=== PATIENT | female | born 1960 | race Hispanic/Latino ===

== ENCOUNTER 2017-08-16 13:36 | Inpatient (IN) | payer MEDICAID, OTHER ==
[2017-08-16 13:42] VITALS: BMI 24.3
--- NOTE | 2017-08-16 13:48 | ED PDOC ---
Arrival/HPI - General Time Seen by Provider: 08/16/17 13:44 Historian: Patient - History of Present Illness Narrative History of Present Illness (Text): 08/16/17 15:17 A 57 year old female, whose past medical history includes COPD (continued use of tobacco), hypertension, anxiety, depression, presents to the emergency department complaining of increased somnolence for 1 week. Patient reports also experiencing apathetic depressed mood. Patient displays perioral cyanosis and cough with whitish mucous. Denies of any fever, chills, chest pain, or any complaints at this time. Also, patient notes having palpitations that are relieved with Albuterol. PMD: Dr. Cordova Past Medical History - Provider Review Nursing Documentation Reviewed: Yes - Travel History Have you recently traveled outside [place] w/in the past 3 mons?: No Family/Social History - Physician Review Nursing Documentation Reviewed: Yes Family/Social History: No Known Family HX Allergies/Home Meds Allergies/Adverse Reactions: Allergies No Known Allergies Allergy (Verified 08/16/17 13:42) Home Medications: Home Meds Medication Instructions Recorded Confirmed Albuterol HFA [Ventolin HFA 90 60 puff INH PRN PRN 08/16/17 08/16/17 mcg/actuation (8 g)] Albuterol Sulfate [Proair 90 mcg INH PRN PRN 08/16/17 08/16/17 Respiclick] Bupropion HCl [Bupropion HCl Sr] 150 mg PO BID 08/16/17 08/16/17 Dextroamphetamine/Amphetamine 5 mg PO DAILY 08/16/17 08/16/17 [Dextroamp-Amphetamine 5 mg Tab] Lisinopril/Hydrochlorothiazide 1 tab PO DAILY 08/16/17 08/16/17 [Lisinopril-Hctz 10-12.5 mg Tab] Review of Systems - Physician Review All systems were reviewed & negative as marked: Yes - Review of Systems Constitutional: Other (somnolence). absent: Fevers, Night Sweats Eyes: Normal ENT: Normal Respiratory: Cough (with whitish mucous) Cardiovascular: Palpitations (relieved with Albuterol). absent: Chest Pain Gastrointestinal: Normal Genitourinary Female: Normal Musculoskeletal: Normal Skin: Other (perioral cyanosis) Neurological: Normal Endocrine: Normal Hemo/Lymphatic: Normal Psychiatric: Depression Physical Exam Vital Signs Reviewed: Yes Vital Signs Temp Pulse Resp BP Pulse Ox 08/16/17 17:31 98 H 18 114/81 93 L 08/16/17 16:21 117/67 08/16/17 13:37 98 F 99 H 18 105/67 95 Temperature: Afebrile Blood Pressure: Normal Pulse: Regular Respiratory Rate: Normal Appearance: Positive for: Well-Appearing Pain Distress: None Mental Status: Positive for: Alert and Oriented X 3 - Systems Exam Head: Present: Atraumatic, Normocephalic Pupils: Present: PERRL Extroacular Muscles: Present: EOMI Conjunctiva: Present: Normal Mouth: Present: Moist Mucous Membranes Neck: Present: Normal Range of Motion Respiratory/Chest: Present: Other (decreased I/E ratio) Cardiovascular: Present: Regular Rate and Rhythm, Normal S1, S2. No: Murmurs Abdomen: Present: Normal Bowel Sounds. No: Tenderness, Distention, Peritoneal Signs Back: Present: Normal Inspection Upper Extremity: Present: Normal Inspection. No: Cyanosis, Edema Lower Extremity: Present: Edema (+2) Neurological: Present: GCS=15, CN II-XII Intact, Speech Normal, Motor Func Grossly Intact, Normal Sensory Function, Normal Cerebellar Funct, Norm Deep Tendon Reflexes, Gait Normal Skin: Present: Warm, Dry, Normal Color. No: Rashes Psychiatric: Present: Alert, Oriented x 3, Normal Insight, Normal Concentration Medical Decision Making ED Course and Treatment: 08/16/17 15:20 Impression: 57 year old female with increased somnolence and apathetic depressed mood. Physical exam shows significant oxygen saturation 72% of room air; lungs shows decreased I/E ratio shallow volume; +2 edema to lower extremities. Differential Diagnosis included but are not limited to: COPD Exacerbation vs. URI with concomitant Plan: -- EKG -- Chest X-ray -- Blood Culture -- Urinalysis -- Doxycycline -- Lasix -- Atrovert -- Medrol -- Rocephin -- Reassess and disposition Progress Notes: 08/16/2017 15:22 Admission dictated given to low O2 saturation. Patient will obtain psychiatric evaluation. 08/16/2017 15:26 Chest X-ray IMPRESSION: No active disease. Small pleural effusions. Dictator: Jose Enrique White MD - Lab Interpretations Microbiology Results: Microbiology Results 08/16/17 15:15 Blood-Venous Blood Culture - Final NO GROWTH AFTER 5 DAYS 08/16/17 15:15 Blood-Venous Gram Stain - Final TEST NOT PERFORMED 08/16/17 14:45 Blood-Venous Blood Culture - Final NO GROWTH AFTER 5 DAYS 08/16/17 14:45 Blood-Venous Gram Stain - Final TEST NOT PERFORMED Lab Results: 08/16/17 14:30 08/16/17 14:30 Lab Results 08/16/17 14:30: TSH 3rd Generation 3.59 08/16/17 14:30: Sodium 141, Chloride 97 L, Potassium 4.5, Carbon Dioxide 33, Anion Gap 16, BUN 46 H, Creatinine 1.7 H, Est GFR ( Amer) 37, Est GFR ( Non-Af Amer) 31, Random Glucose 100, Calcium 9.8, Total Bilirubin 1.7 H, AST 23 , ALT 37, Alkaline Phosphatase 46, Lactate Dehydrogenase 547, Total Creatine Kinase 51, Troponin I 0.03, NT-Pro-B Natriuret Pep 01034 H, Total Protein 6.5, Albumin 3.6, Globulin 2.9, Albumin/Globulin Ratio 1.2 08/16/17 14:30: pO2 30, VBG pH 7.24 L, VBG pCO2 91.0 H*, VBG HCO3 39.0 H, VBG Total CO2 41.8 H, VBG O2 Sat (Calc) 52.2, VBG Base Excess 8.0 H, VBG Potassium 4.7, Sodium 138.0, Chloride 99.0, Glucose 105, Lactate 1.3, FiO2 21.0, Venous Blood Potassium 4.7 08/16/17 14:30: WBC 9.5, RBC 5.77, Hgb 17.7 H, Hct 57.1 H*, MCV 99.0, MCH 30.7, MCHC 31.0, RDW 16.5 H, Plt Count 281, MPV 11.2 H, Gran % 69.3 H, Lymph % (Auto) 16.9 L, Roosevelt % (Auto) 12.7 H, Eos % (Auto) 0.5 L, Baso % (Auto) 0.6, Gran # 6.56 H, Lymph # 1.6, Roosevelt # 1.2 H, Eos # 0.1, Baso # 0.06 08/16/17 14:30: PT 15.0 H, INR 1.31 H, APTT 30.4 - RAD Interpretation Radiology Orders: 08/16/17 13:44 CHEST TWO VIEWS (PA/LAT) [RAD] Stat - Medication Orders Current Medication Orders: Aspirin (Aspirin Chewable) 81 mg PO DAILY [facility] Last Admin: 08/27/17 10:23 Dose: 81 mg Benzocaine/Menthol (Cepacol Sore Throat) 1 sophia MT Q2H PRN PRN Reason: Sore Throat Last Admin: 08/26/17 22:02 Dose: 1 sophia Bupropion HCl (Wellbutrin Sr 150 Mg) 150 mg PO BID [facility] Last Admin: 08/27/17 17:46 Dose: 150 mg Clonazepam (Klonopin) 1 mg PO TID JONAH PRN Reason: Protocol Last Admin: 08/27/17 17:07 Dose: 1 mg Behavioural Document 08/27/17 17:07 (Rec: 08/27/17 17:07 [id number]) Maintenance Maintenance Dose Yes Re-Assess: Reassess Psych Meds Document 08/27/17 18:07 (Rec: 08/27/17 18:34 [id number]) Reassess Psych Med Effective Furosemide (Lasix) 40 mg IVP Q12 [facility] Last Admin: 08/27/17 21:34 Dose: Not Given Non-Admin Reason: BP Parameters Not Met [facility] Blood Pressure Document 08/27/17 21:34 CO (Rec: 08/27/17 21:35 CO [id number]) Blood Pressure Blood Pressure (100/60-150/90) 100/65 Guaifenesin/Dextromethorphan (Robitussin Dm) 10 ml PO Q4H PRN PRN Reason: Cough Last Admin: 08/27/17 21:30 Dose: 10 ml Home Med (Home Med) 1 unit PO DAILY [facility] Last Admin: 08/27/17 10:29 Dose: Home Med (Home Med) 1 unit PO DAILY [facility] Last Admin: 08/27/17 10:29 Dose: Vancomycin HCl (Vancomycin 1gm) 1 gm in 250 mls @ 167 mls/hr IVPB Q12H JONAH PRN Reason: Protocol Last Admin: 08/27/17 17:07 Dose: 167 mls/hr eMAR Start Stop Document 08/27/17 17:07 (Rec: 08/27/17 17:07 [id number]) Intravenous Solution Start Date 08/27/17 Start Time 17:07 End Date 08/27/17 End time 18:10 Total Infusion Time 63 Meropenem 500 mg/ Sodium (Chloride) 100 mls @ 100 mls/hr IVPB Q8 JONAH PRN Reason: Protocol Last Admin: 08/27/17 21:40 Dose: 100 mls/hr eMAR Start Stop Document 08/27/17 21:40 CO (Rec: 08/27/17 21:40 CO [id number]) Intravenous Solution Start Date 08/27/17 Start Time 21:40 Ibuprofen (Motrin Tab) 400 mg PO Q6H PRN PRN Reason: Pain, moderate (4-7) Last Admin: 08/26/17 22:02 Dose: 400 mg MAR Pain/Vitals Document 08/26/17 22:02 JOELS (Rec: 08/26/17 22:04 KOPPS [id number]) Pain Reassessment Is This A Pain ReAssessment? No Sleep Is patient sleeping during reassessment? No Presence of Pain Presence of Pain Yes Pain Scale Used Pain Scale Used Numeric Location Left, Right or Bilateral Bilateral Upper or Lower Upper Pain Location Body [employer] Description Constant Intensity 6 Scale Used Numeric Pain Behavior Facial Grimacing Aggravating Factors ADL's Changing Position Exercise/Activity Alleviating Factors Medication Re-Assess: [facility] Pain/Vitals Document 08/26/17 23:02 JOELS (Rec: 08/27/17 00:26 KOPPS [id number]) Pain Reassessment Is This A Pain ReAssessment? Yes Sleep Is patient sleeping during reassessment? No Presence of Pain Presence of Pain No Levalbuterol HCl (Xopenex) 1.25 mg IH [id number] [facility] Last Admin: 08/27/17 19:17 Dose: 1.25 mg Levalbuterol HCl (Xopenex) 0.63 mg IH Q2H PRN PRN Reason: Shortness of Breath Last Admin: 08/25/17 16:09 Dose: 0.63 mg Lisinopril (Zestril) 10 mg PO DAILY [facility] Last Admin: 08/20/17 12:13 Dose: Not Given Non-Admin Reason: Patient Lethargic [facility] Pulse and Blood Pressure Document 08/20/17 12:13 [facility] (Rec: 08/20/17 12:14 [id number] Pulse Pulse Rate (60-90) 105 Blood Pressure Blood Pressure (100/60-150/90) 140/93 Methylprednisolone (Solu-Medrol) 40 mg IVP Q12H [facility] Last Admin: 08/27/17 12:26 Dose: 40 mg IVP Administration Document 08/27/17 12:26 J (Rec: 08/27/17 12:26 [id number]) Charges for Administration # of IVP Administrations 1 Metronidazole (Flagyl) 500 mg PO Q8 JONAH PRN Reason: Protocol Last Admin: 08/27/17 21:30 Dose: 500 mg Pantoprazole Sodium (Protonix Ec Tab) 40 mg PO ACB [facility] Last Admin: 08/27/17 08:46 Dose: 40 mg Discontinued Medications Acetaminophen (Tylenol 325mg Tab) 650 mg PO Q4H PRN PRN Reason: Fever >100.4 F Last Admin: 08/23/17 04:11 Dose: 650 mg MAR Pain/Vitals Document 08/23/17 04:11 B.P (Rec: 08/23/17 04:11 B.P [id number]) Pain Reassessment Is This A Pain ReAssessment? No Presence of Pain Presence of Pain Yes Location Pain Location Body [employer] Acetaminophen (Tylenol 120mg Supp) 120 mg RC Q6 PRN PRN Reason: Fever >100.4 F Last Admin: 08/21/17 12:38 Dose: 120 mg MAR Pain/Vitals Document 08/21/17 12:38 OLIVIER (Rec: 08/21/17 12:38 OLIVIER [id number]) Pain Reassessment Is This A Pain ReAssessment? No Sleep Is patient sleeping during reassessment? No Presence of Pain Presence of Pain No Albuterol/Ipratropium (Duoneb 3 Mg/0.5 Mg (3 Ml) Ud) 3 ml IH [id number] SCH Last Admin: 08/18/17 14:00 Dose: Not Given Non-Admin Reason: Patient in Radiology Albuterol/Ipratropium (Duoneb 3 Mg/0.5 Mg (3 Ml) Ud) 3 ml IH Q6H [facility] Albuterol/Ipratropium (Duoneb 3 Mg/0.5 Mg (3 Ml) Ud) 3 ml IH [id number] [facility] Last Admin: 08/20/17 06:40 Dose: 3 ml Albuterol/Ipratropium (Duoneb 3 Mg/0.5 Mg (3 Ml) Ud) 3 ml IH STAT STA Stop: 08/20/17 07:36 Last Admin: 08/20/17 07:45 Dose: 3 ml Albuterol/Ipratropium (Duoneb 3 Mg/0.5 Mg (3 Ml) Ud) 3 ml IH STAT STA Stop: 08/20/17 11:03 Benzocaine/Menthol (Cepacol Sore Throat) 1 sophia MT Q2H [facility] Last Admin: 08/18/17 09:18 Dose: 1 sophia Budesonide (Pulmicort Respules) 0.5 mg IH [id number] [facility] Last Admin: 08/20/17 06:40 Dose: 0.5 mg Doxycycline Hyclate (Doryx) 100 mg PO Q12 [facility] PRN Reason: Protocol Last Admin: 08/24/17 09:15 Dose: 100 mg Enoxaparin Sodium (Lovenox) 80 mg SC Q12H [facility] PRN Reason: Protocol Enoxaparin Sodium (Lovenox) 70 mg SC Q12H [facility] PRN Reason: Protocol Last Admin: 08/20/17 12:37 Dose: 70 mg Subcutaneous Administrations Document 08/20/17 12:37 MMC (Rec: 08/20/17 12:37 [facility] [id number]) Injection Site MAR Injection Site Right Abdomen Charges for Administration # of Subcutaneous Administrations 1 Furosemide (Lasix) 40 mg IVP STAT STA Stop: 08/16/17 16:05 Last Admin: 08/16/17 16:21 Dose: 40 mg MAR Blood Pressure Document 08/16/17 16:21 LA (Rec: 08/16/17 16:32 LA [id number]) Blood Pressure Blood Pressure (100/60-150/90) 117/67 IVP Administration Document 08/16/17 16:21 LA (Rec: 08/16/17 16:32 LA [id number]) Charges for Administration # of IVP Administrations 1 Furosemide (Lasix) 40 mg IVP DAILY [facility] Last Admin: 08/17/17 09:48 Dose: 40 mg MAR Blood Pressure Document 08/17/17 09:48 JW (Rec: 08/17/17 09:48 JW [id number]) Blood Pressure Blood Pressure (100/60-150/90) 114/78 IVP Administration Document 08/17/17 09:48 JW (Rec: 08/17/17 09:48 JW [id number]) Charges for Administration # of IVP Administrations 1 Furosemide (Lasix) 40 mg PO DAILY [facility] Last Admin: 08/19/17 11:41 Dose: 40 mg MAR Blood Pressure Document 08/19/17 11:41 MMC (Rec: 08/19/17 11:42 [facility]MC [id number]) Blood Pressure Blood Pressure (100/60-150/90) 142/96 Furosemide (Lasix) 40 mg IVP DAILY [facility] Last Admin: 08/20/17 10:56 Dose: 40 mg MAR Blood Pressure Document 08/20/17 10:56 MMC (Rec: 08/20/17 10:56 [facility] [id number]) Blood Pressure Blood Pressure (100/60-150/90) 150/104 IVP Administration Document 08/20/17 10:56 MMC (Rec: 08/20/17 10:56 [id number] Charges for Administration # of IVP Administrations 1 Heparin Sodium (Porcine) (Heparin) 5,000 units SC Q12 JONAH PRN Reason: Protocol Last Admin: 08/20/17 11:30 Dose: 5,000 units Subcutaneous Administrations Document 08/20/17 11:30 [facility] (Rec: 08/20/17 12:15 [id number] Injection Site MAR Injection Site Left Abdomen Charges for Administration # of Subcutaneous Administrations 1 Heparin Sodium (Porcine) (Heparin) 2,840 units IV ONCE ONE Stop: 08/22/17 02:46 Last Admin: 08/22/17 02:47 Dose: 2,840 units eMAR Start Stop Document 08/22/17 02:47 B.P (Rec: 08/22/17 02:47 B.P [id number]) Intravenous Solution Start Date 08/22/17 Start Time 02:47 Doxycycline Hyclate 100 mg/ (Sodium Chloride) 100 mls @ 100 mls/hr IVPB ONCE ONE PRN Reason: Protocol Stop: 08/16/17 17:04 Last Admin: 08/16/17 17:22 Dose: 100 mls/hr eMAR Start Stop Document 08/16/17 17:22 LA (Rec: 08/16/17 17:29 LA [id number]) Intravenous Solution Start Date 08/16/17 Start Time 17:29 End Date 08/16/17 End time 18:29 Total Infusion Time 60 Ceftriaxone Sodium (Rocephin 1 Gram Ivpb) 1 gm in 100 mls @ 200 mls/hr IVPB STAT STA PRN Reason: Protocol Stop: 08/16/17 16:33 Last Admin: 08/16/17 16:33 Dose: 200 mls/hr eMAR Start Stop Document 08/16/17 16:33 LA (Rec: 08/16/17 16:33 LA [id number]) Intravenous Solution Start Date 08/16/17 Start Time 16:33 End Date 08/16/17 End time 17:03 Total Infusion Time 30 Ceftriaxone Sodium (Rocephin 2 Gm Ivpb) 2 gm in 100 mls @ 100 mls/hr IVPB DAILY JONAH PRN Reason: Protocol Last Admin: 08/18/17 09:11 Dose: 100 mls/hr eMAR Start Stop Document 08/18/17 09:11 JW (Rec: 08/18/17 09:12 JW [id number]) Intravenous Solution Start Date 08/18/17 Start Time 09:12 End Date 08/18/17 End time 10:12 Total Infusion Time 60 Azithromycin (Zithromax 500mg In Ns) 500 mg in 250 mls @ 167 mls/hr IVPB DAILY JONAH PRN Reason: Protocol Last Admin: 08/18/17 10:37 Dose: Magnesium Sulfate/Dextrose (Magnesium Sulfate 1 Gm/100 Ml D5w) 1 gm in 100 mls @ 100 mls/hr IVPB ONCE ONE Stop: 08/17/17 09:45 Last Admin: 08/17/17 09:49 Dose: 100 mls/hr eMAR Start Stop Document 08/17/17 09:49 JW (Rec: 08/17/17 09:50 JW [id number]) Intravenous Solution Start Date 08/17/17 Start Time 09:50 End Date 08/17/17 End time 10:50 Total Infusion Time 60 Sodium Chloride (Sodium Chloride 0.9%) 1,000 mls @ 50 mls/hr IV .Q20H JONAH Stop: 08/18/17 23:59 Last Admin: 08/18/17 20:08 Dose: 50 mls/hr eMAR Start Stop Document 08/18/17 20:08 LVC (Rec: 08/18/17 20:10 LVC [id number]) Intravenous Solution Start Date 08/18/17 Start Time 20:08 Magnesium Sulfate/Dextrose (Magnesium Sulfate 1 Gm/100 Ml D5w) 1 gm in 100 mls @ 100 mls/hr IVPB ONCE ONE Stop: 08/18/17 14:06 Last Admin: 08/18/17 16:51 Dose: 100 mls/hr Comments: patient was in testing eMAR Start Stop Document 08/18/17 16:51 JW (Rec: 08/18/17 16:52 JW [id number]) Intravenous Solution Start Date 08/18/17 Start Time 16:52 Fentanyl Citrate (Fentanyl Citrate/Sodium Chloride 1 Mg/100 Ml) 1,000 mcg in 100 mls @ 2 mls/hr IV .Q24H PRN; Protocol; 20 MCG/HR PRN Reason: TITRATE PER MD ORDER Last Titration: 08/21/17 23:30 Dose: 40 mcg/hr, 4 mls/hr [place] Agitation Sedation Document 08/21/17 23:30 B.P (Rec: 08/22/17 02:51 B.P [id number]) [place] Agitation Sedation Scale [place] Agitation Sedation Scale Score +1 Restless Anxious bu movements not aggressive vigorous Titration Intervention Document 08/21/17 23:30 B.P (Rec: 08/22/17 02:51 B.P [id number]) Titration Intake Titration Intake 22 Cumulative Intake 22 Cumulative Intake (Rx) 22 Waste Amount 0 Container Volume 78 Titration Dosing Titration Dose 40 IV Rate 4 Intake/Decrease Increased Cumulative Dose 220 Midazolam 100 mg/100ml in NS (Midazolam 100 Mg/100ml In Ns) 100 mg in 100 mls @ 1 mls/hr IV .Q24H PRN; Protocol; 1 MG/HR PRN Reason: Sedation Last Admin: 08/21/17 18:12 Dose: 5 mg/hr, 5 mls/hr eMAR Start Stop Document 08/21/17 18:12 OLIVIER (Rec: 08/21/17 18:12 OLIVIER [facility]-ARTIST REPRESENTATIVE) Intravenous Solution Start Date 08/21/17 Start Time 18:12 Titration Intervention Document 08/21/17 18:12 OLIVIER (Rec: 08/21/17 18:12 OLIVIER [facility]-ARTIST REPRESENTATIVE) Titration Intake Cumulative Intake (Rx) 100 Waste Amount 0 Container Volume 100 Titration Dosing Titration Dose 5 IV Rate 5 Intake/Decrease Started/Running Cumulative Dose 100 Sodium Chloride (Sodium Chloride 0.9%) 500 mls @ 999 mls/hr IV .Q31M STA Stop: 08/20/17 20:02 Last Admin: 08/20/17 20:00 Dose: 999 mls/hr eMAR Start Stop Document 08/20/17 20:00 RAMOM (Rec: 08/20/17 20:56 RAMOM [id number]) Intravenous Solution Start Date 08/20/17 Start Time 19:30 End Date 08/20/17 End time 20:00 Total Infusion Time 30 Sodium Chloride (Sodium Chloride 0.9%) 500 mls @ 999 mls/hr IV .Q31M STA Stop: 08/20/17 20:34 Heparin Sodium/Sodium Chloride (Heparin 04327 Units/250ml 1/2 Normal Saline) 25 ,000 units in 250 mls @ 8.529 mls/hr IV .Q24H JONAH; 12 UNITS/KG/HR PRN Reason: Protocol Last Admin: 08/22/17 04:36 Dose: 12 units/kg/hr, 8.529 mls/hr eMAR Start Stop Document 08/22/17 04:36 B.P (Rec: 08/22/17 04:37 B.P [id number]) Intravenous Solution Start Date 08/22/17 Start Time 04:36 Titration Intervention Document 08/22/17 04:36 B.P (Rec: 08/22/17 04:37 B.P [id number]) Titration Intake Cumulative Intake (Rx) 250 Waste Amount 0 Container Volume 250 Titration Dosing Titration Dose 12 IV Rate 8.529 Intake/Decrease Started/Running Cumulative Dose 38116 Sodium Chloride (Sodium Chloride 0.9%) 1,000 mls @ 125 mls/hr IV .Q8H JONAH Last Admin: 08/21/17 00:22 Dose: 125 mls/hr eMAR Start Stop Document 08/21/17 00:22 SMA (Rec: 08/21/17 00:24 SMA [id number]) Intravenous Solution Start Date 08/21/17 Start Time 00:00 End Date 08/21/17 Sodium Chloride (Sodium Chloride 0.9%) 1,000 mls @ 999 mls/hr IV .Q1H1M STA Stop: 08/21/17 19:08 Last Admin: 08/21/17 19:09 Dose: 999 mls/hr eMAR Start Stop Document 08/21/17 19:09 OLIVIER (Rec: 08/21/17 19:09 OLIVIER [id number]) Intravenous Solution Start Date 08/21/17 Start Time 18:00 End Date 08/21/17 End time 19:00 Total Infusion Time 60 Dobutamine HCl/Dextrose (Dobutamine/Dextrose 5% 500mg/250ml) 500 mg in 250 mls @ 5.331 mls/hr IV .Q24H PRN; Protocol; 2.5 MCG/KG/MIN PRN Reason: TITRATE PER PROTOCOL Last Admin: 08/25/17 07:00 Dose: 2.5 mcg/kg/min, 5.331 mls/hr eMAR Start Stop Document 08/25/17 07:00 JBO (Rec: 08/25/17 07:29 [id number]) Intravenous Solution Start Date 08/25/17 Start Time 07:00 Titration Intervention Document 08/25/17 07:00 JBO (Rec: 08/25/17 07:29 [id number]) Titration Intake Cumulative Intake (Rx) 450 Waste Amount 0 Container Volume 250 Titration Dosing Titration Dose 2.5 IV Rate 5.331 Intake/Decrease Started/Running Cumulative Dose 900 Potassium Chloride (Potassium Chloride 10 Meq/100 Ml) 10 meq in 100 mls @ 50 mls/hr IVPB Q2H JONAH Stop: 08/23/17 18:14 Last Admin: 08/23/17 19:04 Dose: 50 mls/hr eMAR Start Stop Document 08/23/17 19:04 ID (Rec: 08/23/17 19:05 ID [id number]) Intravenous Solution Start Date 08/23/17 Start Time 19:04 End Date 08/23/17 Argatroban 250 mg/ Dextrose 252.5 mls @ 2.15 mls/hr IV .Q24H PRN; Protocol; 0.5 MCG/KG/MIN PRN Reason: TITRATE PER PROTOCOL Last Admin: 08/27/17 13:59 Dose: 1 mcg/kg/min, 4.3 mls/hr eMAR Start Stop Document 08/27/17 13:59 Nick (Rec: 08/27/17 14:03 [id number]) Intravenous Solution Start Date 08/27/17 Start Time 14:02 End Date 08/28/17 Titration Intervention Document 08/27/17 13:59 Nick (Rec: 08/27/17 14:03 [id number]) Titration Intake Cumulative Intake (Rx) 252.5 Waste Amount 0 Container Volume 252.5 Titration Dosing Titration Dose 1 IV Rate 4.3 Intake/Decrease Started/Running Cumulative Dose 249.9997 Potassium Chloride (Potassium Chloride 10 Meq/100 Ml) 10 meq in 100 mls @ 50 mls/hr IVPB Q2H JONAH Stop: 08/24/17 12:29 Last Admin: 08/24/17 11:54 Dose: Not Given Non-Admin Reason: Patient Refused Magnesium Sulfate 2 gm/ Sodium (Chloride) 104 mls @ 102 mls/hr IVPB ONCE ONE Stop: 08/24/17 12:12 Last Admin: 08/24/17 11:53 Dose: 102 mls/hr eMAR Start Stop Document 08/24/17 11:53 RAMOM (Rec: 08/24/17 11:54 RAMOM [id number]) Intravenous Solution Start Date 08/24/17 Start Time 12:00 End Date 08/24/17 End time 13:00 Total Infusion Time 60 Ipratropium Burney (Atrovent) 0.5 mg IH STAT STA Stop: 08/16/17 14:01 Last Admin: 08/16/17 14:38 Dose: 0.5 mg Ipratropium [place]ney (Atrovent) 0.5 mg IH STAT STA Stop: 08/16/17 16:07 Last Admin: 08/16/17 16:21 Dose: 0.5 mg Ipratropium Burney (Atrovent) 0.5 mg IH [id number] [facility] Last Admin: 08/18/17 14:00 Dose: Not Given Non-Admin Reason: Patient in Radiology Levalbuterol HCl (Xopenex) 1.25 mg IH [id number] [facility] Last Admin: 08/17/17 11:13 Dose: 1.25 mg Loperamide HCl (Imodium) 4 mg PO ONCE STA Stop: 08/27/17 16:41 Last Admin: 08/27/17 17:06 Dose: 4 mg Lorazepam (Ativan) 1 mg IVP ONCE ONE PRN Reason: Protocol Stop: 08/21/17 08:02 Last Admin: 08/21/17 08:11 Dose: 1 mg IVP Administration Document 08/21/17 08:11 OLIVIER (Rec: 08/21/17 08:12 [facility]-[id number]) Charges for Administration # of IVP Administrations 1 Behavioural Document 08/21/17 08:11 OLIVIER (Rec: 08/21/17 08:12 [facility]-[id number]) Maintenance Maintenance Dose No Nonmedicinal Nonmedicinal Interventions Therapeutic Communication Behavior Behavior for Medication: Anxiety Lorazepam (Ativan) 0.5 mg IVP Q6H PRN; Protocol PRN Reason: Anxiety Last Admin: 08/22/17 15:20 Dose: 0.5 mg IVP Administration Document 08/22/17 15:20 OLIVIER (Rec: 08/22/17 15:20 [id number]) Charges for Administration # of IVP Administrations 1 Behavioural Document 08/22/17 15:20 OLIVIER (Rec: 08/22/17 15:20 [id number]) Maintenance Maintenance Dose No Nonmedicinal Nonmedicinal Interventions Therapeutic Communication Behavior Behavior for Medication: Anxiety Re-Assess: Reassess Psych Meds Document 08/22/17 15:50 OLIVIER (Rec: 08/22/17 18:15 [id number]) Reassess Psych Med Effective Methylprednisolone (Solu-Medrol) 125 mg IVP STAT STA Stop: 08/16/17 14:00 Last Admin: 08/16/17 14:34 Dose: 125 mg IVP Administration Document 08/16/17 14:34 [place] (Rec: 08/16/17 14:38 [id number]) Charges for Administration # of IVP Administrations 1 Methylprednisolone (Solu-Medrol) 40 mg IVP Q12 JONAH Last Admin: 08/18/17 09:14 Dose: 40 mg IVP Administration Document 08/18/17 09:14 LONG (Rec: 08/18/17 09:14 JW [id number]) Charges for Administration # of IVP Administrations 1 Methylprednisolone (Solu-Medrol) 40 mg IVP Q8H JONAH Methylprednisolone (Solu-Medrol) 40 mg IVP Q8 JONAH Last Admin: 08/23/17 05:27 Dose: 40 mg IVP Administration Document 08/23/17 05:27 B.P (Rec: 08/23/17 05:27 B.P [facility] [id number]) Charges for Administration # of IVP Administrations 1 Methylprednisolone (Solu-Medrol) 40 mg IVP STAT STA Stop: 08/20/17 07:40 Last Admin: 08/20/17 07:51 Dose: 40 mg IVP Administration Document 08/20/17 07:51 [facility] (Rec: 08/20/17 07:51 [id number] Charges for Administration # of IVP Administrations 1 Methylprednisolone (Solu-Medrol) 60 mg IVP ONCE ONE Stop: 08/20/17 10:53 Last Admin: 08/20/17 11:02 Dose: 60 mg IVP Administration Document 08/20/17 11:02 [facility] (Rec: 08/20/17 11:02 [facility] [id number]) Charges for Administration # of IVP Administrations 1 Metoprolol Tartrate (Lopressor) 5 mg IVP ONCE STA Stop: 08/20/17 09:46 Last Admin: 08/20/17 09:53 Dose: 5 mg IVP Administration Document 08/20/17 09:53 [facility] (Rec: 08/20/17 09:53 [facility] [id number]) Charges for Administration # of IVP Administrations 1 MAR Pulse and Blood Pressure Document 08/20/17 09:53 [facility] (Rec: 08/20/17 09:53 [id number] Pulse Pulse Rate (60-90) 132 Blood Pressure Blood Pressure (100/60-150/90) 150/104 Nicotine (Nicoderm Cq) 1 patch TD DAILY [facility] Last Admin: 08/23/17 10:13 Dose: Not Given Pantoprazole Sodium (Protonix Inj) 40 mg IVP DAILY [facility] Last Admin: 08/19/17 09:21 Dose: 40 mg IVP Administration Document 08/19/17 09:21 [facility] (Rec: 08/19/17 09:22 [facility] [id number]) Charges for Administration # of IVP Administrations 1 Pantoprazole Sodium (Protonix Inj) 40 mg IVP DAILY JONAH Last Admin: 08/20/17 10:57 Dose: 40 mg IVP Administration Document 08/20/17 10:57 [facility] (Rec: 08/20/17 10:57 [facility] [id number]) Charges for Administration # of IVP Administrations 1 Potassium Chloride (K-Dur 20 Meq Er Tab) 40 meq PO STAT STA Stop: 08/24/17 08:20 Last Admin: 08/24/17 09:15 Dose: 40 meq Potassium Chloride (K-Dur 20 Meq Er Tab) 40 meq PO STAT STA Stop: 08/24/17 11:12 Last Admin: 08/24/17 11:57 Dose: 40 meq Potassium Chloride (K-Dur 20 Meq Er Tab) 40 meq PO STAT STA Stop: 08/25/17 08:52 Last Admin: 08/25/17 09:23 Dose: 40 meq Propofol (Diprivan) 40 mg IVP ONCE ONE Stop: 08/20/17 19:07 Last Admin: 08/20/17 19:00 Dose: 40 mg IVP Administration Document 08/20/17 19:00 [facility] (Rec: 08/20/17 20:55 [facility] [id number]) Charges for Administration # of IVP Administrations 1 - PA / DRIVE THRU ORDER TAKER / Resident Statement MD/DO has reviewed & agrees with the documentation as recorded. - Scribe Statement The provider has reviewed the documentation as recorded by the iFona Slaughter Provider Scribe Attestation: All medical record entries made by the Scribe were at my direction and personally dictated by me. I have reviewed the chart and agree that the record accurately reflects my personal performance of the history, physical exam, medical decision making, and the department course for this patient. I have also personally directed, reviewed, and agree with the discharge instructions and disposition. Disposition/Present on Arrival - Present on Arrival Any Indicators Present on Arrival: No History of DVT/PE: No History of Uncontrolled Diabetes: No Urinary Catheter: No History of Decub. Ulcer: No History Surgical Site Infection Following: None - Disposition Have Diagnosis and Disposition been Completed?: Yes Diagnosis: COPD with acute exacerbation Disposition: HOSPITALIZED Disposition Time: 21:10 Patient Plan: Admission Condition: FAIR
[2017-08-16] MEDS ORDERED: Ipratropium 0.02% Inhal Soln (0.5 mg/2.5 ml) UD IH STA ×2 (14:00→16:06)
[2017-08-16 14:47] LABS: BASO # 0.06 K/mm3 (0.0-2.0); BASO % 0.6 % (0.0-3.0); EOS # 0.1 (0.0-0.7); EOS % 0.5 % (1.5-5.0); GRAN # 6.56 (1.4-6.5); GRAN % 69.3 % (50.0-68.0); HEMOGLOBIN 17.7 g/dL (12.0-16.0); LYMPH # 1.6 (1.2-3.4); LYMPH % 16.9 % (22.0-35.0); MEAN CORPUSCULAR HEMOGLOBIN 30.7 pg (25.0-35.0); MEAN PLATELET VOLUME 11.2 fl (7.0-11.0); MONO # 1.2 (0.1-0.6); MONO % 12.7 % (1.0-6.0); RBC 5.77 10^6/uL (3.5-6.1); RED CELL DISTRIBUTION WIDTH 16.5 % (11.5-14.5); WHITE BLOOD COUNT 9.5 10^3/ul (4.5-11.0)
[2017-08-16 14:48] LABS: VENOUS BLOOD GAS PO2 30 mm/Hg (30-55); VENOUS BLOOD PH 7.24 (7.32-7.43)
[2017-08-16 15:02] LABS: INR 1.31 (0.93-1.08); PARTIAL THROMBOPLASTIN TIME 30.4 Seconds (25.1-36.5)
[2017-08-16 15:07] LABS: ALB/GLOB RATIO 1.2 (1.1-1.8); ALBUMIN 3.6 g/dL (3.0-4.8); CALCIUM 9.8 mg/dL (8.4-10.5)
[2017-08-16 15:18] LABS: TROPONIN I 0.03 ng/mL
--- NOTE | 2017-08-16 15:27 | RAD ---
HISTORY: sob COMPARISON: No prior. TECHNIQUE: Chest PA and lateral FINDINGS: LUNGS: No active pulmonary disease. PLEURA: Small bilateral pleural effusions CARDIOVASCULAR: Normal. OSSEOUS STRUCTURES: No significant abnormalities. VISUALIZED UPPER ABDOMEN: Normal. OTHER FINDINGS: None. IMPRESSION: No active disease. Small pleural effusions
[2017-08-16] MEDS ORDERED: cefTRIAXone 1 gm 1 GM/100 ML BAG IVPB STA (16:04)
[2017-08-16] MEDS ORDERED: Albuterol-Ipratrop 3 mg / 0.5 (3 ml) UD IH PRN (17:54)
[2017-08-16 19:05] LABS: URINE APPEARANCE CLEAR (CLEAR); URINE BILIRUBIN NEGATIVE (NEGATIVE); URINE BLOOD NEGATIVE (NEGATIVE); URINE COLOR YELLOW (YELLOW); URINE GLUCOSE (UA) NEGATIVE (NEGATIVE); URINE LEUKOCYTE ESTERASE NEGATIVE Leu/uL (NEGATIVE); URINE NITRATE NEGATIVE (NEGATIVE); URINE PROTEIN NEGATIVE mg/dL (<30 mg/dL); URINE UROBILINOGEN 0.2 E.U./dL (<1 E.U./dL)
--- NOTE | 2017-08-16 19:51 | CARD ---
APPROVED REPORT EKG Measurement Heart [id number] NE [id number] <Conclusion> Normal sinus rhythm Right axis deviation Septal infarct, age undetermined Abnormal ECG
[2017-08-16] MEDS ORDERED: Albuterol-Ipratrop 3 mg / 0.5 (3 ml) UD IH SCH (20:00)
[2017-08-16] MEDS: Ipratropium 0.02% Inhal Soln (0.5 mg/2.5 ml) UD IH SCH (20:10)
[2017-08-16] MEDS: Levalbuterol 1.25 MG/3 ML Inhal Soln UD IH SCH (20:10)
--- NOTE | 2017-08-16 20:31 | CP.PCM.HP ---
<Sae Cooper - Last Filed: 08/16/17 20:00> History of Present Illness - History of Present Illness History of Present Illness: CC: SOB HPI: Pt is a 57 yo F with PMH of COPD, HTN, anxiety, and depression presents due to shortness of breath and increased somnolence for the past 1 week. Pt's son at bedside states that she seems more confused than normal for the last few weeks. He also states that she has had poor appetite and increased urinary frequency for approximately 2 weeks. Pt has been feeling more depressed and apathetic lately. Dr. Thorpe follows patient as outpatient for history of depression and anxiety. Pt's son states that she has also had productive cough with white sputum during this time period as well. Pt denies any past cardiac history, but son states that she can only walk 1-1.5 blocks before becoming short of breath and occasionally requires multiple pillows to sleep. Pt denied CP, nausea, vomiting, abdominal pain, fever, chills, MINOR, or dizziness. PMD: Tasha PMH: COPD, HTN, anxiety, depression PSH: All: NKDA FHx: Lung/kidney/bone CA, [place], DM SH: 1/2 pack/day for more than 30 years; Denied EtOH and illicit drug use Medications as per MAR Present on Admission - Present on Admission Any Indicators Present on Admission: No Review of Systems - Review of Systems Review of Systems: 12 point ROS reviewed and is negative other than what is stated in HPI. Past Patient History - Past Social History Smoking Status: Current Some Days Smoker - CARDIAC Hx Cardiac Disorders: No - PULMONARY Hx Respiratory Disorders: Yes Hx Bronchitis: Yes - NEUROLOGICAL Hx Neurological Disorder: No - HEENT Hx HEENT Problems: No - RENAL Hx Chronic Kidney Disease: No - ENDOCRINE/METABOLIC Hx Endocrine Disorders: No - INTEGUMENTARY Hx Dermatological Problems: No - MUSCULOSKELETAL/RHEUMATOLOGICAL Hx Arthritis: Yes - GASTROINTESTINAL Hx Gastrointestinal Disorders: No - GENITOURINARY/GYNECOLOGICAL Hx Genitourinary Disorders: No - PSYCHIATRIC Hx Psychophysiologic Disorder: No Hx Substance Use: No - SURGICAL HISTORY Hx Surgeries: Yes Hx Section: Yes - ANESTHESIA Hx Anesthesia: Yes Meds Allergies/Adverse Reactions: Allergies Allergy/AdvReac Type Severity Reaction Status Date / Time No Known Allergies Allergy Verified 08/16/17 13:42 Physical Exam - Constitutional Appears: In Acute Distress, Confused - Head Exam Head Exam: NORMAL INSPECTION - Eye Exam Eye Exam: Normal appearance - ENT Exam ENT Exam: Normal Exam - Neck Exam Neck exam: Positive for: Normal Inspection Additional comments: no JVD - Respiratory Exam Respiratory Exam: Rales (b/l bases). absent: Accessory Muscle Use, Rhonchi, Wheezes, Respiratory Distress - Cardiovascular Exam Cardiovascular Exam: Tachycardia, +S1, +S2. absent: Diastolic murmur, Gallop, Rubs, Systolic Murmur - GI/Abdominal Exam GI & Abdominal Exam: Soft. absent: Distended, Guarding, Rebound, Tenderness - Extremities Exam Additional comments: b/l LE edema 2+ - Neurological Exam Neurological exam: Alert, Altered - Psychiatric Exam Psychiatric exam: Normal Affect, Normal Mood - Skin Skin Exam: Dry, Intact, Normal Color, Warm Results - Vital Signs Recent Vital Signs: Last Vital Signs Temp 98 F 08/16/17 13:37 Pulse 98 H 08/16/17 17:31 Resp 18 08/16/17 17:31 BP 114/81 08/16/17 17:31 Pulse Ox 93 L 08/16/17 17:31 - Labs Result Diagrams: 08/16/17 14:30 08/16/17 14:30 Labs: Laboratory Results - last 24 hr 08/16/17 18:49 Urine Color Yellow Urine Appearance Clear Urine pH 6.0 Ur Specific [place] 1.015 Urine Protein Negative Urine Glucose (UA) Negative Urine Ketones Negative Urine Blood Negative Urine Nitrate Negative Urine Bilirubin Negative Urine Urobilinogen 0.2 Ur Leukocyte Esterase Negative Assessment & Plan - Assessment and Plan (Free Text) Assessment: 57 yo female with PMH COPD, HTN, anxiety, and depression admitted for evaluation for CHF vs. COPD exacerbation. Plan: 1. CHF vs COPD exacerbation - Cardio consulted - BNP [id number] - VBG showed pH 7.24, pCO2 91 - F/u ABG, urine electrolytes, echo - Rocephin and Azithro - Solumedrol 40 mg IVP q12h - Lasix 40 mg IVP daily - Ipratropium/albuterol neb - Strict I&O's - Daily weights - Head of bed 30 degrees - Trop 0.03, f/u trend x2 2. Depression/Anxiety - Psych consulted - Hold bupropion pending consult 3. HTN - Cont to monitor 4. KB - Cr 1.7 - Cont to trend - No IVF at this time due to possible CHF exacerbation GI/DVT PPx - Protonix - Heparin Pt seen and discussed in detail with Dr. Eckert. Robbie Cooper, PGY1 <Bay Eckert - Last Filed: 08/19/17 14:37> Results - Vital Signs Recent Vital Signs: Last Vital Signs Temp 98.2 F 08/19/17 09:26 Pulse 85 08/19/17 11:42 Resp 20 08/19/17 09:26 BP 142/96 H 08/19/17 11:42 Pulse Ox 94 L 08/19/17 09:26 - Labs Result Diagrams: 08/19/17 05:30 08/19/17 05:30 Labs: Laboratory Results - last 24 hr 08/18/17 08/19/17 08/19/17 08:00 05:30 05:30 WBC 9.0 RBC 5.69 Hgb 17.1 H Hct 54.9 H MCV 96.5 MCH 30.1 MCHC 31.1 RDW 16.1 H Plt Count 155 MPV 11.1 H Gran % 92.0 H Lymph % (Auto) 4.6 L Garvin % (Auto) 3.3 Eos % (Auto) 0.0 L Baso % (Auto) 0.1 Gran # 8.31 H Lymph # 0.4 L Garvin # 0.3 Eos # 0.0 Baso # 0.01 Neutrophils % (Manual) 92 H Lymphocytes % (Manual) 6 L Monocytes % (Manual) 2 Platelet Evaluation Normal Sodium 141 Potassium 4.3 Chloride 101 Carbon Dioxide 32 Anion Gap 13 BUN 29 H Creatinine 1.0 Est GFR ( Amer) > 60 Est GFR (Non-Af Amer) 57 Random Glucose 100 Hemoglobin A1c 6.6 H Calcium 9.7 Phosphorus 3.6 Magnesium 1.8 Total Bilirubin 1.0 AST 27 ALT 37 Alkaline Phosphatase 40 Total Protein 6.2 Albumin 3.4 Globulin 2.8 Albumin/Globulin Ratio 1.2 Attending/Attestation - Attestation I have personally seen and examined this patient.: Yes I have fully participated in the care of the patient.: Yes I have reviewed all pertinent clinical information: Yes Notes (Text): 08/19/17 14:28 attending note; Patient seen and examined with resident. Patient is a 57-year-old female with PMH of chronic obstructive lung disease, hypertension, current smoker, anxiety, and depression presents due to shortness of breath and increased somnolence for the past 1 week. patient was treated with oxygen in the ER. Currently more alert and awake. Denies taking any opiates and benzodiazepine. urine drug screen ordered. Patient's son by the bedside. Chronic COPD; currently on albuterol inhaler. Continues to smoke 1 pack per day. Continue DuoNeb treatment. Continue oxygen. Monitor saturation closely. Bilateral lower extremity swelling; lower extremity doppler requested. depression; psychiatric evaluation with Dr. Thorpe requested. admit the patient and monitor closely. Upon discharge the patient will follow-up PMD .
[2017-08-16 23:17] LABS: ARTERIAL BLOOD GAS HCO3 34.8 mmol/L (21-28); ARTERIAL BLOOD GAS HEMOGLOBIN 16.3 g/dL (11.7-17.4); ARTERIAL BLOOD GAS O2 CAPACITY 21.5 mL/dl (16-24); ARTERIAL BLOOD GAS O2 CONTENT 20.1 ML/dl (15-23); ARTERIAL BLOOD GAS O2 SAT 93.3 % (95-98); ARTERIAL BLOOD GAS PCO2 66 mm/Hg (35-45); ARTERIAL BLOOD GAS PH 7.33 (7.35-7.45); ARTERIAL BLOOD GAS TCO2 36.8 mmol.L (22-28)
[2017-08-17] MEDS: Levalbuterol 1.25 MG/3 ML Inhal Soln UD IH SCH ×2 (01:47→11:13)
[2017-08-17] MEDS: Ipratropium 0.02% Inhal Soln (0.5 mg/2.5 ml) UD IH SCH ×3 (01:47→20:04)
[2017-08-17 08:06] LABS: ALB/GLOB RATIO 1.2 (1.1-1.8); ALBUMIN 3.1 g/dL (3.0-4.8); CALCIUM 9.3 mg/dL (8.4-10.5); MAGNESIUM 1.6 mg/dL (1.7-2.2)
[2017-08-17 08:07] LABS: TROPONIN I 0.02 ng/mL
[2017-08-17 08:09] LABS: BASO # 0.02 K/mm3 (0.0-2.0); BASO % 0.3 % (0.0-3.0); GRAN # 6.1 (1.4-6.5); GRAN % 76.4 % (50.0-68.0); HEMOGLOBIN 16.5 g/dL (12.0-16.0); LYMPH # 1.1 (1.2-3.4); LYMPH % 13.4 % (22.0-35.0); MEAN CELL VOLUME 96.9 fl (80.0-105.0); MEAN PLATELET VOLUME 12.4 fl (7.0-11.0); MONO # 0.8 (0.1-0.6); MONO % 9.9 % (1.0-6.0); RBC 5.5 10^6/uL (3.5-6.1); RED CELL DISTRIBUTION WIDTH 16.3 % (11.5-14.5)
[2017-08-17] MEDS ORDERED: Magnesium Sulfate 1 gm in D5W 1 GM/100 ML BAG IVPB ONE (08:46)
--- NOTE | 2017-08-17 09:38 | CT ---
PROCEDURE: CT HEAD WITHOUT CONTRAST. HISTORY: AMS COMPARISON: None available. TECHNIQUE: Axial computed tomography images were obtained through the head/brain without intravenous contrast. Radiation dose: Total exam DLP = mGy-cm. This CT exam was performed using one or more of the following dose reduction techniques: Automated exposure control, adjustment of the mA and/or kV according to patient size, and/or use of iterative reconstruction technique. FINDINGS: HEMORRHAGE: No intracranial hemorrhage. BRAIN: No mass effect or edema. Mild chronic periventricular white matter ischemic disease. VENTRICLES: Unremarkable. No hydrocephalus. CALVARIUM: Unremarkable. PARANASAL SINUSES: Unremarkable as visualized. No significant inflammatory changes. MASTOID AIR CELLS: Unremarkable as visualized. No inflammatory changes. OTHER FINDINGS: None. IMPRESSION: Mild chronic periventricular white matter ischemic disease.
[2017-08-17] MEDS: cefTRIAXone 2 GM IN NS 2 GM/100 ML BAG IVPB SCH (09:52)
[2017-08-17] MEDS: MethylPREDNISolone 40 mg Vial IVP SCH ×2 (09:52→21:42)
[2017-08-17] MEDS: Azithromycin 500MG/NS 250ml 500 MG/250 ML BAG IVPB SCH (09:54)
--- NOTE | 2017-08-17 12:28 | US ---
HISTORY: Leg pain and swelling. Evaluate for DVT PHYSICIAN(S): Maximo Trimble MD. TECHNIQUE: Duplex sonography and color-flow Doppler with graded compression were used to evaluate the deep venous systems of both lower extremities. FINDINGS: The visualized deep venous systems of both lower extremities are sonographically normal and compressible. Normal wave forms and augmentation are seen. There is no sonographic evidence for deep venous thrombosis in the visualized segments of both lower extremities. There is a 1.3 x 24.3 cm fluid collection left popliteal fossa, consistent with a Andersen cyst. IMPRESSION: No sonographic evidence for deep venous thrombosis in the visualized segments of both lower extremities.
--- NOTE | 2017-08-17 17:32 | CP.PCM.PN ---
<Liu Rsos - Last Filed: 08/17/17 17:28> Subjective - Date & Time of Evaluation Date of Evaluation: 08/17/17 Time of Evaluation: 09:00 - Subjective Subjective: Patient seen and examined at bedside in no acute distress. Patient asked me to return later since she was eating breakfast at the time. States she feels fine. Patient denies abdominal pain, fevers, chills, cough, nausea, vomiting, diarrhea. Objective - Vital Signs/Intake and Output Vital Signs (last 24 hours): Temp Pulse Resp BP Pulse Ox 98.2 F 84 20 107/68 94 L 08/17/17 16:33 08/17/17 16:33 08/17/17 16:33 08/17/17 16:33 08/17/17 16:33 Intake and Output: 08/17/17 08/17/17 06:59 18:59 Intake Total 460 Output Total 200 Balance 260 - Medications Medications: Current Medications Heparin Sodium (Porcine) (Heparin) 5,000 units SC Q12 JONAH PRN Reason: Protocol Last Admin: 08/17/17 09:55 Dose: 5,000 units Ceftriaxone Sodium (Rocephin 2 Gm Ivpb) 2 gm in 100 mls @ 100 mls/hr IVPB DAILY JONAH PRN Reason: Protocol Last Admin: 08/17/17 09:52 Dose: 100 mls/hr Azithromycin (Zithromax 500mg In Ns) 500 mg in 250 mls @ 167 mls/hr IVPB DAILY JONAH PRN Reason: Protocol Last Admin: 08/17/17 09:54 Dose: 167 mls/hr Sodium Chloride (Sodium Chloride 0.9%) 1,000 mls @ 50 mls/hr IV .Q20H [facility] Stop: 08/18/17 23:59 Ipratropium Hettinger (Atrovent) 0.5 mg IH [id number] [facility] Last Admin: 08/17/17 11:13 Dose: 0.5 mg Levalbuterol HCl (Xopenex) 1.25 mg IH [id number] [facility] Last Admin: 08/17/17 11:13 Dose: 1.25 mg Methylprednisolone (Solu-Medrol) 40 mg IVP Q12 JONAH Last Admin: 08/17/17 09:52 Dose: 40 mg Pantoprazole Sodium (Protonix Inj) 40 mg IVP DAILY [facility] Last Admin: 08/17/17 09:50 Dose: 40 mg - Labs Labs: 08/17/17 07:00 08/17/17 07:00 PT 15.0 SECONDS (9.4-12.5) H 08/16/17 14:30 INR 1.31 (0.93-1.08) H 08/16/17 14:30 APTT 30.4 Seconds (25.1-36.5) 08/16/17 14:30 - Constitutional Appears: Non-toxic, No Acute Distress - Head Exam Head Exam: ATRAUMATIC, NORMAL INSPECTION, NORMOCEPHALIC - Eye Exam Eye Exam: EOMI, Normal appearance - ENT Exam ENT Exam: Mucous Membranes Moist - Cardiovascular Exam Cardiovascular Exam: REGULAR RHYTHM - GI/Abdominal Exam GI & Abdominal Exam: Soft, Normal Bowel Sounds <Keswani,Anival P - Last Filed: 08/17/17 18:38> Objective - Vital Signs/Intake and Output Vital Signs (last 24 hours): Temp Pulse Resp BP Pulse Ox 98.2 F 84 20 107/68 94 L 08/17/17 16:33 08/17/17 16:33 08/17/17 16:33 08/17/17 16:33 08/17/17 16:33 Intake and Output: 08/17/17 08/17/17 06:59 18:59 Intake Total 460 Output Total 200 Balance 260 - Medications Medications: Current Medications Heparin Sodium (Porcine) (Heparin) 5,000 units SC Q12 JONAH PRN Reason: Protocol Last Admin: 08/17/17 09:55 Dose: 5,000 units Ceftriaxone Sodium (Rocephin 2 Gm Ivpb) 2 gm in 100 mls @ 100 mls/hr IVPB DAILY JONAH PRN Reason: Protocol Last Admin: 08/17/17 09:52 Dose: 100 mls/hr Azithromycin (Zithromax 500mg In Ns) 500 mg in 250 mls @ 167 mls/hr IVPB DAILY JONAH PRN Reason: Protocol Last Admin: 08/17/17 09:54 Dose: 167 mls/hr Sodium Chloride (Sodium Chloride 0.9%) 1,000 mls @ 50 mls/hr IV .Q20H JONAH Stop: 08/18/17 23:59 Last Admin: 08/17/17 17:41 Dose: 50 mls/hr Ipratropium Hettinger (Atrovent) 0.5 mg IH [id number] [facility] Last Admin: 08/17/17 11:13 Dose: 0.5 mg Levalbuterol HCl (Xopenex) 1.25 mg IH [id number] [facility] Last Admin: 08/17/17 11:13 Dose: 1.25 mg Methylprednisolone (Solu-Medrol) 40 mg IVP Q12 [facility] Last Admin: 08/17/17 09:52 Dose: 40 mg Pantoprazole Sodium (Protonix Inj) 40 mg IVP DAILY [facility] Last Admin: 08/17/17 09:50 Dose: 40 mg - Labs Labs: 08/17/17 07:00 08/17/17 07:00 PT 15.0 SECONDS (9.4-12.5) H 08/16/17 14:30 INR 1.31 (0.93-1.08) H 08/16/17 14:30 APTT 30.4 Seconds (25.1-36.5) 08/16/17 14:30 Attending/Attestation - Attestation I have personally seen and examined this patient.: Yes I have fully participated in the care of the patient.: Yes I have reviewed all pertinent clinical information, including history, physical exam and plan: Yes Notes (Text): 08/17/17 18:32 Patient is alert and oriented x3, mentions is sob in routine activity more since last few wk, she has no wheezes and was in no distress at rest, has b/l leg edema. She has elevated hemoglobin, likely form chronic hypoxia, noticed on ABG, also CO2 retention suggesting COPD/Emphysema picture, patient continues to smoke. Echo showed significant pulm htn, normal ef. Patient either has corpulmonale or primary pulm htn, the first being more likely. Will repeat ABG on 3lit nc spo2 is 93%, patient will likely benefit from home O2, but would need to determine if need vasodialater treatment or anticoagulation for pulm htn. Will d/w cardiology and call for pulm consult. Will DC iv abx oral doxy will be started, continue duoneb, stop iv steroid continue inhaled steroid, continue iv lasix, see orders for detail.
[2017-08-17] MEDS: Sodium Chloride 0.9% 1,000 ML IV SCH ×2 (17:41→21:37)
--- NOTE | 2017-08-17 17:46 | CARD ---
APPROVED REPORT EXAM: Two-dimensional and M-mode echocardiogram with Doppler and color Doppler. INDICATION 2D DIMENSIONS IVSd0.9 (0.7-1.1cm)LVDd4.4 (3.9-5.9cm) PWd1.0 (0.7-1.1cm)LVDs2.3 (2.5-4.0cm) FS (%) 47.8 %LVEF (%)79.5 (>50%) M-Mode DIMENSIONS Left Atrium (MM)3.20 (2.5-4.0cm)Aortic Root3.80 (2.2-3.7cm) Aortic Cusp Exc.2.40 (1.5-2.0cm) Aortic Valve AoV Peak Twgbafpq737.0cm/Madelaine Peak GR.8mmHg Mitral Valve MV E Aorsoyry39.7cm/sMV A Ttqcwfef54.9cm/sE/A ratio0.8 TDI Lateral E' Peak V11.00cm/sMedial E' Peak V10.60cm/sE/Lateral E'5.8 E/Medial E'6.0 Tricuspid Valve TR Peak Iiiijabk516yt/sRAP [id number] Peak Gr.51mmHg [id number] LEFT VENTRICLE The left ventricle is normal size. There is normal left ventricular wall thickness. The left ventricle is hyperdynamic.EF-70-75% There is normal LV segmental wall motion. Transmitral Doppler flow pattern is Grade III-reversible restrictive diastolic dysfunction. No left ventricle thrombus noted on this study. There is no ventricular septal defect visualized. There is no left ventricular aneurysm. There is no mass noted in the left ventricle. RIGHT VENTRICLE The right ventricle is moderately to severely dilated. There is normal right ventricular wall thickness. Systolic function of RV is moderately reduced. ATRIA The left atrium size is normal. The right atrium is mildly dilated. The interatrial septum is intact with no evidence for an atrial septal defect. AORTIC VALVE The aortic valve is thickened but opens well. The aortic valve is moderately thickened. The aortic valve is moderately sclerotic. There is trace to mild aortic regurgitation. There is no aortic valvular stenosis. There is no aortic valvular vegetation. MITRAL VALVE The mitral valve is thickened but opens well. Mitral regurgitation is trace to mild. There is no mitral valve stenosis. There is no evidence of mitral valve prolapse. TRICUSPID VALVE The tricuspid valve leaflets are thickened , but open well. There is moderate tricuspid regurgitation.RVSP-61 mmof hg. There is no tricuspid valve stenosis. There is no tricuspid valve prolapse or vegetation. PULMONIC VALVE The pulmonary valve is normal in structure. There is trace to mild pulmonic valvular regurgitation. There is no pulmonic valvular stenosis. GREAT VESSELS The aortic root is normal in size. The ascending aorta is normal in size. The pulmonary artery is normal. The IVC is dilated. PERICARDIAL EFFUSION There is no pleural effusion. There is no pericardial effusion. <Conclusion> The left ventricle is normal size. The left ventricle is hyperdynamic.EF-70-75% The right ventricle is moderately to severely dilated. Systolic function of RV is moderately reduced. There is trace to mild aortic regurgitation. Mitral regurgitation is trace to mild. There is moderate tricuspid regurgitation.RVSP-61 mmof hg. The IVC is dilated. There is no pericardial effusion.
[2017-08-18] MEDS: Ipratropium 0.02% Inhal Soln (0.5 mg/2.5 ml) UD IH SCH ×3 (02:30→14:00)
--- NOTE | 2017-08-18 04:02 | CON ---
DATE: 08/17/2017 CONSULT SERVICE: Cardiology. REASON FOR DICTATION: Covering Dr. Danny Cruz. REASON FOR CONSULTATION: Rule out CHF, shortness of breath, cardiac evaluation. BRIEF CLINICAL HISTORY: This is a 57-year-old female with past medical history of COPD, hypertension, anxiety, depression, admitted with shortness of breath increasing in 1 week. The patient denies any chest pain, denies any shortness of breath. Complained of progressive worsening shortness of breath when she went to half a block. PAST MEDICAL HISTORY: Past history significant for hypertension, anxiety, depression, and COPD. PAST SURGICAL HISTORY: section. SOCIAL HISTORY: Smokes half a pack a day more than 30 years. Denies any history of alcohol abuse. FAMILY HISTORY: Significant for lung, kidney and bone cancer, heart condition and diabetes. CURRENT MEDICATIONS: The patient at home was taking albuterol inhaler, lisinopril, dextromethorphan, cough syrup. ALLERGIES: NO KNOWN DRUG ALLERGIES. REVIEW OF SYSTEMS: As per HPI. PHYSICAL EXAMINATION VITAL SIGNS: Temperature afebrile, heart rate 93, blood pressure ____ HEENT: PERRLA. Extraocular muscles intact. NECK: Supple. No carotid bruits or thyromegaly. CHEST: Clear to auscultation. HEART: S1 and S2 regular. ABDOMEN: Soft. EXTREMITIES: Clubbing and cyanosis negative. LABORATORY DATA: EKG showed normal sinus. Blood workup; WBC 8, hemoglobin 16.5, hematocrit 53.8, platelet count 217. Chemistry showed sodium 141, potassium 4, chloride 97, carbon dioxide 33, anion gap of 15, BUN 46, and creatinine 1.8. Troponin is 0.02, negative. IMPRESSION: Acute exacerbation of chronic obstructive pulmonary disease and no evidence of congestive heart failure noted. EKG, normal sinus, right axis deviation. IMPRESSION: Acute exacerbation of chronic obstructive pulmonary disease, hypertension, hyperlipidemia, borderline bump in the troponin in indeterminate range, no evidence of acute myocardial infarction; in face of accurate and clear study, CCA probably not significant. We will get echo. Follow up serial CPK, troponin; if ejection fraction is stable with gentle hydration, we will also give IV hydration and gentle diuretics. We will follow with you and transfer the care on Saturday to Dr. Cruz. Thank you ____ for providing us the opportunity in taking care of the patient. Gerardo Dinero MD
--- NOTE | 2017-08-18 07:20 | CP.PCM.PN ---
<Liu Ross - Last Filed: 08/18/17 12:55> Subjective - Date & Time of Evaluation Date of Evaluation: 08/18/17 Time of Evaluation: 07:00 - Subjective Subjective: Patient seen and examined at bedside in no acute distress with no complaints. States she would like to go home. Admits to productive cough which began yesterday evening; states her phlegm is whitish/clear. Denies abdominal pain, chest pain, shortness of breath, fevers, chills, headache. Objective - Vital Signs/Intake and Output Vital Signs (last 24 hours): Temp Pulse Resp BP Pulse Ox 97.9 F 82 20 112/72 95 08/17/17 22:00 08/18/17 06:00 08/17/17 22:00 08/17/17 22:00 08/17/17 22:00 Intake and Output: 08/18/17 08/18/17 06:59 18:59 Intake Total 420 Output Total 0 Balance 420 - Medications Medications: Current Medications Benzocaine/Menthol (Cepacol Sore Throat) 1 sophia MT Q2H [facility] Heparin Sodium (Porcine) (Heparin) 5,000 units SC Q12 JONAH PRN Reason: Protocol Last Admin: 08/17/17 21:40 Dose: 5,000 units Ceftriaxone Sodium (Rocephin 2 Gm Ivpb) 2 gm in 100 mls @ 100 mls/hr IVPB DAILY JONAH PRN Reason: Protocol Last Admin: 08/17/17 09:52 Dose: 100 mls/hr Azithromycin (Zithromax 500mg In Ns) 500 mg in 250 mls @ 167 mls/hr IVPB DAILY [facility] PRN Reason: Protocol Last Admin: 08/17/17 09:54 Dose: 167 mls/hr Sodium Chloride (Sodium Chloride 0.9%) 1,000 mls @ 50 mls/hr IV .Q20H JONAH Stop: 08/18/17 23:59 Last Admin: 08/17/17 21:37 Dose: 50 mls/hr Ipratropium [place] (Atrovent) 0.5 mg IH [id number] [facility] Last Admin: 08/18/17 02:30 Dose: Not Given Methylprednisolone (Solu-Medrol) 40 mg IVP Q12 [facility] Last Admin: 08/17/17 21:42 Dose: 40 mg Pantoprazole Sodium (Protonix Inj) 40 mg IVP DAILY JON[facility] Last Admin: 08/17/17 09:50 Dose: 40 mg - Labs Labs: 08/17/17 07:00 08/17/17 07:00 PT 15.0 SECONDS (9.4-12.5) H 08/16/17 14:30 INR 1.31 (0.93-1.08) H 08/16/17 14:30 APTT 30.4 Seconds (25.1-36.5) 08/16/17 14:30 - Constitutional Appears: Non-toxic, No Acute Distress - Head Exam Head Exam: ATRAUMATIC, NORMAL INSPECTION, NORMOCEPHALIC - Eye Exam Eye Exam: EOMI, Normal appearance - ENT Exam ENT Exam: Mucous Membranes Moist - Neck Exam Neck Exam: Normal Inspection - Respiratory Exam Respiratory Exam: Clear to Ausculation Bilateral, NORMAL BREATHING PATTERN. absent: Rhonchi, Wheezes - Cardiovascular Exam Cardiovascular Exam: REGULAR RHYTHM, +S1, +S2 - GI/Abdominal Exam GI & Abdominal Exam: Soft, Normal Bowel Sounds - Extremities Exam Extremities Exam: Calf Tenderness (biltaeral), Pedal Edema - Neurological Exam Neurological Exam: Alert, Awake, Oriented x3 - Psychiatric Exam Psychiatric exam: Normal Affect, Normal Mood - Skin Skin Exam: Intact, Normal Color, Warm Assessment and Plan - Assessment and Plan (Free Text) Assessment: 57 yo female with PMH COPD, HTN, anxiety, and depression admitted for evaluation for CHF vs. COPD exacerbation. Plan: Right sided heart failure secondary to cor pulmonale vs. pulmonary hypertension - Cardio consulted; discussed cor pulmonale vs pulmonary hypertension with cardiology; agree that right heart cath should be done - Pulmonology consulted - BNP 88619 - VBG showed pH 7.24, pCO2 91; patient placed on ventimask - ABG reveals pO2 42, pCO2 56, HCO3 36.3, pH 7.42 - Echo reveals normal sized left ventricle, EF 70-75, moderate to severe dilation of right ventricle, systolic function of right ventricle moderately reduced, trace to mild aortic regurgitation, trace to mild mitral regurgitation, moderate tricuspid regurgitation, RVSP-61 mm of hg, dilated IVC, no evidence of pericardial effusion - IV antibiotics discontinued, doxycycline started - IV steroid discontinued, continue with Budesonide - Ipratropium/albuterol neb - Strict I&O's - Daily weights - Head of bed 30 degrees Depression/Anxiety - Psych consulted - Hold bupropion pending consult HTN - Cont to monitor KB - Cr 1.3, continues to downtrend - Cont to trend GI/DVT PPx - Protonix - Heparin Pt seen and discussed in detail with Dr.Keswani Liu Ross PGY1 <Anival Molina P - Last Filed: 08/18/17 13:30> Objective - Vital Signs/Intake and Output Vital Signs (last 24 hours): Temp Pulse Resp BP Pulse Ox 97.8 F 84 18 130/82 94 L 08/18/17 06:00 08/18/17 06:00 08/18/17 06:00 08/18/17 06:00 08/18/17 06:00 Intake and Output: 08/18/17 08/18/17 06:59 18:59 Intake Total 920 Output Total 0 Balance 920 - Medications Medications: Current Medications Albuterol/Ipratropium (Duoneb 3 Mg/0.5 Mg (3 Ml) Ud) 3 ml IH [id number] [facility] Arformoterol Tartrate (Brovana) 15 mcg IH [id number] [facility] Benzocaine/Menthol (Cepacol Sore Throat) 1 sophia MT Q2H PRN PRN Reason: Cough Budesonide (Pulmicort Respules) 0.5 mg IH [id number] [facility] Doxycycline Hyclate (Doryx) 100 mg PO Q12 JONAH PRN Reason: Protocol Last Admin: 08/18/17 11:30 Dose: 100 mg Heparin Sodium (Porcine) (Heparin) 5,000 units SC Q12 JONAH PRN Reason: Protocol Last Admin: 08/18/17 09:13 Dose: 5,000 units Sodium Chloride (Sodium Chloride 0.9%) 1,000 mls @ 50 mls/hr IV .Q20H [facility] Stop: 08/18/17 23:59 Last Admin: 08/17/17 21:37 Dose: 50 mls/hr Magnesium Sulfate/Dextrose (Magnesium Sulfate 1 Gm/100 Ml D5w) 1 gm in 100 mls @ 100 mls/hr IVPB ONCE ONE Stop: 08/18/17 14:06 Ipratropium [place] (Atrovent) 0.5 mg IH [id number] [facility] Last Admin: 08/18/17 07:50 Dose: 0.5 mg Pantoprazole Sodium (Protonix Inj) 40 mg IVP DAILY JONAH Last Admin: 08/18/17 09:12 Dose: 40 mg - Labs Labs: 08/18/17 08:00 08/18/17 08:00 PT 15.0 SECONDS (9.4-12.5) H 08/16/17 14:30 INR 1.31 (0.93-1.08) H 08/16/17 14:30 APTT 30.4 Seconds (25.1-36.5) 08/16/17 14:30 Attending/Attestation - Attestation I have personally seen and examined this patient.: Yes I have fully participated in the care of the patient.: Yes I have reviewed all pertinent clinical information, including history, physical exam and plan: Yes Notes (Text): 08/18/17 13:26 Patient here with lethargy, gradually worsening sob, h/o smoking, b/l leg edema , renal insufficiency was on acei/hctz, fond to have hypercarbia and hypoxia, improvement in creat gradually to 1.3, ra hypoxia po2 of 42 will meet criteria for home o2, consulted pulm and cardiology for eval for primary pulm htn vs cor pulmonale due RV dysfunction/ rv pressure of 61. Social service to arrange for home 2, continue, pulmicort, duoneb, oral doxycycline, counselled about about smoking cessation.
[2017-08-18 07:57] LABS: BARBITURATES, UR NEGATIVE (NEGATIVE); OPIATES, UR NEGATIVE (NEGATIVE); PHENCYCLIDINE, UR NEGATIVE (NEGATIVE)
[2017-08-18 07:59] LABS: BENZODIAZEPINES, UR POSITIVE (NEGATIVE); CREATININE,RANDOM URINE 119 mg/dL
[2017-08-18 08:33] LABS: GRAN # 7.6 (1.4-6.5); GRAN % 89.7 % (50.0-68.0); HEMOGLOBIN 15.9 g/dL (12.0-16.0); LYMPH # 0.5 (1.2-3.4); LYMPH % 6.1 % (22.0-35.0); MEAN CELL VOLUME 96.2 fl (80.0-105.0); MEAN CORPUSCULAR HEMOGLOBIN 29.8 pg (25.0-35.0); MONO # 0.4 (0.1-0.6); MONO % 4.2 % (1.0-6.0); RBC 5.33 10^6/uL (3.5-6.1); RED CELL DISTRIBUTION WIDTH 16.2 % (11.5-14.5); WHITE BLOOD COUNT 8.5 10^3/ul (4.5-11.0)
[2017-08-18 09:07] LABS: ALB/GLOB RATIO 1.2 (1.1-1.8); CALCIUM 9.3 mg/dL (8.4-10.5); MAGNESIUM 1.6 mg/dL (1.7-2.2)
[2017-08-18] MEDS: cefTRIAXone 2 GM IN NS 2 GM/100 ML BAG IVPB SCH (09:11)
[2017-08-18] MEDS: MethylPREDNISolone 40 mg Vial IVP SCH ×2 (09:14→21:55)
[2017-08-18] MEDS: Benzocaine/Menthol (Cepacol) Lozenge MT SCH ×2 (09:18→09:19)
[2017-08-18] MEDS: Azithromycin 500MG/NS 250ml 500 MG/250 ML BAG IVPB SCH ×2 (09:19→10:37)
[2017-08-18] MEDS ORDERED: Benzocaine/Menthol (Cepacol) Lozenge MT PRN (10:13)
[2017-08-18 11:15] LABS: ARTERIAL BLOOD GAS HCO3 36.3 mmol/L (21-28); ARTERIAL BLOOD GAS HEMOGLOBIN 16.1 g/dL (11.7-17.4); ARTERIAL BLOOD GAS O2 CAPACITY 21.8 mL/dl (16-24); ARTERIAL BLOOD GAS O2 CONTENT 18.1 ML/dl (15-23); ARTERIAL BLOOD GAS O2 SAT 83.1 % (95-98); ARTERIAL BLOOD GAS PCO2 56 mm/Hg (35-45); ARTERIAL BLOOD GAS PH 7.42 (7.35-7.45)
[2017-08-18] MEDS ORDERED: Magnesium Sulfate 1 gm in D5W 1 GM/100 ML BAG IVPB ONE (13:07)
[2017-08-18] MEDS ORDERED: Albuterol-Ipratrop 3 mg / 0.5 (3 ml) UD IH SCH ×3 (14:00→19:30)
--- NOTE | 2017-08-18 15:19 | NM ---
COMPARISON: TECHNIQUE: Thirty-nine mCi technetium 99-m DTPA aerosol. 5.2 mCI technetium 99-m MAA administered intravenously. FINDINGS: VENTILATION COMPONENT: Normal. PERFUSION COMPONENT: Normal. IMPRESSION: Lowprobability ventilation perfusion scan for pulmonary embolism.
--- NOTE | 2017-08-18 15:44 | PN ---
DATE: 08/19/2017 REASON FOR DICTATION: Covering Dr. Danny Cruz. REASON FOR CONSULTATION: Rule out CHF, shortness of breath, cardiac evaluation. SUBJECTIVE: The patient denies any chest pain, shortness of breath, or any palpitation. OBJECTIVE: GENERAL: Not in apparent distress. VITAL SIGNS: As follows: Temperature afebrile, heart rate 84, and blood pressure 130/82. HEENT: PERRLA. Extraocular muscles intact. NECK: Supple. No carotid bruits or thyromegaly. CHEST: Clear to auscultation. HEART: S1 and S2. Regular. ABDOMEN: Soft. EXTREMITIES: Clubbing and cyanosis negative. \ LABORATORY DATA: Blood workup as follows: WBC 8.5, hemoglobin 15.9, hematocrit 51.3, and platelet count of 191. Sodium 141, potassium , chloride 97, carbon dioxide 36, anion gap of 11, BUN 43, and creatinine 1.3. Troponin is 0.2, negative. No evidence of acute PA. The patient had an echocardiography done yesterday that showed ejection fraction of 70% to 75%, mild aortic regurgitation, trace to mild tricuspid regurgitation, RV moderate to severely dilated, RV systolic pressure of 61. ASSESSMENT: Polycythemia, most likely secondary to chronic obstructive pulmonary disease, preserved left ventricular function, pulmonary hypertension most likely secondary to chronic obstructive pulmonary disease, no evidence of acute myocardial infarction, bronchitis, active tobacco abuse, and so far troponin remains negative. RECOMMENDATIONS: Continue DVT prophylaxis. Aggressive treatment for COPD. We can consider right heart catheterization. We will transfer care tomorrow to Dr. Danny Cruz. Yesterday, IV fluid was given because clinically not in failure because of acute kidney injury, gentle hydration continued and we will discontinue IV fluid tonight. Further recommendations, hospital course, I will transfer care tomorrow to Dr. Cruz. The patient may get benefit from the right heart catheterization. Thank you Dr. Ross, for providing us the opportunity in taking care of the patient, Gisela Aranda. Gerardo Dinero MD [facility] # [id number]
[2017-08-18] MEDS ORDERED: Albuterol-Ipratrop 3 mg / 0.5 (3 ml) UD IH PRN (17:43)
[2017-08-18] MEDS ORDERED: MethylPREDNISolone 40 mg Vial IVP SCH (17:45)
[2017-08-18] MEDS ORDERED: Tiotropium 18 mcg Cap For Inhalation IH SCH ×2 (17:45)
[2017-08-18] MEDS ORDERED: Arformoterol 15 mcg/2 ml Inh Sol IH SCH (20:00)
[2017-08-18] MEDS: Sodium Chloride 0.9% 1,000 ML IV SCH (20:08)
[2017-08-18] MEDS: Albuterol-Ipratrop 3 mg / 0.5 (3 ml) UD IH SCH (20:50)
[2017-08-18] MEDS: Budesonide 0.5 mg/2 ml Inhal Susp UD IH SCH (20:50)
[2017-08-19] MEDS: Albuterol-Ipratrop 3 mg / 0.5 (3 ml) UD IH SCH ×4 (02:30→19:04)
--- NOTE | 2017-08-19 04:21 | CON ---
DATE: 08/18/2017 HISTORY OF PRESENT ILLNESS: This is a 57-year-old lady with history of depression, hypertension and tobacco dependency who presented to [facility] on 08/16/2017 with five days' history of shortness of breath. Of note, the patient does have history of morning cough which usually bother her on chronic and longstanding basis. She reports that the sputum was clear mostly in the morning more than 3 days a week and more than 3 months every year. At this time, the patient reports that the shortness of breath appeared subacutely, was getting progressively worse and exacerbating on exertion, but no alleviating factors. No chest pain. No nausea, no vomiting, no diarrhea, and no constipation. She reports that the cough was still there, but not sure whether or not it become more intense or resulted in production of more sputum or change in the color of sputum. The patient has never been intubated for breathing problem and denies being hospitalized for shortness of breath in the past. While in the hospital, the patient had echocardiogram that revealed right ventricular dilatation, decrease in right ventricular systolic function and pulmonary hypertension. Subsequent venous Doppler of lower extremities as well as VQ scan were negative for VTE. CT scan of the chest with PE protocol was avoided as the patient has borderline renal function. PAST MEDICAL HISTORY: Hypertension and depression. SOCIAL HISTORY: The patient is active smoker. No alcohol or illicit drug abuse. ALLERGIES: NKDA. FAMILY HISTORY: Noncontributory. MEDICATIONS AT HOME: Lopressor and Wellbutrin. REVIEW OF SYSTEMS: The review of 12-point systems other than mentioned in the history of present illness is negative. PHYSICAL EXAMINATION: VITAL SIGNS: Temperature is 97.9, blood pressure is 132/83, respiratory rate is 19, oxygen saturation is 92% on nasal cannula and heart rate is 85. HEENT: Head and neck atraumatic. LUNGS: One or two faint wheezes bilaterally. HEART: Regular rate and rhythm. S1 and S2 normal. GASTROINTESTINAL: Abdomen is soft, nontender, and nondistended. MUSCULOSKELETAL: No C/C. Trace bilateral pedal and ankle edema. NEUROLOGIC: The patient moves all extremities spontaneously. SKIN: Moist. PSYCHIATRIC: The patient is alert and oriented x3. LABORATORY DATA: WBC is 8.5, hemoglobin is 15.9, and platelet count is 191. Sodium is 141, potassium is 4.1, chloride is 98, carbon dioxide is 36, BUN is 40, creatinine is 1.3 down from 1.8, and glucose is 103. AST is 17 and ALT is 13. ABG today showed 7.42/56/42 on room air. MEDICATIONS: Pulmicort inhaler, DuoNeb every 6 hours, doxycycline, Solu-Medrol 40 mg IV q. 8 hours., Protonix, normal saline 50 mL per hour. DIAGNOSTIC DATA: VQ scan showed low probability for pulmonary embolism. Head CT showed no acute intracranial pathology, but only mild chronic appearance of white matter ischemic disease. Extremity ultrasound is negative for DVT. Echocardiogram revealed hyperdynamic left ventricle with right ventricle moderately to severely dilated and moderately reduced systolic function of the right ventricle. RVSP of 61 and IVC is dilated with no pericardial effusion. ASSESSMENT AND PLAN: This is a 57-year-old lady who presented to [facility], Emergency Room with what appears to be a chronic obstructive pulmonary disease exacerbation in the setting of cor pulmonale. The patient reports that she never seen a pulmonary doctor before and not been diagnosed with chronic obstructive pulmonary disease, however using her own words, she has a smoker's cough. At present time, I would recommend steroid taper, antibiotics, and bronchodilators. The patient was started on Solu-Medrol 40 mg intravenous q. 8 hours., doxycycline and DuoNeb every 6 hours per hour for now. The patient needs to have oxygen supplementation at least 16 hours a day to maintaining oxygen saturation more than 93%. The patient would benefit from infection prophylaxis with vaccination (flu shot and pneumonia shots). The pulmonary rehab would be also beneficial for the patient. When a bit more stable, I would recommend to do full pulmonary function tests, however, at present time bedside spirometry would at least give some idea as to severity of airway obstruction. I would continue target euvolemia, euglycemia, normothermia and oxygen saturation more than 90%. I will continue deep venous thrombosis and gastrointestinal prophylaxis. ccm time 40 min Marshall Álvarez MD [facility]
[2017-08-19 06:25] LABS: BASO # 0.01 K/mm3 (0.0-2.0); BASO % 0.1 % (0.0-3.0); GRAN # 8.31 (1.4-6.5); HEMOGLOBIN 17.1 g/dL (12.0-16.0); LYMPH # 0.4 (1.2-3.4); LYMPH % 4.6 % (22.0-35.0); MEAN CELL VOLUME 96.5 fl (80.0-105.0); MEAN CORPUSCULAR HEMOGLOBIN 30.1 pg (25.0-35.0); MEAN CORPUSCULAR HGB CONC 31.1 g/dl (31.0-37.0); MEAN PLATELET VOLUME 11.1 fl (7.0-11.0); MONO # 0.3 (0.1-0.6); MONO % 3.3 % (1.0-6.0); PLATELET COUNT 155 10^3/uL (120.0-450.0); RBC 5.69 10^6/uL (3.5-6.1); RED CELL DISTRIBUTION WIDTH 16.1 % (11.5-14.5)
[2017-08-19] MEDS: MethylPREDNISolone 40 mg Vial IVP SCH ×3 (06:48→21:36)
[2017-08-19 07:14] LABS: ALB/GLOB RATIO 1.2 (1.1-1.8); ALBUMIN 3.4 g/dL (3.0-4.8); ALT/SGPT 37 U/L (7-56); AST/SGOT 27 U/L (14-36); BLOOD UREA NITROGEN 29 mg/dL (7-21); CALCIUM 9.7 mg/dL (8.4-10.5); GFR AFRICAN-AMERICAN > 60; GFR NON-AFRICAN AMERICAN 57; MAGNESIUM 1.8 mg/dL (1.7-2.2)
[2017-08-19] MEDS: Budesonide 0.5 mg/2 ml Inhal Susp UD IH SCH ×2 (08:18→19:04)
[2017-08-19 08:43] LABS: LYMPHOCYTE 6 % (22.0-35.0); MONOCYTE 2 % (1.0-6.0); NEUTROPHIL 92 % (50.0-70.0); PLATELET ESTIMATE NORMAL (NORMAL)
--- NOTE | 2017-08-19 11:43 | CP.PCM.PN ---
<Sae Cooper - Last Filed: 08/19/17 11:30> Subjective - Date & Time of Evaluation Date of Evaluation: 08/19/17 Time of Evaluation: 11:30 - Subjective Subjective: Medicine Consult Note Pt seen and examined at bedside. No overnight events. Pt states that SOB and leg swelling is improved. Pt OOB to restroom only, SOB on exertion. Pt denied CP , nausea, vomiting, diarrhea, abdominal pain, fever, chills, MINOR, or dizziness. Objective - Vital Signs/Intake and Output Vital Signs (last 24 hours): Temp Pulse Resp BP Pulse Ox 98.2 F 85 20 142/96 H 94 L 08/19/17 09:26 08/19/17 09:26 08/19/17 09:26 08/19/17 09:26 08/19/17 09:26 Intake and Output: 08/19/17 08/19/17 06:59 18:59 Intake Total 1335 Output Total 300 Balance 1035 - Medications Medications: Current Medications Albuterol/Ipratropium (Duoneb 3 Mg/0.5 Mg (3 Ml) Ud) 3 ml IH [id number] [facility] Last Admin: 08/19/17 08:17 Dose: 3 ml Benzocaine/Menthol (Cepacol Sore Throat) 1 sophia MT Q2H PRN PRN Reason: Cough Budesonide (Pulmicort Respules) 0.5 mg IH [id number] [facility] Last Admin: 08/19/17 08:18 Dose: 0.5 mg Doxycycline Hyclate (Doryx) 100 mg PO Q12 [facility] PRN Reason: Protocol Last Admin: 08/19/17 09:22 Dose: 100 mg Furosemide (Lasix) 40 mg PO DAILY [facility] Heparin Sodium (Porcine) (Heparin) 5,000 units SC Q12 [facility] PRN Reason: Protocol Last Admin: 08/19/17 09:20 Dose: 5,000 units Lisinopril (Zestril) 10 mg PO DAILY [facility] Methylprednisolone (Solu-Medrol) 40 mg IVP Q8 [facility] Last Admin: 08/19/17 06:48 Dose: 40 mg Pantoprazole Sodium (Protonix Inj) 40 mg IVP DAILY [facility] Last Admin: 08/19/17 09:21 Dose: 40 mg - Labs Labs: 08/19/17 05:30 08/19/17 05:30 PT 15.0 SECONDS (9.4-12.5) H 08/16/17 14:30 INR 1.31 (0.93-1.08) H 08/16/17 14:30 APTT 30.4 Seconds (25.1-36.5) 08/16/17 14:30 - Constitutional Appears: No Acute Distress - Head Exam Head Exam: NORMAL INSPECTION - Eye Exam Eye Exam: Normal appearance - ENT Exam ENT Exam: Normal Exam - Neck Exam Neck Exam: Normal Inspection - Respiratory Exam Respiratory Exam: Decreased Breath Sounds, Clear to Ausculation Bilateral. absent: Accessory Muscle Use, Rales, Rhonchi, Wheezes, Respiratory Distress - Cardiovascular Exam Cardiovascular Exam: RRR, +S1, +S2. absent: Gallop, Rubs, Murmur - GI/Abdominal Exam GI & Abdominal Exam: Soft. absent: Distended, Guarding, Tenderness, Rebound - Extremities Exam Extremities Exam: Pedal Edema (1+) - Back Exam Back Exam: NORMAL INSPECTION - Neurological Exam Neurological Exam: Alert, Awake, Oriented x3 - Psychiatric Exam Psychiatric exam: Normal Affect, Normal Mood - Skin Skin Exam: Dry, Intact, Normal Color, Warm Assessment and Plan - Assessment and Plan (Free Text) Assessment: 57 yo female with PMH COPD, HTN, anxiety, and depression admitted for evaluation and treatment for right sided heart failure secondary to cor pulmonale vs. pulmonary hypertension. Plan: 1. Right sided heart failure secondary to cor pulmonale vs. pulmonary hypertension - Will require O2 at home, f/u yasir care, social work - Cardio consulted Discussed cor pulmonale vs pulmonary hypertension with cardiology; agree that right heart cath should be done - Pulmonology consulted Steroid taper, Abx, bronchodilators O2 at least 16 hrs per day at home - Echo showed LVEF 79.5% Mod to severe dilation of right ventricle Systolic function of right ventricle moderately reduced Moderate tricuspid regurgitation RVSP-61 mm of hg, dilated IVC - Cont doxycycline PO, Lasix, Lisinopril - PT eval and treat - BNP 54911 on admission 2. COPD - Off IV steroids - Cont pulmicort, duoneb - ABG (08/18) reveals pO2 42, pCO2 56, HCO3 36.3, pH 7.42 3. Depression/Anxiety - Psych consulted - Hold bupropion pending consult 4. HTN - Lisinopril 10 mg PO daily - Cont to monitor 5. KB, resolved - Cont to monitor GI/DVT PPx - Protonix - Heparin Pt seen and discussed in detail with Dr. Eckert. Robbie Cooper, PGY1 <Bay Eckert - Last Filed: 08/19/17 14:40> Objective - Vital Signs/Intake and Output Vital Signs (last 24 hours): Temp Pulse Resp BP Pulse Ox 98.2 F 85 20 142/96 H 94 L 08/19/17 09:26 08/19/17 11:42 08/19/17 09:26 08/19/17 11:42 08/19/17 09:26 Intake and Output: 08/19/17 08/19/17 06:59 18:59 Intake Total 1335 Output Total 300 Balance 1035 - Medications Medications: Current Medications Albuterol/Ipratropium (Duoneb 3 Mg/0.5 Mg (3 Ml) Ud) 3 ml IH [id number] [facility] Last Admin: 08/19/17 14:28 Dose: 3 ml Benzocaine/Menthol (Cepacol Sore Throat) 1 sophia MT Q2H PRN PRN Reason: Cough Budesonide (Pulmicort Respules) 0.5 mg IH [id number] [facility] Last Admin: 08/19/17 08:18 Dose: 0.5 mg Doxycycline Hyclate (Doryx) 100 mg PO Q12 [facility] PRN Reason: Protocol Last Admin: 08/19/17 09:22 Dose: 100 mg Furosemide (Lasix) 40 mg PO DAILY [facility] Last Admin: 08/19/17 11:41 Dose: 40 mg Heparin Sodium (Porcine) (Heparin) 5,000 units SC Q12 [facility] PRN Reason: Protocol Last Admin: 08/19/17 09:20 Dose: 5,000 units Lisinopril (Zestril) 10 mg PO DAILY [facility] Last Admin: 08/19/17 11:42 Dose: 10 mg Methylprednisolone (Solu-Medrol) 40 mg IVP Q8 [facility] Last Admin: 08/19/17 13:28 Dose: 40 mg Pantoprazole Sodium (Protonix Ec Tab) 40 mg PO ACB [facility] - Labs Labs: 08/19/17 05:30 08/19/17 05:30 PT 15.0 SECONDS (9.4-12.5) H 08/16/17 14:30 INR 1.31 (0.93-1.08) H 08/16/17 14:30 APTT 30.4 Seconds (25.1-36.5) 08/16/17 14:30 Attending/Attestation - Attestation I have personally seen and examined this patient.: Yes I have fully participated in the care of the patient.: Yes I have reviewed all pertinent clinical information, including history, physical exam and plan: Yes Notes (Text): 08/19/17 14:38 attending note; Patient seen and examined with resident. Patient is a 57-year-old female with PMH of chronic obstructive lung disease, hypertension, current smoker, anxiety, and depression presents due to shortness of breath. COPD exacerbation; currently oxygen dependent. Continue DuoNeb treatment. Continue IV Solu-Medrol. Pulmonary evaluation appreciated. possible secondary pulmonary hypertension; cardiology evaluation appreciated. active smoking; smoking cessation is strongly advised. started on NicoDerm patch. Bilateral lower extremity swelling; resolved. lower extremity doppler Is negative for DVT. depression; psychiatric evaluation with Dr. Thorpe requested. 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 PT evaluation appreciated. Upon discharge the patient will follow-up PMD .
--- NOTE | 2017-08-19 15:58 | CP.PCM.PN ---
Subjective - Date & Time of Evaluation Date of Evaluation: 08/19/17 Time of Evaluation: 15:52 - Subjective Subjective: Pt seen and examined, reports that her breathing is slightly better than yesterday. Denies fever, chills, chest pain. Objective - Vital Signs/Intake and Output Vital Signs (last 24 hours): Temp Pulse Resp BP Pulse Ox 98.2 F 85 20 142/96 H 94 L 08/19/17 09:26 08/19/17 11:42 08/19/17 09:26 08/19/17 11:42 08/19/17 09:26 Intake and Output: 08/19/17 08/19/17 06:59 18:59 Intake Total 1335 Output Total 300 Balance 1035 - Medications Medications: Current Medications Albuterol/Ipratropium (Duoneb 3 Mg/0.5 Mg (3 Ml) Ud) 3 ml IH [id number] [facility] Last Admin: 08/19/17 14:28 Dose: 3 ml Benzocaine/Menthol (Cepacol Sore Throat) 1 sophia MT Q2H PRN PRN Reason: Cough Budesonide (Pulmicort Respules) 0.5 mg IH [id number] [facility] Last Admin: 08/19/17 08:18 Dose: 0.5 mg Doxycycline Hyclate (Doryx) 100 mg PO Q12 [facility] PRN Reason: Protocol Last Admin: 08/19/17 09:22 Dose: 100 mg Furosemide (Lasix) 40 mg PO DAILY [facility] Last Admin: 08/19/17 11:41 Dose: 40 mg Heparin Sodium (Porcine) (Heparin) 5,000 units SC Q12 [facility] PRN Reason: Protocol Last Admin: 08/19/17 09:20 Dose: 5,000 units Lisinopril (Zestril) 10 mg PO DAILY [facility] Last Admin: 08/19/17 11:42 Dose: 10 mg Methylprednisolone (Solu-Medrol) 40 mg IVP Q8 [facility] Last Admin: 08/19/17 13:28 Dose: 40 mg Nicotine (Nicoderm Cq) 1 patch TD DAILY [facility] Pantoprazole Sodium (Protonix Ec Tab) 40 mg PO ACB [facility] - Labs Labs: 08/19/17 05:30 08/19/17 05:30 PT 15.0 SECONDS (9.4-12.5) H 08/16/17 14:30 INR 1.31 (0.93-1.08) H 08/16/17 14:30 APTT 30.4 Seconds (25.1-36.5) 08/16/17 14:30 - Constitutional Appears: Well, Non-toxic, No Acute Distress - Eye Exam Eye Exam: Normal appearance - ENT Exam ENT Exam: Mucous Membranes Moist - Respiratory Exam Respiratory Exam: Wheezes, NORMAL BREATHING PATTERN - Cardiovascular Exam Cardiovascular Exam: REGULAR RHYTHM, +S1, +S2 - GI/Abdominal Exam GI & Abdominal Exam: Soft, Normal Bowel Sounds - Extremities Exam Extremities Exam: Full ROM, Normal Inspection Assessment and Plan - Assessment and Plan (Free Text) Assessment: 57yo female a/w COPD exacerbation in setting of Cor Pulmonale COPD exacerbation Cor Pulmonale SOB - currently afebrile, HD stable, comfortable, mild wheezing noted on exam Recommend: - supp o2, goal sat 92%, minimum 16hr/d - cont with bronchodilator, Duonebs Q6hr - IV Steroids Solumedrol - IV antibiotic, Doxycycline - BIPAP at night - will need outpatient PFTs - smoking cessation - Nicotine Patch - Cardiology follow up - would likely benefit from outpatient pulmonary rehab - GI ppx - DVT ppx - OOB to Chair - IS
--- NOTE | 2017-08-19 18:25 | PN ---
DATE: 08/19/2017 SUBJECTIVE: The patient denies chest pain. She is mildly short of breath. PHYSICAL EXAMINATION: VITAL SIGNS: Blood pressure 142/96, heart rate 85, temperature 98.2, respirations 20. HEENT: Normocephalic. CHEST: Bilateral rhonchi. HEART: Heart sounds regular. EXTREMITIES: 1+ pitting edema. LABORATORY DATA: Hemoglobin and hematocrit 17.1 and 54.9. White count and platelet counts are within normal limits. Today's SMA-7 is within normal limit except for BUN of 29. Urine drug screen is positive for benzodiazepines. Ventilation perfusion scan is low probability for PE. ASSESSMENT: 1. Exacerbation of chronic obstructive lung disease. 2. Secondary polycythemia. 3. Consider right-sided heart failure. 4. Secondary pulmonary hypertension. The right ventricular systolic pressure was measured at 61 mmHg on the recent echocardiography study with moderate reduced right ventricular systolic function. RECOMMENDATIONS: Continue current doxycycline 100 mg twice a day, heparin 5000 units q.12 hours, Lasix 40 mg p.o. once a day, Protonix 40 mg taken once a day, Solu-Medrol 40 mg IV q.8 hours, Zestril 10 mg daily. Danny Cruz MD
[2017-08-20] MEDS: Albuterol-Ipratrop 3 mg / 0.5 (3 ml) UD IH SCH ×2 (02:50→06:40)
[2017-08-20] MEDS: MethylPREDNISolone 40 mg Vial IVP SCH ×3 (05:06→22:20)
[2017-08-20] MEDS: Budesonide 0.5 mg/2 ml Inhal Susp UD IH SCH (06:40)
[2017-08-20] MEDS ORDERED: Pantoprazole 40 mg EC Tab PO SCH (07:30)
[2017-08-20] MEDS ORDERED: Albuterol-Ipratrop 3 mg / 0.5 (3 ml) UD IH STA ×2 (07:35→11:02)
[2017-08-20] MEDS ORDERED: MethylPREDNISolone 40 mg Vial IVP STA (07:39)
[2017-08-20 08:18] LABS: ARTERIAL BLOOD GAS HCO3 33.4 mmol/L (21-28); ARTERIAL BLOOD GAS HEMOGLOBIN 18.2 g/dL (11.7-17.4); ARTERIAL BLOOD GAS O2 CAPACITY 24.7 mL/dl (16-24); ARTERIAL BLOOD GAS O2 CONTENT 24.2 ML/dl (15-23); ARTERIAL BLOOD GAS O2 SAT 97.9 % (95-98); ARTERIAL BLOOD GAS PH 7.28 (7.35-7.45); ARTERIAL BLOOD GAS TCO2 35.6 mmol.L (22-28)
[2017-08-20 08:20] LABS: ARTERIAL BLOOD GAS PCO2 71 mm/Hg (35-45)
--- NOTE | 2017-08-20 08:44 | CON ---
DATE: 08/19/2017 IDENTIFYING INFORMATION: The patient is a 57-year-old female under my care for both mood disorder and maintenance on Suboxone due to a previous iatrogenic dependence on opioids. HISTORY OF PRESENT ILLNESS: The patient has been under my care since 2003. She has undergone a number of trials and tribulations including the of her from kidney cancer 4 to 6 years ago, moving of her son to [place], concern over her son in [place] in the midst of his work, had been in an accident where somebody else , concern over his relationship in [place], some intermittent conflict with other family members over the burial of her , financial concerns, attempts of selling her home. The patient when she is anxious or distraught exhibits disorganized thinking, then she has trouble focusing which has appear to be tangential. She, however, has not presented with psychotic ideation at least overtly. She has been a functional woman, she had worked for a period of time as a [employer] and does also been involved in a [employer] business in the past. She as a medical history of COPD with an exacerbation for her, leading from present admission. She has a history of hypertension. She had been seen in my office 2 weeks ago. She is being maintained on Suboxone. The patient reported upon admission that she had been feeling more depressed and apathetic lately. I have reviewed the patient's situation with nursing. The patient is presently sleeping and I have reviewed her chart. A CT scan of her head on 08/17/2017 showed mild chronic periventricular white matter ischemic disease. CBC did today showed hemoglobin 17.1 and hematocrit 54.9 (high) . The patient has elevated neutrophils of 92 with low lymphocytes of 6. Urinalysis was clear on admission. Biochemical profile today showed elevated BUN of 29, but significantly lower than yesterday's 40 or Saturday's 1.8. I have presently re-instituted the patient's Klonopin 1 mg t.i.d., Suboxone 8 mg, Adderall 5 mg daily. She is also on Wellbutrin 300 XR daily (150 B.I.D.). Jhony Thorpe MD/ PhD
[2017-08-20] MEDS ORDERED: Metoprolol 1 mg/ml Inj IVP STA (09:45)
[2017-08-20 10:32] LABS: MEAN CELL VOLUME 96.8 fl (80.0-105.0); MEAN CORPUSCULAR HEMOGLOBIN 30.1 pg (25.0-35.0); MEAN CORPUSCULAR HGB CONC 31.1 g/dl (31.0-37.0); MEAN PLATELET VOLUME 11.7 fl (7.0-11.0); RBC 6.25 10^6/uL (3.5-6.1); WHITE BLOOD COUNT 17.9 10^3/ul (4.5-11.0)
[2017-08-20 10:37] LABS: HEMOGLOBIN 18.8 g/dL (12.0-16.0)
[2017-08-20 10:47] LABS: ALB/GLOB RATIO 1.3 (1.1-1.8); ALT/SGPT 46 U/L (7-56); AST/SGOT 47 U/L (14-36); BLOOD UREA NITROGEN 27 mg/dL (7-21); CALCIUM 10.2 mg/dL (8.4-10.5); GFR AFRICAN-AMERICAN > 60; GFR NON-AFRICAN AMERICAN 57
--- NOTE | 2017-08-20 11:00 | PCM.RRT ---
<CamilleLola mcgowan - Last Filed: 08/20/17 10:56> CENTRAL SUPPLY WORKER Nurse Assessment - Situation Date: 08/20/17 Time CENTRAL SUPPLY WORKER was called: 10:39 CENTRAL SUPPLY WORKER Responder Arrival Time: 10:40 CENTRAL SUPPLY WORKER Location:: [address] [place] [address] Room Number: 366 [employer]TRAL [employer]PPL[employer] WORKER Reason for Call: Tachycardia, O2 Saturation below 90%, Looks Sicker CENTRAL SUPPLY WORKER Called By: RN - IV IV Inserted during CENTRAL SUPPLY WORKER?: No - Respiratory Oxygen Delivery Method: BiPAP @% (100% Fio2) Received Nebulizer Treatments:: No Was the Patient Ventilated with Bag/Mask 100% O2?: No Was the Patient Intubated?: No Was the Patient Placed on a Ventilator?: No - Medication Medications Administered During CENTRAL SUPPLY WORKER: Solumedrol 60 IVP - Diagnostic Test Ordered EKG: Yes - Stat Labs Ordered CENTRAL SUPPLY WORKER Stat Labs Ordered: TROPONIN CPR started during CENTRAL SUPPLY WORKER?: No - Vital Signs Vital Sign: Rapid Response Vital Sign Blood Pressure 118/79 Pulse Rate 118 Respiratory Rate 24 Temperature 98 F Oxygen Saturation 84 - Finger Stick Blood Glucose Finger Stick Blood Glucose: 127 - [place] Coma Scale Coma Scale Eye Opening: Spontaneous Coma Scale Motor: Obeys Commands Movement Coma Scale Verbal: Oriented - Time CENTRAL SUPPLY WORKER Ended Time CENTRAL SUPPLY WORKER Ended: 10:47 - Vital Signs at end of CENTRAL SUPPLY WORKER Vital Signs at end of CENTRAL SUPPLY WORKER: BP: 125/91 HR: 106 RR: 33 SpO2: 98% Temp: 98.1 - Recommendations 5) CENTRAL SUPPLY WORKER Level of Care Recommendations: Transfer to ICU Notifications: Attending Physician, Family or Designated Caregiver (Son was notified ) I.Reason for CENTRAL SUPPLY WORKER - A) Acute Change in Patient: Subjective: Patient was noted to be cyanotic when nurse when into room. Hands and lips were blue. Patient was short of breath. Patient was placed on Bipap this AM. Upon examination, patient did not have Bipap on. It is unclear at what time the patient took the Bipap off. - Neurological Status (Select all that apply): Alert, Responsive, Oriented, Verbal, Follows Commands - Respiratory Oxygen Delivery Method: BiPAP @% (100% FIO2) - Constitutional Appears: In Acute Distress - Head Head Exam: ATRAUMATIC, NORMAL INSPECTION, NORMOCEPHALIC - Eyes Eye Exam: Normal appearance, PERRL - Respiratory Exam Respiratory Exam: Wheezes (bilateral lung valencia), Respiratory Distress, NORMAL BREATHING PATTERN. absent: Rales, Rhonchi - Cardiovascular Exam Cardiovascular Exam: Tachycardia, REGULAR RHYTHM, +S1, +S2. absent: Gallop, Rubs, Murmur - GI/Abdominal Exam GI & Abdominal Exam: Soft, Normal Bowel Sounds. absent: Tenderness - Neurological Exam Neurological Exam: Alert, Awake, CN II-XII Intact, Oriented x3 - Extremities Exam Extremities Exam: Normal Inspection. absent: Calf Tenderness, Pedal Edema Additional comments: Cyanosis on hands bilaterally Plan - Assessment of Findings&Treatment Plan Patient was placed on Bipap at Fio2 of 100%. She was given Solumedrol 60 IVP once on top of her 40q8 that she has been getting for her regular medication. She was noted to be tachycardic with an EKG today which showed sinus tachycardia. ABG and troponin were ordered. She was evaluated by personal banking representative and will be transferred to ICU for further monitoring. ABG was reviewed with respiratory therapist. Bipap adjusted accordingly. <Bay Eckert - Last Filed: 08/20/17 15:16> CENTRAL [employer]PPLY WORKER Nurse Assessment - Vital Signs Vital Sign: Rapid Response Vital Sign Blood Pressure 118/79 Pulse Rate 118 Respiratory Rate 24 Temperature 98 F Oxygen Saturation 84 Attending/Attestation - Attestation I have personally seen and examined this patient.: Yes I have fully participated in the care of the patient.: Yes I have reviewed all pertinent clinical information, including history, physical exam and plan: Yes Notes (Text): 08/20/17 15:15 Attending note; Patient seen and examined during rapid response. Patient became hypoxic after taking BiPAP off. Currently oxygen saturation is improving. Patient is advised not to remove BiPAP. Extra dose of IV Solu-Medrol given. EKG showed sinus tachycardia. Troponin ordered. Case discussed with pulmonary/critical care attending in detail. Monitor closely. Possible transfer to ICU if needed for close monitoring. Patient's son informed by resident.
[2017-08-20 11:08] LABS: ARTERIAL BLOOD GAS HCO3 33.2 mmol/L (21-28); ARTERIAL BLOOD GAS O2 SAT 100.2 % (95-98); ARTERIAL BLOOD GAS TCO2 35.9 mmol.L (22-28)
[2017-08-20 11:10] LABS: ARTERIAL BLOOD GAS PH 7.18 (7.35-7.45)
[2017-08-20 11:11] LABS: ARTERIAL BLOOD GAS PCO2 89 mm/Hg (35-45)
[2017-08-20 11:35] LABS: TROPONIN I 1.05 ng/mL
[2017-08-20] MEDS: ADDERALL 5 MG PO SCH (12:02)
[2017-08-20] MEDS: SUBOXONE 8 MG PO SCH (12:06)
--- NOTE | 2017-08-20 12:06 | CP.PCM.PN ---
<Sae Cooper - Last Filed: 08/20/17 11:38> Subjective - Date & Time of Evaluation Date of Evaluation: 08/20/17 Time of Evaluation: 11:38 - Subjective Subjective: Medicine Progress Note Pt seen and examined at bedside. At approximately 6:30 am patient was found to be cyanotic, tachypnic, hypoxic, and unable to talk in complete sentences by nurse and respiratory therapist, patient tolerated breathing treatment well and O2 sat increased to low 90's. An hour later, O2 sat decreased to 70s patient received another breathing treatment, solumedrol, and non-rebreather was placed. Pt tolerated treatment well. ABG was ordered, pt found to have hypercapnic respiratory acidosis. Pt placed on BIPAP, which normalized her O2 sat. Pt voluntarily removed BIPAP, became cyanotic and hypoxic, SUGGESTION CLERK was called. BIPAP was restarted and pt was given another, patient to be evaluted by kapok and cotton machine operator for ICU admission. Objective - Vital Signs/Intake and Output Vital Signs (last 24 hours): Temp Pulse Resp BP Pulse Ox 97.2 F L 132 H 22 150/104 H 90 L 08/20/17 08:11 08/20/17 09:53 08/20/17 08:11 08/20/17 10:56 08/20/17 08:11 Intake and Output: 08/20/17 08/20/17 06:59 18:59 Intake Total 1380 Output Total 2200 Balance -820 - Medications Medications: Current Medications Benzocaine/Menthol (Cepacol Sore Throat) 1 sophia MT Q2H PRN PRN Reason: Cough Budesonide (Pulmicort Respules) 0.5 mg IH [id number] [facility] Last Admin: 08/20/17 06:40 Dose: 0.5 mg Bupropion HCl (Wellbutrin Sr 150 Mg) 150 mg PO BID JONAH Clonazepam (Klonopin) 1 mg PO TID JONAH PRN Reason: Protocol Doxycycline Hyclate (Doryx) 100 mg PO Q12 JONAH PRN Reason: Protocol Last Admin: 08/20/17 11:08 Dose: Not Given Furosemide (Lasix) 40 mg IVP DAILY [facility] Last Admin: 08/20/17 10:56 Dose: 40 mg Heparin Sodium (Porcine) (Heparin) 5,000 units SC Q12 JONAH PRN Reason: Protocol Last Admin: 08/19/17 21:36 Dose: 5,000 units Home Med (Home Med) 1 unit PO DAILY [facility] Home Med (Home Med) 1 unit PO DAILY [facility] Ipratropium [place] (Atrovent) 0.5 mg IH [id number] [facility] Levalbuterol HCl (Xopenex) 1.25 mg IH [id number] [facility] Lisinopril (Zestril) 10 mg PO DAILY [facility] Last Admin: 08/19/17 11:42 Dose: 10 mg Methylprednisolone (Solu-Medrol) 40 mg IVP Q8 [facility] Last Admin: 08/20/17 05:06 Dose: 40 mg Nicotine (Nicoderm Cq) 1 patch TD DAILY [facility] Last Admin: 08/20/17 10:57 Dose: Not Given Pantoprazole Sodium (Protonix Inj) 40 mg IVP DAILY [facility] Last Admin: 08/20/17 10:57 Dose: 40 mg - Labs Labs: 08/20/17 10:20 08/20/17 10:20 PT 15.0 SECONDS (9.4-12.5) H 08/16/17 14:30 INR 1.31 (0.93-1.08) H 08/16/17 14:30 APTT 30.4 Seconds (25.1-36.5) 08/16/17 14:30 - Constitutional Appears: In Acute Distress - Head Exam Head Exam: NORMAL INSPECTION - Eye Exam Eye Exam: Normal appearance - ENT Exam ENT Exam: Normal Exam - Neck Exam Neck Exam: Normal Inspection - Respiratory Exam Respiratory Exam: Accessory Muscle Use, Wheezes, Respiratory Distress. absent: Rales, Rhonchi - Cardiovascular Exam Cardiovascular Exam: Tachycardia, +S1, +S2. absent: Gallop, Rubs, Murmur - GI/Abdominal Exam GI & Abdominal Exam: Soft. absent: Distended, Guarding, Tenderness, Rebound - Back Exam Back Exam: NORMAL INSPECTION - Neurological Exam Neurological Exam: Alert, Awake, Oriented x3 - Psychiatric Exam Psychiatric exam: Normal Affect, Normal Mood - Skin Skin Exam: Cyanosis, Dry, Intact. absent: Warm Assessment and Plan - Assessment and Plan (Free Text) Assessment: 57 yo female with PMH COPD, HTN, anxiety, and depression admitted for evaluation and treatment for right sided heart failure secondary to cor pulmonale vs. pulmonary hypertension. Plan: 1. Hypercapnic Hypoxic Respiratory Distress - BIPAP - ABG pH 7.18, pCO2 89, pO2 292, HCO3 33 - EKG showed sinus tach - Solumedrol 100 mg IVP given overall - Stat CXR - Started on ASA and therapeutic lovenox - Troponin 1.05, cardio aware - One time Lopressor 5 mg - D/c duoneb, started xopenex and ipratropium due to tachycardia - ICU consult 2. Right sided heart failur2/2 cor pulmonale - Will require O2 at home, f/u yasir care, social work - Cardio consulted Discussed cor pulmonale vs pulmonary hypertension with cardiology; agree that right heart cath should be done - Pulmonology consulted - Echo showed LVEF 79.5% Mod to severe dilation of right ventricle Systolic function of right ventricle moderately reduced Moderate tricuspid regurgitation RVSP-61 mm of hg, dilated IVC - Cont doxycycline PO, Lasix, Lisinopril - PT eval and treat - BNP [id number] on admission 3. COPD - Solumedrol 40 mg IV q8h - Cont pulmicort, xopenex, ipratropium 4. Depression/Anxiety - Psych consulted - Cont Klonopin, Wellbutrin, Adderall 5. HTN - Lisinopril 10 mg PO daily - Cont to monitor 6. KB, resolved - Cont to monitor GI/DVT PPx - Protonix - Heparin Pt seen and discussed in detail with Dr. Eckert. Robbie Cooper, PGY1 <Bay Eckert - Last Filed: 08/20/17 15:21> Objective - Vital Signs/Intake and Output Vital Signs (last 24 hours): Temp Pulse Resp BP Pulse Ox 97.2 F L 105 H 22 140/93 H 90 L 08/20/17 08:11 08/20/17 12:13 08/20/17 08:11 08/20/17 12:13 08/20/17 08:11 Intake and Output: 08/20/17 08/20/17 06:59 18:59 Intake Total 1380 100 Output Total 2200 600 Balance -820 -500 - Medications Medications: Current Medications Aspirin (Aspirin Chewable) 81 mg PO DAILY [facility] Last Admin: 08/20/17 12:22 Dose: 81 mg Benzocaine/Menthol (Cepacol Sore Throat) 1 sophia MT Q2H PRN PRN Reason: Cough Budesonide (Pulmicort Respules) 0.5 mg IH [id number] [facility] Last Admin: 08/20/17 06:40 Dose: 0.5 mg Bupropion HCl (Wellbutrin Sr 150 Mg) 150 mg PO BID [facility] Last Admin: 08/20/17 12:13 Dose: Not Given Clonazepam (Klonopin) 1 mg PO TID [facility] PRN Reason: Protocol Last Admin: 08/20/17 14:05 Dose: 1 mg Doxycycline Hyclate (Doryx) 100 mg PO Q12 [facility] PRN Reason: Protocol Last Admin: 08/20/17 11:08 Dose: Not Given Enoxaparin Sodium (Lovenox) 70 mg SC Q12H [facility] PRN Reason: Protocol Last Admin: 08/20/17 12:37 Dose: 70 mg Furosemide (Lasix) 40 mg IVP DAILY [facility] Last Admin: 08/20/17 10:56 Dose: 40 mg Heparin Sodium (Porcine) (Heparin) 5,000 units SC Q12 [facility] PRN Reason: Protocol Last Admin: 08/20/17 11:30 Dose: 5,000 units Home Med (Home Med) 1 unit PO DAILY [facility] Last Admin: 08/20/17 12:06 Dose: Not Given Home Med (Home Med) 1 unit PO DAILY [facility] Last Admin: 08/20/17 12:02 Dose: Not Given Ipratropium [place] (Atrovent) 0.5 mg IH [id number] [facility] Levalbuterol HCl (Xopenex) 1.25 mg IH [id number] [facility] Lisinopril (Zestril) 10 mg PO DAILY [facility] Last Admin: 08/20/17 12:13 Dose: Not Given Methylprednisolone (Solu-Medrol) 40 mg IVP Q8 [facility] Last Admin: 08/20/17 05:06 Dose: 40 mg Nicotine (Nicoderm Cq) 1 patch TD DAILY [facility] Last Admin: 08/20/17 10:57 Dose: Not Given Pantoprazole Sodium (Protonix Ec Tab) 40 mg PO ACB [facility] - Labs Labs: 08/20/17 10:20 08/20/17 10:20 PT 15.0 SECONDS (9.4-12.5) H 08/16/17 14:30 INR 1.31 (0.93-1.08) H 08/16/17 14:30 APTT 30.4 Seconds (25.1-36.5) 08/16/17 14:30 Attending/Attestation - Attestation I have personally seen and examined this patient.: Yes I have fully participated in the care of the patient.: Yes I have reviewed all pertinent clinical information, including history, physical exam and plan: Yes Notes (Text): 08/20/17 15:17 attending note; Patient seen and examined with resident. Patient is a 57-year-old female with PMH of chronic obstructive lung disease, hypertension, current smoker, anxiety, and depression presents due to shortness of breath. She had episode of hypoxia. ABG showed CO2 retention. Started on BiPAP. Later patient became cyanotic after removing BiPAP. Placed back on BiPAP again. Continue to monitor. Oxygen saturation improved. Hypoxemia is resolving. Possible transfer to ICU. Continue oxygen, Xopenex, IV Solu-Medrol. Case discussed with pulmonary/ critical care attending in detail. possible secondary pulmonary hypertension; cardiology evaluation appreciated. Elevated troponin. Secondary to hypoxemia. Started on aspirin and Lovenox. active smoking; smoking cessation is strongly advised. started on NicoDerm patch. Bilateral lower extremity swelling; resolved. lower extremity doppler Is negative for DVT. depression; psychiatric evaluation with Dr. Thorpe appreciated. Started on clonazepam, Adderall. Transferred to ICU. Monitor respiratory status closely. Patient's son informed by resident. Upon discharge the patient will follow-up PMD .
[2017-08-20] MEDS: buPROPion SR 150 MG TABLET PO SCH ×2 (12:13→17:01)
[2017-08-20] MEDS ORDERED: Enoxaparin 80 mg Syringe SC SCH ×2 (12:15→12:25)
--- NOTE | 2017-08-20 12:30 | RAD ---
HISTORY: chest pain COMPARISON: 08/16/2017 FINDINGS: LUNGS: There is mild vascular and interstitial congestion which has increased PLEURA: No significant pleural effusion identified, no pneumothorax apparent. CARDIOVASCULAR: Normal. OSSEOUS STRUCTURES: No significant abnormalities. VISUALIZED UPPER ABDOMEN: Normal. OTHER FINDINGS: None. IMPRESSION: Mild vascular and interstitial congestion which has increased
[2017-08-20] MEDS ORDERED: Ipratropium 0.02% Inhal Soln (0.5 mg/2.5 ml) UD IH SCH (14:00)
--- NOTE | 2017-08-20 14:06 | PN ---
DATE: SUBJECTIVE: The patient is currently tachypneic and is on BiPAP. She earlier removed her BiPAP and decompensated, and became cyanotic. She did report much mild chest discomfort. PHYSICAL EXAMINATION: VITAL SIGNS: Blood pressure of 150/104, heart rate of 118, temperature of 98, and respirations of 24. HEENT: Normocephalic. CHEST: Bilateral rhonchi. HEART: S1 and S2 regular. EXTREMITIES: 1+ pitting edema. LABORATORY DATA: CBC: Hemoglobin and hematocrit of 18.8 and 60.5, white count of 17.9, and platelet of 232,000. SMA-7 is within normal limits except for glucose of 144 and BUN of 27. DIAGNOSTIC DATA: Echocardiograph study revealed normal ejection fraction, [id number] right ventricular systolic function and [id number] pulmonary hypertension. ASSESSMENT: 1. Exacerbation of chronic obstructive lung disease. 2. Secondary polycythemia. 3. Cor pulmonale and right-sided heart failure. RECOMMENDATIONS: Discontinue Coreg. Continue subcutaneous heparin 5000 units q. 12 hours., Lasix 40 mg intravenously once a day, Solu Medrol 40 mg IV q. 8 hours. and Zestril 10 mg once a day. The patient is in the process of being transferred to ICU. The patient as stated earlier had low probability for pulmonary embolus on ventilation perfusion scan and the venous Doppler on admission was negative for DVT. An EKG was done on the floor, but could not be located and I will follow with once it appears on [employer] Database. In the meantime, I would request portable chest x-ray. Danny Cruz MD
[2017-08-20 14:19] LABS: ARTERIAL BLOOD GAS HCO3 31.4 mmol/L (21-28); ARTERIAL BLOOD GAS HEMOGLOBIN 17.3 g/dL (11.7-17.4); ARTERIAL BLOOD GAS O2 CAPACITY 23.4 mL/dl (16-24); ARTERIAL BLOOD GAS O2 CONTENT 22.3 ML/dl (15-23); ARTERIAL BLOOD GAS O2 SAT 95.1 % (95-98); ARTERIAL BLOOD GAS TCO2 34.1 mmol.L (22-28)
[2017-08-20 14:23] LABS: ARTERIAL BLOOD GAS PCO2 88 mm/Hg (35-45); ARTERIAL BLOOD GAS PH 7.16 (7.35-7.45)
--- NOTE | 2017-08-20 14:43 | CP.PCM.PN ---
Subjective - Date & Time of Evaluation Date of Evaluation: 08/20/17 Time of Evaluation: 14:34 - Subjective Subjective: Critical care progress note Patient seen and examined, on BIPAP speaking full sentences, AAOX3, mild SOB. [employer] called earlier this morning for hypoxia, SOB, cyanosis, placed on BIPAP, ABG with CO2 retention, no improvement, CXR with pulm vasc congestion. Objective - Vital Signs/Intake and Output Vital Signs (last 24 hours): Temp Pulse Resp BP Pulse Ox 97.2 F L 105 H 22 140/93 H 90 L 08/20/17 08:11 08/20/17 12:13 08/20/17 08:11 08/20/17 12:13 08/20/17 08:11 Intake and Output: 08/20/17 08/20/17 06:59 18:59 Intake Total 1380 Output Total 2200 Balance -820 - Medications Medications: Current Medications Aspirin (Aspirin Chewable) 81 mg PO DAILY [facility] Last Admin: 08/20/17 12:22 Dose: 81 mg Benzocaine/Menthol (Cepacol Sore Throat) 1 sophia MT Q2H PRN PRN Reason: Cough Budesonide (Pulmicort Respules) 0.5 mg IH [id number] [facility] Last Admin: 08/20/17 06:40 Dose: 0.5 mg Bupropion HCl (Wellbutrin Sr 150 Mg) 150 mg PO BID [facility] Last Admin: 08/20/17 12:13 Dose: Not Given Clonazepam (Klonopin) 1 mg PO TID [facility] PRN Reason: Protocol Last Admin: 08/20/17 14:05 Dose: 1 mg Doxycycline Hyclate (Doryx) 100 mg PO Q12 JONAH PRN Reason: Protocol Last Admin: 08/20/17 11:08 Dose: Not Given Enoxaparin Sodium (Lovenox) 70 mg SC Q12H JONAH PRN Reason: Protocol Last Admin: 08/20/17 12:37 Dose: 70 mg Furosemide (Lasix) 40 mg IVP DAILY [facility] Last Admin: 08/20/17 10:56 Dose: 40 mg Heparin Sodium (Porcine) (Heparin) 5,000 units SC Q12 JONAH PRN Reason: Protocol Last Admin: 08/20/17 11:30 Dose: 5,000 units Home Med (Home Med) 1 unit PO DAILY [facility] Last Admin: 08/20/17 12:06 Dose: Not Given Home Med (Home Med) 1 unit PO DAILY [facility] Last Admin: 08/20/17 12:02 Dose: Not Given Ipratropium [place] (Atrovent) 0.5 mg IH [id number] [facility] Levalbuterol HCl (Xopenex) 1.25 mg IH [id number] [facility] Lisinopril (Zestril) 10 mg PO DAILY [facility] Last Admin: 08/20/17 12:13 Dose: Not Given Methylprednisolone (Solu-Medrol) 40 mg IVP Q8 [facility] Last Admin: 08/20/17 05:06 Dose: 40 mg Nicotine (Nicoderm Cq) 1 patch TD DAILY [facility] Last Admin: 08/20/17 10:57 Dose: Not Given Pantoprazole Sodium (Protonix Ec Tab) 40 mg PO ACB [facility] - Labs Labs: 08/20/17 10:20 08/20/17 10:20 PT 15.0 SECONDS (9.4-12.5) H 08/16/17 14:30 INR 1.31 (0.93-1.08) H 08/16/17 14:30 APTT 30.4 Seconds (25.1-36.5) 08/16/17 14:30 - Constitutional Appears: No Acute Distress - Eye Exam Eye Exam: Normal appearance - ENT Exam ENT Exam: Mucous Membranes Moist - Respiratory Exam Respiratory Exam: Decreased Breath Sounds, Rales, Wheezes - Cardiovascular Exam Cardiovascular Exam: REGULAR RHYTHM, +S1, +S2 - GI/Abdominal Exam GI & Abdominal Exam: Soft, Normal Bowel Sounds - Extremities Exam Extremities Exam: Full ROM, Pedal Edema - Neurological Exam Neurological Exam: Alert, Awake, Oriented x3 Neuro motor strength exam: Left Upper Extremity: 5, Right Upper Extremity: 5, Left Lower Extremity: 5, Right Lower Extremity: 5 - Psychiatric Exam Psychiatric exam: Anxious Assessment and Plan - Assessment and Plan (Free Text) Assessment: 57yo female with hypercapnic resp failure Hypercapnic Resp Failure COPD Cor Pulmonale Elevated Troponin Pulm Edema SOB Leukocytosis - currently afebrile, HD stable, mild SOB, mental status AAoX3 - On exam decreased breath sounds bilaterally, with wheezing - CXR with pulm vasc congestion - awake, alert, maintaining airway, following commands, monitor on BIPAP Recommend: - cont with BIPAP for now, patient is AAOx3, following commands, close monitoring of resp status, increase IPAP, 16/5/50% - Solumedrol 60mg Q8hr IV - IV Diuresis - Duonebs PRN - CXR without focal consolidation, +pulm vasc congestion, leukocytosis likely 2/ 2 steroids, although infection cannot be ruled out - obtain procal, sputum culture, BCx, UCx - BP control - FS control - Follow up cardiology - GI ppx - DVT ppx - Transfer to MICU Critical care time 45 minutes
[2017-08-20] MEDS: Vancomycin 1gm in NS 250ml 1 GM/250 ML BAG IVPB SCH (17:04)
--- NOTE | 2017-08-20 18:31 | CP.PCM.CON ---
History of Present Illness - History of Present Illness History of Present Illness: Infectious Disease Consultation: August 20, 2017 57 yo female originally admitted for shortness of breath and increasing somnolence. Patient's son indicated that the patient was more confused than her normal for at least the past 2 weeks. The patient's appetite was worse and the patient had increased urinary frequency. Patient had problems with SOB after 1 to 1.5 blocks of walking usually. The patient respiratory status worsened today. She was placed on BiPAP and was brought to the MICU for further monitoring. PMHx: COPD, HTN, Anxiety, Depression PSHx: Allergies: NKDA Social Hx: tobacco - 1/2 pack/day for 30 years No EtOH No illicit drug use Active Medications Acetaminophen (Tylenol 325mg Tab) 650 mg PO Q4H PRN PRN Reason: Fever >100.4 F Acetaminophen (Tylenol 120mg Supp) 120 mg RC Q6 PRN PRN Reason: Fever >100.4 F Last Admin: 08/20/17 17:40 Dose: 120 mg Aspirin (Aspirin Chewable) 81 mg PO DAILY [facility] Last Admin: 08/20/17 12:22 Dose: 81 mg Benzocaine/Menthol (Cepacol Sore Throat) 1 sophia MT Q2H PRN PRN Reason: Cough Budesonide (Pulmicort Respules) 0.5 mg IH [id number] [facility] Last Admin: 08/20/17 06:40 Dose: 0.5 mg Bupropion HCl (Wellbutrin Sr 150 Mg) 150 mg PO BID [facility] Last Admin: 08/20/17 17:01 Dose: Not Given Clonazepam (Klonopin) 1 mg PO TID [facility] PRN Reason: Protocol Last Admin: 08/20/17 14:05 Dose: 1 mg Doxycycline Hyclate (Doryx) 100 mg PO Q12 JONAH PRN Reason: Protocol Last Admin: 08/20/17 11:08 Dose: Not Given Enoxaparin Sodium (Lovenox) 70 mg SC Q12H [facility] PRN Reason: Protocol Last Admin: 08/20/17 12:37 Dose: 70 mg Furosemide (Lasix) 40 mg IVP Q12 [facility] Home Med (Home Med) 1 unit PO DAILY [facility] Last Admin: 08/20/17 12:06 Dose: Not Given Home Med (Home Med) 1 unit PO DAILY [facility] Last Admin: 08/20/17 12:02 Dose: Not Given Cefepime HCl (Maxipime 1gm) 1 gm in 100 mls @ 100 mls/hr IVPB Q12 JONAH PRN Reason: Protocol Vancomycin HCl (Vancomycin 1gm) 1 gm in 250 mls @ 167 mls/hr IVPB Q12H JONAH PRN Reason: Protocol Last Admin: 08/20/17 17:04 Dose: 167 mls/hr Ipratropium [place] (Atrovent) 0.5 mg IH [id number] [facility] Levalbuterol HCl (Xopenex) 1.25 mg IH [id number] [facility] Levalbuterol HCl (Xopenex) 0.63 mg IH Q2H PRN PRN Reason: Shortness of Breath Lisinopril (Zestril) 10 mg PO DAILY [facility] Last Admin: 08/20/17 12:13 Dose: Not Given Methylprednisolone (Solu-Medrol) 40 mg IVP Q8 [facility] Last Admin: 08/20/17 17:01 Dose: Not Given Nicotine (Nicoderm Cq) 1 patch TD DAILY [facility] Last Admin: 08/20/17 10:57 Dose: Not Given Pantoprazole Sodium (Protonix Ec Tab) 40 mg PO ACB [facility] Family Hx: none given ROS: Unable to Obtain from patient. Past Patient History - Past Social History Smoking Status: Current Some Days Smoker - CARDIAC Hx Cardiac Disorders: No - PULMONARY Hx Respiratory Disorders: Yes Hx Bronchitis: Yes - NEUROLOGICAL Hx Neurological Disorder: No - HEENT Hx HEENT Problems: No - RENAL Hx Chronic Kidney Disease: No - ENDOCRINE/METABOLIC Hx Endocrine Disorders: No - INTEGUMENTARY Hx Dermatological Problems: No - MUSCULOSKELETAL/RHEUMATOLOGICAL Hx Arthritis: Yes - GASTROINTESTINAL Hx Gastrointestinal Disorders: No - GENITOURINARY/GYNECOLOGICAL Hx Genitourinary Disorders: No - PSYCHIATRIC Hx Psychophysiologic Disorder: No Hx Substance Use: No - SURGICAL HISTORY Hx Surgeries: Yes Hx Section: Yes - ANESTHESIA Hx Anesthesia: Yes Meds Allergies/Adverse Reactions: Allergies Allergy/AdvReac Type Severity Reaction Status Date / Time No Known Allergies Allergy Verified 08/16/17 13:42 - Medications Medications: Current Medications Acetaminophen (Tylenol 325mg Tab) 650 mg PO Q4H PRN PRN Reason: Fever >100.4 F Acetaminophen (Tylenol 120mg Supp) 120 mg RC Q6 PRN PRN Reason: Fever >100.4 F Last Admin: 08/20/17 17:40 Dose: 120 mg Aspirin (Aspirin Chewable) 81 mg PO DAILY [facility] Last Admin: 08/20/17 12:22 Dose: 81 mg Benzocaine/Menthol (Cepacol Sore Throat) 1 sophia MT Q2H PRN PRN Reason: Cough Budesonide (Pulmicort Respules) 0.5 mg IH [id number] [facility] Last Admin: 08/20/17 06:40 Dose: 0.5 mg Bupropion HCl (Wellbutrin Sr 150 Mg) 150 mg PO BID [facility] Last Admin: 08/20/17 17:01 Dose: Not Given Clonazepam (Klonopin) 1 mg PO TID [facility] PRN Reason: Protocol Last Admin: 08/20/17 14:05 Dose: 1 mg Doxycycline Hyclate (Doryx) 100 mg PO Q12 [facility] PRN Reason: Protocol Last Admin: 08/20/17 11:08 Dose: Not Given Enoxaparin Sodium (Lovenox) 70 mg SC Q12H [facility] PRN Reason: Protocol Last Admin: 08/20/17 12:37 Dose: 70 mg Furosemide (Lasix) 40 mg IVP Q12 [facility] Home Med (Home Med) 1 unit PO DAILY [facility] Last Admin: 08/20/17 12:06 Dose: Not Given Home Med (Home Med) 1 unit PO DAILY [facility] Last Admin: 08/20/17 12:02 Dose: Not Given Cefepime HCl (Maxipime 1gm) 1 gm in 100 mls @ 100 mls/hr IVPB Q12 [facility] PRN Reason: Protocol Vancomycin HCl (Vancomycin 1gm) 1 gm in 250 mls @ 167 mls/hr IVPB Q12H [facility] PRN Reason: Protocol Last Admin: 08/20/17 17:04 Dose: 167 mls/hr Ipratropium [place] (Atrovent) 0.5 mg IH [id number] [facility] Levalbuterol HCl (Xopenex) 1.25 mg IH [id number] [facility] Levalbuterol HCl (Xopenex) 0.63 mg IH Q2H PRN PRN Reason: Shortness of Breath Lisinopril (Zestril) 10 mg PO DAILY [facility] Last Admin: 08/20/17 12:13 Dose: Not Given Methylprednisolone (Solu-Medrol) 40 mg IVP Q8 [facility] Last Admin: 08/20/17 17:01 Dose: Not Given Nicotine (Nicoderm Cq) 1 patch TD DAILY [facility] Last Admin: 08/20/17 10:57 Dose: Not Given Pantoprazole Sodium (Protonix Ec Tab) 40 mg PO ACB [facility] Physical Exam - Constitutional Appears: Non-toxic, In Acute Distress, Chronically Ill - Head Exam Head Exam: ATRAUMATIC, NORMOCEPHALIC - Eye Exam Eye Exam: EOMI, PERRL Pupil Exam: NORMAL ACCOMODATION, PERRL - ENT Exam ENT Exam: Mucous Membranes Moist, Normal External Ear Exam, TM's Normal Bilaterally - Neck Exam Neck exam: Positive for: Full Rom, Normal Inspection - Respiratory Exam Respiratory Exam: Accessory Muscle Use, Decreased Breath Sounds, Wheezes. absent: Rales, Rhonchi - Cardiovascular Exam Cardiovascular Exam: Tachycardia, +S1, +S2 - GI/Abdominal Exam GI & Abdominal Exam: Normal Bowel Sounds, Soft. absent: Distended, Tenderness - Extremities Exam Extremities exam: Positive for: full ROM, normal inspection - Neurological Exam Neurological exam: Alert, CN II-XII Intact Additional comments: AAO x 1-2 - Psychiatric Exam Psychiatric exam: Normal Affect, Normal Mood - Skin Skin Exam: Dry, Intact Results - Vital Signs Recent Vital Signs: Last Vital Signs Temp 102.7 F H 08/20/17 17:40 Pulse 125 H 08/20/17 17:03 Resp 22 08/20/17 08:11 BP 140/93 H 08/20/17 12:13 Pulse Ox 90 L 08/20/17 08:11 - Labs Result Diagrams: 08/20/17 10:20 08/20/17 10:20 Labs: Laboratory Results - last 24 hr 08/20/17 08/20/17 08/20/17 08:00 10:20 10:20 WBC 17.9 H D RBC 6.25 H Hgb 18.8 H* Hct 60.5 H* MCV 96.8 MCH 30.1 MCHC 31.1 RDW 16.0 H Plt Count 232 MPV 11.7 H pCO2 71 H* pO2 93.0 HCO3 33.4 H ABG pH 7.28 L ABG Total CO2 35.6 H ABG O2 Saturation 97.9 ABG O2 Content 24.2 H ABG Base Excess 3.4 H ABG Hemoglobin 18.2 H ABG Carboxyhemoglobin 2.9 H POC ABG HHb (Measured) 2.0 ABG Methemoglobin 0.6 ABG O2 Capacity 24.7 H ABG Potassium Hgb O2 Saturation 94.5 L Glucose Lactate FiO2 40.0 Sodium 143 Potassium 3.8 Chloride 99 Carbon Dioxide 33 Anion Gap 15 BUN 27 H Creatinine 1.0 Est GFR ( Amer) > 60 Est GFR (Non-Af Amer) 57 Random Glucose 144 H Calcium 10.2 Total Bilirubin 2.0 H AST 47 H D ALT 46 Alkaline Phosphatase 48 Lactate Dehydrogenase Total Creatine Kinase Troponin I Total Protein 7.0 Albumin 4.0 Globulin 3.0 Albumin/Globulin Ratio 1.3 Arterial Blood Potassium 08/20/17 08/20/17 08/20/17 10:20 11:00 14:16 WBC RBC Hgb Hct MCV MCH MCHC RDW Plt Count MPV pCO2 89 H* 88 H* pO2 292.0 H 75.0 L HCO3 33.2 H 31.4 H ABG pH 7.18 L* 7.16 L* ABG Total CO2 35.9 H 34.1 H ABG O2 Saturation 100.2 H 95.1 ABG O2 Content 22.3 ABG Base Excess 2.0 -0.9 ABG Hemoglobin 17.3 ABG Carboxyhemoglobin 3.0 H POC ABG HHb (Measured) 4.7 ABG Methemoglobin 0.4 ABG O2 Capacity 23.4 ABG Potassium 4.7 Hgb O2 Saturation 91.8 L Glucose 181 H Lactate 1.5 FiO2 100.0 50.0 Sodium 139.0 Potassium Chloride 99.0 Carbon Dioxide Anion Gap BUN Creatinine Est GFR ( Amer) Est GFR (Non-Af Amer) Random Glucose Calcium Total Bilirubin AST ALT Alkaline Phosphatase Lactate Dehydrogenase 700 H Total Creatine Kinase 166 Troponin I 1.05 H* D Total Protein Albumin Globulin Albumin/Globulin Ratio Arterial Blood Potassium 4.7 Assessment & Plan - Assessment and Plan (Free Text) Assessment: 57 yo female with multiple medical issues presenting with shortness of breath and worsening somnolence. The patient was found to be cyanotic, hypoxic, and tachypnic 6:30 AM on 08/20/2017. She was placed on nonrebreather mask and improved. Switch to BiPAP which she was stable on until she removed the BiPAP mask. After removing the mask, the patient became cyanotic and hypoxic again. Oxygen saturation dropped to 70s. Patient seen by Electrical Design Technician and admitted to the MICU for further care. Respiratory issues are likely multifactorial: Cor Pulmonale? Pulmonary Hypertension? Pneumonia COPD Noted the patient had some renal insufficiency on admission (secondary to dehydation at that time?). Started on Vancomycin IV and Cefepime which is reasonable. Chest X-ray showed mild vascular and interstitial congestion. Obtain procalcitonin values. Thank you for allowing me to participate in the care of the patient, we will follow with you.
[2017-08-20 18:43] LABS: ARTERIAL BLOOD GAS HCO3 35.4 mmol/L (21-28); ARTERIAL BLOOD GAS HEMOGLOBIN 19.8 g/dL (11.7-17.4); ARTERIAL BLOOD GAS O2 CAPACITY 26.8 mL/dl (16-24); ARTERIAL BLOOD GAS O2 CONTENT 24.7 ML/dl (15-23); ARTERIAL BLOOD GAS O2 SAT 92.1 % (95-98); ARTERIAL BLOOD GAS PCO2 131 mm/Hg (35-45); ARTERIAL BLOOD GAS TCO2 39.4 mmol.L (22-28)
[2017-08-20 18:49] LABS: ARTERIAL BLOOD GAS PH 7.04 (7.35-7.45)
[2017-08-20] MEDS ORDERED: Propofol 10 mg/ml Inj (20 ML) ONE (18:49)
[2017-08-20] MEDS ORDERED: Fentanyl 1000mcg/100ml NS 1,000 MCG/100 ML BAG IV PRN (19:06)
[2017-08-20] MEDS ORDERED: Propofol 10 mg/ml Inj (20 ML) IVP ONE (19:06)
--- NOTE | 2017-08-20 19:20 | CP.PCM.PN ---
Subjective - Date & Time of Evaluation Date of Evaluation: 08/20/17 Time of Evaluation: 18:45 - Subjective Subjective: Pt seen and examined. Obtunded, not following commands, obtained ABG, with worsening hypercapnia, resp acidosis. 7.04/131/76. Patient subsequently intubated. CXR, ABG, LABS pending at this moment. Will obtain CT PE protocol to rule out PE given elevated Troponin. Objective - Vital Signs/Intake and Output Vital Signs (last 24 hours): Temp Pulse Resp BP Pulse Ox 102.7 F H 125 H 22 140/93 H 90 L 08/20/17 17:40 08/20/17 17:03 08/20/17 08:11 08/20/17 12:13 08/20/17 08:11 Intake and Output: 08/20/17 08/21/17 18:59 06:59 Intake Total 100 Output Total 600 Balance -500 - Medications Medications: Current Medications Acetaminophen (Tylenol 325mg Tab) 650 mg PO Q4H PRN PRN Reason: Fever >100.4 F Acetaminophen (Tylenol 120mg Supp) 120 mg RC Q6 PRN PRN Reason: Fever >100.4 F Last Admin: 08/20/17 17:40 Dose: 120 mg Aspirin (Aspirin Chewable) 81 mg PO DAILY [facility] Last Admin: 08/20/17 12:22 Dose: 81 mg Benzocaine/Menthol (Cepacol Sore Throat) 1 sophia MT Q2H PRN PRN Reason: Cough Budesonide (Pulmicort Respules) 0.5 mg IH [id number] [facility] Last Admin: 08/20/17 06:40 Dose: 0.5 mg Bupropion HCl (Wellbutrin Sr 150 Mg) 150 mg PO BID [facility] Last Admin: 08/20/17 17:01 Dose: Not Given Clonazepam (Klonopin) 1 mg PO TID [facility] PRN Reason: Protocol Last Admin: 08/20/17 14:05 Dose: 1 mg Doxycycline Hyclate (Doryx) 100 mg PO Q12 [facility] PRN Reason: Protocol Last Admin: 08/20/17 11:08 Dose: Not Given Enoxaparin Sodium (Lovenox) 70 mg SC Q12H [facility] PRN Reason: Protocol Last Admin: 08/20/17 12:37 Dose: 70 mg Furosemide (Lasix) 40 mg IVP Q12 JON[facility] Home Med (Home Med) 1 unit PO DAILY [facility] Last Admin: 08/20/17 12:06 Dose: Not Given Home Med (Home Med) 1 unit PO DAILY [facility] Last Admin: 08/20/17 12:02 Dose: Not Given Cefepime HCl (Maxipime 1gm) 1 gm in 100 mls @ 100 mls/hr IVPB Q12 JONAH PRN Reason: Protocol Vancomycin HCl (Vancomycin 1gm) 1 gm in 250 mls @ 167 mls/hr IVPB Q12H [facility]ONAH PRN Reason: Protocol Last Admin: 08/20/17 17:04 Dose: 167 mls/hr Fentanyl Citrate (Fentanyl Citrate/Sodium Chloride 1 Mg/100 Ml) 1,000 mcg in 100 mls @ 2 mls/hr IV .Q24H PRN; Protocol; 20 MCG/HR PRN Reason: TITRATE PER MD ORDER Ipratropium [place] (Atrovent) 0.5 mg IH [id number] [facility] Levalbuterol HCl (Xopenex) 1.25 mg IH [id number] [facility]ON[facility] Levalbuterol HCl (Xopenex) 0.63 mg IH Q2H PRN PRN Reason: Shortness of Breath Lisinopril (Zestril) 10 mg PO DAILY [facility] Last Admin: 08/20/17 12:13 Dose: Not Given Methylprednisolone (Solu-Medrol) 40 mg IVP Q8 [facility] Last Admin: 08/20/17 17:01 Dose: Not Given Nicotine (Nicoderm Cq) 1 patch TD DAILY [facility] Last Admin: 08/20/17 10:57 Dose: Not Given Pantoprazole Sodium (Protonix Ec Tab) 40 mg PO ACB [facility] - Labs Labs: 08/20/17 10:20 08/20/17 10:20 PT 15.0 SECONDS (9.4-12.5) H 08/16/17 14:30 INR 1.31 (0.93-1.08) H 08/16/17 14:30 APTT 30.4 Seconds (25.1-36.5) 08/16/17 14:30
--- NOTE | 2017-08-20 19:21 | PCM.PROC ---
Procedures Attestation:: I certify that I have explained the specified Operation(s) or Procedure(s), risks, benefits and reasonable alternatives to the Patient and/or other person responsible. The opportunity was given to ask questions and all questions answered - Intubation Time Out Performed: Yes Sedative: Other Mg Given: Propofol Laryngoscope: Glidescope ET Tube Size: 7.0 ET Tube Uncuffed: No ET Tube Secured at Depth: 22 ET Tube Secured Locarion: Teeth ET Tube Placement Confirmation: Visualized Passing Through Cords, Breath Sounds Equal Bilaterally, No Breath Sounds Over Epigastrum, Confirmation w/Capnometry Patient Tolerated Procedure: Well Procedure Immediate Complications: None
[2017-08-20] MEDS ORDERED: Sodium Chloride 0.9% 500 ML IV STA ×2 (19:32→20:04)
[2017-08-20] MEDS ORDERED: Iohexol 350 MG/100 ML VIAL ONE (19:43)
[2017-08-20] MEDS: Levalbuterol 1.25 MG/3 ML Inhal Soln UD IH SCH (19:45)
[2017-08-20 19:56] LABS: ARTERIAL BLOOD GAS HCO3 32.7 mmol/L (21-28); ARTERIAL BLOOD GAS O2 SAT 100.4 % (95-98); ARTERIAL BLOOD GAS PH 7.23 (7.35-7.45); ARTERIAL BLOOD GAS TCO2 35.1 mmol.L (22-28)
[2017-08-20 19:59] LABS: ARTERIAL BLOOD GAS PCO2 78 mm/Hg (35-45)
[2017-08-20 21:25] LABS: ALB/GLOB RATIO 1.3 (1.1-1.8); ALBUMIN 3.6 g/dL (3.0-4.8); CALCIUM 9.6 mg/dL (8.4-10.5)
[2017-08-20 21:53] LABS: TROPONIN I 2.42 ng/mL
[2017-08-20] MEDS ORDERED: Cefepime 1gm in NS 100ml 1 GM/100 ML BAG IVPB SCH (22:00)
[2017-08-20] MEDS: Meropenem 500 MG in Sodium Chloride 0.9% 100 ML IVPB SCH (22:21)
--- NOTE | 2017-08-20 22:22 | CARD ---
APPROVED REPORT EKG Measurement Heart [id number] <Conclusion> Sinus tachycardia with fusion complexes Possible Left atrial enlargement Left posterior fascicular block Anteroseptal infarct, age undetermined Abnormal ECG
[2017-08-20] MEDS: Heparin25000 units/250ml 1/2NS 25,000 UNITS/250 ML BAG IV SCH (22:43)
[2017-08-20] MEDS ORDERED: Sodium Chloride 0.9% 1,000 ML IV SCH (23:45)
[2017-08-21] MEDS: Levalbuterol 1.25 MG/3 ML Inhal Soln UD IH SCH ×3 (02:38→19:54)
[2017-08-21] MEDS: Vancomycin 1gm in NS 250ml 1 GM/250 ML BAG IVPB SCH ×2 (04:32→16:32)
[2017-08-21 05:22] LABS: ARTERIAL BLOOD GAS HCO3 31.5 mmol/L (21-28); ARTERIAL BLOOD GAS HEMOGLOBIN 18.2 g/dL (11.7-17.4); ARTERIAL BLOOD GAS O2 CAPACITY 24.7 mL/dl (16-24); ARTERIAL BLOOD GAS O2 SAT 97.2 % (95-98); ARTERIAL BLOOD GAS PCO2 57 mm/Hg (35-45); ARTERIAL BLOOD GAS PH 7.35 (7.35-7.45); ARTERIAL BLOOD GAS TCO2 33.2 mmol.L (22-28)
[2017-08-21] MEDS: Meropenem 500 MG in Sodium Chloride 0.9% 100 ML IVPB SCH ×3 (06:42→21:35)
[2017-08-21] MEDS: MethylPREDNISolone 40 mg Vial IVP SCH ×3 (06:46→21:35)
[2017-08-21] MEDS: Levalbuterol 0.63 MG/3 ML Inhal Soln UD IH PRN (07:42)
[2017-08-21 08:03] LABS: MEAN CORPUSCULAR HEMOGLOBIN 30.2 pg (25.0-35.0); MEAN CORPUSCULAR HGB CONC 30.8 g/dl (31.0-37.0); MEAN PLATELET VOLUME 12.1 fl (7.0-11.0); RBC 6.12 10^6/uL (3.5-6.1); RED CELL DISTRIBUTION WIDTH 16.7 % (11.5-14.5); WHITE BLOOD COUNT 16.8 10^3/ul (4.5-11.0)
[2017-08-21 08:25] LABS: HEMOGLOBIN 18.5 g/dL (12.0-16.0)
--- NOTE | 2017-08-21 08:54 | RAD ---
HISTORY: Line placement. Portable study 19:31 COMPARISON: August 19, 2017. 12:07 FINDINGS: LUNGS: Worsening interstitial lung disease likely pulmonary edema. PLEURA: No significant pleural effusion identified, no pneumothorax apparent. CARDIOVASCULAR: No significant interval change compared to the prior examination(s). OSSEOUS STRUCTURES: No significant abnormalities. VISUALIZED UPPER ABDOMEN: Normal. OTHER FINDINGS: Satisfactory position of support apparatus including endotracheal tube nasogastric tube is visualized. IMPRESSION: Worsening interstitial lung disease likely interstitial edema. Satisfactory position of support apparatus.
[2017-08-21 08:58] LABS: ALB/GLOB RATIO 1.3 (1.1-1.8); ALBUMIN 3.2 g/dL (3.0-4.8); CALCIUM 9.3 mg/dL (8.4-10.5)
[2017-08-21] MEDS: Pantoprazole 40 mg EC Tab PO SCH (09:09)
[2017-08-21] MEDS: ADDERALL 5 MG PO SCH (09:16)
[2017-08-21] MEDS: SUBOXONE 8 MG PO SCH (09:16)
[2017-08-21] MEDS: buPROPion SR 150 MG TABLET PO SCH ×2 (09:19→19:10)
[2017-08-21 09:37] LABS: TROPONIN I 1.76 ng/mL
--- NOTE | 2017-08-21 09:37 | RAD ---
HISTORY: intubated COMPARISON: 08/20/2017 FINDINGS: LUNGS: There is a slight increase in the degree of interstitial congestion PLEURA: No significant pleural effusion identified, no pneumothorax apparent. CARDIOVASCULAR: Normal. OSSEOUS STRUCTURES: No significant abnormalities. VISUALIZED UPPER ABDOMEN: Normal. OTHER FINDINGS: Endotracheal and nasogastric tubes in satisfactory position IMPRESSION: Slight increase in interstitial congestion
[2017-08-21] MEDS: Midazolam 100 mg/100ml in NS 100 MG/100 ML SOL IV PRN ×2 (09:41→18:12)
[2017-08-21] MEDS ORDERED: Morphine 2 mg/ml ISec IVP PRN (11:32)
--- NOTE | 2017-08-21 11:40 | CP.PCM.PN ---
Subjective - Date & Time of Evaluation Date of Evaluation: 08/21/17 Time of Evaluation: 07:40 - Subjective Subjective: Pt seen and examined, intubated yesterday for hypercapnic resp failure. Currently awake, alert, writing notes on piece of paper, but tachypnic. Objective - Vital Signs/Intake and Output Vital Signs (last 24 hours): Temp Pulse Resp BP Pulse Ox 100.7 F H 100 H 22 124/87 91 L 08/21/17 08:00 08/21/17 10:30 08/21/17 10:53 08/21/17 10:30 08/21/17 10:53 Intake and Output: 08/21/17 08/21/17 06:59 18:59 Intake Total 750 2262 Output Total 600 800 Balance 150 1462 - Medications Medications: Current Medications Acetaminophen (Tylenol 325mg Tab) 650 mg PO Q4H PRN PRN Reason: Fever >100.4 F Last Admin: 08/21/17 09:08 Dose: 650 mg Acetaminophen (Tylenol 120mg Supp) 120 mg RC Q6 PRN PRN Reason: Fever >100.4 F Last Admin: 08/20/17 17:40 Dose: 120 mg Aspirin (Aspirin Chewable) 81 mg PO DAILY [facility] Last Admin: 08/21/17 09:08 Dose: 81 mg Bupropion HCl (Wellbutrin Sr 150 Mg) 150 mg PO BID [facility] Last Admin: 08/21/17 09:19 Dose: 150 mg Clonazepam (Klonopin) 1 mg PO TID JONAH PRN Reason: Protocol Last Admin: 08/20/17 14:05 Dose: 1 mg Doxycycline Hyclate (Doryx) 100 mg PO Q12 [facility]ONAH PRN Reason: Protocol Last Admin: 08/21/17 09:08 Dose: 100 mg Furosemide (Lasix) 40 mg IVP Q12 [facility] Last Admin: 08/21/17 09:09 Dose: Not Given Home Med (Home Med) 1 unit PO DAILY [facility] Last Admin: 08/21/17 09:16 Dose: Not Given Home Med (Home Med) 1 unit PO DAILY [facility] Last Admin: 08/21/17 09:16 Dose: Not Given Vancomycin HCl (Vancomycin 1gm) 1 gm in 250 mls @ 167 mls/hr IVPB Q12H JONAH PRN Reason: Protocol Last Admin: 08/21/17 04:32 Dose: 167 mls/hr Fentanyl Citrate (Fentanyl Citrate/Sodium Chloride 1 Mg/100 Ml) 1,000 mcg in 100 mls @ 2 mls/hr IV .Q24H PRN; Protocol; 20 MCG/HR PRN Reason: TITRATE PER MD ORDER Midazolam 100 mg/100ml in NS (Midazolam 100 Mg/100ml In Ns) 100 mg in 100 mls @ 1 mls/hr IV .Q24H PRN; Protocol; 1 MG/HR PRN Reason: Sedation Last Admin: 08/21/17 09:41 Dose: 1 mg/hr, 1 mls/hr Meropenem 500 mg/ Sodium (Chloride) 100 mls @ 100 mls/hr IVPB Q8 JONAH PRN Reason: Protocol Last Admin: 08/21/17 06:42 Dose: 100 mls/hr Heparin Sodium/Sodium Chloride (Heparin 91701 Units/250ml 1/2 Normal Saline) 25 ,000 units in 250 mls @ 8.529 mls/hr IV .Q24H JONAH; 12 UNITS/KG/HR PRN Reason: Protocol Last Admin: 08/20/17 22:43 Dose: 12 units/kg/hr, 8.529 mls/hr Sodium Chloride (Sodium Chloride 0.9%) 1,000 mls @ 125 mls/hr IV .Q8H JONAH Last Admin: 08/21/17 00:22 Dose: 125 mls/hr Levalbuterol HCl (Xopenex) 1.25 mg IH [id number] JONAH Last Admin: 08/21/17 02:38 Dose: 1.25 mg Levalbuterol HCl (Xopenex) 0.63 mg IH Q2H PRN PRN Reason: Shortness of Breath Last Admin: 08/21/17 07:42 Dose: 0.63 mg Lisinopril (Zestril) 10 mg PO DAILY [facility] Last Admin: 08/20/17 12:13 Dose: Not Given Methylprednisolone (Solu-Medrol) 40 mg IVP Q8 [facility] Last Admin: 08/21/17 06:46 Dose: 40 mg Nicotine (Nicoderm Cq) 1 patch TD DAILY [facility] Last Admin: 08/21/17 09:16 Dose: 1 patch Pantoprazole Sodium (Protonix Ec Tab) 40 mg PO ACB [facility] Last Admin: 08/21/17 09:09 Dose: 40 mg - Labs Labs: 08/21/17 06:30 08/21/17 06:30 PT 15.0 SECONDS (9.4-12.5) H 08/16/17 14:30 INR 1.31 (0.93-1.08) H 08/16/17 14:30 APTT 73.5 Seconds (25.1-36.5) H 08/21/17 10:30 - Constitutional Appears: Well, No Acute Distress - Eye Exam Eye Exam: Normal appearance - ENT Exam ENT Exam: Mucous Membranes Moist - Respiratory Exam Respiratory Exam: Decreased Breath Sounds, Wheezes, NORMAL BREATHING PATTERN - Cardiovascular Exam Cardiovascular Exam: REGULAR RHYTHM, +S1, +S2 - GI/Abdominal Exam GI & Abdominal Exam: Soft, Normal Bowel Sounds - Extremities Exam Extremities Exam: Normal Inspection - Neurological Exam Neurological Exam: Alert, Awake Assessment and Plan - Assessment and Plan (Free Text) Assessment: 57yo female with hypercapnic resp failure Hypercapnic Resp Failure, s/p intubation COPD Cor Pulmonale Elevated Troponin, downtrending Pulm Edema SOB Leukocytosis - currently afebrile, HD stable, comfortable, on PRVC - placed on pressure support earlier this morning, patient became tachypneic, RSBI 140s, ??anxiety component, placed back on PRVC, not ready to be extubated - labs with troponin that has peaked, no EKG changes, cardiology following, LE Duplex neg for DVT, cannot obtain CT Angio as Cr 1.6 - CXR with ETT in adequate position, pulm vasc congestion Recommend: - cont with ventilatory support, PRVC, low tidal vol ventilation - Solumedrol 60mg Q8hr IV - IV Diuresis - Duonebs PRN - broad spectrum antibiotics - heparin drip, ASA, Plavix, Statin - procal, sputum culture, BCx, UCx - BP control - FS control - Follow up cardiology - GI ppx - DVT ppx - Transfer to MICU Critical care time 45 minutes
--- NOTE | 2017-08-21 12:15 | CARD ---
APPROVED REPORT EKG Measurement Heart [id number] <Conclusion> Sinus tachycardia with premature atrial complexes with aberrant conduction Possible Left atrial enlargement Right axis deviation Cannot rule out Anterior infarct, age undetermined T wave abnormality, consider inferolateral ischemia Abnormal ECG
--- NOTE | 2017-08-21 12:20 | CP.PCM.PN ---
<Sae Cooper - Last Filed: 08/21/17 12:14> Subjective - Date & Time of Evaluation Date of Evaluation: 08/21/17 Time of Evaluation: 12:20 - Subjective Subjective: Medicine Progress Note Pt seen and examined at bedside. Pt is currently intubated, not on sedation. Pt is awake and alert. Pt answers questions and responds to commands appropriately. Pt skin color improved, pink, compared to dusky yesterday. Pt denied chest pain, nausea, vomiting, diarrhea, abdominal pain, fever, headache, or dizziness. Objective - Vital Signs/Intake and Output Vital Signs (last 24 hours): Temp Pulse Resp BP Pulse Ox 100.7 F H 100 H 22 124/87 91 L 08/21/17 08:00 08/21/17 10:30 08/21/17 10:53 08/21/17 10:30 08/21/17 10:53 Intake and Output: 08/21/17 08/21/17 06:59 18:59 Intake Total 750 2262 Output Total 600 800 Balance 150 1462 - Medications Medications: Current Medications Acetaminophen (Tylenol 325mg Tab) 650 mg PO Q4H PRN PRN Reason: Fever >100.4 F Last Admin: 08/21/17 09:08 Dose: 650 mg Acetaminophen (Tylenol 120mg Supp) 120 mg RC Q6 PRN PRN Reason: Fever >100.4 F Last Admin: 08/20/17 17:40 Dose: 120 mg Aspirin (Aspirin Chewable) 81 mg PO DAILY [facility] Last Admin: 08/21/17 09:08 Dose: 81 mg Bupropion HCl (Wellbutrin Sr 150 Mg) 150 mg PO BID [facility] Last Admin: 08/21/17 09:19 Dose: 150 mg Clonazepam (Klonopin) 1 mg PO TID [facility] PRN Reason: Protocol Last Admin: 08/20/17 14:05 Dose: 1 mg Doxycycline Hyclate (Doryx) 100 mg PO Q12 [facility] PRN Reason: Protocol Last Admin: 08/21/17 09:08 Dose: 100 mg Furosemide (Lasix) 40 mg IVP Q12 [facility] Last Admin: 08/21/17 09:09 Dose: Not Given Home Med (Home Med) 1 unit PO DAILY [facility] Last Admin: 08/21/17 09:16 Dose: Not Given Home Med (Home Med) 1 unit PO DAILY [facility] Last Admin: 08/21/17 09:16 Dose: Not Given Vancomycin HCl (Vancomycin 1gm) 1 gm in 250 mls @ 167 mls/hr IVPB Q12H [facility] PRN Reason: Protocol Last Admin: 08/21/17 04:32 Dose: 167 mls/hr Fentanyl Citrate (Fentanyl Citrate/Sodium Chloride 1 Mg/100 Ml) 1,000 mcg in 100 mls @ 2 mls/hr IV .Q24H PRN; Protocol; 20 MCG/HR PRN Reason: TITRATE PER MD ORDER Midazolam 100 mg/100ml in NS (Midazolam 100 Mg/100ml In Ns) 100 mg in 100 mls @ 1 mls/hr IV .Q24H PRN; Protocol; 1 MG/HR PRN Reason: Sedation Last Admin: 08/21/17 09:41 Dose: 1 mg/hr, 1 mls/hr Meropenem 500 mg/ Sodium (Chloride) 100 mls @ 100 mls/hr IVPB Q8 [facility] PRN Reason: Protocol Last Admin: 08/21/17 06:42 Dose: 100 mls/hr Heparin Sodium/Sodium Chloride (Heparin 46801 Units/250ml 1/2 Normal Saline) 25 ,000 units in 250 mls @ 8.529 mls/hr IV .Q24H [facility]ON[facility]; 12 UNITS/KG/HR PRN Reason: Protocol Last Admin: 08/20/17 22:43 Dose: 12 units/kg/hr, 8.529 mls/hr Sodium Chloride (Sodium Chloride 0.9%) 1,000 mls @ 125 mls/hr IV .Q8H [facility] Last Admin: 08/21/17 00:22 Dose: 125 mls/hr Levalbuterol HCl (Xopenex) 1.25 mg IH [id number] [facility] Last Admin: 08/21/17 02:38 Dose: 1.25 mg Levalbuterol HCl (Xopenex) 0.63 mg IH Q2H PRN PRN Reason: Shortness of Breath Last Admin: 08/21/17 07:42 Dose: 0.63 mg Lisinopril (Zestril) 10 mg PO DAILY [facility] Last Admin: 08/20/17 12:13 Dose: Not Given Lorazepam (Ativan) 0.5 mg IVP Q6H PRN; Protocol PRN Reason: Anxiety Methylprednisolone (Solu-Medrol) 40 mg IVP Q8 [facility] Last Admin: 08/21/17 06:46 Dose: 40 mg Morphine Sulfate (Morphine) 1 mg IVP Q12H PRN PRN Reason: Pain, severe (8-10) Nicotine (Nicoderm Cq) 1 patch TD DAILY [facility] Last Admin: 08/21/17 09:16 Dose: 1 patch Pantoprazole Sodium (Protonix Ec Tab) 40 mg PO ACB [facility] Last Admin: 08/21/17 09:09 Dose: 40 mg - Labs Labs: 08/21/17 06:30 08/21/17 06:30 PT 15.0 SECONDS (9.4-12.5) H 08/16/17 14:30 INR 1.31 (0.93-1.08) H 08/16/17 14:30 APTT 73.5 Seconds (25.1-36.5) H 08/21/17 10:30 - Constitutional Appears: No Acute Distress - Head Exam Head Exam: NORMAL INSPECTION - Eye Exam Eye Exam: Normal appearance - ENT Exam ENT Exam: Normal Exam - Neck Exam Neck Exam: Normal Inspection - Respiratory Exam Respiratory Exam: Wheezes. absent: Accessory Muscle Use, Rales, Rhonchi, Respiratory Distress - Cardiovascular Exam Cardiovascular Exam: RRR, +S1, +S2. absent: Gallop, Rubs, Murmur - GI/Abdominal Exam GI & Abdominal Exam: Soft. absent: Distended, Guarding, Rebound - Extremities Exam Extremities Exam: Pedal Edema - Neurological Exam Neurological Exam: Alert, Awake - Psychiatric Exam Psychiatric exam: Normal Affect, Normal Mood - Skin Skin Exam: Dry, Intact, Normal Color, Warm Assessment and Plan - Assessment and Plan (Free Text) Assessment: 57 yo female with past medical history of COPD, hypertension, anxiety, and depression admitted for evaluation and treatment for right sided heart failure secondary to cor pulmonale vs. pulmonary hypertension. Transferred to ICU for hypercapnic respiratory failure s/p intubation. Plan: 1. Hypercapnic Respiratory Distress - Admitted to ICU - Intubated, vent management per ICU - ABG pH shows improving respiratory acidosis - EKG showed sinus tach - CXR showed slight increase in interstitial congestion, endotracheal tube in place - Cont heparin drip, ASA, plavix - Cont Vancomycin, Merrem - Cont xopenex and ipratropium - Morphine prn - F/u procal, blood cultures, urine culture, sputum culture, MRSA screen - Discussed with patient and son regarding possibility of DNR/DNI status Palliative care consulted 2. Elevated Troponin - Troponin 1.05, 2.42, 1.76 - Cardio consulted 3. Right sided heart failure 2/2 cor pulmonale - Will require O2 at home, f/u yasir care, social work - Cardio consulted Discussed cor pulmonale vs pulmonary hypertension with cardiology; agree that right heart cath should be done - Pulmonology consulted - Echo showed LVEF 79.5% Mod to severe dilation of right ventricle Systolic function of right ventricle moderately reduced Moderate tricuspid regurgitation RVSP-61 mm of hg, dilated IVC - Cont doxycycline PO, Lasix - Hold Lisinopril - BNP 78288 on admission 4. COPD - Cont xopenex, ipratropium 5. Depression/Anxiety - Psych consulted - Cont Suboxone, Wellbutrin, Adderall - Klonopin held - Ativan prn 6. Hypertension - Hold Lisinopril - Cont to monitor 7. Acute kidney injury - Cr 1.6 - IVF - Cont to monitor GI/DVT PPx - Protonix - Heparin Pt seen and discussed in detail with Dr. Eckert. Robbie Cooper, PGY1 <Bay Eckert - Last Filed: 08/21/17 14:35> Objective - Vital Signs/Intake and Output Vital Signs (last 24 hours): Temp Pulse Resp BP Pulse Ox 100.9 F H 94 H 22 118/85 100 08/21/17 12:00 08/21/17 14:00 08/21/17 10:53 08/21/17 14:00 08/21/17 14:00 Intake and Output: 08/21/17 08/21/17 06:59 18:59 Intake Total 750 2282 Output Total 600 800 Balance 150 1482 - Medications Medications: Current Medications Acetaminophen (Tylenol 325mg Tab) 650 mg PO Q4H PRN PRN Reason: Fever >100.4 F Last Admin: 08/21/17 09:08 Dose: 650 mg Acetaminophen (Tylenol 120mg Supp) 120 mg RC Q6 PRN PRN Reason: Fever >100.4 F Last Admin: 08/21/17 12:38 Dose: 120 mg Aspirin (Aspirin Chewable) 81 mg PO DAILY [facility] Last Admin: 08/21/17 09:08 Dose: 81 mg Bupropion HCl (Wellbutrin Sr 150 Mg) 150 mg PO BID [facility] Last Admin: 08/21/17 09:19 Dose: 150 mg Clonazepam (Klonopin) 1 mg PO TID [facility] PRN Reason: Protocol Last Admin: 08/20/17 14:05 Dose: 1 mg Doxycycline Hyclate (Doryx) 100 mg PO Q12 [facility] PRN Reason: Protocol Last Admin: 08/21/17 09:08 Dose: 100 mg Furosemide (Lasix) 40 mg IVP Q12 [facility] Last Admin: 08/21/17 09:09 Dose: Not Given Home Med (Home Med) 1 unit PO DAILY [facility] Last Admin: 08/21/17 09:16 Dose: Not Given Home Med (Home Med) 1 unit PO DAILY [facility] Last Admin: 08/21/17 09:16 Dose: Not Given Vancomycin HCl (Vancomycin 1gm) 1 gm in 250 mls @ 167 mls/hr IVPB Q12H [facility] PRN Reason: Protocol Last Admin: 08/21/17 04:32 Dose: 167 mls/hr Fentanyl Citrate (Fentanyl Citrate/Sodium Chloride 1 Mg/100 Ml) 1,000 mcg in 100 mls @ 2 mls/hr IV .Q24H PRN; Protocol; 20 MCG/HR PRN Reason: TITRATE PER MD ORDER Last Admin: 08/21/17 12:22 Dose: 20 mcg/hr, 2 mls/hr Midazolam 100 mg/100ml in NS (Midazolam 100 Mg/100ml In Ns) 100 mg in 100 mls @ 1 mls/hr IV .Q24H PRN; Protocol; 1 MG/HR PRN Reason: Sedation Last Titration: 08/21/17 12:36 Dose: 5 mg/hr, 5 mls/hr Meropenem 500 mg/ Sodium (Chloride) 100 mls @ 100 mls/hr IVPB Q8 [facility] PRN Reason: Protocol Last Admin: 08/21/17 06:42 Dose: 100 mls/hr Heparin Sodium/Sodium Chloride (Heparin 98660 Units/250ml 1/2 Normal Saline) 25 ,000 units in 250 mls @ 8.529 mls/hr IV .Q24H [facility]; 12 UNITS/KG/HR PRN Reason: Protocol Last Admin: 08/20/17 22:43 Dose: 12 units/kg/hr, 8.529 mls/hr Levalbuterol HCl (Xopenex) 1.25 mg IH [id number] [facility] Last Admin: 08/21/17 13:19 Dose: 1.25 mg Levalbuterol HCl (Xopenex) 0.63 mg IH Q2H PRN PRN Reason: Shortness of Breath Last Admin: 08/21/17 07:42 Dose: 0.63 mg Lisinopril (Zestril) 10 mg PO DAILY [facility] Last Admin: 08/20/17 12:13 Dose: Not Given Lorazepam (Ativan) 0.5 mg IVP Q6H PRN; Protocol PRN Reason: Anxiety Methylprednisolone (Solu-Medrol) 40 mg IVP Q8 [facility] Last Admin: 08/21/17 06:46 Dose: 40 mg Morphine Sulfate (Morphine) 1 mg IVP Q12H PRN PRN Reason: Pain, severe (8-10) Nicotine (Nicoderm Cq) 1 patch TD DAILY [facility] Last Admin: 08/21/17 09:16 Dose: 1 patch Pantoprazole Sodium (Protonix Ec Tab) 40 mg PO ACB [facility] Last Admin: 08/21/17 09:09 Dose: 40 mg - Labs Labs: 08/21/17 06:30 08/21/17 06:30 PT 15.0 SECONDS (9.4-12.5) H 08/16/17 14:30 INR 1.31 (0.93-1.08) H 08/16/17 14:30 APTT 73.5 Seconds (25.1-36.5) H 08/21/17 10:30 Attending/Attestation - Attestation I have personally seen and examined this patient.: Yes I have fully participated in the care of the patient.: Yes I have reviewed all pertinent clinical information, including history, physical exam and plan: Yes Notes (Text): 08/21/17 14:23 attending note; Patient seen and examined in ICU. Currently intubated. Alert and awake. Able to understand our conversations. Not in any distress. Patient is a 57-year-old female with PMH of chronic obstructive lung disease, hypertension, current smoker, anxiety, and depression presents due to shortness of breath. pulmonary hypertension; cardiology evaluation appreciated. Elevated troponin. Secondary to hypoxemia. Started on aspirin and heparin drip. Acute renal insufficiency; secondary to hemodynamic changes. Continue to monitor. Elevated LFTs; secondary to hypoxemia and hemodynamic changes. Monitor closely. active smoking; smoking cessation is strongly advised. started on NicoDerm patch. depression; psychiatric evaluation with Dr. Thorpe appreciated. patient was on clonazepam, Adderall on Suboxone. case discussed with Shari armstrong for advanced directives. we will monitor closely in ICU. case discussed with ICU attending and psychiatrist in detail. Upon discharge the patient will follow-up PMD .
--- NOTE | 2017-08-21 12:21 | CP.PCM.CON ---
History of Present Illness - History of Present Illness History of Present Illness: Palliative consult requested by Dr Yissel Eckert Reason: Goals of care 57 year old female with history of COPD, HTN who presented with increasing shortness of breath over one week in duration. She denied chest pain, nausea, vomiting, fever or headache. Chest x ray showed vascular and interstitial congestion. Nuclear scan low probability of PE. She subsequently became more dyspneic, hypoxic and was intubated. PMHx: COPD,HTN, anxiety, depression Social History:Current smoker, no alcohol or drug use. Lives with her son. Family History : Significant for lung, kidneys and bone cancer, heart disease and diabetes. Advance Care Planning: The patient does not have an Advanced Directive. Review of Systems: As per HPI, all other systems negative Past Patient History - Past Social History Smoking Status: Current Some Days Smoker - CARDIAC Hx Cardiac Disorders: No - PULMONARY Hx Respiratory Disorders: Yes Hx Bronchitis: Yes - NEUROLOGICAL Hx Neurological Disorder: No - HEENT Hx HEENT Problems: No - RENAL Hx Chronic Kidney Disease: No - ENDOCRINE/METABOLIC Hx Endocrine Disorders: No - INTEGUMENTARY Hx Dermatological Problems: No - MUSCULOSKELETAL/RHEUMATOLOGICAL Hx Arthritis: Yes - GASTROINTESTINAL Hx Gastrointestinal Disorders: No - GENITOURINARY/GYNECOLOGICAL Hx Genitourinary Disorders: No - PSYCHIATRIC Hx Psychophysiologic Disorder: No Hx Substance Use: No - SURGICAL HISTORY Hx Surgeries: Yes Hx Section: Yes - ANESTHESIA Hx Anesthesia: Yes Meds Allergies/Adverse Reactions: Allergies Allergy/AdvReac Type Severity Reaction Status Date / Time No Known Allergies Allergy Verified 08/16/17 13:42 - Medications Medications: Current Medications Acetaminophen (Tylenol 325mg Tab) 650 mg PO Q4H PRN PRN Reason: Fever >100.4 F Last Admin: 08/21/17 09:08 Dose: 650 mg Acetaminophen (Tylenol 120mg Supp) 120 mg RC Q6 PRN PRN Reason: Fever >100.4 F Last Admin: 08/20/17 17:40 Dose: 120 mg Aspirin (Aspirin Chewable) 81 mg PO DAILY [facility] Last Admin: 08/21/17 09:08 Dose: 81 mg Bupropion HCl (Wellbutrin Sr 150 Mg) 150 mg PO BID [facility] Last Admin: 08/21/17 09:19 Dose: 150 mg Clonazepam (Klonopin) 1 mg PO TID [facility] PRN Reason: Protocol Last Admin: 08/20/17 14:05 Dose: 1 mg Doxycycline Hyclate (Doryx) 100 mg PO Q12 [facility] PRN Reason: Protocol Last Admin: 08/21/17 09:08 Dose: 100 mg Furosemide (Lasix) 40 mg IVP Q12 [facility] Last Admin: 08/21/17 09:09 Dose: Not Given Home Med (Home Med) 1 unit PO DAILY [facility] Last Admin: 08/21/17 09:16 Dose: Not Given Home Med (Home Med) 1 unit PO DAILY [facility] Last Admin: 08/21/17 09:16 Dose: Not Given Vancomycin HCl (Vancomycin 1gm) 1 gm in 250 mls @ 167 mls/hr IVPB Q12H [facility] PRN Reason: Protocol Last Admin: 08/21/17 04:32 Dose: 167 mls/hr Fentanyl Citrate (Fentanyl Citrate/Sodium Chloride 1 Mg/100 Ml) 1,000 mcg in 100 mls @ 2 mls/hr IV .Q24H PRN; Protocol; 20 MCG/HR PRN Reason: TITRATE PER MD ORDER Midazolam 100 mg/100ml in NS (Midazolam 100 Mg/100ml In Ns) 100 mg in 100 mls @ 1 mls/hr IV .Q24H PRN; Protocol; 1 MG/HR PRN Reason: Sedation Last Admin: 08/21/17 09:41 Dose: 1 mg/hr, 1 mls/hr Meropenem 500 mg/ Sodium (Chloride) 100 mls @ 100 mls/hr IVPB Q8 [facility] PRN Reason: Protocol Last Admin: 08/21/17 06:42 Dose: 100 mls/hr Heparin Sodium/Sodium Chloride (Heparin 49874 Units/250ml 1/2 Normal Saline) 25 ,000 units in 250 mls @ 8.529 mls/hr IV .Q24H [facility]; 12 UNITS/KG/HR PRN Reason: Protocol Last Admin: 08/20/17 22:43 Dose: 12 units/kg/hr, 8.529 mls/hr Sodium Chloride (Sodium Chloride 0.9%) 1,000 mls @ 125 mls/hr IV .Q8H [facility] Last Admin: 08/21/17 00:22 Dose: 125 mls/hr Levalbuterol HCl (Xopenex) 1.25 mg IH [id number] [facility] Last Admin: 08/21/17 02:38 Dose: 1.25 mg Levalbuterol HCl (Xopenex) 0.63 mg IH Q2H PRN PRN Reason: Shortness of Breath Last Admin: 08/21/17 07:42 Dose: 0.63 mg Lisinopril (Zestril) 10 mg PO DAILY [facility] Last Admin: 08/20/17 12:13 Dose: Not Given Lorazepam (Ativan) 0.5 mg IVP Q6H PRN; Protocol PRN Reason: Anxiety Methylprednisolone (Solu-Medrol) 40 mg IVP Q8 [facility] Last Admin: 08/21/17 06:46 Dose: 40 mg Morphine Sulfate (Morphine) 1 mg IVP Q12H PRN PRN Reason: Pain, severe (8-10) Nicotine (Nicoderm Cq) 1 patch TD DAILY [facility] Last Admin: 08/21/17 09:16 Dose: 1 patch Pantoprazole Sodium (Protonix Ec Tab) 40 mg PO ACB [facility] Last Admin: 08/21/17 09:09 Dose: 40 mg Physical Exam - Constitutional Appears: Chronically Ill - Head Exam Head Exam: NORMAL INSPECTION - Eye Exam Eye Exam: Normal appearance, PERRL - ENT Exam ENT Exam: Mucous Membranes Moist - Neck Exam Neck exam: Positive for: Normal Inspection - Respiratory Exam Respiratory Exam: Decreased Breath Sounds, Wheezes - Cardiovascular Exam Cardiovascular Exam: REGULAR RHYTHM, +S1, +S2 - GI/Abdominal Exam GI & Abdominal Exam: Normal Bowel Sounds, Soft - Extremities Exam Extremities exam: Positive for: normal inspection, pedal pulses present - Back Exam Back exam: NORMAL INSPECTION - Skin Skin Exam: Dry, Warm - Additional Findings Additional findings: Palliative performance scale 30 % Results - Vital Signs Recent Vital Signs: Last Vital Signs Temp 100.7 F H 08/21/17 08:00 Pulse 100 H 08/21/17 10:30 Resp 22 08/21/17 10:53 BP 124/87 08/21/17 10:30 Pulse Ox 91 L 08/21/17 10:53 - Labs Result Diagrams: 08/21/17 06:30 08/21/17 06:30 Labs: Laboratory Results - last 24 hr 08/20/17 08/20/17 08/20/17 14:16 18:40 19:37 WBC RBC Hgb Hct MCV MCH MCHC RDW Plt Count MPV APTT pCO2 88 H* 131 H* pO2 75.0 L 76.0 L HCO3 31.4 H 35.4 H ABG pH 7.16 L* 7.04 L* ABG Total CO2 34.1 H 39.4 H ABG O2 Saturation 95.1 92.1 L ABG O2 Content 22.3 24.7 H ABG Base Excess -0.9 -1.7 ABG Hemoglobin 17.3 19.8 H ABG Carboxyhemoglobin 3.0 H 2.7 H POC ABG HHb (Measured) 4.7 7.6 H ABG Methemoglobin 0.4 0.8 ABG O2 Capacity 23.4 26.8 H ABG Potassium Hgb O2 Saturation 91.8 L 88.9 L Glucose Lactate FiO2 50.0 70.0 Sodium 143 Potassium 4.7 Chloride 97 L Carbon Dioxide 37 H Anion Gap 14 BUN 36 H Creatinine 1.7 H Est GFR ( Amer) 37 Est GFR (Non-Af Amer) 31 Random Glucose 143 H Calcium 9.6 Total Bilirubin 2.1 H AST 120 H D ALT 114 H Alkaline Phosphatase 38 D Total Creatine Kinase Troponin I 2.42 H* D Total Protein 6.3 Albumin 3.6 Globulin 2.7 Albumin/Globulin Ratio 1.3 Arterial Blood Potassium 08/20/17 08/21/17 08/21/17 19:53 05:10 06:30 WBC 16.8 H RBC 6.12 H Hgb 18.5 H* Hct 60.0 H* MCV 98.0 MCH 30.2 MCHC 30.8 L RDW 16.7 H Plt Count 138 MPV 12.1 H APTT pCO2 78 H* 57 H pO2 197.0 H 77.0 L HCO3 32.7 H 31.5 H ABG pH 7.23 L 7.35 ABG Total CO2 35.1 H 33.2 H ABG O2 Saturation 100.4 H 97.2 ABG O2 Content 24.0 H ABG Base Excess 2.7 3.7 H ABG Hemoglobin 18.2 H ABG Carboxyhemoglobin 2.7 H POC ABG HHb (Measured) 2.7 ABG Methemoglobin 0.7 ABG O2 Capacity 24.7 H ABG Potassium 5.5 H Hgb O2 Saturation 93.9 L Glucose 142 H Lactate 1.6 FiO2 100.0 70.0 Sodium 139.0 Potassium Chloride 103.0 Carbon Dioxide Anion Gap BUN Creatinine Est GFR ( Amer) Est GFR (Non-Af Amer) Random Glucose Calcium Total Bilirubin AST ALT Alkaline Phosphatase Total Creatine Kinase Troponin I Total Protein Albumin Globulin Albumin/Globulin Ratio Arterial Blood Potassium 5.5 H 08/21/17 08/21/17 06:30 10:30 WBC RBC Hgb Hct MCV MCH MCHC RDW Plt Count MPV APTT 73.5 H pCO2 pO2 HCO3 ABG pH ABG Total CO2 ABG O2 Saturation ABG O2 Content ABG Base Excess ABG Hemoglobin ABG Carboxyhemoglobin POC ABG HHb (Measured) ABG Methemoglobin ABG O2 Capacity ABG Potassium Hgb O2 Saturation Glucose Lactate FiO2 Sodium 144 Potassium 4.0 Chloride 104 Carbon Dioxide 27 Anion Gap 17 BUN 47 H Creatinine 1.6 H Est GFR ( Amer) 40 Est GFR (Non-Af Amer) 33 Random Glucose 105 Calcium 9.3 Total Bilirubin 2.1 H AST 131 H ALT 175 H Alkaline Phosphatase 36 L Total Creatine Kinase 111 Troponin I 1.76 H* D Total Protein 5.6 L Albumin 3.2 Globulin 2.4 Albumin/Globulin Ratio 1.3 Arterial Blood Potassium Assessment & Plan - Assessment and Plan (Free Text) Assessment: 57 year old female with history of COPD and hypertension who is admitted with dyspnea, COPD exacerbation, respiratory failure. Patient is alert, anxious. Indicating she wants tube removed. Explained that respiratory status not stable enough her to be extubated at this time. Reassured that once stabilized, extubation will be attempted. Patient's son at bedside. Discussion involving future intubation/CPR ensued. Patient shaking her head/closing her eyes when asked if she wants to be resuscitated or intubated again in the future. Son very conflicted by his mothers response. Son feels his mother is giving up and doesn't want to live. Benefits and burdens of CPR/intubation explained. I suggested that he allow time for her to stabilize, once extubated will have this discussion again with his mother. Explained that if mother is competent and able to make decisions then we would be obligated to follow her wishes. In the interim, reassured patient and son that medical team/palliative services will support them through out this process. Time spent with patient and family discussing goals of care,40 minutes Plan: Palliative support in establishing goals of care
--- NOTE | 2017-08-21 15:04 | PN ---
DATE: 08/21/2017 SUBJECTIVE: The patient did develop respiratory failure in ICU, required intubation and mechanical ventilation. She has been febrile. She is currently on the vent. No reports of ventricular tachycardia. PHYSICAL EXAMINATION: VITAL SIGNS: Temperature 100.6, blood pressure 124/86, and heart rate 100. HEENT: Normocephalic. CHEST: Diffuse bilateral rhonchi. HEART: Heart sounds regular. EXTREMITIES: No edema. LABORATORY DATA: BUN and creatinine of 46 and 1.6, significant elevation compared to yesterday. Troponin 1.05, 2.42, and 1.76 respectively. Hemoglobin and hematocrit are 8.5 and 60.0. White count 16.8, platelet count 138,000. Chest x-ray revealed bilateral diffuse interstitial infiltrate, worsening in the second x-ray that was done yesterday. ASSESSMENT AND PLAN: 1. Respiratory failure. 2. Bilateral pneumonia. 3. Dehydration, pre-renal azotemia. 4. Secondary polycythemia. 5. Possible [id number] myocardial infarction. RECOMMENDATIONS: Continue aspirin 81 mg twice a day, doxycycline 100 mg q.12 hours, intravenous heparin infusion, and therapeutic regimen. Discontinue intravenous Lasix. Continue IV meropenem at 500 mg q.8 hours. Continue Solu-Medrol 4 mg intravenous q.8 hours, vancomycin 1 gm intravenous q.12 hours. The patient underwent an extensive workup including to assist blood cultures as well as tracheal aspirate for Gram stain culture. 12-lead EKG performed yesterday, AV sinus tachycardia with fusion beats, possible left atrial enlargement, left anterior fascicular block, and possible old anteroseptal infarct; however, this finding could be related to COPD. At this time, the patient does not require immediate invasive cardiac workup because of the current comorbid conditions; however, this will be considered once the patient is more clinically stable. In the meantime, I did request CT angio of the chest. Danny Cruz MD
--- NOTE | 2017-08-21 16:49 | CP.PCM.PN ---
Subjective - Date & Time of Evaluation Date of Evaluation: 08/21/17 Time of Evaluation: 16:30 - Subjective Subjective: Infectious Disease Follow Up: August 21, 2017 57 yo female originally admitted for shortness of breath and increasing somnolence. Patient's son indicated that the patient was more confused than her normal for at least the past 2 weeks. The patient's appetite was worse and the patient had increased urinary frequency. Patient had problems with SOB after 1 to 1.5 blocks of walking usually. The patient respiratory status worsened yesterday. She was placed on BiPAP and was brought to the MICU for further monitoring. Today, the patient is awake and alert. She remains intubated and ventilated. She is still tachycardic. The patient is able to communicate with gestures, hand movements, and writing. Cultures to date have not shown growth. Objective - Vital Signs/Intake and Output Vital Signs (last 24 hours): Temp Pulse Resp BP Pulse Ox 100.9 F H 95 H 22 128/93 H 100 08/21/17 12:00 08/21/17 15:45 08/21/17 10:53 08/21/17 15:45 08/21/17 15:45 Intake and Output: 08/21/17 08/21/17 06:59 18:59 Intake Total 750 2282 Output Total 600 800 Balance 150 1482 - Medications Medications: Current Medications Acetaminophen (Tylenol 325mg Tab) 650 mg PO Q4H PRN PRN Reason: Fever >100.4 F Last Admin: 08/21/17 09:08 Dose: 650 mg Acetaminophen (Tylenol 120mg Supp) 120 mg RC Q6 PRN PRN Reason: Fever >100.4 F Last Admin: 08/21/17 12:38 Dose: 120 mg Aspirin (Aspirin Chewable) 81 mg PO DAILY [facility] Last Admin: 08/21/17 09:08 Dose: 81 mg Bupropion HCl (Wellbutrin Sr 150 Mg) 150 mg PO BID [facility] Last Admin: 08/21/17 09:19 Dose: 150 mg Clonazepam (Klonopin) 1 mg PO TID JONAH PRN Reason: Protocol Last Admin: 08/20/17 14:05 Dose: 1 mg Doxycycline Hyclate (Doryx) 100 mg PO Q12 JONAH PRN Reason: Protocol Last Admin: 08/21/17 09:08 Dose: 100 mg Furosemide (Lasix) 40 mg IVP Q12 [facility] Last Admin: 08/21/17 09:09 Dose: Not Given Home Med (Home Med) 1 unit PO DAILY [facility] Last Admin: 08/21/17 09:16 Dose: Not Given Home Med (Home Med) 1 unit PO DAILY [facility] Last Admin: 08/21/17 09:16 Dose: Not Given Vancomycin HCl (Vancomycin 1gm) 1 gm in 250 mls @ 167 mls/hr IVPB Q12H JONAH PRN Reason: Protocol Last Admin: 08/21/17 16:32 Dose: 167 mls/hr Fentanyl Citrate (Fentanyl Citrate/Sodium Chloride 1 Mg/100 Ml) 1,000 mcg in 100 mls @ 2 mls/hr IV .Q24H PRN; Protocol; 20 MCG/HR PRN Reason: TITRATE PER MD ORDER Last Admin: 08/21/17 12:22 Dose: 20 mcg/hr, 2 mls/hr Midazolam 100 mg/100ml in NS (Midazolam 100 Mg/100ml In Ns) 100 mg in 100 mls @ 1 mls/hr IV .Q24H PRN; Protocol; 1 MG/HR PRN Reason: Sedation Last Titration: 08/21/17 12:36 Dose: 5 mg/hr, 5 mls/hr Meropenem 500 mg/ Sodium (Chloride) 100 mls @ 100 mls/hr IVPB Q8 JONAH PRN Reason: Protocol Last Admin: 08/21/17 14:48 Dose: 100 mls/hr Heparin Sodium/Sodium Chloride (Heparin 43339 Units/250ml 1/2 Normal Saline) 25 ,000 units in 250 mls @ 8.529 mls/hr IV .Q24H JONAH; 12 UNITS/KG/HR PRN Reason: Protocol Last Admin: 08/20/17 22:43 Dose: 12 units/kg/hr, 8.529 mls/hr Levalbuterol HCl (Xopenex) 1.25 mg IH [id number] [facility] Last Admin: 08/21/17 13:19 Dose: 1.25 mg Levalbuterol HCl (Xopenex) 0.63 mg IH Q2H PRN PRN Reason: Shortness of Breath Last Admin: 08/21/17 07:42 Dose: 0.63 mg Lisinopril (Zestril) 10 mg PO DAILY [facility] Last Admin: 08/20/17 12:13 Dose: Not Given Lorazepam (Ativan) 0.5 mg IVP Q6H PRN; Protocol PRN Reason: Anxiety Methylprednisolone (Solu-Medrol) 40 mg IVP Q8 [facility] Last Admin: 08/21/17 14:48 Dose: 40 mg Morphine Sulfate (Morphine) 1 mg IVP Q12H PRN PRN Reason: Pain, severe (8-10) Nicotine (Nicoderm Cq) 1 patch TD DAILY [facility] Last Admin: 08/21/17 09:16 Dose: 1 patch Pantoprazole Sodium (Protonix Ec Tab) 40 mg PO ACB [facility] Last Admin: 08/21/17 09:09 Dose: 40 mg - Labs Labs: 08/21/17 06:30 08/21/17 06:30 PT 15.0 SECONDS (9.4-12.5) H 08/16/17 14:30 INR 1.31 (0.93-1.08) H 08/16/17 14:30 APTT 73.5 Seconds (25.1-36.5) H 08/21/17 10:30 - Constitutional Appears: No Acute Distress, Chronically Ill - Head Exam Additional comments: intubated and ventilated. - Eye Exam Eye Exam: EOMI, PERRL Pupil Exam: NORMAL ACCOMODATION, PERRL - ENT Exam ENT Exam: Mucous Membranes Moist, Normal External Ear Exam, TM's Normal Bilaterally Additional comments: intubated and ventilated. - Respiratory Exam Respiratory Exam: Decreased Breath Sounds, NORMAL BREATHING PATTERN. absent: Rales, Rhonchi, Wheezes Additional comments: intubated and ventilated. - Cardiovascular Exam Cardiovascular Exam: Tachycardia, +S1, +S2 - GI/Abdominal Exam GI & Abdominal Exam: Soft, Normal Bowel Sounds. absent: Distended, Tenderness - Extremities Exam Extremities Exam: Full ROM, Normal Inspection - Neurological Exam Neurological Exam: Alert, Awake, CN II-XII Intact Additional comments: AAO x 2-3 - Psychiatric Exam Psychiatric exam: Normal Affect, Normal Mood - Skin Skin Exam: Dry, Intact, Normal Color Assessment and Plan - Assessment and Plan (Free Text) Assessment: 57 yo female with multiple medical issues presenting with shortness of breath and worsening somnolence. The patient was found to be cyanotic, hypoxic, and tachypnic 6:30 AM on 08/20/2017. She was placed on nonrebreather mask and improved. Switch to BiPAP which she was stable on until she removed the BiPAP mask. After removing the mask, the patient became cyanotic and hypoxic again. Oxygen saturation dropped to 70s. Patient seen by Resource Engineer and admitted to the MICU for further care. Respiratory issues are likely multifactorial: Cor Pulmonale? Pulmonary Hypertension? Pneumonia COPD Noted the patient had some renal insufficiency on admission (secondary to dehydation at that time?). Currently on Vancomycin IV and Meropenem which provides broad coverage antibiotic coverage including for aspiration pneumonia. Chest X-ray showed mild vascular and interstitial congestion. The patient is fully awake and alert but unable to wean off the ventilator at this time. Obtain procalcitonin values. Results pending. Thank you for allowing me to participate in the care of the patient, we will follow with you.
[2017-08-21 17:01] LABS: INR 1.42 (0.93-1.08); PARTIAL THROMBOPLASTIN TIME 93.6 Seconds (25.1-36.5); PROTHROMBIN TIME 16.3 SECONDS (9.4-12.5)
[2017-08-21] MEDS ORDERED: Sodium Chloride 0.9% 1,000 ML IV STA (18:08)
--- NOTE | 2017-08-21 19:10 | PN ---
DATE: SUBJECTIVE: Ms. Aranda was interviewed while intubated and in the presence of her friend, Helder. She appeared to be alert, seemed to understand the nature of our conversation, appear to be in a better mood and less distraught than in the descriptions given earlier this day in my conversation with Dr. Eckert. The patient does not appear to be agitated or psychotic. She expressed a willingness to be cooperative with whenever medical care is being offered or suggested to her at this time and also indicated that she had no desire to end her life at this time. She will be reevaluated after she is extubated. Jhony Thorpe MD/ PhD
[2017-08-22] MEDS: Levalbuterol 1.25 MG/3 ML Inhal Soln UD IH SCH ×4 (02:44→20:40)
[2017-08-22] MEDS: Vancomycin 1gm in NS 250ml 1 GM/250 ML BAG IVPB SCH ×2 (04:21→18:35)
[2017-08-22] MEDS: Heparin25000 units/250ml 1/2NS 25,000 UNITS/250 ML BAG IV SCH (04:36)
[2017-08-22 05:10] LABS: ARTERIAL BLOOD GAS HCO3 31.4 mmol/L (21-28); ARTERIAL BLOOD GAS HEMOGLOBIN 18.1 g/dL (11.7-17.4); ARTERIAL BLOOD GAS O2 CAPACITY 24.6 mL/dl (16-24); ARTERIAL BLOOD GAS O2 CONTENT 23.7 ML/dl (15-23); ARTERIAL BLOOD GAS O2 SAT 96.4 % (95-98); ARTERIAL BLOOD GAS PCO2 53 mm/Hg (35-45); ARTERIAL BLOOD GAS PH 7.38 (7.35-7.45)
[2017-08-22] MEDS: Meropenem 500 MG in Sodium Chloride 0.9% 100 ML IVPB SCH ×3 (05:10→21:22)
[2017-08-22] MEDS: MethylPREDNISolone 40 mg Vial IVP SCH ×3 (05:11→21:23)
[2017-08-22 07:13] LABS: HEMOGLOBIN 17.6 g/dL (12.0-16.0); MEAN CELL VOLUME 96.2 fl (80.0-105.0); MEAN CORPUSCULAR HEMOGLOBIN 29.4 pg (25.0-35.0); MEAN CORPUSCULAR HGB CONC 30.6 g/dl (31.0-37.0); PLATELET COUNT 99 10^3/uL (120.0-450.0); RBC 5.99 10^6/uL (3.5-6.1); RED CELL DISTRIBUTION WIDTH 16.7 % (11.5-14.5); WHITE BLOOD COUNT 11.8 10^3/ul (4.5-11.0)
[2017-08-22 07:31] LABS: ALB/GLOB RATIO 1.2 (1.1-1.8); CALCIUM 9.2 mg/dL (8.4-10.5)
[2017-08-22] MEDS: Pantoprazole 40 mg EC Tab PO SCH (08:25)
[2017-08-22] MEDS: buPROPion SR 150 MG TABLET PO SCH ×3 (08:25→18:32)
[2017-08-22] MEDS: DOBUTamine 500mg/250ml D5W 500 MG/250 ML BAG IV PRN (08:34)
[2017-08-22 08:49] LABS: ARTERIAL BLOOD GAS HCO3 33.1 mmol/L (21-28); ARTERIAL BLOOD GAS HEMOGLOBIN 17.4 g/dL (11.7-17.4); ARTERIAL BLOOD GAS O2 CAPACITY 23.7 mL/dl (16-24); ARTERIAL BLOOD GAS O2 CONTENT 21.2 ML/dl (15-23); ARTERIAL BLOOD GAS O2 SAT 89.6 % (95-98); ARTERIAL BLOOD GAS PCO2 60 mm/Hg (35-45); ARTERIAL BLOOD GAS PH 7.35 (7.35-7.45); ARTERIAL BLOOD GAS TCO2 34.9 mmol.L (22-28)
--- NOTE | 2017-08-22 08:49 | RAD ---
HISTORY: Intubation COMPARISON: 08/21/2017 FINDINGS: LUNGS: No active pulmonary disease. PLEURA: No significant pleural effusion identified, no pneumothorax apparent. CARDIOVASCULAR: Vascular and interstitial congestion showing slight improvement OSSEOUS STRUCTURES: No significant abnormalities. VISUALIZED UPPER ABDOMEN: Normal. OTHER FINDINGS: None. IMPRESSION: Vascular and interstitial congestion showing slight improvement. Endotracheal tube in satisfactoryposition
--- NOTE | 2017-08-22 10:08 | PN ---
DATE: 08/22/2017 SUBJECTIVE: The patient is seen and examined at bedside. She is off of sedation. She is comfortable. She is nonverbal because she is intubated, however, she is following commands, and trying to communicate nonverbally. She is on pressure support as of now 5/5 with FiO2 of 50% and oxygen saturation 96% on that setting. The rapid shallow breathing index is 60. She appears to be comfortable. PHYSICAL EXAMINATION: VITAL SIGNS: Blood pressure 121/76, end-tidal CO2 on the monitor 41, heart rate 94, and respiratory rate 23. ENT: Head and neck atraumatic. LUNGS: Clear to auscultation bilaterally. HEART: Regular rate and rhythm. S1 and S2 normal. ABDOMEN: Soft, nontender, and nondistended. MUSCULOSKELETAL: No C/C/E. NEUROLOGIC: The patient moves all extremities spontaneously. SKIN: Color moist. PSYCHIATRIC: The patient is alert and oriented x3. LABORATORY DATA: WBC 11.8 down from 16.8, hemoglobin 17.6, and platelet count 99. Sodium 144, potassium 3.7, chloride 105, carbon dioxide 29, BUN 58, creatinine 1.5, glucose 101, AST 97 down from 131, and ALT 181. Troponin 1.76 down from 2.42. Procalcitonin 1.57. ABG prior to per support 7.38/53/75. MEDICATIONS: Tylenol p.r.n., aspirin, Wellbutrin, Klonopin, dobutamine, Doryx, Lasix 40 mg IV q.12 hours, heparin drip, Xopenex p.r.n., Ativan p.r.n., meropenem, Solu-Medrol 40 mg IV daily, morphine p.r.n., nicotine patch, Protonix, and vancomycin. ASSESSMENT AND PLAN: This is a 57-year-old lady with likely undiagnosed longstanding chronic obstructive pulmonary disease complicated by cor pulmonale with right ventricular failure, who was admitted to Intensive Care Unit with hypercapnic respiratory failure, failed BiPAP and got intubated. At present time, her acute respiratory acidosis due to hypercapnic respiratory failure has resolved. She is comfortable. She is off sedation. Her rapid shallow breathing index is 60 on pressure support 5/5. We will continue with steroid taper, antibiotics, and bronchodilators. I will add dobutamine to decrease pulmonary artery pressure. The patient does have history of depression, anxiety, and we will restart her Klonopin. She is also on Ativan p.r.n. She is on Wellbutrin as well. We will repeat ABG in about 20 minutes while on pressure support trial and if it shows adequate gas exchange as well as ventilatory parameters, we will proceed with extubation. We will continue with conservative fluid and oxygen management. We will continue with daily sedation vacation and daily weaning attempts. We will continue with head of bed elevated to >35 degrees. Oral hygiene. VAP bundle. Discontinuation of positive pressure ventilation may also be beneficial for her right ventricular failure, as it may provide decrement in her pulmonary artery pressure. We will continue with GI prophylaxis. The patient is on therapeutic anticoagulation for some troponin leak, whether it is related to extra stress on the right ventricle or primary coronary event unclear at present time. Cardiology Service is also following the patient. Addendum: patient is successfully extubated to BPAP 12/5, Vt 500s, RR 23-24, very comfortable, mentating well. received one scheduled dose of Lasix, dobutamine continue. If ok overnight, wean off NIPPV, swallow eval-->start oral nutrition and hydration if passed, OOB to chair, PT, IS, GI prophylaxis ccm time 40 min Marshall Álvarez MD LUDMILA
[2017-08-22] MEDS: SUBOXONE 8 MG PO SCH (10:39)
[2017-08-22] MEDS: ADDERALL 5 MG PO SCH (10:39)
--- NOTE | 2017-08-22 12:44 | CP.PCM.PN ---
<Sae Cooper - Last Filed: 08/22/17 12:36> Subjective - Date & Time of Evaluation Date of Evaluation: 08/22/17 Time of Evaluation: 12:36 - Subjective Subjective: Medicine Progress Note Pt seen and examined at bedside. Pt extubated on BIPAP. Pt is awake, alert, and oriented x3. Patient currently on dobutamine due to pulmonary HTN. Pt denied chest pain, nausea, vomiting, abdominal pain, fever, chills, or MINOR. Objective - Vital Signs/Intake and Output Vital Signs (last 24 hours): Temp Pulse Resp BP Pulse Ox 99.8 F H 85 23 104/55 L 96 08/22/17 08:00 08/22/17 10:33 08/22/17 10:30 08/22/17 10:30 08/22/17 10:30 Intake and Output: 08/22/17 08/22/17 06:59 18:59 Intake Total 890 Output Total 1300 Balance -410 - Medications Medications: Current Medications Acetaminophen (Tylenol 325mg Tab) 650 mg PO Q4H PRN PRN Reason: Fever >100.4 F Last Admin: 08/21/17 09:08 Dose: 650 mg Acetaminophen (Tylenol 120mg Supp) 120 mg RC Q6 PRN PRN Reason: Fever >100.4 F Last Admin: 08/21/17 12:38 Dose: 120 mg Aspirin (Aspirin Chewable) 81 mg PO DAILY [facility] Last Admin: 08/22/17 10:38 Dose: Not Given Bupropion HCl (Wellbutrin Sr 150 Mg) 150 mg PO BID [facility] Last Admin: 08/22/17 10:40 Dose: Not Given Clonazepam (Klonopin) 1 mg PO TID [facility] PRN Reason: Protocol Last Admin: 08/22/17 08:25 Dose: 1 mg Doxycycline Hyclate (Doryx) 100 mg PO Q12 [facility] PRN Reason: Protocol Last Admin: 08/22/17 10:38 Dose: Not Given Furosemide (Lasix) 40 mg IVP Q12 [facility] Last Admin: 08/22/17 10:40 Dose: Not Given Home Med (Home Med) 1 unit PO DAILY [facility] Last Admin: 08/22/17 10:39 Dose: Not Given Home Med (Home Med) 1 unit PO DAILY [facility] Last Admin: 08/22/17 10:39 Dose: Not Given Vancomycin HCl (Vancomycin 1gm) 1 gm in 250 mls @ 167 mls/hr IVPB Q12H JONAH PRN Reason: Protocol Last Admin: 08/22/17 04:21 Dose: 167 mls/hr Fentanyl Citrate (Fentanyl Citrate/Sodium Chloride 1 Mg/100 Ml) 1,000 mcg in 100 mls @ 2 mls/hr IV .Q24H PRN; Protocol; 20 MCG/HR PRN Reason: TITRATE PER MD ORDER Last Titration: 08/21/17 23:30 Dose: 40 mcg/hr, 4 mls/hr Midazolam 100 mg/100ml in NS (Midazolam 100 Mg/100ml In Ns) 100 mg in 100 mls @ 1 mls/hr IV .Q24H PRN; Protocol; 1 MG/HR PRN Reason: Sedation Last Admin: 08/21/17 18:12 Dose: 5 mg/hr, 5 mls/hr Meropenem 500 mg/ Sodium (Chloride) 100 mls @ 100 mls/hr IVPB Q8 JONAH PRN Reason: Protocol Last Admin: 08/22/17 05:10 Dose: 100 mls/hr Heparin Sodium/Sodium Chloride (Heparin 59394 Units/250ml 1/2 Normal Saline) 25 ,000 units in 250 mls @ 8.529 mls/hr IV .Q24H JONAH; 12 UNITS/KG/HR PRN Reason: Protocol Last Admin: 08/22/17 04:36 Dose: 12 units/kg/hr, 8.529 mls/hr Dobutamine HCl/Dextrose (Dobutamine/Dextrose 5% 500mg/250ml) 500 mg in 250 mls @ 5.331 mls/hr IV .Q24H PRN; Protocol; 2.5 MCG/KG/MIN PRN Reason: TITRATE PER PROTOCOL Last Admin: 08/22/17 08:34 Dose: 2.5 mcg/kg/min, 5.331 mls/hr Levalbuterol HCl (Xopenex) 1.25 mg IH [id number] JONAH Last Admin: 08/22/17 07:11 Dose: 1.25 mg Levalbuterol HCl (Xopenex) 0.63 mg IH Q2H PRN PRN Reason: Shortness of Breath Last Admin: 08/21/17 07:42 Dose: 0.63 mg Lisinopril (Zestril) 10 mg PO DAILY [facility] Last Admin: 08/20/17 12:13 Dose: Not Given Lorazepam (Ativan) 0.5 mg IVP Q6H PRN; Protocol PRN Reason: Anxiety Methylprednisolone (Solu-Medrol) 40 mg IVP Q8 [facility] Last Admin: 08/22/17 05:11 Dose: 40 mg Morphine Sulfate (Morphine) 1 mg IVP Q12H PRN PRN Reason: Pain, severe (8-10) Nicotine (Nicoderm Cq) 1 patch TD DAILY [facility] Last Admin: 08/22/17 10:40 Dose: Not Given Pantoprazole Sodium (Protonix Ec Tab) 40 mg PO ACB [facility] Last Admin: 08/22/17 08:25 Dose: 40 mg - Labs Labs: 08/22/17 05:50 08/22/17 05:50 PT 16.3 SECONDS (9.4-12.5) H 08/21/17 16:25 INR 1.42 (0.93-1.08) H 08/21/17 16:25 APTT 74.6 Seconds (25.1-36.5) H 08/22/17 08:40 - Constitutional Appears: No Acute Distress - Head Exam Head Exam: NORMAL INSPECTION - Eye Exam Eye Exam: Normal appearance - ENT Exam ENT Exam: Mucous Membranes Dry - Neck Exam Neck Exam: Normal Inspection - Respiratory Exam Respiratory Exam: Wheezes. absent: Accessory Muscle Use, Rales, Rhonchi, Respiratory Distress Additional comments: BIPAP in place - Cardiovascular Exam Cardiovascular Exam: RRR, +S1, +S2. absent: Gallop, Rubs, Murmur - GI/Abdominal Exam GI & Abdominal Exam: Soft. absent: Distended, Guarding, Tenderness, Rebound - Extremities Exam Extremities Exam: Normal Inspection - Back Exam Back Exam: NORMAL INSPECTION - Neurological Exam Neurological Exam: Alert, Awake, Oriented x3 - Psychiatric Exam Psychiatric exam: Normal Affect - Skin Skin Exam: Dry, Intact, Normal Color, Warm Assessment and Plan - Assessment and Plan (Free Text) Assessment: 57 yo female with past medical history of COPD, hypertension, anxiety, and depression admitted for evaluation and treatment for right sided heart failure secondary to cor pulmonale vs. pulmonary hypertension. Currently in ICU for hypercapnic respiratory failure requiring intubation, however is now extubated on dobutamine due to pulmonary hypertension. Plan: 1. Hypercapnic Respiratory Distress, resolved - Admitted to ICU - Extubated - ABG pH shows adequate gas exchange - EKG showed sinus tach - CXR showed slight improvement in interstitial congestion - Cont heparin drip, ASA, plavix - Cont xopenex and ipratropium - Morphine prn - Discussed with patient and son regarding possibility of DNR/DNI status Palliative care consulted 2. Elevated Troponin - Troponin 1.05, 2.42, 1.76 - Likely 2/2 hypoxemia/hemodynamic changes - Cardio consulted 3. Pneumonia - Likely 2/2 aspiration - Procal 1.57 - ID consulted - Cont Vancomycin, Merrem - F/u blood and sputum culture 4. Right sided heart failure 2/2 cor pulmonale - Will require O2 at home, f/u yasir care, social work - On dobutamine to relieve pulmonary artery pressure - Cardio consulted Discussed cor pulmonale vs pulmonary hypertension with cardiology; agree that right heart cath should be done - Pulmonology consulted - Echo showed LVEF 79.5% Mod to severe dilation of right ventricle Systolic function of right ventricle moderately reduced Moderate tricuspid regurgitation RVSP-61 mm of hg, dilated IVC - Cont doxycycline PO, Lasix - Hold Lisinopril - BNP [id number] on admission 5. COPD - Cont xopenex, ipratropium 6. Depression/Anxiety - Psych consulted - Cont Suboxone, Wellbutrin, Adderall, Klonopin - Ativan prn 7. Hypertension - Hold Lisinopril - Cont to monitor 8. Acute kidney injury - Cr 1.5 - Cont to monitor GI/DVT PPx - Protonix - Heparin Pt seen and discussed in detail with Dr. Rahman. Robbie Cooper, PGY1 <Kathie Rahman - Last Filed: 08/22/17 16:59> Objective - Vital Signs/Intake and Output Vital Signs (last 24 hours): Temp Pulse Resp BP Pulse Ox 99.8 F H 91 H 23 104/55 L 96 08/22/17 08:00 08/22/17 16:23 08/22/17 10:30 08/22/17 10:30 08/22/17 10:30 Intake and Output: 08/22/17 08/22/17 06:59 18:59 Intake Total 890 Output Total 1300 Balance -410 - Medications Medications: Current Medications Acetaminophen (Tylenol 325mg Tab) 650 mg PO Q4H PRN PRN Reason: Fever >100.4 F Last Admin: 08/21/17 09:08 Dose: 650 mg Acetaminophen (Tylenol 120mg Supp) 120 mg RC Q6 PRN PRN Reason: Fever >100.4 F Last Admin: 08/21/17 12:38 Dose: 120 mg Aspirin (Aspirin Chewable) 81 mg PO DAILY [facility] Last Admin: 08/22/17 10:38 Dose: Not Given Bupropion HCl (Wellbutrin Sr 150 Mg) 150 mg PO BID [facility] Last Admin: 08/22/17 10:40 Dose: Not Given Clonazepam (Klonopin) 1 mg PO TID [facility] PRN Reason: Protocol Last Admin: 08/22/17 08:25 Dose: 1 mg Doxycycline Hyclate (Doryx) 100 mg PO Q12 [facility] PRN Reason: Protocol Last Admin: 08/22/17 10:38 Dose: Not Given Furosemide (Lasix) 40 mg IVP Q12 [facility] Last Admin: 08/22/17 10:40 Dose: Not Given Home Med (Home Med) 1 unit PO DAILY [facility] Last Admin: 08/22/17 10:39 Dose: Not Given Home Med (Home Med) 1 unit PO DAILY [facility] Last Admin: 08/22/17 10:39 Dose: Not Given Vancomycin HCl (Vancomycin 1gm) 1 gm in 250 mls @ 167 mls/hr IVPB Q12H [facility] PRN Reason: Protocol Last Admin: 08/22/17 04:21 Dose: 167 mls/hr Fentanyl Citrate (Fentanyl Citrate/Sodium Chloride 1 Mg/100 Ml) 1,000 mcg in 100 mls @ 2 mls/hr IV .Q24H PRN; Protocol; 20 MCG/HR PRN Reason: TITRATE PER MD ORDER Last Titration: 08/21/17 23:30 Dose: 40 mcg/hr, 4 mls/hr Midazolam 100 mg/100ml in NS (Midazolam 100 Mg/100ml In Ns) 100 mg in 100 mls @ 1 mls/hr IV .Q24H PRN; Protocol; 1 MG/HR PRN Reason: Sedation Last Admin: 08/21/17 18:12 Dose: 5 mg/hr, 5 mls/hr Meropenem 500 mg/ Sodium (Chloride) 100 mls @ 100 mls/hr IVPB Q8 [facility] PRN Reason: Protocol Last Admin: 08/22/17 14:24 Dose: 100 mls/hr Heparin Sodium/Sodium Chloride (Heparin 46824 Units/250ml 1/2 Normal Saline) 25 ,000 units in 250 mls @ 8.529 mls/hr IV .Q24H JONAH; 12 UNITS/KG/HR PRN Reason: Protocol Last Admin: 08/22/17 04:36 Dose: 12 units/kg/hr, 8.529 mls/hr Dobutamine HCl/Dextrose (Dobutamine/Dextrose 5% 500mg/250ml) 500 mg in 250 mls @ 5.331 mls/hr IV .Q24H PRN; Protocol; 2.5 MCG/KG/MIN PRN Reason: TITRATE PER PROTOCOL Last Admin: 08/22/17 08:34 Dose: 2.5 mcg/kg/min, 5.331 mls/hr Levalbuterol HCl (Xopenex) 1.25 mg IH [id number] [facility] Last Admin: 08/22/17 13:48 Dose: 1.25 mg Levalbuterol HCl (Xopenex) 0.63 mg IH Q2H PRN PRN Reason: Shortness of Breath Last Admin: 08/21/17 07:42 Dose: 0.63 mg Lisinopril (Zestril) 10 mg PO DAILY [facility] Last Admin: 08/20/17 12:13 Dose: Not Given Lorazepam (Ativan) 0.5 mg IVP Q6H PRN; Protocol PRN Reason: Anxiety Last Admin: 08/22/17 15:20 Dose: 0.5 mg Methylprednisolone (Solu-Medrol) 40 mg IVP Q8 JONAH Last Admin: 08/22/17 14:24 Dose: 40 mg Morphine Sulfate (Morphine) 1 mg IVP Q12H PRN PRN Reason: Pain, severe (8-10) Nicotine (Nicoderm Cq) 1 patch TD DAILY [facility] Last Admin: 08/22/17 10:40 Dose: Not Given Pantoprazole Sodium (Protonix Ec Tab) 40 mg PO ACB [facility] Last Admin: 08/22/17 08:25 Dose: 40 mg - Labs Labs: 08/22/17 05:50 08/22/17 05:50 PT 16.3 SECONDS (9.4-12.5) H 08/21/17 16:25 INR 1.42 (0.93-1.08) H 08/21/17 16:25 APTT 59.2 Seconds (25.1-36.5) H 08/22/17 15:35 Attending/Attestation - Attestation I have personally seen and examined this patient.: Yes I have fully participated in the care of the patient.: Yes I have reviewed all pertinent clinical information, including history, physical exam and plan: Yes Notes (Text): 08/22/17 16:48 57 year old female with past medical history of COPD, hypertension, anxiety and depression who presented with shortness of breath. She was intubated for hypercapneic respiratory distress and transferred to ICU. She also had elevated troponins. She is being followed by methods time analyst and case making machine operator. She was extubated this morning. Palliative care follow up requested for advanced directives. She is on aspirin, lasix and heparin drip. She is not on statin possibly due to elevated LFTs which are trending down. She was also started on dobutamine drip for pulmonary hypertension. Continue to monitor kidney function closely for renal insufficiency. Continue with antibiotics as per ID for pneumonia. Kathie Rahman MD Hospitalist.
--- NOTE | 2017-08-22 15:40 | PN ---
SUBJECTIVE: Chart reviewed. Case discussed with nursing. The patient sleeping, but reportedly comfortable, cooperative and not showing signs of agitation or emotional distress. Jhony Thorpe MD/ PhD
--- NOTE | 2017-08-22 23:47 | CP.PCM.PN ---
Subjective - Date & Time of Evaluation Date of Evaluation: 08/22/17 Time of Evaluation: 23:43 - Subjective Subjective: Infectious Disease Follow Up: August 22, 2017 57 yo female originally admitted for shortness of breath and increasing somnolence. Patient's son indicated that the patient was more confused than her normal for at least the past 2 weeks. The patient's appetite was worse and the patient had increased urinary frequency. Patient had problems with SOB after 1 to 1.5 blocks of walking usually. The patient respiratory status worsened yesterday. She was placed on BiPAP and was brought to the MICU for further monitoring. Today, the patient is awake and alert. She was extubated today. Cultures to date have not shown growth. Objective - Vital Signs/Intake and Output Vital Signs (last 24 hours): Temp Pulse Resp BP Pulse Ox 99.8 F H 87 23 107/60 89 L 08/22/17 16:00 08/22/17 22:00 08/22/17 19:00 08/22/17 21:22 08/22/17 19:00 Intake and Output: 08/22/17 08/23/17 18:59 06:59 Intake Total 400 Output Total 2500 Balance -2100 - Medications Medications: Current Medications Acetaminophen (Tylenol 325mg Tab) 650 mg PO Q4H PRN PRN Reason: Fever >100.4 F Last Admin: 08/21/17 09:08 Dose: 650 mg Acetaminophen (Tylenol 120mg Supp) 120 mg RC Q6 PRN PRN Reason: Fever >100.4 F Last Admin: 08/21/17 12:38 Dose: 120 mg Aspirin (Aspirin Chewable) 81 mg PO DAILY [facility] Last Admin: 08/22/17 10:38 Dose: Not Given Bupropion HCl (Wellbutrin Sr 150 Mg) 150 mg PO BID [facility] Last Admin: 08/22/17 18:32 Dose: 150 mg Clonazepam (Klonopin) 1 mg PO TID [facility] PRN Reason: Protocol Last Admin: 08/22/17 18:34 Dose: 1 mg Doxycycline Hyclate (Doryx) 100 mg PO Q12 JONAH PRN Reason: Protocol Last Admin: 08/22/17 21:22 Dose: 100 mg Furosemide (Lasix) 40 mg IVP Q12 [facility] Last Admin: 08/22/17 21:22 Dose: 40 mg Home Med (Home Med) 1 unit PO DAILY [facility] Last Admin: 08/22/17 10:39 Dose: Not Given Home Med (Home Med) 1 unit PO DAILY [facility] Last Admin: 08/22/17 10:39 Dose: Not Given Vancomycin HCl (Vancomycin 1gm) 1 gm in 250 mls @ 167 mls/hr IVPB Q12H JONAH PRN Reason: Protocol Last Admin: 08/22/17 18:35 Dose: 167 mls/hr Meropenem 500 mg/ Sodium (Chloride) 100 mls @ 100 mls/hr IVPB Q8 JONAH PRN Reason: Protocol Last Admin: 08/22/17 21:22 Dose: 100 mls/hr Heparin Sodium/Sodium Chloride (Heparin 38879 Units/250ml 1/2 Normal Saline) 25 ,000 units in 250 mls @ 8.529 mls/hr IV .Q24H JONAH; 12 UNITS/KG/HR PRN Reason: Protocol Last Admin: 08/22/17 04:36 Dose: 12 units/kg/hr, 8.529 mls/hr Dobutamine HCl/Dextrose (Dobutamine/Dextrose 5% 500mg/250ml) 500 mg in 250 mls @ 5.331 mls/hr IV .Q24H PRN; Protocol; 2.5 MCG/KG/MIN PRN Reason: TITRATE PER PROTOCOL Last Admin: 08/22/17 08:34 Dose: 2.5 mcg/kg/min, 5.331 mls/hr Levalbuterol HCl (Xopenex) 1.25 mg IH [id number] [facility] Last Admin: 08/22/17 13:48 Dose: 1.25 mg Levalbuterol HCl (Xopenex) 0.63 mg IH Q2H PRN PRN Reason: Shortness of Breath Last Admin: 08/21/17 07:42 Dose: 0.63 mg Lisinopril (Zestril) 10 mg PO DAILY [facility] Last Admin: 08/20/17 12:13 Dose: Not Given Lorazepam (Ativan) 0.5 mg IVP Q6H PRN; Protocol PRN Reason: Anxiety Last Admin: 08/22/17 15:20 Dose: 0.5 mg Methylprednisolone (Solu-Medrol) 40 mg IVP Q8 [facility] Last Admin: 08/22/17 21:23 Dose: 40 mg Morphine Sulfate (Morphine) 1 mg IVP Q12H PRN PRN Reason: Pain, severe (8-10) Nicotine (Nicoderm Cq) 1 patch TD DAILY [facility] Last Admin: 08/22/17 10:40 Dose: Not Given Pantoprazole Sodium (Protonix Ec Tab) 40 mg PO ACB [facility] Last Admin: 08/22/17 08:25 Dose: 40 mg - Labs Labs: 08/22/17 05:50 08/22/17 05:50 PT 16.3 SECONDS (9.4-12.5) H 08/21/17 16:25 INR 1.42 (0.93-1.08) H 08/21/17 16:25 APTT 59.2 Seconds (25.1-36.5) H 08/22/17 15:35 - Constitutional Appears: No Acute Distress, Chronically Ill - Head Exam Additional comments: intubated and sedated. - Eye Exam Eye Exam: EOMI, PERRL Pupil Exam: NORMAL ACCOMODATION, PERRL - ENT Exam ENT Exam: Mucous Membranes Moist, Normal External Ear Exam, TM's Normal Bilaterally - Respiratory Exam Respiratory Exam: Decreased Breath Sounds, NORMAL BREATHING PATTERN. absent: Rales, Rhonchi, Wheezes - Cardiovascular Exam Cardiovascular Exam: Tachycardia, +S1, +S2 - GI/Abdominal Exam GI & Abdominal Exam: Soft, Normal Bowel Sounds. absent: Distended, Tenderness - Extremities Exam Extremities Exam: Full ROM, Normal Inspection - Neurological Exam Neurological Exam: Alert, Awake, CN II-XII Intact Additional comments: AAO x 2-3 - Psychiatric Exam Psychiatric exam: Normal Affect, Normal Mood - Skin Skin Exam: Dry, Intact, Normal Color Assessment and Plan - Assessment and Plan (Free Text) Assessment: 57 yo female with multiple medical issues presenting with shortness of breath and worsening somnolence. The patient was found to be cyanotic, hypoxic, and tachypnic 6:30 AM on 08/20/2017. She was placed on nonrebreather mask and improved. Switch to BiPAP which she was stable on until she removed the BiPAP mask. After removing the mask, the patient became cyanotic and hypoxic again. Oxygen saturation dropped to 70s. Patient seen by [employer] and admitted to the MICU for further care. Respiratory issues are likely multifactorial: Cor Pulmonale? Pulmonary Hypertension? Pneumonia COPD Noted the patient had some renal insufficiency on admission (secondary to dehydation at that time?). Currently on Vancomycin IV and Meropenem which provides broad coverage antibiotic coverage including for aspiration pneumonia. Chest X-ray showed mild vascular and interstitial congestion. The patient is fully awake and alert. She was weaned off the respiratory today. Obtain procalcitonin values. Results pending. Procalcitonin was 1.57. Treatment for a pneumonia. Thank you for allowing me to participate in the care of the patient, we will follow with you.
[2017-08-23] MEDS: Levalbuterol 1.25 MG/3 ML Inhal Soln UD IH SCH ×4 (02:45→21:29)
[2017-08-23] MEDS: Vancomycin 1gm in NS 250ml 1 GM/250 ML BAG IVPB SCH ×2 (03:55→17:37)
[2017-08-23] MEDS: Meropenem 500 MG in Sodium Chloride 0.9% 100 ML IVPB SCH ×3 (05:27→22:51)
[2017-08-23] MEDS: MethylPREDNISolone 40 mg Vial IVP SCH ×2 (05:27→13:50)
[2017-08-23 06:15] LABS: HEMOGLOBIN 16.8 g/dL (12.0-16.0); MEAN CELL VOLUME 94.7 fl (80.0-105.0); MEAN CORPUSCULAR HEMOGLOBIN 29.6 pg (25.0-35.0); MEAN CORPUSCULAR HGB CONC 31.3 g/dl (31.0-37.0); PLATELET COUNT 86 10^3/uL (120.0-450.0); RBC 5.67 10^6/uL (3.5-6.1); RED CELL DISTRIBUTION WIDTH 16.1 % (11.5-14.5); WHITE BLOOD COUNT 5.9 10^3/ul (4.5-11.0)
[2017-08-23 07:03] LABS: ALB/GLOB RATIO 1.2 (1.1-1.8); ALBUMIN 2.8 g/dL (3.0-4.8); ALT/SGPT 221 U/L (7-56); AST/SGOT 96 U/L (14-36); BLOOD UREA NITROGEN 56 mg/dL (7-21); CALCIUM 9.2 mg/dL (8.4-10.5); GFR AFRICAN-AMERICAN > 60; GFR NON-AFRICAN AMERICAN 51
[2017-08-23] MEDS: buPROPion SR 150 MG TABLET PO SCH ×2 (09:36→19:03)
[2017-08-23] MEDS: Pantoprazole 40 mg EC Tab PO SCH (09:36)
[2017-08-23] MEDS: ADDERALL 5 MG PO SCH (09:43)
[2017-08-23] MEDS: SUBOXONE 8 MG PO SCH (09:44)
--- NOTE | 2017-08-23 11:12 | CP.PCM.PN ---
Subjective - Date & Time of Evaluation Date of Evaluation: 08/23/17 Time of Evaluation: 10:00 - Subjective Subjective: Alert, oriented. Offers no complaints Objective - Vital Signs/Intake and Output Vital Signs (last 24 hours): Temp Pulse Resp BP Pulse Ox 99.8 F H 81 20 128/80 92 L 08/22/17 16:00 08/23/17 08:00 08/23/17 10:09 08/23/17 09:35 08/23/17 08:00 Intake and Output: 08/23/17 08/23/17 06:59 18:59 Intake Total 615 Output Total 1400 Balance -785 - Medications Medications: Current Medications Acetaminophen (Tylenol 325mg Tab) 650 mg PO Q4H PRN PRN Reason: Fever >100.4 F Last Admin: 08/23/17 04:11 Dose: 650 mg Acetaminophen (Tylenol 120mg Supp) 120 mg RC Q6 PRN PRN Reason: Fever >100.4 F Last Admin: 08/21/17 12:38 Dose: 120 mg Aspirin (Aspirin Chewable) 81 mg PO DAILY [facility] Last Admin: 08/23/17 09:36 Dose: 81 mg Bupropion HCl (Wellbutrin Sr 150 Mg) 150 mg PO BID [facility] Last Admin: 08/23/17 09:36 Dose: 150 mg Clonazepam (Klonopin) 1 mg PO TID JONAH PRN Reason: Protocol Last Admin: 08/23/17 09:36 Dose: 1 mg Doxycycline Hyclate (Doryx) 100 mg PO Q12 JONAH PRN Reason: Protocol Last Admin: 08/23/17 09:36 Dose: 100 mg Furosemide (Lasix) 40 mg IVP Q12 JONAH Last Admin: 08/23/17 09:35 Dose: 40 mg Home Med (Home Med) 1 unit PO DAILY [facility] Last Admin: 08/23/17 09:44 Dose: Not Given Home Med (Home Med) 1 unit PO DAILY [facility] Last Admin: 08/23/17 09:43 Dose: Not Given Vancomycin HCl (Vancomycin 1gm) 1 gm in 250 mls @ 167 mls/hr IVPB Q12H JONAH PRN Reason: Protocol Last Admin: 08/23/17 03:55 Dose: 167 mls/hr Meropenem 500 mg/ Sodium (Chloride) 100 mls @ 100 mls/hr IVPB Q8 JONAH PRN Reason: Protocol Last Admin: 08/23/17 05:27 Dose: 100 mls/hr Heparin Sodium/Sodium Chloride (Heparin 81143 Units/250ml 1/2 Normal Saline) 25 ,000 units in 250 mls @ 8.529 mls/hr IV .Q24H JONAH; 12 UNITS/KG/HR PRN Reason: Protocol Last Admin: 08/22/17 04:36 Dose: 12 units/kg/hr, 8.529 mls/hr Dobutamine HCl/Dextrose (Dobutamine/Dextrose 5% 500mg/250ml) 500 mg in 250 mls @ 5.331 mls/hr IV .Q24H PRN; Protocol; 2.5 MCG/KG/MIN PRN Reason: TITRATE PER PROTOCOL Last Admin: 08/22/17 08:34 Dose: 2.5 mcg/kg/min, 5.331 mls/hr Potassium Chloride (Potassium Chloride 10 Meq/100 Ml) 10 meq in 100 mls @ 50 mls/hr IVPB Q2H JONAH Stop: 08/23/17 18:14 Levalbuterol HCl (Xopenex) 1.25 mg IH [id number] [facility] Last Admin: 08/23/17 07:04 Dose: 1.25 mg Levalbuterol HCl (Xopenex) 0.63 mg IH Q2H PRN PRN Reason: Shortness of Breath Last Admin: 08/21/17 07:42 Dose: 0.63 mg Lisinopril (Zestril) 10 mg PO DAILY [facility] Last Admin: 08/20/17 12:13 Dose: Not Given Lorazepam (Ativan) 0.5 mg IVP Q6H PRN; Protocol PRN Reason: Anxiety Last Admin: 08/22/17 15:20 Dose: 0.5 mg Methylprednisolone (Solu-Medrol) 40 mg IVP Q8 [facility] Last Admin: 08/23/17 05:27 Dose: 40 mg Morphine Sulfate (Morphine) 1 mg IVP Q12H PRN PRN Reason: Pain, severe (8-10) Nicotine (Nicoderm Cq) 1 patch TD DAILY [facility] Last Admin: 08/22/17 10:40 Dose: Not Given Pantoprazole Sodium (Protonix Ec Tab) 40 mg PO ACB [facility] Last Admin: 08/23/17 09:36 Dose: 40 mg - Labs Labs: 08/23/17 05:15 08/23/17 05:15 PT 16.3 SECONDS (9.4-12.5) H 08/21/17 16:25 INR 1.42 (0.93-1.08) H 08/21/17 16:25 APTT 47.4 Seconds (25.1-36.5) H 08/23/17 05:15 - Constitutional Appears: Chronically Ill - Head Exam Head Exam: NORMOCEPHALIC - Eye Exam Eye Exam: Normal appearance, PERRL - ENT Exam ENT Exam: Mucous Membranes Moist, Normal Oropharynx - Neck Exam Neck Exam: Normal Inspection - Respiratory Exam Respiratory Exam: Decreased Breath Sounds, NORMAL BREATHING PATTERN - Cardiovascular Exam Cardiovascular Exam: REGULAR RHYTHM, +S1, +S2 - GI/Abdominal Exam GI & Abdominal Exam: Soft, Normal Bowel Sounds - Extremities Exam Extremities Exam: Normal Capillary Refill, Normal Inspection - Back Exam Back Exam: NORMAL INSPECTION - Skin Skin Exam: Dry, Warm Assessment and Plan - Assessment and Plan (Free Text) Assessment: 57 year old female with history of COPD who is admitted with respiratory failure secondary to cor pumonale. She is s/p intubation. The patient is alert and oriented. Discussion regarding resuscitation wishes ensued. Patient is adamant that she does not want to be intubated in the future. States she is willing to have CPR. Burdens of CPR explained. We also discussed her son Celsa understanding of her wishes. Patient states Miguel Angel wants "me to live forever". Emphasized the importance of family meeting so that this discussion can take place. Patient states her son from [place] is also coming and that she wants him involved in this discussion. POLST directive explained,paint unwilling to initiate at this time. Time sent in goals of care discussion with this patient 30 minutes Plan: Palliative support in establishing goals of care and advance care planning,
--- NOTE | 2017-08-23 12:38 | PN ---
DATE: 08/23/2017 SUBJECTIVE: The patient is seen and examined at bedside. She is comfortable. She is in good spirit. She is not in respiratory or otherwise distress despite using high-flow with borderline oxygenation parameters. PHYSICAL EXAMINATION: VITAL SIGNS: Heart rate 81, blood pressure 128/80, respiratory rate 20, and oxygen saturation 86% on 6 liters nasal cannula. ENT: Head and neck atraumatic. LUNGS: Clear to auscultation bilaterally. HEART: Regular rate and rhythm. S1 and S2 normal. ABDOMEN: Soft, nontender, nondistended. MUSCULOSKELETAL: No C/C/E. NEUROLOGIC: The patient moves all extremities spontaneously. SKIN: Moist. PSYCH: The patient is alert and oriented x3. LABORATORY DATA: WBC 5.9, hemoglobin 16.8, platelet count 86. Sodium 143, potassium 3.1, potassium supplemented. Chloride 100, carbon dioxide 36, BUN 56, creatinine 1.1 down from 1.5, glucose 103. AST 96, ALT 221, total bilirubin 1.7. PTT 47.4 MEDICATIONS: Tylenol p.r.n., aspirin, Wellbutrin, Klonopin, dobutamine, Doryx, Lasix 40 mg IV q.12., heparin drip, Xopenex p.r.n. and every 6 hours, Ativan p.r.n., meropenem, Solu-Medrol 40 mg IV q.8 (tapered down to q.12), nicotine patch, morphine p.r.n., potassium supplementation, and vancomycin. ASSESSMENT AND PLAN: This is a 57-year-old lady recovering from hypercapnic respiratory failure secondary to chronic obstructive pulmonary disease exacerbation in the setting of severe cor pulmonale and pulmonary hypertension. At the present time, the patient is extubated. She is off of BiPap. She does require 6 liters per minute of nasal cannula to maintain borderline acceptable gas exchange parameters. Nevertheless, she is comfortable. At the present time, we will proceed with incentive spirometry, out of bed to chair, chest PT, bronchodilators, inhaled corticosteroids and steroid taper. She would need BiPap at night. She would need oxygen supplementation. Deep venous thrombosis, gastrointestinal prophylaxis. Complete antibiotic therapy. Conservative fluid and oxygen management. Okay to downgrade to Telemetry. ccm time 40 min Marshall Álvarez MD LUDMILA
--- NOTE | 2017-08-23 14:07 | CP.PCM.PN ---
<Sae Cooper - Last Filed: 08/23/17 14:04> Subjective - Date & Time of Evaluation Date of Evaluation: 08/23/17 Time of Evaluation: 14:04 - Subjective Subjective: Medicine Progress Note Pt seen and examined at bedside. No acute overnight events. Pt states she is breathing better. Pt states she is hungry and would like to eat. Pt states she understands the implications of DNI and is considering it; she will discuss further with her family. Pt denied chest pain, nausea, vomiting, diarrhea, abdominal pain, fever, chills, headache, or dizziness. Objective - Vital Signs/Intake and Output Vital Signs (last 24 hours): Temp Pulse Resp BP Pulse Ox 99.8 F H 81 24 128/80 92 L 08/22/17 16:00 08/23/17 08:00 08/23/17 13:32 08/23/17 09:35 08/23/17 08:00 Intake and Output: 08/23/17 08/23/17 06:59 18:59 Intake Total 615 Output Total 1400 Balance -785 - Medications Medications: Current Medications Acetaminophen (Tylenol 325mg Tab) 650 mg PO Q4H PRN PRN Reason: Fever >100.4 F Last Admin: 08/23/17 04:11 Dose: 650 mg Acetaminophen (Tylenol 120mg Supp) 120 mg RC Q6 PRN PRN Reason: Fever >100.4 F Last Admin: 08/21/17 12:38 Dose: 120 mg Aspirin (Aspirin Chewable) 81 mg PO DAILY [facility] Last Admin: 08/23/17 09:36 Dose: 81 mg Bupropion HCl (Wellbutrin Sr 150 Mg) 150 mg PO BID [facility] Last Admin: 08/23/17 09:36 Dose: 150 mg Clonazepam (Klonopin) 1 mg PO TID JONAH PRN Reason: Protocol Last Admin: 08/23/17 09:36 Dose: 1 mg Doxycycline Hyclate (Doryx) 100 mg PO Q12 JONAH PRN Reason: Protocol Last Admin: 08/23/17 09:36 Dose: 100 mg Furosemide (Lasix) 40 mg IVP Q12 [facility] Last Admin: 08/23/17 09:35 Dose: 40 mg Home Med (Home Med) 1 unit PO DAILY [facility] Last Admin: 08/23/17 09:44 Dose: Not Given Home Med (Home Med) 1 unit PO DAILY [facility] Last Admin: 08/23/17 09:43 Dose: Not Given Vancomycin HCl (Vancomycin 1gm) 1 gm in 250 mls @ 167 mls/hr IVPB Q12H JONAH PRN Reason: Protocol Last Admin: 08/23/17 03:55 Dose: 167 mls/hr Meropenem 500 mg/ Sodium (Chloride) 100 mls @ 100 mls/hr IVPB Q8 JONAH PRN Reason: Protocol Last Admin: 08/23/17 13:51 Dose: 100 mls/hr Heparin Sodium/Sodium Chloride (Heparin 39900 Units/250ml 1/2 Normal Saline) 25 ,000 units in 250 mls @ 8.529 mls/hr IV .Q24H JONAH; 12 UNITS/KG/HR PRN Reason: Protocol Last Admin: 08/22/17 04:36 Dose: 12 units/kg/hr, 8.529 mls/hr Dobutamine HCl/Dextrose (Dobutamine/Dextrose 5% 500mg/250ml) 500 mg in 250 mls @ 5.331 mls/hr IV .Q24H PRN; Protocol; 2.5 MCG/KG/MIN PRN Reason: TITRATE PER PROTOCOL Last Admin: 08/22/17 08:34 Dose: 2.5 mcg/kg/min, 5.331 mls/hr Potassium Chloride (Potassium Chloride 10 Meq/100 Ml) 10 meq in 100 mls @ 50 mls/hr IVPB Q2H JONAH Stop: 08/23/17 18:14 Last Admin: 08/23/17 13:51 Dose: 50 mls/hr Levalbuterol HCl (Xopenex) 1.25 mg IH [id number] [facility] Last Admin: 08/23/17 13:29 Dose: 1.25 mg Levalbuterol HCl (Xopenex) 0.63 mg IH Q2H PRN PRN Reason: Shortness of Breath Last Admin: 08/21/17 07:42 Dose: 0.63 mg Lisinopril (Zestril) 10 mg PO DAILY [facility] Last Admin: 08/20/17 12:13 Dose: Not Given Lorazepam (Ativan) 0.5 mg IVP Q6H PRN; Protocol PRN Reason: Anxiety Last Admin: 08/22/17 15:20 Dose: 0.5 mg Methylprednisolone (Solu-Medrol) 40 mg IVP Q12H [facility] Last Admin: 08/23/17 13:50 Dose: 40 mg Morphine Sulfate (Morphine) 1 mg IVP Q12H PRN PRN Reason: Pain, severe (8-10) Nicotine (Nicoderm Cq) 1 patch TD DAILY [facility] Last Admin: 08/23/17 10:13 Dose: Not Given Pantoprazole Sodium (Protonix Ec Tab) 40 mg PO ACB [facility] Last Admin: 08/23/17 09:36 Dose: 40 mg - Labs Labs: 08/23/17 05:15 08/23/17 05:15 PT 16.3 SECONDS (9.4-12.5) H 08/21/17 16:25 INR 1.42 (0.93-1.08) H 08/21/17 16:25 APTT 47.4 Seconds (25.1-36.5) H 08/23/17 05:15 - Constitutional Appears: No Acute Distress - Head Exam Head Exam: NORMAL INSPECTION - Eye Exam Eye Exam: Normal appearance - ENT Exam ENT Exam: Normal Exam - Neck Exam Neck Exam: Normal Inspection - Respiratory Exam Respiratory Exam: Clear to Ausculation Bilateral. absent: Accessory Muscle Use , Rales, Rhonchi, Wheezes, Respiratory Distress - Cardiovascular Exam Cardiovascular Exam: RRR, +S1, +S2. absent: Gallop, Rubs, Murmur - GI/Abdominal Exam GI & Abdominal Exam: Soft. absent: Distended, Guarding, Tenderness, Rebound - Extremities Exam Extremities Exam: Normal Inspection - Back Exam Back Exam: NORMAL INSPECTION - Neurological Exam Neurological Exam: Alert, Awake, Oriented x3 - Psychiatric Exam Psychiatric exam: Normal Affect, Normal Mood - Skin Skin Exam: Dry, Intact, Normal Color, Warm Assessment and Plan - Assessment and Plan (Free Text) Assessment: 57 yo female with past medical history of COPD, hypertension, anxiety, and depression admitted for evaluation and treatment for right sided heart failure secondary to cor pulmonale vs. pulmonary hypertension. Currently in ICU for hypercapnic respiratory failure requiring intubation, however is now extubated on dobutamine due to pulmonary hypertension. Plan: 1. Hypercapnic Respiratory Distress, resolved - Admitted to ICU - Extubated - Discussed with patient and son regarding possibility of DNR/DNI status Palliative care consulted 2. Elevated Troponin - Possible NSTEMI - Troponin 1.05, 2.42, 1.76 - Likely 2/2 hypoxemia/hemodynamic changes - Cont heparin drip, ASA, plavix - Cardio consulted 3. Pneumonia - Likely 2/2 aspiration - Procal 1.57 - ID consulted - Cont Vancomycin, Merrem - F/u blood and sputum culture 4. Right sided heart failure 2/2 cor pulmonale - Will require O2 at home, f/u yasir care, social work - On dobutamine to relieve pulmonary artery pressure - Cardio consulted Discussed cor pulmonale vs pulmonary hypertension with cardiology; agree that right heart cath should be done - Pulmonology consulted - Echo showed LVEF 79.5% Mod to severe dilation of right ventricle Systolic function of right ventricle moderately reduced Moderate tricuspid regurgitation RVSP-61 mm of hg, dilated IVC - Cont doxycycline PO, Lasix - Hold Lisinopril - BNP 29267 on admission 5. COPD - Started solumedrol 40 mg IVP q12h - Cont xopenex and ipratropium 6. Depression/Anxiety - Psych consulted - Cont Suboxone, Wellbutrin, Adderall, Klonopin - Ativan prn 7. Hypertension - Hold Lisinopril - Cont to monitor 8. Acute kidney injury, resolved - Cont to monitor GI/DVT PPx - Protonix - Heparin Pt seen and discussed in detail with Dr. Eckert. Robbie Cooper, PGY1 <Bay Eckert - Last Filed: 08/23/17 16:29> Objective - Vital Signs/Intake and Output Vital Signs (last 24 hours): Temp Pulse Resp BP Pulse Ox 99.8 F H 81 24 128/80 92 L 08/22/17 16:00 08/23/17 08:00 08/23/17 13:32 08/23/17 09:35 08/23/17 08:00 Intake and Output: 08/23/17 08/23/17 06:59 18:59 Intake Total 615 Output Total 1400 Balance -785 - Medications Medications: Current Medications Acetaminophen (Tylenol 325mg Tab) 650 mg PO Q4H PRN PRN Reason: Fever >100.4 F Last Admin: 08/23/17 04:11 Dose: 650 mg Acetaminophen (Tylenol 120mg Supp) 120 mg RC Q6 PRN PRN Reason: Fever >100.4 F Last Admin: 08/21/17 12:38 Dose: 120 mg Aspirin (Aspirin Chewable) 81 mg PO DAILY [facility] Last Admin: 08/23/17 09:36 Dose: 81 mg Bupropion HCl (Wellbutrin Sr 150 Mg) 150 mg PO BID [facility] Last Admin: 08/23/17 09:36 Dose: 150 mg Clonazepam (Klonopin) 1 mg PO TID [facility] PRN Reason: Protocol Last Admin: 08/23/17 09:36 Dose: 1 mg Doxycycline Hyclate (Doryx) 100 mg PO Q12 JONAH PRN Reason: Protocol Last Admin: 08/23/17 09:36 Dose: 100 mg Furosemide (Lasix) 40 mg IVP Q12 [facility] Last Admin: 08/23/17 09:35 Dose: 40 mg Home Med (Home Med) 1 unit PO DAILY [facility] Last Admin: 08/23/17 09:44 Dose: Not Given Home Med (Home Med) 1 unit PO DAILY [facility] Last Admin: 08/23/17 09:43 Dose: Not Given Vancomycin HCl (Vancomycin 1gm) 1 gm in 250 mls @ 167 mls/hr IVPB Q12H [facility] PRN Reason: Protocol Last Admin: 08/23/17 03:55 Dose: 167 mls/hr Meropenem 500 mg/ Sodium (Chloride) 100 mls @ 100 mls/hr IVPB Q8 [facility] PRN Reason: Protocol Last Admin: 08/23/17 13:51 Dose: 100 mls/hr Heparin Sodium/Sodium Chloride (Heparin 21164 Units/250ml 1/2 Normal Saline) 25 ,000 units in 250 mls @ 8.529 mls/hr IV .Q24H JONAH; 12 UNITS/KG/HR PRN Reason: Protocol Last Admin: 08/22/17 04:36 Dose: 12 units/kg/hr, 8.529 mls/hr Dobutamine HCl/Dextrose (Dobutamine/Dextrose 5% 500mg/250ml) 500 mg in 250 mls @ 5.331 mls/hr IV .Q24H PRN; Protocol; 2.5 MCG/KG/MIN PRN Reason: TITRATE PER PROTOCOL Last Admin: 08/22/17 08:34 Dose: 2.5 mcg/kg/min, 5.331 mls/hr Potassium Chloride (Potassium Chloride 10 Meq/100 Ml) 10 meq in 100 mls @ 50 mls/hr IVPB Q2H [facility] Stop: 08/23/17 18:14 Last Admin: 08/23/17 13:51 Dose: 50 mls/hr Levalbuterol HCl (Xopenex) 1.25 mg IH [id number] [facility] Last Admin: 08/23/17 13:29 Dose: 1.25 mg Levalbuterol HCl (Xopenex) 0.63 mg IH Q2H PRN PRN Reason: Shortness of Breath Last Admin: 08/21/17 07:42 Dose: 0.63 mg Lisinopril (Zestril) 10 mg PO DAILY [facility] Last Admin: 08/20/17 12:13 Dose: Not Given Lorazepam (Ativan) 0.5 mg IVP Q6H PRN; Protocol PRN Reason: Anxiety Last Admin: 08/22/17 15:20 Dose: 0.5 mg Methylprednisolone (Solu-Medrol) 40 mg IVP Q12H [facility] Last Admin: 08/23/17 13:50 Dose: 40 mg Morphine Sulfate (Morphine) 1 mg IVP Q12H PRN PRN Reason: Pain, severe (8-10) Nicotine (Nicoderm Cq) 1 patch TD DAILY [facility] Last Admin: 08/23/17 10:13 Dose: Not Given Pantoprazole Sodium (Protonix Ec Tab) 40 mg PO ACB [facility] Last Admin: 08/23/17 09:36 Dose: 40 mg - Labs Labs: 08/23/17 05:15 08/23/17 05:15 PT 16.3 SECONDS (9.4-12.5) H 08/21/17 16:25 INR 1.42 (0.93-1.08) H 08/21/17 16:25 APTT 47.4 Seconds (25.1-36.5) H 08/23/17 05:15 Attending/Attestation - Attestation I have personally seen and examined this patient.: Yes I have fully participated in the care of the patient.: Yes I have reviewed all pertinent clinical information, including history, physical exam and plan: Yes Notes (Text): 08/23/17 14:28 attending note; Patient seen and examined in ICU. Alert and awake. Patient is a 57-year-old female with PMH of chronic obstructive lung disease, hypertension, current smoker, anxiety, and depression presents due to shortness of breath. Currently extubated. On high flow oxygen. pulmonary hypertension; cardiology evaluation appreciated. Elevated troponin. Secondary to hypoxemia. on aspirin and was on heparin drip. Thrombocytopenia; possible heparin-induced thrombocytopenia. Heparin stopped. Started on argatroban. Dose adjusted for hepatic impairment. Heparin induced, thrombocytopenia antibody sent. hematology evaluation requested. Acute renal insufficiency; resolved. Elevated LFTs ; improving slowly. mostly secondary to hypoxemia on hemodynamic changes. active smoking; smoking cessation is strongly advised. started on NicoDerm patch. depression; psychiatric evaluation with Dr. Thorpe appreciated. patient was on clonazepam, Adderall on Suboxone. case discussed with Shari armstrong for advanced directives. Patient will complete paper work. patient and Family will make decision soon. Currently patient is full code. we will monitor closely in ICU. case discussed with ICU attendingin detail. Upon discharge the patient will follow-up PMD . 08/23/17 16:26
[2017-08-23] MEDS: DOBUTamine 500mg/250ml D5W 500 MG/250 ML BAG IV PRN (15:18)
[2017-08-23 15:48] LABS: BASO # 0.01 K/mm3 (0.0-2.0); BASO % 0.1 % (0.0-3.0); GRAN # 7.49 (1.4-6.5); GRAN % 87.8 % (50.0-68.0); LYMPH # 0.7 (1.2-3.4); LYMPH % 8.5 % (22.0-35.0); MEAN CELL VOLUME 94.4 fl (80.0-105.0); MEAN CORPUSCULAR HEMOGLOBIN 30.1 pg (25.0-35.0); MEAN CORPUSCULAR HGB CONC 31.9 g/dl (31.0-37.0); MONO # 0.3 (0.1-0.6); MONO % 3.6 % (1.0-6.0); PLATELET COUNT 93 10^3/uL (120.0-450.0); RBC 6.02 10^6/uL (3.5-6.1); RED CELL DISTRIBUTION WIDTH 15.9 % (11.5-14.5); WHITE BLOOD COUNT 8.5 10^3/ul (4.5-11.0)
[2017-08-23 15:59] LABS: HEMOGLOBIN 18.1 g/dL (12.0-16.0)
[2017-08-23 16:02] LABS: INR 1.51 (0.93-1.08); PARTIAL THROMBOPLASTIN TIME 37.8 Seconds (25.1-36.5); PROTHROMBIN TIME 17.4 SECONDS (9.4-12.5)
[2017-08-23] MEDS: Argatroban 250 MG in Dextrose 5% In Water 250 ML IV PRN (16:45)
--- NOTE | 2017-08-23 18:59 | US ---
HISTORY: Elevated LFTs. COMPARISON: None. TECHNIQUE: Sonographic evaluation of the right upper quadrant of the abdomen. FINDINGS: LIVER: Measures 14.6 cm in length. Patent portal vein. Portal venous flow: Hepatopetal. Unremarkeable echogenicity of the liver parenchyma. No mass. No intrahepatic bile duct dilatation. GALLBLADDER: Unremarkable. No gallstones. COMMON BILE DUCT: Measures 3.4 mm. No stones. No dilatation. PANCREAS: Unremarkable as visualized. No mass. No ductal dilatation. RIGHT KIDNEY: Measures 4.2 x 9.75 cm in length. Normal echogenicity. No calculus, mass, or hydronephrosis. AORTA: No aneurysmal dilatation. IVC: Unremarkable. OTHER FINDINGS: None . IMPRESSION: No acute findings related to/accounting for the clinical presentation.
--- NOTE | 2017-08-23 21:04 | PN ---
DATE: SUBJECTIVE: The patient was extubated yesterday. She denies any retrosternal chest pain. OBJECTIVE: VITAL SIGNS: Blood pressure 128/80, heart rate 81, temperature 99.9 yesterday, there is no for today. HEENT: Normocephalic. CHEST: Right basal thorax crepitations. HEART: S1 and S2 regular. ABDOMEN: Soft. EXTREMITIES: No edema. LABORATORY DATA: Hemoglobin and hematocrit of 16.8 and 53.7, white count 5.9, and platelet count 86,000. SMA-7, Sodium 143, potassium 3.1, chloride 100, CO2 of 36, glucose 103, BUN 56, creatinine 1.1, total bilirubin was 1.7. Yesterday's chest x-ray revealed diffuse bilateral interstitial infiltrate, worse on the lower lobes bilaterally, official report stated that vascular interstitial congestion showing slight improvement ASSESSMENT: 1. Status post respiratory failure. 2. Consider bilateral pneumonia. 3. Possible non-ST elevation myocardial infarction. 4. Thrombocytopenia. 5. Prerenal azotemia. 6. Hypokalemia. CONDITIONS: Continue current IV argatroban and aspirin 81 mg once a day, continue oral doxycycline and IV meropenem. Discontinue IV Lasix for now as the patient is in prerenal azotemia. Optimize intravenous potassium replacement. The patient did receive today a total of 40 mEq of IV potassium replacement. Danny Cruz MD
--- NOTE | 2017-08-23 21:24 | CP.PCM.PN ---
Subjective - Date & Time of Evaluation Date of Evaluation: 08/23/17 Time of Evaluation: 21:14 - Subjective Subjective: Infectious Disease Follow Up: August 23, 2017 57 yo female originally admitted for shortness of breath and increasing somnolence. Patient's son indicated that the patient was more confused than her normal for at least the past 2 weeks. The patient's appetite was worse and the patient had increased urinary frequency. Patient had problems with SOB after 1 to 1.5 blocks of walking usually. The patient respiratory status worsened yesterday. She was placed on BiPAP and was brought to the MICU for further monitoring. Today, the patient is awake and alert. She was extubated yesterday. Cultures to date have not shown growth. Patient expressed to team that she does not want further intubation. Objective - Vital Signs/Intake and Output Vital Signs (last 24 hours): Temp Pulse Resp BP Pulse Ox 99.8 F H 89 24 128/80 92 L 08/22/17 16:00 08/23/17 14:00 08/23/17 13:32 08/23/17 09:35 08/23/17 08:00 Intake and Output: 08/23/17 08/24/17 18:59 06:59 Intake Total 200 Balance 200 - Medications Medications: Current Medications Acetaminophen (Tylenol 325mg Tab) 650 mg PO Q4H PRN PRN Reason: Fever >100.4 F Last Admin: 08/23/17 04:11 Dose: 650 mg Acetaminophen (Tylenol 120mg Supp) 120 mg RC Q6 PRN PRN Reason: Fever >100.4 F Last Admin: 08/21/17 12:38 Dose: 120 mg Aspirin (Aspirin Chewable) 81 mg PO DAILY [facility] Last Admin: 08/23/17 09:36 Dose: 81 mg Bupropion HCl (Wellbutrin Sr 150 Mg) 150 mg PO BID [facility] Last Admin: 08/23/17 19:03 Dose: 150 mg Clonazepam (Klonopin) 1 mg PO TID JONAH PRN Reason: Protocol Last Admin: 08/23/17 16:55 Dose: 1 mg Doxycycline Hyclate (Doryx) 100 mg PO Q12 JONAH PRN Reason: Protocol Last Admin: 08/23/17 09:36 Dose: 100 mg Furosemide (Lasix) 40 mg IVP Q12 [facility] Last Admin: 08/23/17 09:35 Dose: 40 mg Home Med (Home Med) 1 unit PO DAILY [facility] Last Admin: 08/23/17 09:44 Dose: Not Given Home Med (Home Med) 1 unit PO DAILY [facility] Last Admin: 08/23/17 09:43 Dose: Not Given Vancomycin HCl (Vancomycin 1gm) 1 gm in 250 mls @ 167 mls/hr IVPB Q12H JONAH PRN Reason: Protocol Last Admin: 08/23/17 17:37 Dose: 167 mls/hr Meropenem 500 mg/ Sodium (Chloride) 100 mls @ 100 mls/hr IVPB Q8 [facility] PRN Reason: Protocol Last Admin: 08/23/17 13:51 Dose: 100 mls/hr Dobutamine HCl/Dextrose (Dobutamine/Dextrose 5% 500mg/250ml) 500 mg in 250 mls @ 5.331 mls/hr IV .Q24H PRN; Protocol; 2.5 MCG/KG/MIN PRN Reason: TITRATE PER PROTOCOL Last Admin: 08/23/17 15:18 Dose: 2.5 mcg/kg/min, 5.331 mls/hr Argatroban 250 mg/ Dextrose 252.5 mls @ 2.15 mls/hr IV .Q24H PRN; Protocol; 0.5 MCG/KG/MIN PRN Reason: TITRATE PER PROTOCOL Last Admin: 08/23/17 16:45 Dose: 0.5 mcg/kg/min, 2.15 mls/hr Levalbuterol HCl (Xopenex) 1.25 mg IH [id number] [facility] Last Admin: 08/23/17 13:29 Dose: 1.25 mg Levalbuterol HCl (Xopenex) 0.63 mg IH Q2H PRN PRN Reason: Shortness of Breath Last Admin: 08/21/17 07:42 Dose: 0.63 mg Lisinopril (Zestril) 10 mg PO DAILY [facility] Last Admin: 08/20/17 12:13 Dose: Not Given Lorazepam (Ativan) 0.5 mg IVP Q6H PRN; Protocol PRN Reason: Anxiety Last Admin: 08/22/17 15:20 Dose: 0.5 mg Methylprednisolone (Solu-Medrol) 40 mg IVP Q12H [facility] Last Admin: 08/23/17 13:50 Dose: 40 mg Morphine Sulfate (Morphine) 1 mg IVP Q12H PRN PRN Reason: Pain, severe (8-10) Nicotine (Nicoderm Cq) 1 patch TD DAILY [facility] Last Admin: 08/23/17 10:13 Dose: Not Given Pantoprazole Sodium (Protonix Ec Tab) 40 mg PO ACB [facility] Last Admin: 08/23/17 09:36 Dose: 40 mg - Labs Labs: 08/23/17 15:42 08/23/17 05:15 PT 17.4 SECONDS (9.4-12.5) H 08/23/17 15:42 INR 1.51 (0.93-1.08) H 08/23/17 15:42 APTT 47.8 Seconds (25.1-36.5) H 08/23/17 18:53 - Constitutional Appears: No Acute Distress, Chronically Ill - Head Exam Head Exam: ATRAUMATIC, NORMOCEPHALIC - Eye Exam Eye Exam: EOMI, PERRL Pupil Exam: NORMAL ACCOMODATION, PERRL - ENT Exam ENT Exam: Mucous Membranes Moist, Normal External Ear Exam, TM's Normal Bilaterally - Respiratory Exam Respiratory Exam: Decreased Breath Sounds, NORMAL BREATHING PATTERN. absent: Rales, Rhonchi, Wheezes - Cardiovascular Exam Cardiovascular Exam: Tachycardia, +S1, +S2 - GI/Abdominal Exam GI & Abdominal Exam: Soft, Normal Bowel Sounds. absent: Distended, Tenderness - Extremities Exam Extremities Exam: Full ROM, Normal Inspection - Neurological Exam Neurological Exam: Alert, Awake, CN II-XII Intact, Oriented x3 - Psychiatric Exam Psychiatric exam: Normal Affect, Normal Mood - Skin Skin Exam: Intact, Normal Color Assessment and Plan - Assessment and Plan (Free Text) Assessment: 57 yo female with multiple medical issues presenting with shortness of breath and worsening somnolence. The patient was found to be cyanotic, hypoxic, and tachypnic 6:30 AM on 08/20/2017. She was placed on nonrebreather mask and improved. Switch to BiPAP which she was stable on until she removed the BiPAP mask. After removing the mask, the patient became cyanotic and hypoxic again. Oxygen saturation dropped to 70s. Patient seen by Special Education Curriculum Specialist and admitted to the MICU for further care. Respiratory issues are likely multifactorial: Cor Pulmonale? Pulmonary Hypertension? Pneumonia COPD Noted the patient had some renal insufficiency on admission (secondary to dehydation at that time?). Currently on Vancomycin IV and Meropenem which provides broad coverage antibiotic coverage including for aspiration pneumonia. Chest X-ray showed mild vascular and interstitial congestion. The patient is fully awake and alert. She was weaned off the respirator yesterday. Obtain procalcitonin values. Results pending. Procalcitonin was 1.57. Treatment for a pneumonia. Can utilize Procalcitonin trend as a marker of pneumonia improvement. Thank you for allowing me to participate in the care of the patient, we will follow with you.
[2017-08-24] MEDS: MethylPREDNISolone 40 mg Vial IVP SCH ×2 (00:32→11:56)
[2017-08-24] MEDS: Levalbuterol 1.25 MG/3 ML Inhal Soln UD IH SCH ×4 (03:31→20:20)
[2017-08-24] MEDS: Vancomycin 1gm in NS 250ml 1 GM/250 ML BAG IVPB SCH ×2 (04:20→17:24)
[2017-08-24 05:20] LABS: ALB/GLOB RATIO 1.4 (1.1-1.8); ALBUMIN 3.2 g/dL (3.0-4.8); ALT/SGPT 187 U/L (7-56); AST/SGOT 62 U/L (14-36); BLOOD UREA NITROGEN 47 mg/dL (7-21); CALCIUM 9.6 mg/dL (8.4-10.5); GFR AFRICAN-AMERICAN > 60; GFR NON-AFRICAN AMERICAN > 60
[2017-08-24 05:24] LABS: HEMOGLOBIN 17.4 g/dL (12.0-16.0); RBC 5.96 10^6/uL (3.5-6.1); WHITE BLOOD COUNT 8.2 10^3/ul (4.5-11.0)
[2017-08-24 05:25] LABS: MEAN CELL VOLUME 92.6 fl (80.0-105.0); MEAN CORPUSCULAR HEMOGLOBIN 29.2 pg (25.0-35.0); MEAN CORPUSCULAR HGB CONC 31.5 g/dl (31.0-37.0); PLATELET COUNT 84 10^3/uL (120.0-450.0)
[2017-08-24 05:31] LABS: BASO # 0.08 K/mm3 (0.0-2.0); EOS % 0.5 % (1.5-5.0); GRAN % 89.1 % (50.0-68.0); LYMPH # 0.2 (1.2-3.4); LYMPH % 2.9 % (22.0-35.0); MONO # 0.5 (0.1-0.6); MONO % 6.5 % (1.0-6.0)
[2017-08-24] MEDS: Meropenem 500 MG in Sodium Chloride 0.9% 100 ML IVPB SCH ×3 (05:35→21:42)
[2017-08-24] MEDS ORDERED: Potassium Chloride 20 mEq ER Tab PO STA ×2 (08:19→11:11)
[2017-08-24] MEDS: Pantoprazole 40 mg EC Tab PO SCH (08:19)
[2017-08-24] MEDS: buPROPion SR 150 MG TABLET PO SCH ×2 (09:15→17:28)
[2017-08-24] MEDS: SUBOXONE 8 MG PO SCH (09:18)
[2017-08-24] MEDS: ADDERALL 5 MG PO SCH (09:18)
[2017-08-24 09:21] LABS: LARGE PLATELETS PRESENT; LYMPHOCYTE 3 % (22.0-35.0); MONOCYTE 5 % (1.0-6.0); NEUTROPHIL 92 % (50.0-70.0); PLATELET CLUMPS PRESENT; PLATELET ESTIMATE LOW (NORMAL)
--- NOTE | 2017-08-24 10:17 | PN ---
DATE: 08/24/2017 PULMONARY NOTE SUBJECTIVE: The patient is awake and alert with high flow oxygen, eating breakfast. She tolerated her BiPAP overnight. No complaints of chest pain or respiratory distress. No fever, chills, nausea or vomiting. PHYSICAL EXAMINATION: VITAL SIGNS: Note that her temperature is 97.4, pulse is 71, respirations are 20 and BP is 124/79. SKIN: Warm and dry. HEENT: Head: Atraumatic, normocephalic. Eyes: Reactive to light. Ears, nose and throat: Seem to be within normal limits. NECK: Supple. No JVD. No thyroid enlargement. No lymph nodes. HEART: Has regular rate and rhythm. Normal S1, S2. LUNGS: Reveal mild rhonchi with decreased breath sounds bilaterally. ABDOMEN: Soft, nontender. Normal bowel sounds. GENITALIA: Deferred. RECTAL: Deferred. MUSCULOSKELETAL: No joint deformities. EXTREMITIES: Reveal trace lower extremity edema. NEUROLOGIC: She seemed to be grossly intact. LABORATORY DATA: As far as her laboratories are concerned, her white count is 8.2, hemoglobin is 17.4, hematocrit 55.2 with platelets of 84,000. Her sodium is 143, potassium 3.2, chloride 96, CO2 of 40 with a BUN of 47, creatinine of 0.9 and glucose of 106. IMPRESSION: This patient has severe chronic obstructive pulmonary disease with exacerbation. She has hypercapnic respiratory failure and pulmonary hypertension, possible pulmonary edema and rule out pneumonia. PLAN: We will continue with argatroban. The patient is on dobutamine IV and is getting bronchodilators via nebulizer. She continues to get Lasix and getting correct potassium. Her potassium is being corrected. The patient is on Solu-Medrol, vancomycin and meropenem. We will continue to treat aggressively along with the other consultants and the primary care doctor Cuauhtemoc Anderson MD
[2017-08-24] MEDS: guaiFENesin DM 200 mg-20 mg/10 ml UD PO PRN ×2 (10:50→17:39)
[2017-08-24] MEDS ORDERED: Magnesium Sulfate 2 GM in Sodium Chloride 0.9% 100 ML IVPB ONE (11:11)
--- NOTE | 2017-08-24 11:40 | CP.PCM.PN ---
<Sae Cooper - Last Filed: 08/24/17 11:31> Subjective - Date & Time of Evaluation Date of Evaluation: 08/24/17 Time of Evaluation: 11:31 - Subjective Subjective: Medicine Progress Note Pt seen and examined at bedside. No acute overnight events. Pt states that breathing is improved and is tolerating diet well. Pt denied chest pain, nausea , vomiting, diarrhea, abdominal pain, fever, chills, headache, and dizziness. Objective - Vital Signs/Intake and Output Vital Signs (last 24 hours): Temp Pulse Resp BP Pulse Ox 97.9 F 71 20 116/80 95 08/24/17 04:00 08/24/17 07:00 08/24/17 07:00 08/24/17 09:15 08/24/17 07:00 Intake and Output: 08/24/17 08/24/17 06:59 18:59 Intake Total 1032 86 Output Total 1800 Balance -768 86 - Medications Medications: Current Medications Acetaminophen (Tylenol 325mg Tab) 650 mg PO Q4H PRN PRN Reason: Fever >100.4 F Last Admin: 08/23/17 04:11 Dose: 650 mg Acetaminophen (Tylenol 120mg Supp) 120 mg RC Q6 PRN PRN Reason: Fever >100.4 F Last Admin: 08/21/17 12:38 Dose: 120 mg Aspirin (Aspirin Chewable) 81 mg PO DAILY [facility] Last Admin: 08/24/17 09:15 Dose: 81 mg Benzocaine/Menthol (Cepacol Sore Throat) 1 sophia MT Q2H PRN PRN Reason: Sore Throat Bupropion HCl (Wellbutrin Sr 150 Mg) 150 mg PO BID [facility] Last Admin: 08/24/17 09:15 Dose: 150 mg Clonazepam (Klonopin) 1 mg PO TID [facility] PRN Reason: Protocol Last Admin: 08/24/17 09:43 Dose: 1 mg Furosemide (Lasix) 40 mg IVP Q12 [facility] Last Admin: 08/24/17 09:15 Dose: 40 mg Guaifenesin/Dextromethorphan (Robitussin Dm) 10 ml PO Q4H PRN PRN Reason: Cough Last Admin: 08/24/17 10:50 Dose: 10 ml Home Med (Home Med) 1 unit PO DAILY [facility] Last Admin: 08/24/17 09:18 Dose: Not Given Home Med (Home Med) 1 unit PO DAILY [facility] Last Admin: 08/24/17 09:18 Dose: Not Given Vancomycin HCl (Vancomycin 1gm) 1 gm in 250 mls @ 167 mls/hr IVPB Q12H JONAH PRN Reason: Protocol Last Admin: 08/24/17 04:20 Dose: 167 mls/hr Meropenem 500 mg/ Sodium (Chloride) 100 mls @ 100 mls/hr IVPB Q8 JONAH PRN Reason: Protocol Last Admin: 08/24/17 05:35 Dose: 100 mls/hr Dobutamine HCl/Dextrose (Dobutamine/Dextrose 5% 500mg/250ml) 500 mg in 250 mls @ 5.331 mls/hr IV .Q24H PRN; Protocol; 2.5 MCG/KG/MIN PRN Reason: TITRATE PER PROTOCOL Last Admin: 08/23/17 15:18 Dose: 2.5 mcg/kg/min, 5.331 mls/hr Argatroban 250 mg/ Dextrose 252.5 mls @ 2.15 mls/hr IV .Q24H PRN; Protocol; 0.5 MCG/KG/MIN PRN Reason: TITRATE PER PROTOCOL Last Titration: 08/24/17 09:06 Dose: 0.9 mcg/kg/min, 3.87 mls/hr Potassium Chloride (Potassium Chloride 10 Meq/100 Ml) 10 meq in 100 mls @ 50 mls/hr IVPB Q2H [facility] Stop: 08/24/17 12:29 Last Admin: 08/24/17 09:30 Dose: 50 mls/hr Magnesium Sulfate 2 gm/ Sodium (Chloride) 104 mls @ 102 mls/hr IVPB ONCE ONE Stop: 08/24/17 12:12 Levalbuterol HCl (Xopenex) 1.25 mg IH [id number] [facility] Last Admin: 08/24/17 08:53 Dose: 1.25 mg Levalbuterol HCl (Xopenex) 0.63 mg IH Q2H PRN PRN Reason: Shortness of Breath Last Admin: 08/21/17 07:42 Dose: 0.63 mg Lisinopril (Zestril) 10 mg PO DAILY [facility] Last Admin: 08/20/17 12:13 Dose: Not Given Lorazepam (Ativan) 0.5 mg IVP Q6H PRN; Protocol PRN Reason: Anxiety Last Admin: 08/22/17 15:20 Dose: 0.5 mg Methylprednisolone (Solu-Medrol) 40 mg IVP Q12H [facility] Last Admin: 08/24/17 00:32 Dose: 40 mg Pantoprazole Sodium (Protonix Ec Tab) 40 mg PO ACB [facility] Last Admin: 08/24/17 08:19 Dose: 40 mg - Labs Labs: 08/24/17 04:45 08/24/17 04:45 PT 17.4 SECONDS (9.4-12.5) H 08/23/17 15:42 INR 1.51 (0.93-1.08) H 08/23/17 15:42 APTT 46.5 Seconds (25.1-36.5) H 08/24/17 06:00 - Constitutional Appears: No Acute Distress - Head Exam Head Exam: NORMAL INSPECTION - Eye Exam Eye Exam: Normal appearance - ENT Exam ENT Exam: Normal Exam - Neck Exam Neck Exam: Normal Inspection - Respiratory Exam Respiratory Exam: Clear to Ausculation Bilateral. absent: Accessory Muscle Use , Rales, Rhonchi, Wheezes, Respiratory Distress - Cardiovascular Exam Cardiovascular Exam: RRR, +S1, +S2. absent: Gallop, Rubs, Murmur - GI/Abdominal Exam GI & Abdominal Exam: Soft. absent: Distended, Guarding, Tenderness, Rebound - Extremities Exam Extremities Exam: Normal Inspection - Back Exam Back Exam: NORMAL INSPECTION - Neurological Exam Neurological Exam: Alert, Awake, Oriented x3 - Psychiatric Exam Psychiatric exam: Normal Affect, Normal Mood - Skin Skin Exam: Dry, Intact, Normal Color, Warm Assessment and Plan - Assessment and Plan (Free Text) Assessment: 57 yo female with past medical history of COPD, hypertension, anxiety, and depression admitted for evaluation and treatment for right sided heart failure secondary to cor pulmonale vs. pulmonary hypertension. Currently in ICU for hypercapnic respiratory failure requiring intubation, however is now extubated on dobutamine due to pulmonary hypertension. Plan: 1. Hypercapnic Respiratory Distress, resolved - Admitted to ICU - Extubated - Discussed with patient and son regarding possibility of DNR/DNI status Palliative care consulted 2. Elevated Troponin - Possible NSTEMI vs cardiac strain due to hypoxia - Troponin 1.05, 2.42, 1.76 - Cont ASA, plavix - Heparin drip stopped due to thrombocytopenia - Argatroban started - Cardio consulted 3. R/o Heparin-Induced Thrombocytopenia - Heparin drip stopped - Argatroban started - Heparin Ab ordered - Monitor PTT - Hematology consulted 4. Pneumonia - Likely 2/2 aspiration - Procal 1.57 - ID consulted - Cont Vancomycin, Merrem - Blood cultures negative - F/u sputum culture 5. Right sided heart failure 2/2 cor pulmonale - Will require O2 at home, f/u yasir care, social work - On dobutamine to relieve pulmonary artery pressure - Cardio consulted Discussed cor pulmonale vs pulmonary hypertension with cardiology; agree that right heart cath should be done - Pulmonology consulted - Echo showed LVEF 79.5% Mod to severe dilation of right ventricle, Systolic function of right ventricle mod reduced, Mod tricuspid regurgitation, RVSP-61 mm of hg, dilated IVC - Cont doxycycline PO - Holding lasix due to prerenal azotemia - Hold Lisinopril - BNP 00433 on admission 6. COPD - Started solumedrol 40 mg IVP q12h - Cont xopenex and ipratropium 7. Depression/Anxiety - Psych consulted - Cont Suboxone, Wellbutrin, Adderall, Klonopin - Ativan prn 8. Hypertension - Hold Lisinopril - Cont to monitor 9. Electrolyte imbalance - Hypokalemic, Hypomagnesmic - Repleted - Cont to monitor and replete as needed 10. Acute kidney injury, resolved - Cont to monitor GI/DVT PPx - Protonix - Heparin Pt seen and discussed in detail with Dr. Eckert. Robbie Cooper, PGY1 <Bay Eckert - Last Filed: 08/25/17 13:22> Objective - Vital Signs/Intake and Output Vital Signs (last 24 hours): Temp Pulse Resp BP Pulse Ox 98.1 F 81 25 H 128/83 90 L 08/25/17 04:00 08/25/17 06:00 08/25/17 05:00 08/25/17 09:27 08/25/17 05:00 Intake and Output: 08/25/17 08/25/17 06:59 18:59 Intake Total 1070 406.5 Output Total 1600 Balance -530 406.5 - Medications Medications: Current Medications Acetaminophen (Tylenol 325mg Tab) 650 mg PO Q4H PRN PRN Reason: Fever >100.4 F Last Admin: 08/23/17 04:11 Dose: 650 mg Acetaminophen (Tylenol 120mg Supp) 120 mg RC Q6 PRN PRN Reason: Fever >100.4 F Last Admin: 08/21/17 12:38 Dose: 120 mg Aspirin (Aspirin Chewable) 81 mg PO DAILY [facility] Last Admin: 08/25/17 09:22 Dose: 81 mg Benzocaine/Menthol (Cepacol Sore Throat) 1 sophia MT Q2H PRN PRN Reason: Sore Throat Bupropion HCl (Wellbutrin Sr 150 Mg) 150 mg PO BID [facility] Last Admin: 08/25/17 09:25 Dose: 150 mg Clonazepam (Klonopin) 1 mg PO TID [facility] PRN Reason: Protocol Last Admin: 08/25/17 09:25 Dose: 1 mg Furosemide (Lasix) 40 mg IVP Q12 [facility] Last Admin: 08/25/17 09:27 Dose: 40 mg Guaifenesin/Dextromethorphan (Robitussin Dm) 10 ml PO Q4H PRN PRN Reason: Cough Last Admin: 08/25/17 12:54 Dose: 10 ml Home Med (Home Med) 1 unit PO DAILY [facility] Last Admin: 08/25/17 11:56 Dose: Not Given Home Med (Home Med) 1 unit PO DAILY [facility] Last Admin: 08/25/17 11:56 Dose: Not Given Vancomycin HCl (Vancomycin 1gm) 1 gm in 250 mls @ 167 mls/hr IVPB Q12H JONAH PRN Reason: Protocol Last Admin: 08/25/17 04:45 Dose: 167 mls/hr Meropenem 500 mg/ Sodium (Chloride) 100 mls @ 100 mls/hr IVPB Q8 JONAH PRN Reason: Protocol Last Admin: 08/25/17 05:54 Dose: 100 mls/hr Dobutamine HCl/Dextrose (Dobutamine/Dextrose 5% 500mg/250ml) 500 mg in 250 mls @ 5.331 mls/hr IV .Q24H PRN; Protocol; 2.5 MCG/KG/MIN PRN Reason: TITRATE PER PROTOCOL Last Admin: 08/25/17 07:00 Dose: 2.5 mcg/kg/min, 5.331 mls/hr Argatroban 250 mg/ Dextrose 252.5 mls @ 2.15 mls/hr IV .Q24H PRN; Protocol; 0.5 MCG/KG/MIN PRN Reason: TITRATE PER PROTOCOL Last Admin: 08/25/17 07:00 Dose: 1 mcg/kg/min, 4.3 mls/hr Levalbuterol HCl (Xopenex) 1.25 mg IH [id number] [facility] Last Admin: 08/25/17 13:18 Dose: 1.25 mg Levalbuterol HCl (Xopenex) 0.63 mg IH Q2H PRN PRN Reason: Shortness of Breath Last Admin: 08/25/17 01:16 Dose: 0.63 mg Lisinopril (Zestril) 10 mg PO DAILY [facility] Last Admin: 08/20/17 12:13 Dose: Not Given Lorazepam (Ativan) 0.5 mg IVP Q6H PRN; Protocol PRN Reason: Anxiety Last Admin: 08/22/17 15:20 Dose: 0.5 mg Methylprednisolone (Solu-Medrol) 40 mg IVP Q12H [facility] Last Admin: 08/25/17 11:56 Dose: 40 mg Pantoprazole Sodium (Protonix Ec Tab) 40 mg PO ACB [facility] Last Admin: 08/25/17 09:26 Dose: 40 mg - Labs Labs: 08/25/17 05:00 08/25/17 05:00 PT 17.4 SECONDS (9.4-12.5) H 08/23/17 15:42 INR 1.51 (0.93-1.08) H 08/23/17 15:42 APTT 58.4 Seconds (25.1-36.5) H 08/25/17 05:00 Attending/Attestation - Attestation I have personally seen and examined this patient.: Yes I have fully participated in the care of the patient.: Yes I have reviewed all pertinent clinical information, including history, physical exam and plan: Yes Notes (Text): 08/25/17 13:20 attending note; Patient seen and examined in ICU. Alert and awake. on high flow oxygen. Patient is a 57-year-old female with PMH of chronic obstructive lung disease, hypertension, current smoker, anxiety, and depression presents due to shortness of breath. pulmonary hypertension; cardiology evaluation appreciated. Elevated troponin. Secondary to hypoxemia. on dobutamine drip. Thrombocytopenia; possible heparin-induced thrombocytopenia. Heparin stopped. Started on argatroban. Dose adjusted for hepatic impairment. Heparin induced, thrombocytopenia antibody sent. hematology evaluation appreciated. Acute renal insufficiency; resolved. Elevated LFTs ; improving slowly. mostly secondary to hypoxemia on hemodynamic changes. active smoking; smoking cessation is strongly advised. started on NicoDerm patch. depression; psychiatric evaluation with Dr. Thorpe appreciated. patient was on clonazepam, Adderall on Suboxone. Currently patient is full code. Upon discharge the patient will follow-up PMD . 08/25/17 13:21
--- NOTE | 2017-08-24 18:41 | CP.PCM.PN ---
Subjective - Date & Time of Evaluation Date of Evaluation: 08/24/17 Time of Evaluation: 17:45 - Subjective Subjective: Infectious Disease Follow Up: August 24, 2017 57 yo female originally admitted for shortness of breath and increasing somnolence. Patient's son indicated that the patient was more confused than her normal for at least the past 2 weeks. The patient's appetite was worse and the patient had increased urinary frequency. Patient had problems with SOB after 1 to 1.5 blocks of walking usually. The patient respiratory status worsened yesterday. She was placed on BiPAP and was brought to the MICU for further monitoring. Today, the patient is awake and alert. She was extubated yesterday. Cultures to date have not shown growth. Patient expressed to team that she does not want further intubation. Objective - Vital Signs/Intake and Output Vital Signs (last 24 hours): Temp Pulse Resp BP Pulse Ox 98.4 F 79 25 H 108/72 91 L 08/24/17 12:00 08/24/17 14:00 08/24/17 12:00 08/24/17 11:15 08/24/17 11:15 Intake and Output: 08/24/17 08/24/17 06:59 18:59 Intake Total 1032 96 Output Total 1800 Balance -768 96 - Medications Medications: Current Medications Acetaminophen (Tylenol 325mg Tab) 650 mg PO Q4H PRN PRN Reason: Fever >100.4 F Last Admin: 08/23/17 04:11 Dose: 650 mg Acetaminophen (Tylenol 120mg Supp) 120 mg RC Q6 PRN PRN Reason: Fever >100.4 F Last Admin: 08/21/17 12:38 Dose: 120 mg Aspirin (Aspirin Chewable) 81 mg PO DAILY [facility] Last Admin: 08/24/17 09:15 Dose: 81 mg Benzocaine/Menthol (Cepacol Sore Throat) 1 sophia MT Q2H PRN PRN Reason: Sore Throat Bupropion HCl (Wellbutrin Sr 150 Mg) 150 mg PO BID [facility] Last Admin: 08/24/17 17:28 Dose: 150 mg Clonazepam (Klonopin) 1 mg PO TID [facility] PRN Reason: Protocol Last Admin: 08/24/17 17:28 Dose: 1 mg Furosemide (Lasix) 40 mg IVP Q12 [facility] Last Admin: 08/24/17 09:15 Dose: 40 mg Guaifenesin/Dextromethorphan (Robitussin Dm) 10 ml PO Q4H PRN PRN Reason: Cough Last Admin: 08/24/17 17:39 Dose: 10 ml Home Med (Home Med) 1 unit PO DAILY [facility] Last Admin: 08/24/17 09:18 Dose: Not Given Home Med (Home Med) 1 unit PO DAILY [facility] Last Admin: 08/24/17 09:18 Dose: Not Given Vancomycin HCl (Vancomycin 1gm) 1 gm in 250 mls @ 167 mls/hr IVPB Q12H JONAH PRN Reason: Protocol Last Admin: 08/24/17 17:24 Dose: 167 mls/hr Meropenem 500 mg/ Sodium (Chloride) 100 mls @ 100 mls/hr IVPB Q8 JONAH PRN Reason: Protocol Last Admin: 08/24/17 13:20 Dose: 100 mls/hr Dobutamine HCl/Dextrose (Dobutamine/Dextrose 5% 500mg/250ml) 500 mg in 250 mls @ 5.331 mls/hr IV .Q24H PRN; Protocol; 2.5 MCG/KG/MIN PRN Reason: TITRATE PER PROTOCOL Last Admin: 08/23/17 15:18 Dose: 2.5 mcg/kg/min, 5.331 mls/hr Argatroban 250 mg/ Dextrose 252.5 mls @ 2.15 mls/hr IV .Q24H PRN; Protocol; 0.5 MCG/KG/MIN PRN Reason: TITRATE PER PROTOCOL Last Titration: 08/24/17 12:23 Dose: 1 mcg/kg/min, 4.3 mls/hr Levalbuterol HCl (Xopenex) 1.25 mg IH [id number] [facility] Last Admin: 08/24/17 14:04 Dose: 1.25 mg Levalbuterol HCl (Xopenex) 0.63 mg IH Q2H PRN PRN Reason: Shortness of Breath Last Admin: 08/21/17 07:42 Dose: 0.63 mg Lisinopril (Zestril) 10 mg PO DAILY [facility] Last Admin: 08/20/17 12:13 Dose: Not Given Lorazepam (Ativan) 0.5 mg IVP Q6H PRN; Protocol PRN Reason: Anxiety Last Admin: 08/22/17 15:20 Dose: 0.5 mg Methylprednisolone (Solu-Medrol) 40 mg IVP Q12H [facility] Last Admin: 08/24/17 11:56 Dose: 40 mg Pantoprazole Sodium (Protonix Ec Tab) 40 mg PO ACB [facility] Last Admin: 08/24/17 08:19 Dose: 40 mg - Labs Labs: 08/24/17 04:45 08/24/17 04:45 PT 17.4 SECONDS (9.4-12.5) H 08/23/17 15:42 INR 1.51 (0.93-1.08) H 08/23/17 15:42 APTT 53.9 Seconds (25.1-36.5) H 08/24/17 17:50 - Constitutional Appears: No Acute Distress, Chronically Ill - Head Exam Head Exam: ATRAUMATIC, NORMOCEPHALIC - Eye Exam Eye Exam: EOMI, PERRL Pupil Exam: NORMAL ACCOMODATION, PERRL - ENT Exam ENT Exam: Mucous Membranes Moist, Normal External Ear Exam, TM's Normal Bilaterally - Neck Exam Neck Exam: Full ROM, Normal Inspection - Respiratory Exam Respiratory Exam: Clear to Ausculation Bilateral, NORMAL BREATHING PATTERN. absent: Rales, Rhonchi, Wheezes - Cardiovascular Exam Cardiovascular Exam: REGULAR RHYTHM, RRR, +S1, +S2 - GI/Abdominal Exam GI & Abdominal Exam: Soft, Normal Bowel Sounds. absent: Distended, Tenderness - Extremities Exam Extremities Exam: Full ROM, Normal Inspection - Neurological Exam Neurological Exam: Alert, Awake, CN II-XII Intact, Oriented x3 - Psychiatric Exam Psychiatric exam: Normal Affect, Normal Mood - Skin Skin Exam: Intact, Normal Color Assessment and Plan - Assessment and Plan (Free Text) Assessment: 57 yo female with multiple medical issues presenting with shortness of breath and worsening somnolence. The patient was found to be cyanotic, hypoxic, and tachypnic 6:30 AM on 08/20/2017. She was placed on nonrebreather mask and improved. Switch to BiPAP which she was stable on until she removed the BiPAP mask. After removing the mask, the patient became cyanotic and hypoxic again. Oxygen saturation dropped to 70s. Patient seen by [facility] and admitted to the MICU for further care. Respiratory issues are likely multifactorial: Cor Pulmonale? Pulmonary Hypertension? Pneumonia COPD Noted the patient had some renal insufficiency on admission (secondary to dehydation at that time?). Currently on Vancomycin IV and Meropenem which provides broad coverage antibiotic coverage including for aspiration pneumonia. Chest X-ray showed mild vascular and interstitial congestion. The patient is fully awake and alert. She was weaned off the respirator yesterday. Obtain procalcitonin values. Results pending. Procalcitonin was 1.57. Treatment for a pneumonia. Can utilize Procalcitonin trend as a marker of pneumonia improvement. Patient has baseline confusion. Thank you for allowing me to participate in the care of the patient, we will follow with you.
--- NOTE | 2017-08-24 19:23 | PN ---
DATE: 08/24/2017 LOCATION: The patient in ICU 128, bed 1. REASON FOR CONSULTATION: Status post respiratory failure and possible [id number] myocardial infarction. SUBJECTIVE: The patient extubated and the patient denies any chest pain or palpitation. Her breathing is also stable. PHYSICAL EXAMINATION: VITAL SIGNS: Blood pressure 108/72, respirations 18, pulse 89, and temperature 98.4. HEENT: Head is normocephalic. Eyes; pupils normal. Conjunctivae normal. Nose and throat normal. NECK: JVP low. Carotids are equal. THORAX: AP diameter normal. LUNGS: No significant rales. CARDIOVASCULAR: S1 and S2. ABDOMEN: Soft, nontender. No organomegaly. EXTREMITIES: No clubbing, no cyanosis. LABORATORY DATA: WBC 8.2, hemoglobin 17.4, hematocrit 55.2, and platelets 84. Sodium 143, potassium 3.2, BUN 47 and creatinine 0.9. Tota bilirubin 2.2. AST 62 and ALT 187. Total protein 5.5, albumin 3.2. Troponin on 08/21/2017 was 1.76. DIAGNOSES: 1. Status post respiratory failure, successful extubation. 2. Bilateral pneumonia. 3. Possible [id number] myocardial infarction. 4. Thrombocytopenia. 5. Prerenal azotemia. 6. Hypokalemia. PLAN: We will give her supplemental potassium therapy. The patient on aspirin 81 mg daily, dobutamine drip, K therapy has been already ordered, furosemide 40 IV q. 12 hours. Magnesium therapy has been ordered. Merrem 500 mg IV q. 8 hours, Solu-Medrol 40 mg IV q. 12 hours, lisinopril 10 mg daily, Xopenex hand nebulizer therapy. We will continue present therapy and we will follow with you. On 08/21/2017 troponin was 1.76, but BUN was also elevated at that time. Gerardo Monsalve MD
[2017-08-25] MEDS: MethylPREDNISolone 40 mg Vial IVP SCH ×3 (00:08→23:52)
[2017-08-25] MEDS: Levalbuterol 0.63 MG/3 ML Inhal Soln UD IH PRN ×2 (01:16→16:09)
[2017-08-25] MEDS: Levalbuterol 1.25 MG/3 ML Inhal Soln UD IH SCH ×4 (01:27→20:55)
--- NOTE | 2017-08-25 01:31 | CON ---
DATE: HISTORY OF PRESENT ILLNESS: Gisela Aranda is a 57-year-old female who was admitted after presentation to the emergency room with shortness of breath, palpitations, cyanosis, and hypoxia. She has a history of COPD and cor pulmonale. She complains of somnolence for one week, depressed mood, and on and off palpitations for two weeks. She did note a cough productive of white mucus but no fever or chills and no syncope. I was called to see the patient to evaluate for possible heparin-induced thrombocytopenia. The patient was admitted to the floor and received heparin therapy after rapid response. She also had received subcu heparin prior to the rapid response. Her platelet count was 281,000 on admission, but while on heparin, it began to fall from 230,000 on 08/20/2017 to 138,000 on 08/21/2017, 99,000 on 08/22/2017, and 86,000 on 08/23/2017. At 4 o'clock on 08/23/2017, argatroban was introduced after heparin drip has been stopped, and her platelet count is stabilized at 84,000. The dose of argatroban was reduced because after the rapid response and intubation, the patient did have abnormal LFTs. Her admission liver function studies were normal. Today, based on her total bilirubin, albumin, INR, and lack of ascites, encephalopathy, she classifies as a Child-Sterling A. Her total bilirubin is down to 1.8. AST 97, ALT 181 on 08/22/2017. These have not been repeated until today. Bilirubin 2.2. AST improved to 62. ALT stable at 187. Albumin 3.2, up from 2.8. PAST MEDICAL HISTORY: COPD, cor pulmonale, hypertension, anxiety, and depression. PAST SURGICAL HISTORY: section. ALLERGIES: THE PATIENT HAS NO KNOWN ALLERGIES. FAMILY HISTORY: Positive for lung, kidney, and bone cancer. SOCIAL HISTORY: The patient states she smoked half pack a day for more than 30 years. She denied EtOH. MEDICATIONS: Argatroban 1 mcg/kg per minute; it is the current dose. The initial dose was 0.5 mcg/kg per minute. Aspirin 81 mg daily, Ativan 0.5 mg IV push q.6 hours p.r.n., Cepacol throat lozenges, dobutamine drip p.r.n., Klonopin 1 mg p.o. t.i.d., Lasix 40 mg IV push q.12 hours, meropenem 500 mg q.8 hours, Protonix 40 mg a.c., Robitussin DM 10 mL p.o. q.4 hours p.r.n., Solu-Medrol 40 mg IV push q.12 hours, Tylenol 325 mg p.r.n. fever of 100.4, vancomycin 1 gm q.12 hours, Wellbutrin 150 mg p.o. b.i.d., Xopenex 1.25 mg inhalation q.6 hours, Zestril 10 mg p.o. daily. Doxycycline and heparin have been discontinued. REVIEW OF SYSTEMS: Constitutional: The patient had some progressive weakness leading up to her admission with palpitations. No syncope. There was cough productive of white sputum. She denies a history of neurologic diseases, visual changes, changes in speech or memory, no history of seizures, no history of thyroid disease, swallowing problems, dysphagia, odynophagia, hemoptysis, weight loss, history of chest pain, pleuritic pain. Cardiac: Positive for palpitations, which she still is experiencing that coincide with APCs on her monitor. GI: The patient denies nausea, vomiting, diarrhea, constipation, abdominal pain, or distention. : The patient denies dysuria, hematuria, melena, hematochezia, hematemesis. Skin: The patient denies skin disorders, autoimmune diseases. PHYSICAL EXAMINATION: VITAL SIGNS: Temperature normal, blood pressure 116/71, pulse 83, respirations 18, O2 saturations 88%. The patient is currently wearing nasal oxygen. GENERAL: No acute distress. Awake, alert, and oriented x3. The patient states that she is feeling anxious, and she is growing increasingly impatient waiting for her Klonopin. She is a good historian. HEENT: Sclerae anicteric. Head normocephalic. Conjunctivae pink. No conjunctival hemorrhages. No JVD. LUNGS: Revealed some rhonchi, diffuse. No rales, no wheezing. ABDOMEN: Soft, round, nontender, no masses, no guarding, no rebound. GENITALIA/RECTAL: Deferred. MUSCULOSKELETAL: Normal muscle tone. EXTREMITIES: No cyanosis, clubbing, or edema. Pedal pulses are 2+ bilaterally. There is no acrocyanosis. There is no central cyanosis. No ecchymosis is appreciated on inspection of the skin. The extremities are warm. NEUROLOGIC: The patient follows commands. There is no tremor or fasciculations. No focal weakness. The patient is not encephalopathic. IMPRESSION: Gisela Aranda is a 57-year-old female with chronic obstructive pulmonary disease exacerbation and respiratory failure who seems to be recovering from the acute episode of cyanosis and rapid response. She also has cor pulmonale. The patient's platelet count has fallen on a consecutive daily basis after receiving IV heparin and subcu heparin when her troponins were found to be elevated after rapid response for respiratory failure and hypoxia. The patient has been on modified dose of argatroban which was started just under half the standard dose for heparin induced thrombocytopenia. There has been no evidence of thrombosis and it is believed the troponins were elevated purely from the cardiac strain of severe hypoxia. No one knows how long she was severely hypoxic because she was apparently taken off the BiPAP sometime prior to the rapid response. Her troponin levels since that time have not been repeated. Her procalcitonin level was elevated 3 days ago. With respect to possible heparin induced thrombocytopenia and acute liver dysfunction, modification of the argatroban dose is reasonable since the patient's bilirubin and transaminases remain elevated. It appears that she is at the lowest ends of therapeutic level; however, the dose has been titrated upward since the 6 a.m. PTT of 46.5; however, it is unchanged and on the repeat at 11:30 a.m. today. We will check the next level rather than increase the rate of the drip at this time. One should be aware patients with hepatic dysfunction do take longer to reach a steady state, and the steady state for argatroban is usually 3 to 4 hours. The goal will be to keep the PTT anywhere from 1-1/2 to 3 times her baseline PTT which on 08/16/2017 was 30.4 within INR that was slightly elevated at 1.31. I would not introduce Coumadin while the PTT is subtherapeutic and while the platelet count remains low. Today, the patient's liver function studies correlate to Child-Sterling score that is low (A). Suggest repeating liver function studies along with CBC daily. Continue to monitor the PTT two hours after each adjustment of the argatroban drip. Thank you very much for this consultation. We will continue to follow the patient closely with you. Saima Ojeda MD
[2017-08-25] MEDS: Vancomycin 1gm in NS 250ml 1 GM/250 ML BAG IVPB SCH ×2 (04:45→15:51)
[2017-08-25] MEDS: Meropenem 500 MG in Sodium Chloride 0.9% 100 ML IVPB SCH ×3 (05:54→22:11)
[2017-08-25] MEDS: guaiFENesin DM 200 mg-20 mg/10 ml UD PO PRN ×2 (05:55→12:54)
[2017-08-25 06:16] LABS: ALB/GLOB RATIO 1.4 (1.1-1.8); ALBUMIN 3.1 g/dL (3.0-4.8); ALT/SGPT 139 U/L (7-56); AST/SGOT 42 U/L (14-36); BLOOD UREA NITROGEN 40 mg/dL (7-21); CALCIUM 9.5 mg/dL (8.4-10.5); GFR AFRICAN-AMERICAN > 60; GFR NON-AFRICAN AMERICAN > 60; MAGNESIUM 1.8 mg/dL (1.7-2.2)
[2017-08-25 06:43] LABS: HEMOGLOBIN 17.3 g/dL (12.0-16.0); RBC 5.93 10^6/uL (3.5-6.1); WHITE BLOOD COUNT 10.3 10^3/ul (4.5-11.0)
[2017-08-25 06:44] LABS: GRAN % 91.2 % (50.0-68.0); LYMPH % 2.2 % (22.0-35.0); MEAN CELL VOLUME 94.6 fl (80.0-105.0); MEAN CORPUSCULAR HEMOGLOBIN 29.2 pg (25.0-35.0); MEAN CORPUSCULAR HGB CONC 30.8 g/dl (31.0-37.0); PLATELET COUNT 84 10^3/uL (120.0-450.0); RED CELL DISTRIBUTION WIDTH 17.2 % (11.5-14.5)
[2017-08-25 06:45] LABS: BASO # 0.04 K/mm3 (0.0-2.0); BASO % 0.4 % (0.0-3.0); EOS % 0.1 % (1.5-5.0); GRAN # 9.35 (1.4-6.5); LYMPH # 0.2 (1.2-3.4); MONO # 0.6 (0.1-0.6); MONO % 6.1 % (1.0-6.0)
[2017-08-25] MEDS: DOBUTamine 500mg/250ml D5W 500 MG/250 ML BAG IV PRN (07:00)
[2017-08-25] MEDS: Argatroban 250 MG in Dextrose 5% In Water 250 ML IV PRN (07:00)
[2017-08-25] MEDS: Potassium Chloride 20 mEq ER Tab PO STA (09:23)
[2017-08-25] MEDS: buPROPion SR 150 MG TABLET PO SCH ×2 (09:25→18:14)
[2017-08-25] MEDS: Pantoprazole 40 mg EC Tab PO SCH (09:26)
--- NOTE | 2017-08-25 09:35 | CP.PCM.PN ---
<Sae Cooper - Last Filed: 08/25/17 09:32> Subjective - Date & Time of Evaluation Date of Evaluation: 08/25/17 Time of Evaluation: 09:32 - Subjective Subjective: Medicine Progress Note Pt seen and examined at bedside. Pt states she feels hungry and would like a more substantial diet. Pt also complaining of 3-4 episodes of diarrhea overnight. Pt states breathing is improved. Pt denied chest pain, nausea, vomiting, abdominal pain, fever, chills, headache, or dizziness. Objective - Vital Signs/Intake and Output Vital Signs (last 24 hours): Temp Pulse Resp BP Pulse Ox 98.1 F 81 25 H 128/83 90 L 08/25/17 04:00 08/25/17 06:00 08/25/17 05:00 08/25/17 09:27 08/25/17 05:00 Intake and Output: 08/25/17 08/25/17 06:59 18:59 Intake Total 1070 406.5 Output Total 1600 Balance -530 406.5 - Medications Medications: Current Medications Acetaminophen (Tylenol 325mg Tab) 650 mg PO Q4H PRN PRN Reason: Fever >100.4 F Last Admin: 08/23/17 04:11 Dose: 650 mg Acetaminophen (Tylenol 120mg Supp) 120 mg RC Q6 PRN PRN Reason: Fever >100.4 F Last Admin: 08/21/17 12:38 Dose: 120 mg Aspirin (Aspirin Chewable) 81 mg PO DAILY [facility] Last Admin: 08/25/17 09:22 Dose: 81 mg Benzocaine/Menthol (Cepacol Sore Throat) 1 sophia MT Q2H PRN PRN Reason: Sore Throat Bupropion HCl (Wellbutrin Sr 150 Mg) 150 mg PO BID [facility] Last Admin: 08/25/17 09:25 Dose: 150 mg Clonazepam (Klonopin) 1 mg PO TID [facility] PRN Reason: Protocol Last Admin: 08/25/17 09:25 Dose: 1 mg Furosemide (Lasix) 40 mg IVP Q12 [facility] Last Admin: 08/25/17 09:27 Dose: 40 mg Guaifenesin/Dextromethorphan (Robitussin Dm) 10 ml PO Q4H PRN PRN Reason: Cough Last Admin: 08/25/17 05:55 Dose: 10 ml Home Med (Home Med) 1 unit PO DAILY [facility] Last Admin: 08/24/17 09:18 Dose: Not Given Home Med (Home Med) 1 unit PO DAILY [facility] Last Admin: 08/24/17 09:18 Dose: Not Given Vancomycin HCl (Vancomycin 1gm) 1 gm in 250 mls @ 167 mls/hr IVPB Q12H [facility] PRN Reason: Protocol Last Admin: 08/25/17 04:45 Dose: 167 mls/hr Meropenem 500 mg/ Sodium (Chloride) 100 mls @ 100 mls/hr IVPB Q8 [facility] PRN Reason: Protocol Last Admin: 08/25/17 05:54 Dose: 100 mls/hr Dobutamine HCl/Dextrose (Dobutamine/Dextrose 5% 500mg/250ml) 500 mg in 250 mls @ 5.331 mls/hr IV .Q24H PRN; Protocol; 2.5 MCG/KG/MIN PRN Reason: TITRATE PER PROTOCOL Last Admin: 08/25/17 07:00 Dose: 2.5 mcg/kg/min, 5.331 mls/hr Argatroban 250 mg/ Dextrose 252.5 mls @ 2.15 mls/hr IV .Q24H PRN; Protocol; 0.5 MCG/KG/MIN PRN Reason: TITRATE PER PROTOCOL Last Admin: 08/25/17 07:00 Dose: 1 mcg/kg/min, 4.3 mls/hr Levalbuterol HCl (Xopenex) 1.25 mg IH [id number] [facility] Last Admin: 08/25/17 07:49 Dose: 1.25 mg Levalbuterol HCl (Xopenex) 0.63 mg IH Q2H PRN PRN Reason: Shortness of Breath Last Admin: 08/25/17 01:16 Dose: 0.63 mg Lisinopril (Zestril) 10 mg PO DAILY [facility] Last Admin: 08/20/17 12:13 Dose: Not Given Lorazepam (Ativan) 0.5 mg IVP Q6H PRN; Protocol PRN Reason: Anxiety Last Admin: 08/22/17 15:20 Dose: 0.5 mg Methylprednisolone (Solu-Medrol) 40 mg IVP Q12H [facility] Last Admin: 08/25/17 00:08 Dose: 40 mg Pantoprazole Sodium (Protonix Ec Tab) 40 mg PO ACB [facility] Last Admin: 08/25/17 09:26 Dose: 40 mg - Labs Labs: 08/25/17 05:00 08/25/17 05:00 PT 17.4 SECONDS (9.4-12.5) H 08/23/17 15:42 INR 1.51 (0.93-1.08) H 08/23/17 15:42 APTT 58.4 Seconds (25.1-36.5) H 08/25/17 05:00 - Constitutional Appears: No Acute Distress - Head Exam Head Exam: NORMAL INSPECTION - Eye Exam Eye Exam: Normal appearance - ENT Exam ENT Exam: Normal Exam - Neck Exam Neck Exam: Normal Inspection - Respiratory Exam Respiratory Exam: Clear to Ausculation Bilateral. absent: Accessory Muscle Use , Rales, Rhonchi, Wheezes, Respiratory Distress - Cardiovascular Exam Cardiovascular Exam: RRR, +S1, +S2. absent: Gallop, Rubs, Murmur - GI/Abdominal Exam GI & Abdominal Exam: Soft. absent: Distended, Guarding, Tenderness, Rebound - Extremities Exam Extremities Exam: Normal Inspection - Back Exam Back Exam: NORMAL INSPECTION - Neurological Exam Neurological Exam: Alert, Awake, Oriented x3 - Psychiatric Exam Psychiatric exam: Normal Affect, Normal Mood - Skin Skin Exam: Dry, Intact, Normal Color, Warm Assessment and Plan - Assessment and Plan (Free Text) Assessment: 57 yo female with past medical history of COPD, hypertension, anxiety, and depression admitted for evaluation and treatment for right sided heart failure secondary to cor pulmonale vs. pulmonary hypertension. Currently in ICU for hypercapnic respiratory failure requiring intubation, however is now extubated on dobutamine due to pulmonary hypertension. Plan: 1. Hypercapnic Respiratory Distress, resolved - Plan to transfer out of ICU today - Extubated - Cont BIPAP and high flow O2 - Discussed with patient and son regarding possibility of DNR/DNI status Palliative care consulted 2. Elevated Troponin - Possible NSTEMI vs cardiac strain due to hypoxia - Troponin 1.05, 2.42, 1.76 - Cont ASA, plavix - Heparin drip stopped due to thrombocytopenia - Argatroban started - Cardio consulted 3. R/o Heparin-Induced Thrombocytopenia - Heparin drip stopped - Argatroban started - Heparin Ab ordered - Monitor PTT - Hematology consulted 4. Pneumonia - Likely 2/2 aspiration - Procal 1.57 - ID consulted - Cont Vancomycin, Merrem - Blood cultures negative - F/u sputum culture 5. R/o C. Diff - Pt c/o of multiple episodes of diarrhea currently on abx - C. diff antigen and toxin ordered 6. Right sided heart failure 2/2 cor pulmonale - Will require O2 at home, f/u yasir care, social work - On dobutamine to relieve pulmonary artery pressure - Cardio consulted Discussed cor pulmonale vs pulmonary hypertension with cardiology; agree that right heart cath should be done - Pulmonology consulted - Echo showed LVEF 79.5% Mod to severe dilation of right ventricle, Systolic function of right ventricle mod reduced, Mod tricuspid regurgitation, RVSP-61 mm of hg, dilated IVC - Cont Lasix - BNP [id number] on admission 7. COPD - Started solumedrol 40 mg IVP q12h - Cont xopenex and ipratropium - Cont BIPAP and high flow O2 8. Depression/Anxiety - Psych consulted - Cont Suboxone, Wellbutrin, Adderall, Klonopin - Ativan prn 9. Hypertension - Hold Lisinopril - Cont to monitor 10. Electrolyte imbalance - Hypokalemic today - Repleted - Cont to monitor and replete as needed 11. Acute kidney injury, resolved - Cont to monitor GI/DVT PPx - Protonix - Argatroban Pt seen and discussed in detail with Dr. Eckert. Robbie Cooper, PGY1 <Bay Eckert - Last Filed: 08/25/17 13:25> Objective - Vital Signs/Intake and Output Vital Signs (last 24 hours): Temp Pulse Resp BP Pulse Ox 98.1 F 81 25 H 128/83 90 L 08/25/17 04:00 08/25/17 06:00 08/25/17 05:00 08/25/17 09:27 08/25/17 05:00 Intake and Output: 08/25/17 08/25/17 06:59 18:59 Intake Total 1070 406.5 Output Total 1600 Balance -530 406.5 - Medications Medications: Current Medications Acetaminophen (Tylenol 325mg Tab) 650 mg PO Q4H PRN PRN Reason: Fever >100.4 F Last Admin: 08/23/17 04:11 Dose: 650 mg Acetaminophen (Tylenol 120mg Supp) 120 mg RC Q6 PRN PRN Reason: Fever >100.4 F Last Admin: 08/21/17 12:38 Dose: 120 mg Aspirin (Aspirin Chewable) 81 mg PO DAILY [facility] Last Admin: 08/25/17 09:22 Dose: 81 mg Benzocaine/Menthol (Cepacol Sore Throat) 1 sophia MT Q2H PRN PRN Reason: Sore Throat Bupropion HCl (Wellbutrin Sr 150 Mg) 150 mg PO BID [facility] Last Admin: 08/25/17 09:25 Dose: 150 mg Clonazepam (Klonopin) 1 mg PO TID [facility] PRN Reason: Protocol Last Admin: 08/25/17 09:25 Dose: 1 mg Furosemide (Lasix) 40 mg IVP Q12 [facility] Last Admin: 08/25/17 09:27 Dose: 40 mg Guaifenesin/Dextromethorphan (Robitussin Dm) 10 ml PO Q4H PRN PRN Reason: Cough Last Admin: 08/25/17 12:54 Dose: 10 ml Home Med (Home Med) 1 unit PO DAILY [facility] Last Admin: 08/25/17 11:56 Dose: Not Given Home Med (Home Med) 1 unit PO DAILY [facility] Last Admin: 08/25/17 11:56 Dose: Not Given Vancomycin HCl (Vancomycin 1gm) 1 gm in 250 mls @ 167 mls/hr IVPB Q12H [facility] PRN Reason: Protocol Last Admin: 08/25/17 04:45 Dose: 167 mls/hr Meropenem 500 mg/ Sodium (Chloride) 100 mls @ 100 mls/hr IVPB Q8 [facility] PRN Reason: Protocol Last Admin: 08/25/17 05:54 Dose: 100 mls/hr Dobutamine HCl/Dextrose (Dobutamine/Dextrose 5% 500mg/250ml) 500 mg in 250 mls @ 5.331 mls/hr IV .Q24H PRN; Protocol; 2.5 MCG/KG/MIN PRN Reason: TITRATE PER PROTOCOL Last Admin: 08/25/17 07:00 Dose: 2.5 mcg/kg/min, 5.331 mls/hr Argatroban 250 mg/ Dextrose 252.5 mls @ 2.15 mls/hr IV .Q24H PRN; Protocol; 0.5 MCG/KG/MIN PRN Reason: TITRATE PER PROTOCOL Last Admin: 08/25/17 07:00 Dose: 1 mcg/kg/min, 4.3 mls/hr Levalbuterol HCl (Xopenex) 1.25 mg IH [id number] [facility] Last Admin: 08/25/17 13:18 Dose: 1.25 mg Levalbuterol HCl (Xopenex) 0.63 mg IH Q2H PRN PRN Reason: Shortness of Breath Last Admin: 08/25/17 01:16 Dose: 0.63 mg Lisinopril (Zestril) 10 mg PO DAILY [facility] Last Admin: 08/20/17 12:13 Dose: Not Given Lorazepam (Ativan) 0.5 mg IVP Q6H PRN; Protocol PRN Reason: Anxiety Last Admin: 08/22/17 15:20 Dose: 0.5 mg Methylprednisolone (Solu-Medrol) 40 mg IVP Q12H [facility] Last Admin: 08/25/17 11:56 Dose: 40 mg Pantoprazole Sodium (Protonix Ec Tab) 40 mg PO ACB [facility] Last Admin: 08/25/17 09:26 Dose: 40 mg - Labs Labs: 08/25/17 05:00 08/25/17 05:00 PT 17.4 SECONDS (9.4-12.5) H 08/23/17 15:42 INR 1.51 (0.93-1.08) H 08/23/17 15:42 APTT 58.4 Seconds (25.1-36.5) H 08/25/17 05:00 Attending/Attestation - Attestation I have personally seen and examined this patient.: Yes I have fully participated in the care of the patient.: Yes I have reviewed all pertinent clinical information, including history, physical exam and plan: Yes Notes (Text): 08/25/17 13:22 attending note; Patient seen and examined in ICU. Alert and awake. on high flow oxygen. Patient is a 57-year-old female with PMH of chronic obstructive lung disease, hypertension, current smoker, anxiety, and depression presents due to shortness of breath. Currently on oxygen nasal cannula daytime. BiPAP at night. pulmonary hypertension; cardiology evaluation appreciated. Elevated troponin. Secondary to hypoxemia. cardiology evaluation appreciated and he stopped. Thrombocytopenia; possible heparin-induced thrombocytopenia. Heparin stopped. Started on argatroban. Dose adjusted for hepatic impairment. HIT antibody sent. hematology evaluation appreciated. Acute renal insufficiency; resolved. Elevated LFTs ; improving slowly. mostly secondary to hypoxemia on hemodynamic changes. active smoking; smoking cessation is strongly advised. started on NicoDerm patch. depression; psychiatric evaluation with Dr. Thorpe appreciated. patient was on clonazepam, Adderall on Suboxone. Currently patient is full code. Upon discharge the patient will follow-up PMD .
[2017-08-25] MEDS: SUBOXONE 8 MG PO SCH (11:56)
[2017-08-25] MEDS: ADDERALL 5 MG PO SCH (11:56)
--- NOTE | 2017-08-25 12:38 | PN ---
DATE: 08/25/2017 PULMONARY NOTE SUBJECTIVE: The patient is resting in bed, awake and alert. No complaints of increased shortness of breath. She tolerated BiPAP very well overnight and now she is on nasal cannula. No chest pain. No fever, chills, nausea or vomiting. No significant cough or congestion. PHYSICAL EXAMINATION: VITAL SIGNS: Temperature is 98.1, pulse is 81, respirations are 25 and BP is 127/72. SKIN: Warm and dry. HEENT: Head: Atraumatic, normocephalic. Eyes reactive to light. Ears, nose and throat seem to be within normal limits. NECK: Supple. No JVD. No thyroid enlargement or lymph nodes. HEART: Has regular rate and rhythm. Normal S1, S2. LUNGS: Reveal mild rhonchi at the bases. ABDOMEN: Soft, nontender. Normal bowel sounds. GENITALIA: Deferred. RECTAL: Deferred. MUSCULOSKELETAL: No joint deformities. EXTREMITIES: Reveal trace lower extremity edema. NEUROLOGICAL: She seemed to be grossly intact. LABORATORY DATA: As far as her laboratories are concerned, white count is 10.3, hemoglobin is 13.7, hematocrit 56.1 with platelets of 84,000. Her sodium is 141, potassium 3.5, chloride 94, CO2 of 38 with BUN of 40, creatinine of 0.9 and glucose of 126. IMPRESSION: The patient has severe chronic obstructive pulmonary disease with exacerbation. She has hypercapnic respiratory failure with pulmonary hypertension, possible pulmonary edema and rule out pneumonia. PLAN: We will continue with her bronchodilators via nebulizer. Continue with O2 via nasal cannula and BiPAP at bedtime. The patient is on Lasix and will get her potassium corrected. We will also continue her Solu-Medrol and her antibiotics. Cuauhtemoc Anderson MD
[2017-08-25] MEDS: Benzocaine/Menthol (Cepacol) Lozenge MT PRN (14:30)
--- NOTE | 2017-08-25 15:49 | PN ---
DATE: 08/25/2017 The patient in ICU 128, bed 1. I am doing this progress note on behalf of Dr. Cruz, for whom I am covering. REASON FOR CONSULTATION: Follow up visit status post respiratory failure and possible [id number] myocardial infarction. SUBJECTIVE: The patient has been extubated. The patient is sitting comfortably in bed without chest pain, palpitation. Her shortness of breath had also improved. PHYSICAL EXAMINATION: VITAL SIGNS: Blood pressure 127/72, respirations 22, pulse 78. The patient afebrile. HEENT: Head is normocephalic. Eyes; pupils normal. Conjunctivae normal. NECK: JVP low. Carotids are equal. THORAX: AP diameter is slightly increased. LUNGS: Few wheezing sounds. CARDIOVASCULAR: S1 and S2. ABDOMEN: Soft, nontender. No organomegaly. Bowel sounds normal. EXTREMITIES: No cyanosis. LABORATORY DATA: WBC 10.3, hemoglobin 17.3, hematocrit 56.1, platelets 84. Sodium 141, potassium 3.5, BUN 40, creatinine 0.9. Total bilirubin 2.5. AST 42 and ALT 139. Total protein 5.3, albumin 3.1. Troponin on 08/20/2017 was 1.05 and second one on the same day was 2.42 and on 08/21/2017, it was 1.76. DIAGNOSES: 1. Status post respiratory failure, successful extubation. 2. Bilateral pneumonia. 3. Troponin elevated suggestive of non-ST elevation myocardial infarction. 4. Prerenal azotemia. 5. Hypokalemia. 6. Hemoglobin and hematocrit elevated, probably due to underlying chronic obstructive pulmonary disease, lung condition. PLAN: The patient is getting Argatroban 250 mg drip for thrombocytopenia, aspirin 81 mg daily. The patient is also given dobutamine drip, which is continuing. Potassium 40 mEq stat dose has already been ordered for today. Protonix 40 mg daily, methyl prednisone 40 mg IV q.12 hours, vancomycin 1 g IV q.12 hours, Xopenex hand nebulizer therapy, lisinopril 10 mg p.o. daily. From tomorrow, Dr. Cruz will see the patient. Gerardo Monsalve MD
--- NOTE | 2017-08-25 16:48 | CP.PCM.PN ---
Subjective - Date & Time of Evaluation Date of Evaluation: 08/25/17 Time of Evaluation: 15:00 - Subjective Subjective: Infectious Disease Follow Up: August 25, 2017 57 yo female originally admitted for shortness of breath and increasing somnolence. Patient's son indicated that the patient was more confused than her normal for at least the past 2 weeks. The patient's appetite was worse and the patient had increased urinary frequency. Patient had problems with SOB after 1 to 1.5 blocks of walking usually. The patient respiratory status worsened yesterday. She was placed on BiPAP and was brought to the MICU for further monitoring. Today, the patient is awake and alert. She was extubated yesterday. Cultures to date have not shown growth. Patient expressed to team that she does not want further intubation. Transferred to medical floor. The patient doing better overall. Objective - Vital Signs/Intake and Output Vital Signs (last 24 hours): Temp Pulse Resp BP Pulse Ox 98.6 F 81 27 H 128/81 86 L 08/25/17 08:00 08/25/17 10:00 08/25/17 09:00 08/25/17 10:00 08/25/17 10:00 Intake and Output: 08/25/17 08/25/17 06:59 18:59 Intake Total 1070 1126.5 Output Total 1600 550 Balance -530 576.5 - Medications Medications: Current Medications Aspirin (Aspirin Chewable) 81 mg PO DAILY [facility] Last Admin: 08/25/17 09:22 Dose: 81 mg Benzocaine/Menthol (Cepacol Sore Throat) 1 sophia MT Q2H PRN PRN Reason: Sore Throat Last Admin: 08/25/17 14:30 Dose: 1 sophia Bupropion HCl (Wellbutrin Sr 150 Mg) 150 mg PO BID [facility] Last Admin: 08/25/17 09:25 Dose: 150 mg Clonazepam (Klonopin) 1 mg PO TID [facility] PRN Reason: Protocol Last Admin: 08/25/17 14:19 Dose: 1 mg Furosemide (Lasix) 40 mg IVP Q12 [facility] Last Admin: 08/25/17 09:27 Dose: 40 mg Guaifenesin/Dextromethorphan (Robitussin Dm) 10 ml PO Q4H PRN PRN Reason: Cough Last Admin: 08/25/17 12:54 Dose: 10 ml Home Med (Home Med) 1 unit PO DAILY [facility] Last Admin: 08/25/17 11:56 Dose: Not Given Home Med (Home Med) 1 unit PO DAILY [facility] Last Admin: 08/25/17 11:56 Dose: Not Given Vancomycin HCl (Vancomycin 1gm) 1 gm in 250 mls @ 167 mls/hr IVPB Q12H JONAH PRN Reason: Protocol Last Admin: 08/25/17 15:51 Dose: 167 mls/hr Meropenem 500 mg/ Sodium (Chloride) 100 mls @ 100 mls/hr IVPB Q8 JONAH PRN Reason: Protocol Last Admin: 08/25/17 14:20 Dose: 100 mls/hr Argatroban 250 mg/ Dextrose 252.5 mls @ 2.15 mls/hr IV .Q24H PRN; Protocol; 0.5 MCG/KG/MIN PRN Reason: TITRATE PER PROTOCOL Last Admin: 08/25/17 07:00 Dose: 1 mcg/kg/min, 4.3 mls/hr Levalbuterol HCl (Xopenex) 1.25 mg IH [id number] [facility] Last Admin: 08/25/17 13:18 Dose: 1.25 mg Levalbuterol HCl (Xopenex) 0.63 mg IH Q2H PRN PRN Reason: Shortness of Breath Last Admin: 08/25/17 16:09 Dose: 0.63 mg Lisinopril (Zestril) 10 mg PO DAILY [facility] Last Admin: 08/20/17 12:13 Dose: Not Given Methylprednisolone (Solu-Medrol) 40 mg IVP Q12H [facility] Last Admin: 08/25/17 11:56 Dose: 40 mg Pantoprazole Sodium (Protonix Ec Tab) 40 mg PO ACB [facility] Last Admin: 08/25/17 09:26 Dose: 40 mg - Labs Labs: 08/25/17 05:00 08/25/17 05:00 PT 17.4 SECONDS (9.4-12.5) H 08/23/17 15:42 INR 1.51 (0.93-1.08) H 08/23/17 15:42 APTT 58.4 Seconds (25.1-36.5) H 08/25/17 05:00 - Constitutional Appears: Non-toxic, No Acute Distress, Chronically Ill - Head Exam Head Exam: ATRAUMATIC, NORMOCEPHALIC - Eye Exam Eye Exam: EOMI, PERRL Pupil Exam: NORMAL ACCOMODATION, PERRL - ENT Exam ENT Exam: Mucous Membranes Moist, Normal External Ear Exam, TM's Normal Bilaterally - Neck Exam Neck Exam: Full ROM, Normal Inspection - Respiratory Exam Respiratory Exam: Clear to Ausculation Bilateral, NORMAL BREATHING PATTERN. absent: Rales, Rhonchi, Wheezes - Cardiovascular Exam Cardiovascular Exam: REGULAR RHYTHM, RRR, +S1, +S2 - GI/Abdominal Exam GI & Abdominal Exam: Soft, Normal Bowel Sounds. absent: Distended, Tenderness - Extremities Exam Extremities Exam: Full ROM, Normal Inspection - Neurological Exam Neurological Exam: Alert, Awake, CN II-XII Intact, Oriented x3 - Psychiatric Exam Psychiatric exam: Normal Affect, Normal Mood - Skin Skin Exam: Intact, Normal Color Assessment and Plan - Assessment and Plan (Free Text) Assessment: 57 yo female with multiple medical issues presenting with shortness of breath and worsening somnolence. The patient was found to be cyanotic, hypoxic, and tachypnic 6:30 AM on 08/20/2017. She was placed on nonrebreather mask and improved. Switch to BiPAP which she was stable on until she removed the BiPAP mask. After removing the mask, the patient became cyanotic and hypoxic again. Oxygen saturation dropped to 70s. Patient seen by Brick [facility] and admitted to the MICU for further care. Respiratory issues are likely multifactorial: Cor Pulmonale? Pulmonary Hypertension? Pneumonia COPD Noted the patient had some renal insufficiency on admission (secondary to dehydation at that time?). Currently on Vancomycin IV and Meropenem which provides broad coverage antibiotic coverage including for aspiration pneumonia. Chest X-ray showed mild vascular and interstitial congestion. The patient is fully awake and alert. She was weaned off the respirator yesterday. Obtain procalcitonin values. Results pending. Procalcitonin was 1.57. Treatment for a pneumonia. Can utilize Procalcitonin trend as a marker of pneumonia improvement. Patient has baseline confusion. Thank you for allowing me to participate in the care of the patient, we will follow with you.
[2017-08-26] MEDS: Levalbuterol 1.25 MG/3 ML Inhal Soln UD IH SCH ×4 (02:30→21:15)
[2017-08-26] MEDS: Vancomycin 1gm in NS 250ml 1 GM/250 ML BAG IVPB SCH ×2 (04:35→17:15)
[2017-08-26] MEDS: Meropenem 500 MG in Sodium Chloride 0.9% 100 ML IVPB SCH ×3 (05:57→22:02)
[2017-08-26 07:39] LABS: ALB/GLOB RATIO 1.3 (1.1-1.8); ALBUMIN 3.2 g/dL (3.0-4.8); ALT/SGPT 105 U/L (7-56); AST/SGOT 30 U/L (14-36); BLOOD UREA NITROGEN 41 mg/dL (7-21); CALCIUM 9.7 mg/dL (8.4-10.5); GFR AFRICAN-AMERICAN > 60; GFR NON-AFRICAN AMERICAN > 60; MAGNESIUM 1.7 mg/dL (1.7-2.2)
[2017-08-26 07:41] LABS: BASO # 0.02 K/mm3 (0.0-2.0); BASO % 0.2 % (0.0-3.0); EOS % 0.1 % (1.5-5.0); GRAN # 11.93 (1.4-6.5); GRAN % 91.2 % (50.0-68.0); LYMPH # 0.3 (1.2-3.4); LYMPH % 2.1 % (22.0-35.0); MEAN CORPUSCULAR HEMOGLOBIN 29.1 pg (25.0-35.0); MEAN CORPUSCULAR HGB CONC 30.6 g/dl (31.0-37.0); MEAN PLATELET VOLUME 13.5 fl (7.0-11.0); MONO # 0.8 (0.1-0.6); MONO % 6.4 % (1.0-6.0); RBC 6.23 10^6/uL (3.5-6.1); RED CELL DISTRIBUTION WIDTH 18.6 % (11.5-14.5); WHITE BLOOD COUNT 13.1 10^3/ul (4.5-11.0)
[2017-08-26 07:44] LABS: HEMOGLOBIN 18.1 g/dL (12.0-16.0)
[2017-08-26] MEDS: Pantoprazole 40 mg EC Tab PO SCH (08:44)
--- NOTE | 2017-08-26 09:11 | PN ---
DATE: 08/25/2017 SUBJECTIVE: Gisela Aranda is a 57-year-old female who I saw for the first time yesterday to rule out heparin-induced thrombocytopenia. The patient's platelet count remains stable at exactly 84,000, the same as yesterday. Platelet count has been stable for 3 days now. The heparin was discontinued on 08/23/2017 and Argatroban was introduced around 4 p.m. on the same day, 08/23/2017. The patient has since been transferred out of the unit and she is on nasal cannula oxygen now. She is feeling better with less respiratory difficulty, and her vital signs are stable with blood pressure last checked 128/81, O2 saturation was, however, 86 on last check at 10:00 a.m. this morning. Current medications include Argatroban 1 mcg/kg/min with PTT last checked at 5 a.m. which was therapeutic. The patient came into the therapeutic range yesterday for the first time on reduced dose of Argatroban which was initiated at a lower dose due to the recent hepatic insufficiency after rapid response for hypoxia. The patient is being followed by Cardiology because of the troponin elevation, and as of today, there are no troponin elevation suggestive of a [id number] [place]. The patient denies chest pain or chest pressure at this time. She is also being treated for presumed aspiration pneumonia with broad-spectrum coverage antibiotic therapy including Merrem and vancomycin. The patient is also receiving Lasix in case there are some elements of pulmonary edema. She remains on steroid therapy. MEDICATIONS: Continued include aspirin 81 mg daily, Cepacol throat lozenges, Klonopin 1 mg p.o. t.i.d., Lasix 40 mg IV q. 12 hours, Protonix 40 mg a.c. , Solu-Medrol 40 mg IV q. 12 hours, vancomycin 1 g q. 12 hours, Wellbutrin 150 mg p.o. b.i.d., Xopenex p.r.n., and lisinopril 10 mg daily. REVIEW OF SYSTEMS: The patient denies headaches, change in vision, odynophagia, neck pain, chest pain, back pain, shoulder pain, arm pain, or jaw pain. She denies wheezing, fevers, chills. GI: The patient did have some loose stools. C. difficile has been ordered. Neurologic: No numbness, paresthesia, or focal weakness. Skin: No related complaints. PHYSICAL EXAMINATION GENERAL: Awake, alert, and oriented x3, appears comfortable, resting with nasal cannula. There is no cyanosis, central or peripheral. No acrocyanosis. HEENT: Conjunctivae pink. Sclerae anicteric. Lips and oral mucosa, there is no . Mucous membranes pink and moist. NECK: No JVD. LUNGS: Some scattered rhonchi, diminished breath sounds at the bases. No use of accessory muscles or retractions. ABDOMEN: Soft, round, and nontender. No masses, guarding, or rebound. EXTREMITIES: No cyanosis, clubbing, or edema. NEUROLOGIC: The patient is moving all extremities, following commands. No tremors. Affect appropriate. She does not appear overtly anxious. LABORATORY DATA: White count 10.3, hemoglobin 13.7, hematocrit 36.1, platelets 84,000. Sodium 141, potassium 3.5, chloride 94, CO2 of 38, BUN 40, creatinine 0.9, glucose 126. PT 58.4 at 5:00 a.m. Peripheral blood smear was reviewed yesterday. There were no schistocytes. No helmet cells. No signs noted. No immature cells were seen. The platelets were reduced in number, but they were granular and for most part normal size minimal platelet clumping not, in my opinion, to a significant degree, and my exam, this may thoroughly looking specifically for large areas of platelet counts causing that may explain her thrombocytopenia, but in my opinion, it was not to justify the drop in platelets compared to her admission platelet count. Chemistries: Bilirubin remains elevated at 2.5, AST improved down to 42, ALT improved down to 139, alk phos remains low. LDH 924, going down to 761. IMPRESSION: Acute thrombocytopenia, maybe multifactorial, namely heparin-induced thrombocytopenia versus bone marrow suppression related to lung infection. The clinical scenario and peripheral blood smear do not support thrombotic thrombocytopenic purpura or idiopathic thrombocytopenic purpura. Heparin antibody and serotonin-release assay are pending, and I will continue Argatroban until we have that resolved. Her platelet count is stable at 84,000. The Argatroban will remain as a reduced dosage. She is now in the therapeutic range without bleeding complications. Her hemoglobin remained stable at 17.3 and 56. She probably has smokers' polycythemia, but not having acute symptoms related to it. Overall, she has clinically improved today, although her oxygen saturations remain low and that may be very low chronic finding. Blood cultures are negative. She remains on aspirin and broad-spectrum antibiotics as mentioned. Dr. Layo Freedman will be covering this patient starting tomorrow indefinitely. Saima Ojeda MD
--- NOTE | 2017-08-26 09:23 | CP.PCM.PN ---
<Scott Cuadra - Last Filed: 08/26/17 15:50> Subjective - Date & Time of Evaluation Date of Evaluation: 08/26/17 Time of Evaluation: 07:23 - Subjective Subjective: Scott Cuadra PGY1 IM Progress Note for Dr. Eckert Hospitalist Service Patient was seen and examined at bedside. She states that her breathing has improved. The patient denies chest pain, shortness of breath, cough, fevers/ chills, n/v/d, headaches, changes in vision/hearing, tinnitus, dizziness, fatigue, weakness, abdominal pain, changes in urine or bowel habits. Objective - Vital Signs/Intake and Output Vital Signs (last 24 hours): Temp Pulse Resp BP Pulse Ox 98 F 75 20 142/96 H 99 08/26/17 06:00 08/26/17 06:00 08/26/17 06:00 08/26/17 06:00 08/26/17 06:00 Intake and Output: 08/26/17 08/26/17 06:59 18:59 Intake Total 1453 Output Total 500 Balance 953 - Medications Medications: Current Medications Aspirin (Aspirin Chewable) 81 mg PO DAILY [facility] Last Admin: 08/25/17 09:22 Dose: 81 mg Benzocaine/Menthol (Cepacol Sore Throat) 1 sophia MT Q2H PRN PRN Reason: Sore Throat Last Admin: 08/25/17 14:30 Dose: 1 sophia Bupropion HCl (Wellbutrin Sr 150 Mg) 150 mg PO BID [facility] Last Admin: 08/25/17 18:14 Dose: 150 mg Clonazepam (Klonopin) 1 mg PO TID JONAH PRN Reason: Protocol Last Admin: 08/25/17 18:14 Dose: 1 mg Furosemide (Lasix) 40 mg IVP Q12 [facility] Last Admin: 08/25/17 22:12 Dose: 40 mg Guaifenesin/Dextromethorphan (Robitussin Dm) 10 ml PO Q4H PRN PRN Reason: Cough Last Admin: 08/25/17 12:54 Dose: 10 ml Home Med (Home Med) 1 unit PO DAILY [facility] Last Admin: 08/25/17 11:56 Dose: Not Given Home Med (Home Med) 1 unit PO DAILY [facility] Last Admin: 08/25/17 11:56 Dose: Not Given Vancomycin HCl (Vancomycin 1gm) 1 gm in 250 mls @ 167 mls/hr IVPB Q12H JONAH PRN Reason: Protocol Last Admin: 08/26/17 04:35 Dose: 167 mls/hr Meropenem 500 mg/ Sodium (Chloride) 100 mls @ 100 mls/hr IVPB Q8 JONAH PRN Reason: Protocol Last Admin: 08/26/17 05:57 Dose: 100 mls/hr Argatroban 250 mg/ Dextrose 252.5 mls @ 2.15 mls/hr IV .Q24H PRN; Protocol; 0.5 MCG/KG/MIN PRN Reason: TITRATE PER PROTOCOL Last Admin: 08/25/17 07:00 Dose: 1 mcg/kg/min, 4.3 mls/hr Ibuprofen (Motrin Tab) 400 mg PO Q6H PRN PRN Reason: Pain, moderate (4-7) Last Admin: 08/25/17 19:54 Dose: 400 mg Levalbuterol HCl (Xopenex) 1.25 mg IH [id number] [facility] Last Admin: 08/26/17 08:18 Dose: 1.25 mg Levalbuterol HCl (Xopenex) 0.63 mg IH Q2H PRN PRN Reason: Shortness of Breath Last Admin: 08/25/17 16:09 Dose: 0.63 mg Lisinopril (Zestril) 10 mg PO DAILY [facility] Last Admin: 08/20/17 12:13 Dose: Not Given Methylprednisolone (Solu-Medrol) 40 mg IVP Q12H [facility] Last Admin: 08/25/17 23:52 Dose: 40 mg Pantoprazole Sodium (Protonix Ec Tab) 40 mg PO ACB [facility] Last Admin: 08/25/17 09:26 Dose: 40 mg - Labs Labs: 08/26/17 06:30 08/26/17 06:30 PT 17.4 SECONDS (9.4-12.5) H 08/23/17 15:42 INR 1.51 (0.93-1.08) H 08/23/17 15:42 APTT 54.5 Seconds (25.1-36.5) H 08/26/17 06:30 - Additional Findings Additional findings: - Constitutional Appears: No Acute Distress - Head Exam Head Exam: NORMAL INSPECTION - Eye Exam Eye Exam: Normal appearance - ENT Exam ENT Exam: Normal Exam - Neck Exam Neck Exam: Normal Inspection - Respiratory Exam Respiratory Exam: Clear to Ausculation Bilateral. absent: Accessory Muscle Use , Rales, Rhonchi, Wheezes, Respiratory Distress - Cardiovascular Exam Cardiovascular Exam: RRR, +S1, +S2. absent: Gallop, Rubs, Murmur - GI/Abdominal Exam GI & Abdominal Exam: Soft. absent: Distended, Guarding, Tenderness, Rebound - Extremities Exam Extremities Exam: Normal Inspection - Back Exam Back Exam: NORMAL INSPECTION - Neurological Exam Neurological Exam: Alert, Awake, Oriented x3 - Psychiatric Exam Psychiatric exam: Normal Affect, Normal Mood - Skin Skin Exam: Dry, Intact, Normal Color, Warm Assessment and Plan - Assessment and Plan (Free Text) Assessment: 57 yo female with past medical history of COPD (not on home O2), hypertension, anxiety, and depression admitted for evaluation and treatment for right sided heart failure secondary to cor pulmonale vs. pulmonary hypertension. Patient is s/p ICU for hypercapnic respiratory failure requiring intubation now extubated and out of ICU. HIT is suspected and patient is on Argatroban. Patient's other medical issues are also being managed. Plan: 1. Hypercapnic Respiratory Distress, resolved - Cont BIPAP and high flow O2 - Cont Lasix 40q12 IVP - Cont Xopenex JONAH and PRN - Cont Solu-medrol (taper down) - PT eval placed for activity tolerance - Discussed with patient and son regarding possibility of DNR/DNI status; Palliative care consulted - Cardiology consulted, recommend right heart on discharge 2. Elevated Troponin - likely cardiac strain due to hypoxia - Cont ASA, plavix - Heparin drip stopped due to thrombocytopenia - Cardio consulted 3. R/o Heparin-Induced Thrombocytopenia - Argatroban started - Heparin Ab ordered - Monitor PTT - Hematology consulted 4. Pneumonia - Likely 2/2 aspiration - Procal 1.57 - ID consulted - Cont Vancomycin, Merrem - Blood cultures negative - F/u sputum culture 5. R/o C. Diff - Pt c/o of multiple episodes of diarrhea currently on abx - C. diff antigen and toxin ordered - flagyl started 6. COPD - Started solumedrol 40 mg IVP q12h - Cont xopenex and ipratropium - Cont BIPAP and high flow O2 7. Depression/Anxiety - Psych consulted - Cont Suboxone, Wellbutrin, Adderall, Klonopin - Ativan prn 8. Hypertension - Hold Lisinopril - Cont to monitor 9. GI/DVT PPx - Protonix - Argatroban The patient was seen, examined and discussed with attending, Dr. Tomeka Cuadra PGY1 Pager # [phone] <Bay Eckert - Last Filed: 08/26/17 16:53> Objective - Vital Signs/Intake and Output Vital Signs (last 24 hours): Temp Pulse Resp BP Pulse Ox 98.3 F 84 20 121/78 99 08/26/17 12:00 08/26/17 12:00 08/26/17 12:00 08/26/17 12:00 08/26/17 06:00 Intake and Output: 08/26/17 08/26/17 06:59 18:59 Intake Total 1453 Output Total 500 Balance 953 - Medications Medications: Current Medications Aspirin (Aspirin Chewable) 81 mg PO DAILY [facility] Last Admin: 08/26/17 09:39 Dose: 81 mg Benzocaine/Menthol (Cepacol Sore Throat) 1 sophia MT Q2H PRN PRN Reason: Sore Throat Last Admin: 08/26/17 09:47 Dose: 1 sophia Bupropion HCl (Wellbutrin Sr 150 Mg) 150 mg PO BID [facility] Last Admin: 08/26/17 09:38 Dose: 150 mg Clonazepam (Klonopin) 1 mg PO TID JONAH PRN Reason: Protocol Last Admin: 08/26/17 15:06 Dose: 1 mg Furosemide (Lasix) 40 mg IVP Q12 [facility]ON[facility] Last Admin: 08/26/17 09:48 Dose: 40 mg Guaifenesin/Dextromethorphan (Robitussin Dm) 10 ml PO Q4H PRN PRN Reason: Cough Last Admin: 08/26/17 15:05 Dose: 10 ml Home Med (Home Med) 1 unit PO DAILY [facility] Last Admin: 08/26/17 09:49 Dose: Not Given Home Med (Home Med) 1 unit PO DAILY [facility] Last Admin: 08/26/17 09:49 Dose: Not Given Vancomycin HCl (Vancomycin 1gm) 1 gm in 250 mls @ 167 mls/hr IVPB Q12H JONAH PRN Reason: Protocol Last Admin: 08/26/17 04:35 Dose: 167 mls/hr Meropenem 500 mg/ Sodium (Chloride) 100 mls @ 100 mls/hr IVPB Q8 JONAH PRN Reason: Protocol Last Admin: 08/26/17 15:06 Dose: 100 mls/hr Argatroban 250 mg/ Dextrose 252.5 mls @ 2.15 mls/hr IV .Q24H PRN; Protocol; 0.5 MCG/KG/MIN PRN Reason: TITRATE PER PROTOCOL Last Admin: 08/25/17 07:00 Dose: 1 mcg/kg/min, 4.3 mls/hr Ibuprofen (Motrin Tab) 400 mg PO Q6H PRN PRN Reason: Pain, moderate (4-7) Last Admin: 08/26/17 09:47 Dose: 400 mg Levalbuterol HCl (Xopenex) 1.25 mg IH [id number] [facility] Last Admin: 08/26/17 13:23 Dose: 1.25 mg Levalbuterol HCl (Xopenex) 0.63 mg IH Q2H PRN PRN Reason: Shortness of Breath Last Admin: 08/25/17 16:09 Dose: 0.63 mg Lisinopril (Zestril) 10 mg PO DAILY [facility] Last Admin: 08/20/17 12:13 Dose: Not Given Methylprednisolone (Solu-Medrol) 40 mg IVP Q12H [facility] Last Admin: 08/26/17 10:49 Dose: 40 mg Metronidazole (Flagyl) 500 mg PO Q8 JONAH PRN Reason: Protocol Last Admin: 08/26/17 15:05 Dose: 500 mg Pantoprazole Sodium (Protonix Ec Tab) 40 mg PO ACB [facility] Last Admin: 08/26/17 08:44 Dose: 40 mg - Labs Labs: 08/26/17 06:30 08/26/17 06:30 PT 17.4 SECONDS (9.4-12.5) H 08/23/17 15:42 INR 1.51 (0.93-1.08) H 08/23/17 15:42 APTT 54.5 Seconds (25.1-36.5) H 08/26/17 06:30 Attending/Attestation - Attestation I have personally seen and examined this patient.: Yes I have fully participated in the care of the patient.: Yes I have reviewed all pertinent clinical information, including history, physical exam and plan: Yes Notes (Text): 08/26/17 16:49 attending note; Patient seen and examined in room 375. Alert and awake. on oxygen nasal cannula. Not in any distress. Complaining of diarrhea. Patient is a 57-year-old female with PMH of chronic obstructive lung disease, hypertension, current smoker, anxiety, and depression presents due to shortness of breath. currently extubated and on oxygen and BiPAP. pulmonary hypertension; cardiology evaluation appreciated. Elevated troponin. Secondary to hypoxemia. cardiology evaluation appreciated. Thrombocytopenia; possible heparin-induced thrombocytopenia. Heparin stopped. Started on argatroban. Dose adjusted for hepatic impairment. HIT antibody is negative. Will follow-up with hematology for further plan. diarrhea; stool for C. difficile ordered. Started on by mouth Flagyl. Acute renal insufficiency; resolved. Elevated LFTs ; improving slowly. mostly secondary to hypoxemia on hemodynamic changes. active smoking; smoking cessation is strongly advised. started on NicoDerm patch. depression; psychiatric evaluation with Dr. Thorpe appreciated. patient was on clonazepam, Adderall on Suboxone. PT evaluation appreciated. Currently patient is full code. Upon discharge the patient will follow-up PMD .
[2017-08-26] MEDS: buPROPion SR 150 MG TABLET PO SCH ×2 (09:38→17:16)
[2017-08-26] MEDS: guaiFENesin DM 200 mg-20 mg/10 ml UD PO PRN ×2 (09:38→15:05)
[2017-08-26] MEDS: Benzocaine/Menthol (Cepacol) Lozenge MT PRN ×2 (09:47→22:02)
[2017-08-26] MEDS: ADDERALL 5 MG PO SCH (09:49)
[2017-08-26] MEDS: SUBOXONE 8 MG PO SCH (09:49)
[2017-08-26] MEDS: MethylPREDNISolone 40 mg Vial IVP SCH (10:49)
--- NOTE | 2017-08-26 16:28 | PN ---
DATE: COMMENT: PLS CHECK DOS IDENTIFYING INFORMATION: The patient is a 57-year-old white female, who has been treated for respiratory distress. Her mood and affect are much brighter today. She seems to be thankful that she is alive, feeling better, not in the Intensive Care Unit. She has expressed desire to continue to get on with her life, even if a subsequent pulmonary episode occurs (she would like all steps necessary to maintain her life). Supportive therapy offered. Jhony Thorpe MD/ PhD
--- NOTE | 2017-08-26 18:30 | CP.PCM.PN ---
Subjective - Date & Time of Evaluation Date of Evaluation: 08/26/17 Time of Evaluation: 16:15 - Subjective Subjective: Infectious Disease Follow Up: August 26, 2017 57 yo female originally admitted for shortness of breath and increasing somnolence. Patient's son indicated that the patient was more confused than her normal for at least the past 2 weeks. The patient's appetite was worse and the patient had increased urinary frequency. Patient had problems with SOB after 1 to 1.5 blocks of walking usually. The patient respiratory status worsened yesterday. She was placed on BiPAP and was brought to the MICU for further monitoring. Today, the patient is awake and alert. She was extubated yesterday. Cultures to date have not shown growth. Patient expressed to team that she does not want further intubation. Transferred to medical floor. The patient doing better overall. No complaints. Objective - Vital Signs/Intake and Output Vital Signs (last 24 hours): Temp Pulse Resp BP Pulse Ox 97.9 F 89 18 119/75 90 L 08/26/17 16:30 08/26/17 16:30 08/26/17 16:30 08/26/17 16:30 08/26/17 16:30 Intake and Output: 08/26/17 08/26/17 06:59 18:59 Intake Total 1453 Output Total 500 Balance 953 - Medications Medications: Current Medications Aspirin (Aspirin Chewable) 81 mg PO DAILY REPLACED BY [facility] Last Admin: 08/26/17 09:39 Dose: 81 mg Benzocaine/Menthol (Cepacol Sore Throat) 1 sophia MT Q2H PRN PRN Reason: Sore Throat Last Admin: 08/26/17 09:47 Dose: 1 sophia Bupropion HCl (Wellbutrin Sr 150 Mg) 150 mg PO BID REPLACED BY [facility] Last Admin: 08/26/17 17:16 Dose: 150 mg Clonazepam (Klonopin) 1 mg PO TID JONAH PRN Reason: Protocol Last Admin: 08/26/17 15:06 Dose: 1 mg Furosemide (Lasix) 40 mg IVP Q12 REPLACED BY [facility] Last Admin: 08/26/17 09:48 Dose: 40 mg Guaifenesin/Dextromethorphan (Robitussin Dm) 10 ml PO Q4H PRN PRN Reason: Cough Last Admin: 08/26/17 15:05 Dose: 10 ml Home Med (Home Med) 1 unit PO DAILY REPLACED BY [facility] Last Admin: 08/26/17 09:49 Dose: Not Given Home Med (Home Med) 1 unit PO DAILY REPLACED BY [facility] Last Admin: 08/26/17 09:49 Dose: Not Given Vancomycin HCl (Vancomycin 1gm) 1 gm in 250 mls @ 167 mls/hr IVPB Q12H JONAH PRN Reason: Protocol Last Admin: 08/26/17 17:15 Dose: 167 mls/hr Meropenem 500 mg/ Sodium (Chloride) 100 mls @ 100 mls/hr IVPB Q8 JONAH PRN Reason: Protocol Last Admin: 08/26/17 15:06 Dose: 100 mls/hr Argatroban 250 mg/ Dextrose 252.5 mls @ 2.15 mls/hr IV .Q24H PRN; Protocol; 0.5 MCG/KG/MIN PRN Reason: TITRATE PER PROTOCOL Last Admin: 08/25/17 07:00 Dose: 1 mcg/kg/min, 4.3 mls/hr Ibuprofen (Motrin Tab) 400 mg PO Q6H PRN PRN Reason: Pain, moderate (4-7) Last Admin: 08/26/17 09:47 Dose: 400 mg Levalbuterol HCl (Xopenex) 1.25 mg IH [id number] REPLACED BY [facility] Last Admin: 08/26/17 13:23 Dose: 1.25 mg Levalbuterol HCl (Xopenex) 0.63 mg IH Q2H PRN PRN Reason: Shortness of Breath Last Admin: 08/25/17 16:09 Dose: 0.63 mg Lisinopril (Zestril) 10 mg PO DAILY REPLACED BY [facility] Last Admin: 08/20/17 12:13 Dose: Not Given Methylprednisolone (Solu-Medrol) 40 mg IVP Q12H REPLACED BY [facility] Last Admin: 08/26/17 10:49 Dose: 40 mg Metronidazole (Flagyl) 500 mg PO Q8 REPLACED BY [facility] PRN Reason: Protocol Last Admin: 08/26/17 15:05 Dose: 500 mg Pantoprazole Sodium (Protonix Ec Tab) 40 mg PO ACB REPLACED BY [facility] Last Admin: 08/26/17 08:44 Dose: 40 mg - Labs Labs: 08/26/17 06:30 08/26/17 06:30 PT 17.4 SECONDS (9.4-12.5) H 08/23/17 15:42 INR 1.51 (0.93-1.08) H 08/23/17 15:42 APTT 54.5 Seconds (25.1-36.5) H 08/26/17 06:30 - Constitutional Appears: Non-toxic, No Acute Distress, Chronically Ill - Head Exam Head Exam: ATRAUMATIC, NORMOCEPHALIC - Eye Exam Eye Exam: EOMI, PERRL Pupil Exam: NORMAL ACCOMODATION, PERRL - ENT Exam ENT Exam: Mucous Membranes Moist, Normal External Ear Exam, TM's Normal Bilaterally - Neck Exam Neck Exam: Full ROM, Normal Inspection - Respiratory Exam Respiratory Exam: Clear to Ausculation Bilateral, NORMAL BREATHING PATTERN. absent: Rales, Rhonchi, Wheezes - Cardiovascular Exam Cardiovascular Exam: REGULAR RHYTHM, RRR, +S1, +S2 - GI/Abdominal Exam GI & Abdominal Exam: Soft, Normal Bowel Sounds. absent: Distended, Tenderness - Extremities Exam Extremities Exam: Full ROM, Normal Inspection - Neurological Exam Neurological Exam: Alert, Awake, CN II-XII Intact, Oriented x3 - Psychiatric Exam Psychiatric exam: Normal Affect, Normal Mood - Skin Skin Exam: Intact, Normal Color Assessment and Plan - Assessment and Plan (Free Text) Assessment: 57 yo female with multiple medical issues presenting with shortness of breath and worsening somnolence. The patient was found to be cyanotic, hypoxic, and tachypnic 6:30 AM on 08/20/2017. She was placed on nonrebreather mask and improved. Switch to BiPAP which she was stable on until she removed the BiPAP mask. After removing the mask, the patient became cyanotic and hypoxic again. Oxygen saturation dropped to 70s. Patient seen by Appliance Service Supervisor and admitted to the MICU for further care. Respiratory issues are likely multifactorial: Cor Pulmonale? Pulmonary Hypertension? Pneumonia COPD Noted the patient had some renal insufficiency on admission (secondary to dehydation at that time?). Currently on Vancomycin IV and Meropenem which provides broad coverage antibiotic coverage including for aspiration pneumonia. Chest X-ray showed mild vascular and interstitial congestion. The patient is fully awake and alert. She was weaned off the respirator. Obtain procalcitonin values. Results pending. Procalcitonin was 1.57. Treatment for a pneumonia. Can utilize Procalcitonin trend as a marker of pneumonia improvement. Current Procalcitonin is now 0.10. Patient has baseline confusion. On medical floor now. Thank you for allowing me to participate in the care of the patient, we will follow with you.
[2017-08-27] MEDS: MethylPREDNISolone 40 mg Vial IVP SCH ×2 (00:25→12:26)
[2017-08-27] MEDS: Levalbuterol 1.25 MG/3 ML Inhal Soln UD IH SCH ×4 (02:09→19:17)
[2017-08-27] MEDS: Meropenem 500 MG in Sodium Chloride 0.9% 100 ML IVPB SCH ×3 (05:30→21:40)
[2017-08-27] MEDS: Vancomycin 1gm in NS 250ml 1 GM/250 ML BAG IVPB SCH ×2 (05:31→17:07)
[2017-08-27 07:22] LABS: BASO # 0.01 K/mm3 (0.0-2.0); BASO % 0.1 % (0.0-3.0); EOS # 0.2 (0.0-0.7); EOS % 0.9 % (1.5-5.0); GRAN # 15.29 (1.4-6.5); GRAN % 91.2 % (50.0-68.0); LYMPH # 0.7 (1.2-3.4); LYMPH % 3.9 % (22.0-35.0); MEAN CELL VOLUME 95.3 fl (80.0-105.0); MEAN CORPUSCULAR HEMOGLOBIN 29.7 pg (25.0-35.0); MEAN CORPUSCULAR HGB CONC 31.2 g/dl (31.0-37.0); MONO # 0.7 (0.1-0.6); MONO % 3.9 % (1.0-6.0); PLATELET COUNT 86 10^3/uL (120.0-450.0); RBC 6.22 10^6/uL (3.5-6.1); RED CELL DISTRIBUTION WIDTH 16.6 % (11.5-14.5); WHITE BLOOD COUNT 16.8 10^3/ul (4.5-11.0)
[2017-08-27 07:24] LABS: HEMOGLOBIN 18.5 g/dL (12.0-16.0)
[2017-08-27 07:58] LABS: ALB/GLOB RATIO 1.4 (1.1-1.8); ALBUMIN 3.2 g/dL (3.0-4.8); ALT/SGPT 87 U/L (7-56); AST/SGOT 26 U/L (14-36); BLOOD UREA NITROGEN 44 mg/dL (7-21); CALCIUM 9.8 mg/dL (8.4-10.5); GFR AFRICAN-AMERICAN > 60; GFR NON-AFRICAN AMERICAN > 60; MAGNESIUM 1.8 mg/dL (1.7-2.2)
[2017-08-27 08:07] LABS: ANISOCYTOSIS 1+; LYMPHOCYTE 1 % (22.0-35.0); MONOCYTE 1 % (1.0-6.0); NEUTROPHIL 98 % (50.0-70.0); PLATELET ESTIMATE LOW (NORMAL)
[2017-08-27] MEDS: Pantoprazole 40 mg EC Tab PO SCH (08:46)
[2017-08-27] MEDS: guaiFENesin DM 200 mg-20 mg/10 ml UD PO PRN ×3 (10:24→21:30)
[2017-08-27] MEDS: SUBOXONE 8 MG PO SCH (10:29)
[2017-08-27] MEDS: ADDERALL 5 MG PO SCH (10:29)
--- NOTE | 2017-08-27 12:15 | CP.PCM.PN ---
<Dandy Katz - Last Filed: 08/27/17 12:27> Subjective - Date & Time of Evaluation Date of Evaluation: 08/27/17 Time of Evaluation: 09:30 - Subjective Subjective: Dr. Tomeka Wells Pt was seen and examine at bedside. No acute complaints at this time. Pt is still with a cough, and is producing phlegm. pt states she is feeling better than yesterday. Pt is OOB to chair and has incentive spirometry at bedside. The patient denies chest pain, shortness of breath, cough, fevers/chills, n/v/d, headaches, changes in vision/hearing, tinnitus, dizziness, fatigue, weakness, abdominal pain, changes in urine or bowel habits. Pt last bm was last night. Objective - Vital Signs/Intake and Output Vital Signs (last 24 hours): Temp Pulse Resp BP Pulse Ox 98.5 F 98 H 20 103/69 98 08/27/17 06:00 08/27/17 10:00 08/27/17 06:00 08/27/17 10:25 08/27/17 06:00 Intake and Output: 08/27/17 08/27/17 06:59 18:59 Intake Total 1042 Output Total 1100 Balance -58 - Medications Medications: Current Medications Aspirin (Aspirin Chewable) 81 mg PO DAILY [facility] Last Admin: 08/27/17 10:23 Dose: 81 mg Benzocaine/Menthol (Cepacol Sore Throat) 1 sophia MT Q2H PRN PRN Reason: Sore Throat Last Admin: 08/26/17 22:02 Dose: 1 sophia Bupropion HCl (Wellbutrin Sr 150 Mg) 150 mg PO BID [facility] Last Admin: 08/26/17 17:16 Dose: 150 mg Clonazepam (Klonopin) 1 mg PO TID [facility] PRN Reason: Protocol Last Admin: 08/27/17 10:24 Dose: 1 mg Furosemide (Lasix) 40 mg IVP Q12 [facility] Last Admin: 08/27/17 10:25 Dose: Not Given Guaifenesin/Dextromethorphan (Robitussin Dm) 10 ml PO Q4H PRN PRN Reason: Cough Last Admin: 08/27/17 10:24 Dose: 10 ml Home Med (Home Med) 1 unit PO DAILY [facility] Last Admin: 01/16/18 10:29 Dose: Not Given Home Med (Home Med) 1 unit PO DAILY [facility] Last Admin: 08/27/17 10:29 Dose: Not Given Vancomycin HCl (Vancomycin 1gm) 1 gm in 250 mls @ 167 mls/hr IVPB Q12H JONAH PRN Reason: Protocol Last Admin: 08/27/17 05:31 Dose: 167 mls/hr Meropenem 500 mg/ Sodium (Chloride) 100 mls @ 100 mls/hr IVPB Q8 JONAH PRN Reason: Protocol Last Admin: 08/27/17 05:30 Dose: 100 mls/hr Argatroban 250 mg/ Dextrose 252.5 mls @ 2.15 mls/hr IV .Q24H PRN; Protocol; 0.5 MCG/KG/MIN PRN Reason: TITRATE PER PROTOCOL Last Admin: 08/25/17 07:00 Dose: 1 mcg/kg/min, 4.3 mls/hr Ibuprofen (Motrin Tab) 400 mg PO Q6H PRN PRN Reason: Pain, moderate (4-7) Last Admin: 08/26/17 22:02 Dose: 400 mg Levalbuterol HCl (Xopenex) 1.25 mg IH [id number] [facility] Last Admin: 08/27/17 07:39 Dose: 1.25 mg Levalbuterol HCl (Xopenex) 0.63 mg IH Q2H PRN PRN Reason: Shortness of Breath Last Admin: 08/25/17 16:09 Dose: 0.63 mg Lisinopril (Zestril) 10 mg PO DAILY [facility] Last Admin: 08/20/17 12:13 Dose: Not Given Methylprednisolone (Solu-Medrol) 40 mg IVP Q12H [facility] Last Admin: 08/27/17 00:25 Dose: 40 mg Metronidazole (Flagyl) 500 mg PO Q8 JONAH PRN Reason: Protocol Last Admin: 08/27/17 05:32 Dose: 500 mg Pantoprazole Sodium (Protonix Ec Tab) 40 mg PO ACB [facility] Last Admin: 08/27/17 08:46 Dose: 40 mg - Labs Labs: 08/27/17 06:30 08/27/17 06:30 PT 17.4 SECONDS (9.4-12.5) H 08/23/17 15:42 INR 1.51 (0.93-1.08) H 08/23/17 15:42 APTT 52.1 Seconds (25.1-36.5) H 08/27/17 06:30 - Constitutional Appears: No Acute Distress - Head Exam Head Exam: ATRAUMATIC, NORMAL INSPECTION, NORMOCEPHALIC - Eye Exam Eye Exam: EOMI, Normal appearance, PERRL Pupil Exam: NORMAL ACCOMODATION, PERRL - ENT Exam ENT Exam: Mucous Membranes Moist, Normal Exam - Neck Exam Neck Exam: Full ROM, Normal Inspection. absent: Lymphadenopathy - Respiratory Exam Respiratory Exam: Rhonchi, NORMAL BREATHING PATTERN - Cardiovascular Exam Cardiovascular Exam: REGULAR RHYTHM, +S1, +S2. absent: Murmur - GI/Abdominal Exam GI & Abdominal Exam: Soft, Normal Bowel Sounds. absent: Tenderness - Neurological Exam Neurological Exam: Alert, Awake, CN II-XII Intact, Normal Gait, Oriented x3 - Psychiatric Exam Psychiatric exam: Normal Affect, Normal Mood - Skin Skin Exam: Dry, Intact, Normal Color, Warm Assessment and Plan - Assessment and Plan (Free Text) Assessment: 57 yo female with past medical history of COPD (not on home O2), hypertension, anxiety, and depression admitted for evaluation and treatment for right sided heart failure secondary to cor pulmonale vs. pulmonary hypertension. Patient is s/p ICU for hypercapnic respiratory failure requiring intubation now extubated and out of ICU. HIT is suspected and patient is on Argatroban. Patient's other medical issues are also being managed. 1. Hypercapnic Respiratory Distress, resolved - Cont BIPAP and high flow O2 - Cont Lasix 40q12 IVP - Cont Xopenex JONAH and PRN - Cont Solu-medrol (taper) - PT eval placed for activity tolerance - Discussed with patient and son regarding possibility of DNR/DNI status; Palliative care consulted - Cardiology consulted, recommend right heart on discharge 2. Elevated Troponin - likely cardiac strain due to hypoxia - Cont ASA, plavix - Heparin drip stopped due to thrombocytopenia, argatroban drip started, will reach out to Heme/onc for further reccs - Cardio consulted 3. R/o Heparin-Induced Thrombocytopenia - Argatroban started - Heparin Ab negative - Monitor PTT - Hematology consulted, appreciate further reccs 4. Pneumonia - Likely 2/2 aspiration - Procal 1.57 - ID consulted - Cont Vancomycin, Merrem - Blood cultures negative - F/u sputum culture 5. R/o C. Diff - Pt c/o of multiple episodes of diarrhea currently on abx, however is no longer experiencing increased frequency, last bm last evening - C. diff antigen and toxin ordered, fu - flagyl started 6. COPD - Started solumedrol 40 mg IVP q12h - Cont xopenex and ipratropium - Cont BIPAP and high flow O2 7. Depression/Anxiety - Psych consulted - Cont Suboxone, Wellbutrin, Adderall, Klonopin - Ativan prn 8. Hypertension - Hold Lisinopril - Cont to monitor 9. GI/DVT PPx - Protonix - Argatroban The patient was seen, examined and discussed with attending, Dr. Eckert <Bay Eckert - Last Filed: 08/27/17 15:29> Objective - Vital Signs/Intake and Output Vital Signs (last 24 hours): Temp Pulse Resp BP Pulse Ox 98.9 F 94 H 20 99/68 L 98 08/27/17 12:00 08/27/17 12:00 08/27/17 12:00 08/27/17 12:00 08/27/17 06:00 Intake and Output: 08/27/17 08/27/17 06:59 18:59 Intake Total 1042 0 Output Total 1100 Balance -58 0 - Medications Medications: Current Medications Aspirin (Aspirin Chewable) 81 mg PO DAILY [facility] Last Admin: 08/27/17 10:23 Dose: 81 mg Benzocaine/Menthol (Cepacol Sore Throat) 1 sophia MT Q2H PRN PRN Reason: Sore Throat Last Admin: 08/26/17 22:02 Dose: 1 sophia Bupropion HCl (Wellbutrin Sr 150 Mg) 150 mg PO BID [facility] Last Admin: 08/27/17 12:26 Dose: 150 mg Clonazepam (Klonopin) 1 mg PO TID JONAH PRN Reason: Protocol Last Admin: 08/27/17 13:59 Dose: 1 mg Furosemide (Lasix) 40 mg IVP Q12 [facility] Last Admin: 08/27/17 10:25 Dose: Not Given Guaifenesin/Dextromethorphan (Robitussin Dm) 10 ml PO Q4H PRN PRN Reason: Cough Last Admin: 08/27/17 10:24 Dose: 10 ml Home Med (Home Med) 1 unit PO DAILY [facility] Last Admin: 08/27/17 10:29 Dose: Not Given Home Med (Home Med) 1 unit PO DAILY [facility] Last Admin: 08/27/17 10:29 Dose: Not Given Vancomycin HCl (Vancomycin 1gm) 1 gm in 250 mls @ 167 mls/hr IVPB Q12H JNOAH PRN Reason: Protocol Last Admin: 08/27/17 05:31 Dose: 167 mls/hr Meropenem 500 mg/ Sodium (Chloride) 100 mls @ 100 mls/hr IVPB Q8 JONAH PRN Reason: Protocol Last Admin: 08/27/17 13:41 Dose: 100 mls/hr Argatroban 250 mg/ Dextrose 252.5 mls @ 2.15 mls/hr IV .Q24H PRN; Protocol; 0.5 MCG/KG/MIN PRN Reason: TITRATE PER PROTOCOL Last Admin: 08/27/17 13:59 Dose: 1 mcg/kg/min, 4.3 mls/hr Ibuprofen (Motrin Tab) 400 mg PO Q6H PRN PRN Reason: Pain, moderate (4-7) Last Admin: 08/26/17 22:02 Dose: 400 mg Levalbuterol HCl (Xopenex) 1.25 mg IH [id number] [facility] Last Admin: 08/27/17 13:21 Dose: 1.25 mg Levalbuterol HCl (Xopenex) 0.63 mg IH Q2H PRN PRN Reason: Shortness of Breath Last Admin: 08/25/17 16:09 Dose: 0.63 mg Lisinopril (Zestril) 10 mg PO DAILY [facility] Last Admin: 08/20/17 12:13 Dose: Not Given Methylprednisolone (Solu-Medrol) 40 mg IVP Q12H [facility] Last Admin: 08/27/17 12:26 Dose: 40 mg Metronidazole (Flagyl) 500 mg PO Q8 [facility] PRN Reason: Protocol Last Admin: 08/27/17 13:58 Dose: 500 mg Pantoprazole Sodium (Protonix Ec Tab) 40 mg PO ACB [facility] Last Admin: 08/27/17 08:46 Dose: 40 mg - Labs Labs: 08/27/17 06:30 08/27/17 06:30 PT 17.4 SECONDS (9.4-12.5) H 08/23/17 15:42 INR 1.51 (0.93-1.08) H 08/23/17 15:42 APTT 52.1 Seconds (25.1-36.5) H 08/27/17 06:30 Attending/Attestation - Attestation I have personally seen and examined this patient.: Yes I have fully participated in the care of the patient.: Yes I have reviewed all pertinent clinical information, including history, physical exam and plan: Yes Notes (Text): 08/27/17 15:25 attending note; Patient seen and examined in room 375. Alert and awake. on oxygen nasal cannula. Not in any distress. diarrhea resolved. Patient is a 57-year-old female with PMH of chronic obstructive lung disease, hypertension, current smoker, anxiety, and depression presents due to shortness of breath. currently extubated and on oxygen and BiPAP. pulmonary hypertension; cardiology evaluation appreciated. Elevated troponin. Secondary to hypoxemia. cardiology evaluation appreciated. need outpatient workup. Thrombocytopenia; did not improve with argatroban. Serotonin assay is negative. HIT antibody is negative. argatroban stopped. diarrhea; resolved. stool for C. difficile ordered. Started on by mouth Flagyl. Acute renal insufficiency; resolved. Elevated LFTs ; improving slowly. mostly secondary to hypoxemia on hemodynamic changes. active smoking; smoking cessation is strongly advised. started on NicoDerm patch. depression; psychiatric evaluation with Dr. Thorpe appreciated. patient was on clonazepam, Adderall on Suboxone. PT evaluation appreciated. Currently patient is full code. Upon discharge the patient will follow-up PMD .
[2017-08-27] MEDS: buPROPion SR 150 MG TABLET PO SCH ×2 (12:26→17:46)
[2017-08-27] MEDS: Argatroban 250 MG in Dextrose 5% In Water 250 ML IV PRN (13:59)
--- NOTE | 2017-08-27 18:17 | PN ---
DATE: SUBJECTIVE: The patient is experiencing productive cough and sneezing. No retrosternal chest pain. PHYSICAL EXAMINATION GENERAL: Blood pressure 103/69, heart rate 98, temperature 98.5, and respirations 20. HEENT: Normocephalic. CHEST: Diffuse bilateral rhonchi. HEART: S1, S2 regular. EXTREMITIES: Trace leg edema. LABORATORY DATA: Hemoglobin and hematocrit 18.5 and 59.3, white count 16.3, platelet count 86,000. Today's PPT is 52.1. Heparin-induced platelet antibody is negative. ASSESSMENT: 1. Status post respiratory failure. 2. Chronic obstructive lung disease and right-sided heart failure. 3. Borderline troponin elevation. 4. Thrombocytopenia. 5. Prerenal azotemia. Today's BUN is 44. CONDITIONS: Case is discussed with Dr. Eckert. Argatroban will be discontinued. The patient will be maintained on aspirin 81 mg once a day. Continue IV meropenem and IV vancomycin beside bronchodilators. 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 Monsalve and Dr. Pablo and the patient was given the choice of choosing the Joinery Machinist for the discission or the procedure for cauterization. Danny Cruz MD
--- NOTE | 2017-08-27 18:26 | CP.PCM.PN ---
Subjective - Date & Time of Evaluation Date of Evaluation: 08/27/17 Time of Evaluation: 17:30 - Subjective Subjective: Infectious Disease Follow Up: August 27, 2017 57 yo female originally admitted for shortness of breath and increasing somnolence. Patient's son indicated that the patient was more confused than her normal for at least the past 2 weeks. The patient's appetite was worse and the patient had increased urinary frequency. Patient had problems with SOB after 1 to 1.5 blocks of walking usually. The patient respiratory status worsened yesterday. She was placed on BiPAP and was brought to the MICU for further monitoring. Today, the patient is awake and alert. She was extubated yesterday. Cultures to date have not shown growth. Patient expressed to team that she does not want further intubation. Transferred to medical floor. The patient doing better overall. No complaints. Patient has some flight of thoughts. Objective - Vital Signs/Intake and Output Vital Signs (last 24 hours): Temp Pulse Resp BP Pulse Ox 98.9 F 94 H 20 99/68 L 96 08/27/17 12:00 08/27/17 12:00 08/27/17 12:00 08/27/17 12:00 08/27/17 16:29 Intake and Output: 08/27/17 08/27/17 06:59 18:59 Intake Total 1042 0 Output Total 1100 Balance -58 0 - Medications Medications: Current Medications Aspirin (Aspirin Chewable) 81 mg PO DAILY [facility] Last Admin: 08/27/17 10:23 Dose: 81 mg Benzocaine/Menthol (Cepacol Sore Throat) 1 sophia MT Q2H PRN PRN Reason: Sore Throat Last Admin: 08/26/17 22:02 Dose: 1 sophia Bupropion HCl (Wellbutrin Sr 150 Mg) 150 mg PO BID [facility] Last Admin: 08/27/17 17:46 Dose: 150 mg Clonazepam (Klonopin) 1 mg PO TID JONAH PRN Reason: Protocol Last Admin: 08/27/17 17:07 Dose: 1 mg Furosemide (Lasix) 40 mg IVP Q12 [facility] Last Admin: 08/27/17 10:25 Dose: Not Given Guaifenesin/Dextromethorphan (Robitussin Dm) 10 ml PO Q4H PRN PRN Reason: Cough Last Admin: 08/27/17 17:06 Dose: 10 ml Home Med (Home Med) 1 unit PO DAILY [facility] Last Admin: 08/27/17 10:29 Dose: Not Given Home Med (Home Med) 1 unit PO DAILY [facility] Last Admin: 08/27/17 10:29 Dose: Not Given Vancomycin HCl (Vancomycin 1gm) 1 gm in 250 mls @ 167 mls/hr IVPB Q12H OJNAH PRN Reason: Protocol Last Admin: 08/27/17 17:07 Dose: 167 mls/hr Meropenem 500 mg/ Sodium (Chloride) 100 mls @ 100 mls/hr IVPB Q8 JONAH PRN Reason: Protocol Last Admin: 08/27/17 13:41 Dose: 100 mls/hr Ibuprofen (Motrin Tab) 400 mg PO Q6H PRN PRN Reason: Pain, moderate (4-7) Last Admin: 08/26/17 22:02 Dose: 400 mg Levalbuterol HCl (Xopenex) 1.25 mg IH [id number] [facility] Last Admin: 08/27/17 13:21 Dose: 1.25 mg Levalbuterol HCl (Xopenex) 0.63 mg IH Q2H PRN PRN Reason: Shortness of Breath Last Admin: 08/25/17 16:09 Dose: 0.63 mg Lisinopril (Zestril) 10 mg PO DAILY [facility] Last Admin: 08/20/17 12:13 Dose: Not Given Methylprednisolone (Solu-Medrol) 40 mg IVP Q12H [facility] Last Admin: 08/27/17 12:26 Dose: 40 mg Metronidazole (Flagyl) 500 mg PO Q8 JONAH PRN Reason: Protocol Last Admin: 08/27/17 13:58 Dose: 500 mg Pantoprazole Sodium (Protonix Ec Tab) 40 mg PO ACB [facility] Last Admin: 08/27/17 08:46 Dose: 40 mg - Labs Labs: 08/27/17 06:30 08/27/17 06:30 PT 17.4 SECONDS (9.4-12.5) H 08/23/17 15:42 INR 1.51 (0.93-1.08) H 08/23/17 15:42 APTT 52.1 Seconds (25.1-36.5) H 08/27/17 06:30 - Constitutional Appears: Non-toxic, In Acute Distress, Chronically Ill - Head Exam Head Exam: ATRAUMATIC, NORMOCEPHALIC - Eye Exam Eye Exam: EOMI, PERRL Pupil Exam: NORMAL ACCOMODATION, PERRL - ENT Exam ENT Exam: Mucous Membranes Moist, Normal External Ear Exam, TM's Normal Bilaterally - Neck Exam Neck Exam: Full ROM, Normal Inspection - Respiratory Exam Respiratory Exam: Clear to Ausculation Bilateral, NORMAL BREATHING PATTERN. absent: Rales, Rhonchi, Wheezes - Cardiovascular Exam Cardiovascular Exam: REGULAR RHYTHM, RRR, +S1, +S2 - GI/Abdominal Exam GI & Abdominal Exam: Soft, Normal Bowel Sounds. absent: Distended, Tenderness - Extremities Exam Extremities Exam: Full ROM, Normal Inspection - Neurological Exam Neurological Exam: Alert, Awake, CN II-XII Intact, Oriented x3 - Psychiatric Exam Psychiatric exam: Manic, Normal Affect - Skin Skin Exam: Intact, Normal Color Assessment and Plan - Assessment and Plan (Free Text) Assessment: 57 yo female with multiple medical issues presenting with shortness of breath and worsening somnolence. The patient was found to be cyanotic, hypoxic, and tachypnic 6:30 AM on 08/20/2017. She was placed on nonrebreather mask and improved. Switch to BiPAP which she was stable on until she removed the BiPAP mask. After removing the mask, the patient became cyanotic and hypoxic again. Oxygen saturation dropped to 70s. Patient seen by Tours Captain and admitted to the MICU for further care. Respiratory issues are likely multifactorial: Cor Pulmonale? Pulmonary Hypertension? Pneumonia COPD Noted the patient had some renal insufficiency on admission (secondary to dehydation at that time?). Currently on Vancomycin IV and Meropenem which provides broad coverage antibiotic coverage including for aspiration pneumonia. Chest X-ray showed mild vascular and interstitial congestion. The patient is fully awake and alert. She was weaned off the respirator. Obtain procalcitonin values. Results pending. Procalcitonin was 1.57. Treatment for a pneumonia. Can utilize Procalcitonin trend as a marker of pneumonia improvement. Current Procalcitonin is now 0.10. Patient has baseline confusion. On medical floor now. Improving overall. Thank you for allowing me to participate in the care of the patient, we will follow with you.
[2017-08-28] MEDS: MethylPREDNISolone 40 mg Vial IVP SCH ×3 (00:14→23:26)
[2017-08-28] MEDS: Levalbuterol 1.25 MG/3 ML Inhal Soln UD IH SCH ×4 (01:15→20:32)
--- NOTE | 2017-08-28 03:45 | PN ---
DATE: Case discussed with Dr. Cruz. She is experiencing productive cough and sneezing today with no chest pain. To Dr. Eckert, she indicates that she is feeling better today than yesterday; although, my sense is that patient is somewhat worsened today than yesterday and not as cognitively sharp as yesterday. Jhony Thorpe MD/ PhD
[2017-08-28] MEDS: guaiFENesin DM 200 mg-20 mg/10 ml UD PO PRN ×2 (05:16→11:12)
[2017-08-28] MEDS: Vancomycin 1gm in NS 250ml 1 GM/250 ML BAG IVPB SCH (05:17)
[2017-08-28] MEDS: Meropenem 500 MG in Sodium Chloride 0.9% 100 ML IVPB SCH (05:17)
[2017-08-28 07:23] LABS: EOS # 0.3 (0.0-0.7); EOS % 1.4 % (1.5-5.0); GRAN # 17.84 (1.4-6.5); GRAN % 93.6 % (50.0-68.0); HEMOGLOBIN 17.2 g/dL (12.0-16.0); LYMPH # 0.6 (1.2-3.4); LYMPH % 3.3 % (22.0-35.0); MEAN CELL VOLUME 95.6 fl (80.0-105.0); MEAN CORPUSCULAR HEMOGLOBIN 29.3 pg (25.0-35.0); MEAN CORPUSCULAR HGB CONC 30.6 g/dl (31.0-37.0); MONO # 0.3 (0.1-0.6); MONO % 1.7 % (1.0-6.0); PLATELET COUNT 86 10^3/uL (120.0-450.0); RBC 5.88 10^6/uL (3.5-6.1); RED CELL DISTRIBUTION WIDTH 16.2 % (11.5-14.5)
[2017-08-28] MEDS: buPROPion SR 150 MG TABLET PO SCH ×2 (10:05→18:16)
[2017-08-28] MEDS: Pantoprazole 40 mg EC Tab PO SCH (10:05)
[2017-08-28] MEDS: ADDERALL 5 MG PO SCH (10:06)
[2017-08-28] MEDS: SUBOXONE 8 MG PO SCH (10:06)
--- NOTE | 2017-08-28 11:06 | CP.PCM.PN ---
<Scott Cuadra - Last Filed: 08/28/17 12:04> Subjective - Date & Time of Evaluation Date of Evaluation: 08/28/17 Time of Evaluation: 10:06 - Subjective Subjective: Scott Cuadra PGY1 IM Progress Note for Dr. Eckert Hospitalist Service Patient was seen and examined at bedside. Patient denies any acute overnight events and is walking slowly as she gains more stability and strength. Patient denies chest pain, shortness of breath, cough, fevers/chills, nausea/vomiting/ diarrhea, abdominal pain, changes in bowel/urinary habits. Objective - Vital Signs/Intake and Output Vital Signs (last 24 hours): Temp Pulse Resp BP Pulse Ox 97.8 F 82 20 115/76 100 08/28/17 06:00 08/28/17 06:00 08/28/17 06:00 08/28/17 10:05 08/28/17 06:00 Intake and Output: 08/28/17 08/28/17 06:59 18:59 Intake Total 450 Balance 450 - Medications Medications: Current Medications Aspirin (Aspirin Chewable) 81 mg PO DAILY [facility] Last Admin: 08/28/17 10:05 Dose: 81 mg Benzocaine/Menthol (Cepacol Sore Throat) 1 sophia MT Q2H PRN PRN Reason: Sore Throat Last Admin: 08/26/17 22:02 Dose: 1 sophia Bupropion HCl (Wellbutrin Sr 150 Mg) 150 mg PO BID [facility] Last Admin: 08/28/17 10:05 Dose: 150 mg Clonazepam (Klonopin) 1 mg PO TID [facility] PRN Reason: Protocol Last Admin: 08/28/17 10:05 Dose: 1 mg Furosemide (Lasix) 40 mg IVP Q12 [facility] Last Admin: 08/28/17 10:05 Dose: 40 mg Guaifenesin/Dextromethorphan (Robitussin Dm) 10 ml PO Q4H PRN PRN Reason: Cough Last Admin: 08/28/17 05:16 Dose: 10 ml Home Med (Home Med) 1 unit PO DAILY [facility] Last Admin: 08/28/17 10:06 Dose: Not Given Home Med (Home Med) 1 unit PO DAILY [facility] Last Admin: 08/28/17 10:06 Dose: Not Given Vancomycin HCl (Vancomycin 1gm) 1 gm in 250 mls @ 167 mls/hr IVPB Q12H [facility] PRN Reason: Protocol Last Admin: 08/28/17 05:17 Dose: 167 mls/hr Meropenem 500 mg/ Sodium (Chloride) 100 mls @ 100 mls/hr IVPB Q8 [facility] PRN Reason: Protocol Last Admin: 08/28/17 05:17 Dose: 100 mls/hr Ibuprofen (Motrin Tab) 400 mg PO Q6H PRN PRN Reason: Pain, moderate (4-7) Last Admin: 08/26/17 22:02 Dose: 400 mg Levalbuterol HCl (Xopenex) 1.25 mg IH [id number] [facility] Last Admin: 08/28/17 08:10 Dose: 1.25 mg Levalbuterol HCl (Xopenex) 0.63 mg IH Q2H PRN PRN Reason: Shortness of Breath Last Admin: 08/25/17 16:09 Dose: 0.63 mg Lisinopril (Zestril) 10 mg PO DAILY [facility] Last Admin: 08/20/17 12:13 Dose: Not Given Methylprednisolone (Solu-Medrol) 40 mg IVP Q12H [facility] Last Admin: 08/28/17 00:14 Dose: 40 mg Pantoprazole Sodium (Protonix Ec Tab) 40 mg PO ACB [facility] Last Admin: 08/28/17 10:05 Dose: 40 mg - Labs Labs: 08/28/17 06:30 08/27/17 06:30 PT 17.4 SECONDS (9.4-12.5) H 08/23/17 15:42 INR 1.51 (0.93-1.08) H 08/23/17 15:42 APTT 25.4 Seconds (25.1-36.5) 08/28/17 06:30 - Additional Findings Additional findings: - Constitutional Appears: No Acute Distress - Head Exam Head Exam: NORMAL INSPECTION - Eye Exam Eye Exam: Normal appearance - ENT Exam ENT Exam: Normal Exam - Neck Exam Neck Exam: Normal Inspection - Respiratory Exam Respiratory Exam: Clear to Ausculation Bilateral. absent: Accessory Muscle Use , Rales, Rhonchi, Wheezes, Respiratory Distress - Cardiovascular Exam Cardiovascular Exam: RRR, +S1, +S2. absent: Gallop, Rubs, Murmur - GI/Abdominal Exam GI & Abdominal Exam: Soft. absent: Distended, Guarding, Tenderness, Rebound - Extremities Exam Extremities Exam: Normal Inspection - Back Exam Back Exam: NORMAL INSPECTION - Neurological Exam Neurological Exam: Alert, Awake, Oriented x3 - Psychiatric Exam Psychiatric exam: Normal Affect, Normal Mood - Skin Skin Exam: Dry, Intact, Normal Color, Warm Assessment and Plan - Assessment and Plan (Free Text) Assessment: 57 yo female with past medical history of COPD (not on home O2), hypertension, anxiety, and depression admitted for evaluation and treatment for right sided heart failure secondary to cor pulmonale vs. pulmonary hypertension. Patient is s/p ICU for hypercapnic respiratory failure that required intubation, now extubated and out of ICU. HIT was suspected and patient was on Argatroban, but antibodies were negative and Argatroban discontinued. Patient's other medical issues are also being managed. Plan: 1. Hypercapnic Respiratory Distress, resolved - Cont BIPAP and high flow O2 - Cont Lasix 40q12 IVP - Cont Xopenex JONAH and PRN - Cont Solu-medrol (taper down) - PT eval placed for activity tolerance, recommending home O2 (SW working with patient regarding obtaining home O2 due to cost and no insurance coverage) - Discussed with patient and son regarding possibility of DNR/DNI status; Palliative care consulted; patient is FULL CODE - Cardiology consulted, recommend right heart on discharge 2. Elevated Troponin - likely cardiac strain due to hypoxia - Cont ASA, plavix - Heparin drip stopped due to thrombocytopenia - Cardio consulted 3. Heparin-Induced Thrombocytopenia has been ruled out - Argatroban d/c - Hematology consulted, recs appreciated regarding thrombocytopenia and erythrocytosis 4. Pneumonia - Likely 2/2 aspiration - Procal 1.57 - ID consulted, recommend discontinue antibiotics (s/p Vancomycin and Meropenem 9days) - Blood cultures negative - F/u sputum culture 5. c diff negative - flagyl discontinued per ID 6. COPD - cont solumedrol 40 mg IVP q12h - Cont xopenex and ipratropium - Cont BIPAP and high flow O2 7. Depression/Anxiety - Psych consulted, recs appreciated - Cont Suboxone, Wellbutrin, Adderall, Klonopin - Ativan prn 8. Hypertension - Hold Lisinopril - Cont to monitor 9. GI/DVT PPx - Protonix - SCDs The patient was seen, examined and discussed with attending, Dr. Tomeka Cuadra PGY1 Pager # [phone] <Bay Eckert - Last Filed: 08/28/17 15:30> Objective - Vital Signs/Intake and Output Vital Signs (last 24 hours): Temp Pulse Resp BP Pulse Ox 97.8 F 82 20 115/76 100 08/28/17 06:00 08/28/17 06:00 08/28/17 06:00 08/28/17 10:05 08/28/17 06:00 Intake and Output: 08/28/17 08/28/17 06:59 18:59 Intake Total 450 Balance 450 - Medications Medications: Current Medications Aspirin (Aspirin Chewable) 81 mg PO DAILY [facility] Last Admin: 08/28/17 10:05 Dose: 81 mg Benzocaine/Menthol (Cepacol Sore Throat) 1 sophia MT Q2H PRN PRN Reason: Sore Throat Last Admin: 08/28/17 11:09 Dose: 1 sophia Bupropion HCl (Wellbutrin Sr 150 Mg) 150 mg PO BID [facility] Last Admin: 08/28/17 10:05 Dose: 150 mg Clonazepam (Klonopin) 1 mg PO TID [facility] PRN Reason: Protocol Last Admin: 08/28/17 10:05 Dose: 1 mg Diphenhydramine HCl (Benadryl) 25 mg PO HS PRN PRN Reason: Insomnia Furosemide (Lasix) 40 mg IVP Q12 [facility] Last Admin: 08/28/17 10:05 Dose: 40 mg Guaifenesin/Dextromethorphan (Robitussin Dm) 10 ml PO Q4H PRN PRN Reason: Cough Last Admin: 08/28/17 11:12 Dose: 10 ml Home Med (Home Med) 1 unit PO DAILY [facility] Last Admin: 08/28/17 10:06 Dose: Not Given Home Med (Home Med) 1 unit PO DAILY [facility] Last Admin: 08/28/17 10:06 Dose: Not Given Ibuprofen (Motrin Tab) 400 mg PO Q6H PRN PRN Reason: Pain, moderate (4-7) Last Admin: 08/26/17 22:02 Dose: 400 mg Levalbuterol HCl (Xopenex) 1.25 mg IH [id number] [facility] Last Admin: 08/28/17 14:14 Dose: 1.25 mg Levalbuterol HCl (Xopenex) 0.63 mg IH Q2H PRN PRN Reason: Shortness of Breath Last Admin: 08/25/17 16:09 Dose: 0.63 mg Lisinopril (Zestril) 10 mg PO DAILY [facility] Last Admin: 08/20/17 12:13 Dose: Not Given Loratadine (Claritin) 10 mg PO DAILY [facility] Methylprednisolone (Solu-Medrol) 40 mg IVP Q12H [facility] Last Admin: 08/28/17 11:14 Dose: 40 mg Pantoprazole Sodium (Protonix Ec Tab) 40 mg PO ACB [facility] Last Admin: 08/28/17 10:05 Dose: 40 mg - Labs Labs: 08/28/17 06:30 08/27/17 06:30 PT 17.4 SECONDS (9.4-12.5) H 08/23/17 15:42 INR 1.51 (0.93-1.08) H 08/23/17 15:42 APTT 25.4 Seconds (25.1-36.5) 08/28/17 06:30 Attending/Attestation - Attestation I have personally seen and examined this patient.: Yes I have fully participated in the care of the patient.: Yes I have reviewed all pertinent clinical information, including history, physical exam and plan: Yes Notes (Text): 08/28/17 15:25 attending note; Patient seen and examined in room 375. Alert and awake. on oxygen nasal cannula. Not in any distress. diarrhea resolved. patient's son by the bedside. Patient is a 57-year-old female with PMH of chronic obstructive lung disease, secondary pulmonary hypertension, current smoker, anxiety, and depression presents due to shortness of breath. currently extubated and on oxygen and BiPAP. pulmonary hypertension; cardiology evaluation appreciated. Elevated troponin. Secondary to hypoxemia. cardiology evaluation appreciated. need outpatient workup. Thrombocytopenia; did not improve with argatroban. Serotonin assay is negative. HIT antibody is negative. argatroban stopped. Case discussed with Dr. Layo casillas detail. diarrhea; resolved. stool for C. difficile is negative. Acute renal insufficiency; resolved. Elevated LFTs ; improving slowly. mostly secondary to hypoxemia on hemodynamic changes. active smoking; smoking cessation is strongly advised. depression; psychiatric evaluation with Dr. Thorpe appreciated. patient was on clonazepam, Adderall on Suboxone. PT evaluation appreciated. Currently patient is full code. Case discussed with patient's son Pablo in detail. Prescription for oxygen and BiPAP given. Patient's son will arrange for oxygen and BiPAP at home. We will follow up with physical therapy. Continue oxygen at rest and during ambulation. Patient needs close outpatient follow-up with PMD/pulmonary/cardiology in detail. The diagnosis and follow-up plan discussed with patient's son in detail. Upon discharge the patient will follow-up PMD . 08/28/17 15:29 08/28/17 15:29
[2017-08-28] MEDS: Benzocaine/Menthol (Cepacol) Lozenge MT PRN (11:09)
--- NOTE | 2017-08-28 13:01 | CP.PCM.PN ---
Subjective - Date & Time of Evaluation Date of Evaluation: 08/28/17 Time of Evaluation: 12:45 - Subjective Subjective: Infectious Disease Follow Up: August 28, 2017 57 yo female originally admitted for shortness of breath and increasing somnolence. Patient's son indicated that the patient was more confused than her normal for at least the past 2 weeks. The patient's appetite was worse and the patient had increased urinary frequency. Patient had problems with SOB after 1 to 1.5 blocks of walking usually. The patient respiratory status worsened yesterday. She was placed on BiPAP and was brought to the MICU for further monitoring. Today, the patient is awake and alert. Patient is ambulating on the floor. Cultures to date have not shown growth. Patient expressed to team that she does not want further intubation. Transferred to medical floor. The patient doing better overall. No complaints. Patient has some flight of thoughts. Objective - Vital Signs/Intake and Output Vital Signs (last 24 hours): Temp Pulse Resp BP Pulse Ox 97.8 F 82 20 115/76 100 08/28/17 06:00 08/28/17 06:00 08/28/17 06:00 08/28/17 10:05 08/28/17 06:00 Intake and Output: 08/28/17 08/28/17 06:59 18:59 Intake Total 450 Balance 450 - Medications Medications: Current Medications Aspirin (Aspirin Chewable) 81 mg PO DAILY [facility] Last Admin: 08/28/17 10:05 Dose: 81 mg Benzocaine/Menthol (Cepacol Sore Throat) 1 sophia MT Q2H PRN PRN Reason: Sore Throat Last Admin: 08/28/17 11:09 Dose: 1 sophia Bupropion HCl (Wellbutrin Sr 150 Mg) 150 mg PO BID [facility] Last Admin: 08/28/17 10:05 Dose: 150 mg Clonazepam (Klonopin) 1 mg PO TID [facility] PRN Reason: Protocol Last Admin: 08/28/17 10:05 Dose: 1 mg Diphenhydramine HCl (Benadryl) 25 mg PO HS PRN PRN Reason: Insomnia Furosemide (Lasix) 40 mg IVP Q12 [facility] Last Admin: 08/28/17 10:05 Dose: 40 mg Guaifenesin/Dextromethorphan (Robitussin Dm) 10 ml PO Q4H PRN PRN Reason: Cough Last Admin: 08/28/17 11:12 Dose: 10 ml Home Med (Home Med) 1 unit PO DAILY [facility] Last Admin: 08/28/17 10:06 Dose: Not Given Home Med (Home Med) 1 unit PO DAILY [facility] Last Admin: 08/28/17 10:06 Dose: Not Given Ibuprofen (Motrin Tab) 400 mg PO Q6H PRN PRN Reason: Pain, moderate (4-7) Last Admin: 08/26/17 22:02 Dose: 400 mg Levalbuterol HCl (Xopenex) 1.25 mg IH [id number] [facility] Last Admin: 08/28/17 08:10 Dose: 1.25 mg Levalbuterol HCl (Xopenex) 0.63 mg IH Q2H PRN PRN Reason: Shortness of Breath Last Admin: 08/25/17 16:09 Dose: 0.63 mg Lisinopril (Zestril) 10 mg PO DAILY [facility] Last Admin: 08/20/17 12:13 Dose: Not Given Loratadine (Claritin) 10 mg PO DAILY [facility] Methylprednisolone (Solu-Medrol) 40 mg IVP Q12H [facility] Last Admin: 08/28/17 11:14 Dose: 40 mg Pantoprazole Sodium (Protonix Ec Tab) 40 mg PO ACB [facility] Last Admin: 08/28/17 10:05 Dose: 40 mg - Labs Labs: 08/28/17 06:30 08/27/17 06:30 PT 17.4 SECONDS (9.4-12.5) H 08/23/17 15:42 INR 1.51 (0.93-1.08) H 08/23/17 15:42 APTT 25.4 Seconds (25.1-36.5) 08/28/17 06:30 - Constitutional Appears: Non-toxic, No Acute Distress, Chronically Ill - Head Exam Head Exam: ATRAUMATIC, NORMOCEPHALIC - Eye Exam Eye Exam: EOMI, PERRL Pupil Exam: NORMAL ACCOMODATION, PERRL - ENT Exam ENT Exam: Mucous Membranes Moist, Normal External Ear Exam, TM's Normal Bilaterally - Neck Exam Neck Exam: Full ROM, Normal Inspection - Respiratory Exam Respiratory Exam: Clear to Ausculation Bilateral - Cardiovascular Exam Cardiovascular Exam: REGULAR RHYTHM, RRR, +S1, +S2 - GI/Abdominal Exam GI & Abdominal Exam: Soft, Normal Bowel Sounds. absent: Distended, Tenderness - Extremities Exam Extremities Exam: Full ROM, Normal Inspection - Neurological Exam Neurological Exam: Alert, Awake, CN II-XII Intact, Oriented x3 - Psychiatric Exam Psychiatric exam: Manic, Normal Affect - Skin Skin Exam: Intact, Normal Color Assessment and Plan - Assessment and Plan (Free Text) Assessment: 57 yo female with multiple medical issues presenting with shortness of breath and worsening somnolence. The patient was found to be cyanotic, hypoxic, and tachypnic 6:30 AM on 08/20/2017. She was placed on nonrebreather mask and improved. Switch to BiPAP which she was stable on until she removed the BiPAP mask. After removing the mask, the patient became cyanotic and hypoxic again. Oxygen saturation dropped to 70s. Patient seen by [facility] Man and admitted to the MICU for further care. Respiratory issues are likely multifactorial: Cor Pulmonale? Pulmonary Hypertension? Pneumonia COPD Noted the patient had some renal insufficiency on admission (secondary to dehydation at that time?). Currently on Vancomycin IV and Meropenem which provides broad coverage antibiotic coverage including for aspiration pneumonia. Chest X-ray showed mild vascular and interstitial congestion. The patient is fully awake and alert. She was weaned off the respirator. Obtain procalcitonin values. Results pending. Procalcitonin was 1.57. Treatment for a pneumonia. Can utilize Procalcitonin trend as a marker of pneumonia improvement. Current Procalcitonin is now 0.10. Patient has baseline confusion. On medical floor now. Improving overall. Can stop all antibiotics at this point. Thank you for allowing me to participate in the care of the patient, we will follow with you.
--- NOTE | 2017-08-28 16:53 | CP.PCM.PN ---
Subjective - Date & Time of Evaluation Date of Evaluation: 08/28/17 Time of Evaluation: 16:46 - Subjective Subjective: Patient seen and examined. Pt reports to be feeling better, able to ambulate with O2 on. Uses night time BIPAP. Denies cough, sob, palpitations. Complains of itchy skin. Objective - Vital Signs/Intake and Output Vital Signs (last 24 hours): Temp Pulse Resp BP Pulse Ox 97.8 F 82 20 115/76 100 08/28/17 06:00 08/28/17 06:00 08/28/17 06:00 08/28/17 10:05 08/28/17 06:00 Intake and Output: 08/28/17 08/28/17 06:59 18:59 Intake Total 450 Balance 450 - Medications Medications: Current Medications Aspirin (Aspirin Chewable) 81 mg PO DAILY [facility] Last Admin: 08/28/17 10:05 Dose: 81 mg Benzocaine/Menthol (Cepacol Sore Throat) 1 sophia MT Q2H PRN PRN Reason: Sore Throat Last Admin: 08/28/17 11:09 Dose: 1 sophia Bupropion HCl (Wellbutrin Sr 150 Mg) 150 mg PO BID [facility] Last Admin: 08/28/17 10:05 Dose: 150 mg Clonazepam (Klonopin) 1 mg PO TID [facility] PRN Reason: Protocol Last Admin: 08/28/17 15:37 Dose: 1 mg Diphenhydramine HCl (Benadryl) 25 mg PO HS PRN PRN Reason: Insomnia Furosemide (Lasix) 40 mg IVP Q12 [facility] Last Admin: 08/28/17 10:05 Dose: 40 mg Guaifenesin/Dextromethorphan (Robitussin Dm) 10 ml PO Q4H PRN PRN Reason: Cough Last Admin: 08/28/17 11:12 Dose: 10 ml Home Med (Home Med) 1 unit PO DAILY [facility] Last Admin: 08/28/17 10:06 Dose: Not Given Home Med (Home Med) 1 unit PO DAILY [facility] Last Admin: 08/28/17 10:06 Dose: Not Given Ibuprofen (Motrin Tab) 400 mg PO Q6H PRN PRN Reason: Pain, moderate (4-7) Last Admin: 08/26/17 22:02 Dose: 400 mg Levalbuterol HCl (Xopenex) 1.25 mg IH [id number] [facility] Last Admin: 08/28/17 14:14 Dose: 1.25 mg Levalbuterol HCl (Xopenex) 0.63 mg IH Q2H PRN PRN Reason: Shortness of Breath Last Admin: 08/25/17 16:09 Dose: 0.63 mg Lisinopril (Zestril) 10 mg PO DAILY [facility] Last Admin: 08/20/17 12:13 Dose: Not Given Loratadine (Claritin) 10 mg PO DAILY [facility] Last Admin: 08/28/17 15:40 Dose: 10 mg Methylprednisolone (Solu-Medrol) 40 mg IVP Q12H [facility] Last Admin: 08/28/17 11:14 Dose: 40 mg Pantoprazole Sodium (Protonix Ec Tab) 40 mg PO ACB [facility] Last Admin: 08/28/17 10:05 Dose: 40 mg - Labs Labs: 08/28/17 06:30 08/27/17 06:30 PT 17.4 SECONDS (9.4-12.5) H 08/23/17 15:42 INR 1.51 (0.93-1.08) H 08/23/17 15:42 APTT 25.4 Seconds (25.1-36.5) 08/28/17 06:30 - Constitutional Appears: Non-toxic, No Acute Distress - Eye Exam Eye Exam: Normal appearance - ENT Exam ENT Exam: Mucous Membranes Moist - Respiratory Exam Respiratory Exam: Clear to Ausculation Bilateral, NORMAL BREATHING PATTERN - Cardiovascular Exam Cardiovascular Exam: REGULAR RHYTHM, +S1, +S2 - GI/Abdominal Exam GI & Abdominal Exam: Soft, Normal Bowel Sounds - Extremities Exam Extremities Exam: Normal Inspection - Neurological Exam Neurological Exam: Awake, Oriented x3 Assessment and Plan - Assessment and Plan (Free Text) Assessment: 57yo female a/w COPD exacerbation, hypercapnic resp failure, s/p extubation COPD exacerbation, s/p resp failure, s/p extubation Cor Pulmonale SOB - currently afebrile, HD stable, comfortable, Lungs CTABL, no wheezing noted Recommend: - supp o2 minimum 16hr/d - cont with bronchodilator, Duonebs Q6hr as needed - BIPAP at night - Antibiotics as per ID, Procal downtrending - will need outpatient PFTs, and outpatient pulmonary follow up - smoking cessation - Nicotine Patch - would benefit from outpatient pulmonary rehab - would start on Advair 500/50 BID, Spiriva daily - GI ppx - DVT ppx - Ambulation/PT
[2017-08-29 01:46] LABS: ALB/GLOB RATIO 1.3 (1.1-1.8); ALBUMIN 3.1 g/dL (3.0-4.8); ALT/SGPT 64 U/L (7-56); AST/SGOT 24 U/L (14-36); BLOOD UREA NITROGEN 38 mg/dL (7-21); CALCIUM 9.1 mg/dL (8.4-10.5); GFR AFRICAN-AMERICAN > 60; GFR NON-AFRICAN AMERICAN > 60
[2017-08-29] MEDS: Levalbuterol 1.25 MG/3 ML Inhal Soln UD IH SCH ×4 (04:25→20:45)
[2017-08-29] MEDS ORDERED: Potassium Chloride 20 mEq ER Tab PO STA (07:14)
[2017-08-29 07:26] LABS: BASO # 0.03 K/mm3 (0.0-2.0); BASO % 0.2 % (0.0-3.0); EOS # 0.2 (0.0-0.7); EOS % 1.1 % (1.5-5.0); GRAN % 92.9 % (50.0-68.0); HEMOGLOBIN 17.8 g/dL (12.0-16.0); LYMPH # 0.8 (1.2-3.4); LYMPH % 4.4 % (22.0-35.0); MEAN CORPUSCULAR HEMOGLOBIN 29.8 pg (25.0-35.0); MEAN CORPUSCULAR HGB CONC 31.1 g/dl (31.0-37.0); MONO # 0.3 (0.1-0.6); MONO % 1.4 % (1.0-6.0); PLATELET COUNT 94 10^3/uL (120.0-450.0); RBC 5.97 10^6/uL (3.5-6.1); RED CELL DISTRIBUTION WIDTH 16.3 % (11.5-14.5)
[2017-08-29] MEDS: Pantoprazole 40 mg EC Tab PO SCH (07:59)
[2017-08-29] MEDS: buPROPion SR 150 MG TABLET PO SCH ×2 (09:53→18:05)
[2017-08-29] MEDS: Benzocaine/Menthol (Cepacol) Lozenge MT PRN ×4 (09:53→20:50)
[2017-08-29] MEDS: guaiFENesin DM 200 mg-20 mg/10 ml UD PO PRN (09:53)
[2017-08-29] MEDS: ADDERALL 5 MG PO SCH (09:54)
[2017-08-29] MEDS: SUBOXONE 8 MG PO SCH (09:54)
[2017-08-29] MEDS: MethylPREDNISolone 40 mg Vial IVP SCH ×2 (11:53→18:46)
--- NOTE | 2017-08-29 17:43 | CP.PCM.PN ---
<Scott Cuadra - Last Filed: 08/29/17 18:02> Subjective - Date & Time of Evaluation Date of Evaluation: 08/29/17 Time of Evaluation: 11:43 - Subjective Subjective: Scott Cuadra PGY1 IM Progress Note for Dr. Stone Hospitalist Service Patient was seen and examined at bedside. She states that she is having trouble paying for the BiPAP and home O2 because she doesn't have her credit card on her and [employer] ([phone]) won't accept other forms of payments. Regarding teaching her how to use the BiPAP machine, the patient states that she knows how to from her own late 's machine and that the company stated that they will drop it off tomorrow at her house and will install and teach her how to use it. The patient also states that there is some renovation being done to her living room which her sons did to surprise her while she's in the hospital which will make it difficult to walk around. Otherwise, patient denies chest pain, shortness of breath, cough, fevers/chills , nausea/vomiting/diarrhea, abdominal pain, changes in bowel/urinary habits and has tolerated PT better today. Objective - Vital Signs/Intake and Output Vital Signs (last 24 hours): Temp Pulse Resp BP Pulse Ox 98.9 F 82 18 123/83 97 08/29/17 12:00 08/29/17 12:00 08/29/17 12:00 08/29/17 12:00 08/29/17 06:00 Intake and Output: 08/29/17 08/29/17 06:59 18:59 Intake Total 720 780 Output Total 8 Balance 720 772 - Medications Medications: Current Medications Aspirin (Aspirin Chewable) 81 mg PO DAILY [facility] Last Admin: 08/29/17 09:53 Dose: 81 mg Benzocaine/Menthol (Cepacol Sore Throat) 1 sophia MT Q2H PRN PRN Reason: Sore Throat Last Admin: 08/29/17 11:54 Dose: 1 sophia Bupropion HCl (Wellbutrin Sr 150 Mg) 150 mg PO BID [facility] Last Admin: 08/29/17 09:53 Dose: 150 mg Clonazepam (Klonopin) 1 mg PO TID [facility] PRN Reason: Protocol Last Admin: 08/29/17 14:17 Dose: 1 mg Diphenhydramine HCl (Benadryl) 25 mg PO HS PRN PRN Reason: Insomnia Furosemide (Lasix) 40 mg IVP Q12 [facility] Last Admin: 08/29/17 09:53 Dose: 40 mg Guaifenesin/Dextromethorphan (Robitussin Dm) 10 ml PO Q4H PRN PRN Reason: Cough Last Admin: 08/29/17 09:53 Dose: 10 ml Home Med (Home Med) 1 unit PO DAILY [facility] Last Admin: 08/29/17 09:54 Dose: Not Given Home Med (Home Med) 1 unit PO DAILY [facility] Last Admin: 08/29/17 09:54 Dose: Not Given Ibuprofen (Motrin Tab) 400 mg PO Q6H PRN PRN Reason: Pain, moderate (4-7) Last Admin: 08/26/17 22:02 Dose: 400 mg Levalbuterol HCl (Xopenex) 1.25 mg IH [id number] [facility] Last Admin: 08/29/17 13:49 Dose: 1.25 mg Levalbuterol HCl (Xopenex) 0.63 mg IH Q2H PRN PRN Reason: Shortness of Breath Last Admin: 08/25/17 16:09 Dose: 0.63 mg Lisinopril (Zestril) 10 mg PO DAILY [facility] Last Admin: 08/20/17 12:13 Dose: Not Given Loratadine (Claritin) 10 mg PO DAILY [facility] Last Admin: 08/29/17 09:53 Dose: 10 mg Methylprednisolone (Solu-Medrol) 40 mg IVP Q12H [facility] Last Admin: 08/29/17 11:53 Dose: 40 mg Pantoprazole Sodium (Protonix Ec Tab) 40 mg PO ACB [facility] Last Admin: 08/29/17 07:59 Dose: 40 mg - Labs Labs: 08/29/17 07:00 08/29/17 00:40 PT 17.4 SECONDS (9.4-12.5) H 08/23/17 15:42 INR 1.51 (0.93-1.08) H 08/23/17 15:42 APTT 25.4 Seconds (25.1-36.5) 08/28/17 06:30 - Constitutional Appears: Well, Non-toxic, No Acute Distress - Head Exam Head Exam: NORMAL INSPECTION - Eye Exam Eye Exam: EOMI, Normal appearance, PERRL - ENT Exam ENT Exam: Mucous Membranes Moist - Neck Exam Neck Exam: Normal Inspection - Respiratory Exam Respiratory Exam: Decreased Breath Sounds, Wheezes (minor diffuse). absent: Rales - Cardiovascular Exam Cardiovascular Exam: RRR, +S1, +S2 - GI/Abdominal Exam GI & Abdominal Exam: Soft, Normal Bowel Sounds. absent: Distended, Tenderness - Extremities Exam Extremities Exam: Full ROM, Normal Inspection. absent: Pedal Edema - Back Exam Back Exam: NORMAL INSPECTION - Neurological Exam Neurological Exam: Alert, Awake, Oriented x3 - Psychiatric Exam Psychiatric exam: Anxious, Normal Mood - Skin Skin Exam: Normal Color, Warm Assessment and Plan - Assessment and Plan (Free Text) Assessment: 57 yo female with past medical history of COPD (not on home O2), hypertension, anxiety, and depression admitted for evaluation and treatment for right sided heart failure secondary to cor pulmonale vs. pulmonary hypertension. Patient is s/p ICU for hypercapnic respiratory failure that required intubation, now extubated and out of ICU. HIT was suspected and patient was on Argatroban, but antibodies were negative and Argatroban discontinued. Patient's other medical issues are also being managed. Plan: 1. Hypercapnic Respiratory Distress, resolved - Cont BIPAP and high flow O2 - Cont Lasix 40q12 IVP - Cont Xopenex JONAH and PRN - Cont Solu-medrol (taper down to 30q12) - PT eval placed for activity tolerance, recommending home O2 (SW working with patient regarding obtaining home O2 due to cost and no insurance coverage) - Discussed with patient and son regarding possibility of DNR/DNI status; Palliative care consulted; patient is FULL CODE - Cardiology consulted, recommend right heart on discharge 2. COPD - cont solumedrol 40 mg IVP q12h - Cont xopenex and ipratropium - Cont BIPAP and high flow O2 3. Elevated Troponin - likely cardiac strain due to hypoxia - Cont ASA, plavix - Heparin drip stopped due to thrombocytopenia - Cardio consulted 4. Depression/Anxiety - Psych consulted, recs appreciated - Cont Suboxone, Wellbutrin, Adderall, Klonopin - Ativan prn 5. Hypertension - Hold Lisinopril - Cont to monitor 6. GI/DVT PPx - Protonix - SCDs The patient was seen, examined and discussed with attending, Dr. Chase Cuadra PGY1 Pager # [phone] <Gerardo Stone - Last Filed: 09/02/17 12:18> Objective - Vital Signs/Intake and Output Vital Signs (last 24 hours): Temp Pulse Resp BP Pulse Ox 97.8 F 96 H 18 120/77 97 08/30/17 12:00 08/30/17 14:00 08/30/17 12:00 08/30/17 12:00 08/30/17 06:00 - Labs Labs: 08/30/17 06:30 08/30/17 06:30 PT 17.4 SECONDS (9.4-12.5) H 08/23/17 15:42 INR 1.51 (0.93-1.08) H 08/23/17 15:42 APTT 25.4 Seconds (25.1-36.5) 08/28/17 06:30 Attending/Attestation - Attestation I have fully participated in the care of the patient.: Yes I have reviewed all pertinent clinical information, including history, physical exam and plan: Yes Notes (Text): 09/02/17 12:03 Patient was seen and examined with medical anthropology director.Agreed with assessment and plan. 57-year-old female with PMH of chronic obstructive lung disease, secondary pulmonary hypertension, current smoker, anxiety, and depression was admitted with hypercanic Respiratory failure, . currently patient is extubated and on oxygen and BiPAP. Thrombocytopenia;.Platelet count is improving. Serotonin assay is negative.HIT antibody is negative. argatroban was stopped. Diarrhea; resolved. stool for C. difficile is negative. Acute renal insufficiency; resolved. Patient is awaiting for home oxygen and BIPAP delivery prior to discharge. Management plan was discussed in detail with patient and son.Education was provided.
--- NOTE | 2017-08-29 18:11 | CP.PCM.PN ---
Subjective - Date & Time of Evaluation Date of Evaluation: 08/29/17 Time of Evaluation: 16:00 - Subjective Subjective: Infectious Disease Follow Up: August 29, 2017 57 yo female originally admitted for shortness of breath and increasing somnolence. Patient's son indicated that the patient was more confused than her normal for at least the past 2 weeks. The patient's appetite was worse and the patient had increased urinary frequency. Patient had problems with SOB after 1 to 1.5 blocks of walking usually. The patient respiratory status worsened yesterday. She was placed on BiPAP and was brought to the MICU for further monitoring. Today, the patient is awake and alert. Patient is ambulating on the floor. Cultures to date have not shown growth. Patient expressed to team that she does not want further intubation. Remains on medical floor. The patient doing better overall. No complaints. Patient has some flight of thoughts. Requires O2 for ambulation. BiPAP at night. Objective - Vital Signs/Intake and Output Vital Signs (last 24 hours): Temp Pulse Resp BP Pulse Ox 98.9 F 82 18 123/83 97 08/29/17 12:00 08/29/17 12:00 08/29/17 12:00 08/29/17 12:00 08/29/17 06:00 Intake and Output: 08/29/17 08/29/17 06:59 18:59 Intake Total 720 780 Output Total 8 Balance 720 772 - Medications Medications: Current Medications Aspirin (Aspirin Chewable) 81 mg PO DAILY [facility] Last Admin: 08/29/17 09:53 Dose: 81 mg Benzocaine/Menthol (Cepacol Sore Throat) 1 sophia MT Q2H PRN PRN Reason: Sore Throat Last Admin: 08/29/17 11:54 Dose: 1 sophia Bupropion HCl (Wellbutrin Sr 150 Mg) 150 mg PO BID [facility] Last Admin: 08/29/17 09:53 Dose: 150 mg Clonazepam (Klonopin) 1 mg PO TID JONAH PRN Reason: Protocol Last Admin: 08/29/17 14:17 Dose: 1 mg Diphenhydramine HCl (Benadryl) 25 mg PO HS PRN PRN Reason: Insomnia Furosemide (Lasix) 40 mg IVP Q12 [facility] Last Admin: 08/29/17 09:53 Dose: 40 mg Guaifenesin/Dextromethorphan (Robitussin Dm) 10 ml PO Q4H PRN PRN Reason: Cough Last Admin: 08/29/17 09:53 Dose: 10 ml Home Med (Home Med) 1 unit PO DAILY [facility] Last Admin: 08/29/17 09:54 Dose: Not Given Home Med (Home Med) 1 unit PO DAILY [facility] Last Admin: 08/29/17 09:54 Dose: Not Given Ibuprofen (Motrin Tab) 400 mg PO Q6H PRN PRN Reason: Pain, moderate (4-7) Last Admin: 08/26/17 22:02 Dose: 400 mg Levalbuterol HCl (Xopenex) 1.25 mg IH [id number] [facility] Last Admin: 08/29/17 13:49 Dose: 1.25 mg Levalbuterol HCl (Xopenex) 0.63 mg IH Q2H PRN PRN Reason: Shortness of Breath Last Admin: 08/25/17 16:09 Dose: 0.63 mg Lisinopril (Zestril) 10 mg PO DAILY [facility] Last Admin: 08/20/17 12:13 Dose: Not Given Loratadine (Claritin) 10 mg PO DAILY [facility] Last Admin: 08/29/17 09:53 Dose: 10 mg Methylprednisolone (Solu-Medrol) 40 mg IVP Q12H [facility] Last Admin: 08/29/17 11:53 Dose: 40 mg Pantoprazole Sodium (Protonix Ec Tab) 40 mg PO ACB [facility] Last Admin: 08/29/17 07:59 Dose: 40 mg - Labs Labs: 08/29/17 07:00 08/29/17 00:40 PT 17.4 SECONDS (9.4-12.5) H 08/23/17 15:42 INR 1.51 (0.93-1.08) H 08/23/17 15:42 APTT 25.4 Seconds (25.1-36.5) 08/28/17 06:30 - Constitutional Appears: Non-toxic, No Acute Distress, Chronically Ill - Head Exam Head Exam: ATRAUMATIC, NORMOCEPHALIC - Eye Exam Eye Exam: EOMI, PERRL Pupil Exam: NORMAL ACCOMODATION, PERRL - ENT Exam ENT Exam: Mucous Membranes Moist, Normal External Ear Exam, TM's Normal Bilaterally - Neck Exam Neck Exam: Full ROM, Normal Inspection - Respiratory Exam Respiratory Exam: Decreased Breath Sounds, Clear to Ausculation Bilateral - Cardiovascular Exam Cardiovascular Exam: REGULAR RHYTHM, RRR, +S1, +S2 - GI/Abdominal Exam GI & Abdominal Exam: Soft, Normal Bowel Sounds. absent: Distended, Tenderness - Extremities Exam Extremities Exam: Full ROM, Normal Inspection - Neurological Exam Neurological Exam: Alert, Awake, CN II-XII Intact, Oriented x3 - Psychiatric Exam Psychiatric exam: Manic, Normal Affect - Skin Skin Exam: Intact, Normal Color Assessment and Plan - Assessment and Plan (Free Text) Assessment: 57 yo female with multiple medical issues presenting with shortness of breath and worsening somnolence. The patient was found to be cyanotic, hypoxic, and tachypnic 6:30 AM on 08/20/2017. She was placed on nonrebreather mask and improved. Switch to BiPAP which she was stable on until she removed the BiPAP mask. After removing the mask, the patient became cyanotic and hypoxic again. Oxygen saturation dropped to 70s. Patient seen by Home Health Care Case Manager and admitted to the MICU for further care. Respiratory issues are likely multifactorial: Cor Pulmonale? Pulmonary Hypertension? Pneumonia COPD Noted the patient had some renal insufficiency on admission (secondary to dehydation at that time?). Currently on Vancomycin IV and Meropenem which provides broad coverage antibiotic coverage including for aspiration pneumonia. Chest X-ray showed mild vascular and interstitial congestion. The patient is fully awake and alert. She was weaned off the respirator. Obtain procalcitonin values. Results pending. Procalcitonin was 1.57. Treatment for a pneumonia. Can utilize Procalcitonin trend as a marker of pneumonia improvement. Current Procalcitonin is now 0.10. Patient has baseline confusion. On medical floor now. Improving overall. Off of antibiotics at this time. Thank you for allowing me to participate in the care of the patient, we will follow with you.
[2017-08-30] MEDS: Levalbuterol 1.25 MG/3 ML Inhal Soln UD IH SCH ×3 (01:35→15:38)
--- NOTE | 2017-08-30 02:56 | PN ---
DATE: SUBJECTIVE: Patient is alert, oriented, seems to be in a better mood and more interactive than yesterday. She is looking forward to going home. She appears to be appreciative of the attention being directed at her by psychiatry. Her thinking does not appear to be disorganized nor does she appear to be psychotic. Yesterday, her respiratory status worsened (and her mental state corresponding with this), but today as noted she seems to be better. Patient was ambulating today. Supportive therapy offered. Jhony Thorpe MD/ PhD
[2017-08-30] MEDS: MethylPREDNISolone 40 mg Vial IVP SCH (06:27)
[2017-08-30 07:22] LABS: BASO # 0.11 K/mm3 (0.0-2.0); BASO % 0.7 % (0.0-3.0); EOS # 0.1 (0.0-0.7); EOS % 0.4 % (1.5-5.0); GRAN # 13.24 (1.4-6.5); GRAN % 84.5 % (50.0-68.0); HEMOGLOBIN 17.7 g/dL (12.0-16.0); LYMPH # 1.3 (1.2-3.4); MEAN CELL VOLUME 94.9 fl (80.0-105.0); MEAN CORPUSCULAR HEMOGLOBIN 29.4 pg (25.0-35.0); MEAN CORPUSCULAR HGB CONC 30.9 g/dl (31.0-37.0); MONO % 6.4 % (1.0-6.0); PLATELET COUNT 103 10^3/uL (120.0-450.0); RBC 6.03 10^6/uL (3.5-6.1); RED CELL DISTRIBUTION WIDTH 16.3 % (11.5-14.5); WHITE BLOOD COUNT 15.7 10^3/ul (4.5-11.0)
[2017-08-30] MEDS: guaiFENesin DM 200 mg-20 mg/10 ml UD PO PRN (07:36)
[2017-08-30 07:38] LABS: ALB/GLOB RATIO 1.4 (1.1-1.8); ALBUMIN 3.6 g/dL (3.0-4.8); ALT/SGPT 55 U/L (7-56); AST/SGOT 25 U/L (14-36); BLOOD UREA NITROGEN 39 mg/dL (7-21); GFR AFRICAN-AMERICAN > 60; GFR NON-AFRICAN AMERICAN > 60
[2017-08-30 07:46] VITALS: TEMP 97.8; O2SAT 97
[2017-08-30] MEDS: Pantoprazole 40 mg EC Tab PO SCH (08:25)
[2017-08-30] MEDS: ADDERALL 5 MG PO SCH (10:01)
[2017-08-30] MEDS: SUBOXONE 8 MG PO SCH (10:01)
[2017-08-30] MEDS: buPROPion SR 150 MG TABLET PO SCH (10:06)
[2017-08-30 13:11] VITALS: BP 120/77; RESP 18
--- NOTE | 2017-08-30 14:43 | CP.PCM.DIS ---
<Scott Cuadra - Last Filed: 08/31/17 06:20> Provider - Provider Date of Admission: 08/16/17 17:32 Attending physician: Reginald Ha MD Primary care physician: Reji Cordova MD Time Spent in preparation of Discharge (in minutes): 45 Diagnosis - Discharge Diagnosis (1) COPD with acute exacerbation Status: Acute (2) Endotracheally intubated Status: Acute (3) Hypertension Status: Chronic (4) Anxiety Status: Chronic (5) Depression Status: Chronic Hospital Course - Lab Results Lab Results: Micro Results 08/26/17 22:00 Stool C. difficile Antigen & Toxin A,B (M - Final 08/20/17 16:08 Blood-Venous Blood Culture - Final NO GROWTH AFTER 5 DAYS 08/20/17 16:08 Blood-Venous Gram Stain - Final TEST NOT PERFORMED 08/20/17 16:08 Blood-Venous Blood Culture - Final NO GROWTH AFTER 5 DAYS 08/20/17 16:08 Blood-Venous Gram Stain - Final TEST NOT PERFORMED 08/21/17 06:00 Trachasp Gram Stain - Final 08/21/17 06:00 Trachasp Sputum Culture - Final Yeast Species 08/20/17 15:45 Naris MRSA Culture (Admit) - Final MRSA NOT DETECTED Most Recent Lab Values WBC 15.7 10^3/ul (4.5-11.0) H 08/30/17 06:30 RBC 6.03 10^6/uL (3.5-6.1) 08/30/17 06:30 Hgb 17.7 g/dL (12.0-16.0) H 08/30/17 06:30 Hct 57.2 % (36.0-48.0) H* 08/30/17 06:30 MCV 94.9 fl (80.0-105.0) 08/30/17 06:30 MCH 29.4 pg (25.0-35.0) 08/30/17 06:30 MCHC 30.9 g/dl (31.0-37.0) L 08/30/17 06:30 RDW 16.3 % (11.5-14.5) H 08/30/17 06:30 Plt Count 103 10^3/uL (120.0-450.0) L 08/30/17 06:30 Manual Plt Count 92 K/mm3 (120-450) L 08/25/17 05:00 MPV 13.5 fl (7.0-11.0) H 08/26/17 06:30 Gran % 84.5 % (50.0-68.0) H 08/30/17 06:30 Lymph % (Auto) 8.0 % (22.0-35.0) L 08/30/17 06:30 [place] % (Auto) 6.4 % (1.0-6.0) H 08/30/17 06:30 Eos % (Auto) 0.4 % (1.5-5.0) L 08/30/17 06:30 Baso % (Auto) 0.7 % (0.0-3.0) 08/30/17 06:30 Gran # 13.24 (1.4-6.5) H 08/30/17 06:30 Lymph # 1.3 (1.2-3.4) 08/30/17 06:30 [place] # 1.0 (0.1-0.6) H 08/30/17 06:30 Eos # 0.1 (0.0-0.7) 08/30/17 06:30 Baso # 0.11 K/mm3 (0.0-2.0) 08/30/17 06:30 Neutrophils % (Manual) 98 % (50.0-70.0) H 08/27/17 06:30 Lymphocytes % (Manual) 1 % (22.0-35.0) L 08/27/17 06:30 Monocytes % (Manual) 1 % (1.0-6.0) 08/27/17 06:30 Platelet Evaluation Low (NORMAL) 08/27/17 06:30 Plt Clumps, EDTA Present 08/24/17 04:45 Large Platelets Present 08/24/17 04:45 Anisocytosis (manual) 1+ 08/27/17 06:30 PT 17.4 SECONDS (9.4-12.5) H 08/23/17 15:42 INR 1.51 (0.93-1.08) H 08/23/17 15:42 APTT 25.4 Seconds (25.1-36.5) 08/28/17 06:30 pCO2 60 mm/Hg (35-45) H 08/22/17 08:47 pO2 52.0 mm/Hg (80-100) L 08/22/17 08:47 HCO3 33.1 mmol/L (21-28) H 08/22/17 08:47 ABG pH 7.35 (7.35-7.45) 08/22/17 08:47 ABG Total CO2 34.9 mmol.L (22-28) H 08/22/17 08:47 ABG O2 Saturation 89.6 % (95-98) L 08/22/17 08:47 ABG O2 Content 21.2 ML/dl (15-23) 08/22/17 08:47 ABG Base Excess 5.0 mmol/L (-2.0-3.0) H 08/22/17 08:47 ABG Hemoglobin 17.4 g/dL (11.7-17.4) 08/22/17 08:47 ABG Carboxyhemoglobin 2.5 % (0.5-1.5) H 08/22/17 08:47 POC ABG HHb (Measured) 10.1 % (0-5) H 08/22/17 08:47 ABG Methemoglobin 0.6 % (0.0-3.0) 08/22/17 08:47 ABG O2 Capacity 23.7 mL/dl (16-24) 08/22/17 08:47 ABG Potassium 5.5 mmol/L (3.6-5.2) H 08/20/17 19:53 VBG pH 7.24 (7.32-7.43) L 08/16/17 14:30 VBG pCO2 91.0 (40-60) H* 08/16/17 14:30 VBG HCO3 39.0 mmol/l (21-28) H 08/16/17 14:30 VBG Total CO2 41.8 mmol.L (22-28) H 08/16/17 14:30 VBG O2 Sat (Calc) 52.2 % (40-65) 08/16/17 14:30 VBG Base Excess 8.0 mmol/L (0.0-2.0) H 08/16/17 14:30 VBG Potassium 4.7 mmol/L (3.6-5.2) 08/16/17 14:30 Hgb O2 Saturation 86.8 % (95.0-98.0) L 08/22/17 08:47 Sodium 139.0 mmol/L (132-148) 08/20/17 19:53 Chloride 103.0 mmol/L (98-107) 08/20/17 19:53 Glucose 142 mg/dl (65-105) H 08/20/17 19:53 Lactate 1.6 mmol/L (0.7-2.1) 08/20/17 19:53 FiO2 50.0 % 08/22/17 08:47 Sodium 142 mmol/L (132-148) 08/30/17 06:30 Potassium 3.7 mmol/L (3.6-5.0) 08/30/17 06:30 Chloride 99 mmol/L (98-107) 08/30/17 06:30 Carbon Dioxide 36 mmol/L (21-33) H 08/30/17 06:30 Anion Gap 10 (10-20) 08/30/17 06:30 BUN 39 mg/dL (7-21) H 08/30/17 06:30 Creatinine 0.9 mg/dl (0.7-1.2) 08/30/17 06:30 Est GFR ( Amer) > 60 08/30/17 06:30 Est GFR (Non-Af Amer) > 60 08/30/17 06:30 POC Glucose (mg/dL) 67 mg/dL (65-110) 08/29/17 11:39 Random Glucose 85 mg/dL (70-110) 08/30/17 06:30 Hemoglobin A1c 6.6 % (4.2-6.5) H 08/18/17 08:00 Calcium 10.0 mg/dL (8.4-10.5) 08/30/17 06:30 Phosphorus 4.1 mg/dL (2.5-4.5) 08/27/17 06:30 Magnesium 1.8 mg/dL (1.7-2.2) 08/27/17 06:30 Total Bilirubin 2.0 mg/dL (0.2-1.3) H 08/30/17 06:30 AST 25 U/L (14-36) 08/30/17 06:30 ALT 55 U/L (7-56) 08/30/17 06:30 Alkaline Phosphatase 42 U/L (38-126) 08/30/17 06:30 Lactate Dehydrogenase 924 U/L (333-699) H 08/25/17 05:00 Total Creatine Kinase 111 U/L (35-230) 08/21/17 06:30 Troponin I 1.76 ng/mL H* D 08/21/17 06:30 NT-Pro-B Natriuret Pep 26565 pg/mL (0-450) H 08/16/17 14:30 Total Protein 6.0 g/dL (5.8-8.3) 08/30/17 06:30 Albumin 3.6 g/dL (3.0-4.8) 08/30/17 06:30 Globulin 2.5 gm/dL 08/30/17 06:30 Albumin/Globulin Ratio 1.4 (1.1-1.8) 08/30/17 06:30 Triglycerides 96 mg/dL (35-160) 08/18/17 08:00 Cholesterol 105 mg/dL (130-200) L 08/18/17 08:00 LDL Cholesterol Direct 78 mg/dL (0-129) 08/18/17 08:00 HDL Cholesterol 20 mg/dL (29-60) L 08/18/17 08:00 UF Heparin Interp Negative (Negative) 08/23/17 19:01 Procalcitonin 0.10 NG/ML (0.19-0.49) L 08/26/17 06:30 TSH 3rd Generation 3.59 mIU/mL (0.46-4.68) 08/16/17 14:30 Arterial Blood Potassium 5.5 mmol/L (3.6-5.2) H 08/20/17 19:53 Venous Blood Potassium 4.7 mmol/L (3.6-5.2) 08/16/17 14:30 Urine Color Yellow (YELLOW) 08/16/17 18:49 Urine Appearance Clear (CLEAR) 08/16/17 18:49 Urine pH 6.0 (4.7-8.0) 08/16/17 18:49 Ur Specific Purlear 1.015 (1.005-1.035) 08/16/17 18:49 Urine Protein Negative mg/dL (<30 mg/dL) 08/16/17 18:49 Urine Glucose (UA) Negative mg/dL (NEGATIVE) 08/16/17 18:49 Urine Ketones Negative mg/dL (NEGATIVE) 08/16/17 18:49 Urine Blood Negative (NEGATIVE) 08/16/17 18:49 Urine Nitrate Negative (NEGATIVE) 08/16/17 18:49 Urine Bilirubin Negative (NEGATIVE) 08/16/17 18:49 Urine Urobilinogen 0.2 E.U./dL (<1 E.U./dL) 08/16/17 18:49 Ur Leukocyte Esterase Negative Justen/uL (NEGATIVE) 08/16/17 18:49 Ur Random Creatinine 119 mg/dL 08/18/17 07:20 Ur Random Sodium 56 meq/L 08/18/17 07:20 Ur Random Urea Nitrogn 1342 mg/dL 08/18/17 07:20 Urine Opiates Screen Negative (NEGATIVE) 08/18/17 07:20 Urine Methadone Screen Negative (NEGATIVE) 08/18/17 07:20 Ur Barbiturates Screen Negative (NEGATIVE) 08/18/17 07:20 Ur Phencyclidine Scrn Negative (NEGATIVE) 08/18/17 07:20 Ur Amphetamines Screen Negative (NEGATIVE) 08/18/17 07:20 U Benzodiazepines Scrn Positive (NEGATIVE) 08/18/17 07:20 U Oth Cocaine Metabols Negative (NEGATIVE) 08/18/17 07:20 U Cannabinoids Screen Negative (NEGATIVE) 08/18/17 07:20 Heparin-induced Plt Ab Negative (Negative) 08/23/17 19:01 EVAN UFH Low Dose 0.1 0 % Release 08/23/17 19:01 EVAN UFH Low Dose 0.5 0 % Release 08/23/17 19:01 EVAN UFH High Dose 100 0 % Release 08/23/17 19:01 - Hospital Course Hospital Course: Ms. Aranda is a 57 year old female with a PMH of COPD, HTN, anxiety, and depression presented to the [facility] complaining of shortness of breath and increased somnolence for 7 days prior to admission. Pts son, who was present in the ED at time of admission stated that recently, she seemed more confused than normal, had poor appetite, and increased urinary frequency. Pts son also mentioned that she had a productive cough with white sputum during this time, as well. Pt denied having a significant cardiac history, but her son noted that she could only walk 1-1.5 blocks before becoming short of breath. Pt denied chest pain, nausea, vomiting, abdominal pain, fever, chills, MINOR, or dizziness. Significant labs in the ED showed a BNP of 17,200; VBG showed pH of 7.24, pCO2 91; CXR showed small pleural effusions. Pt was started on Lasix, Solu-Medrol, Rocephin, and Doxycycline and admitted for evaluation of CHF vs. COPD exacerbation. Cardiology was consulted and after doing an echo that showed an EF of 79.5%, determined that CHF could be ruled out and the patient was dealing with an acute exacerbation of COPD. Pulmonology was then consulted to address the patient's COPD and informed the patient that she would need oxygen supplementation 16 hours a day to maintain oxygen saturation above 93% and night BiPAP machine and she would also benefit from pulmonary rehab with the plan of getting full pulmonary function testing after she stabilized. Infectious disease was also consulted, and their recommendations were followed for antibiotic therapy. The patients hospital course was complicated on 08/20/17 when she was found to by cyanotic, tachypnic, hypoxic, and unable to talk in complete sentences. After breathing treatment, patients O2 saturation increased to low 90s but an hour later it dropped into the 70s and received more treatment and steroids. An ABG showed that she was in hypercapnic resp. acidosis and she was placed on BiPAP. The patient voluntarily removed BiPAP and become cyanotic and hypoxic. A rapid response effort was needed and the patient was transferred to the ICU and intubated. After stabilization the patient was extubated, given Dobutamine for pulmonary HTN, and returned to the medical floor. After a drop in platelet count occurred, Heparin was held, Argatroban was given and the patient was worked up for HIT. Heparin Antibody test was negative, the platelet count stabilized, and Argatroban was discontinued. The drop in platelets was attributed to side effects from medication. The patients breathing has now improved significantly and all vitals have stabilized. Today, the patient was seen and examined at bedside. All of the patients questions regarding her medical condition and new home BiPAP machine and oxygen were answered to her satisfaction. Lori from [employer] in [place] ([phone]) is the company providing the BiPAP and O2. I spoke with Lori regarding the services supplied and she states that the BiPAP machine will be delivered, installed and the prepress technician will teach the patient and her son the proper use of it; Lori also stated that she would be able to provide the patient a portable O2 tank to get her home. Patient and her son, Miguel Angel, were educated about the patient's condition and need for continuous oxygen. The patient seems to have a lot of anxiety at home due to some tension between her sons. Otherwise, the patient feels well, is comfortable breathing on [place] O2, is strong enough to ambulate independently, and is wanting to go home. Patient will follow up with Dr. Cordova and medications were refilled. Patient will start taking aspirin once daily, spiriva once daily, advair every 12 hrs daily, albuterol as needed if short of breath, medrol dose pack as prescribed, and lisinopril/hctz once daily. Patient is medically stable for discharge. Discharge Exam - Head Exam Head Exam: NORMAL INSPECTION - Eye Exam Eye Exam: EOMI, Normal appearance - ENT Exam ENT Exam: Mucous Membranes Moist - Neck Exam Neck exam: Normal Inspection - Respiratory Exam Respiratory Exam: Clear to PA & Lateral, NORMAL BREATHING PATTERN. absent: Rales, Rhonchi, Wheezes, Respiratory Distress - Cardiovascular Exam Cardiovascular Exam: RRR, +S1, +S2 - GI/Abdominal Exam GI & Abdominal Exam: Normal Bowel Sounds, Soft. absent: Distended, Tenderness - Extremities Exam Extremities exam: full ROM, normal inspection - Back Exam Back exam: NORMAL INSPECTION - Neurological Exam Neurological exam: Alert, CN II-XII Intact, Oriented x3 - Psychiatric Exam Psychiatric exam: Normal Affect, Normal Mood - Skin Skin Exam: Normal Color, Warm Discharge Plan - Discharge Medications Prescriptions: RX: Albuterol HFA [Ventolin HFA 90 mcg/actuation (8 g)] 60 puff INH PRN PRN #1 inhaler PRN Reason: Shortness Of Breath RX: Aspirin [Aspirin Chewable] 81 mg PO DAILY #30 chew Fluticasone/Salmeterol 500/50 [Advair Diskus] 1 puff IH Q12 30 Days puff RX: Lisinopril/Hydrochlorothiazide [Lisinopril-Hctz 10-12.5 mg Tab] 1 tab PO DAILY #30 tablet Methylprednisolone [Medrol Dose Pack (21 tabs)] See Taper PO ASDIR #21 mg Tiotropium [Spiriva] 18 mcg IH DAILY 30 Days cap Tiotropium [place] Inhaler [Spiriva Inhalation Handihaler Device] 1 inhaler INH DAILY #1 inhaler - Follow Up Plan Condition: FAIR Disposition: HOME/ ROUTINE Instructions: Heart Failure (DC), How to Stop Smoking (DC), Irritable Bowel Syndrome (DC), Cigarette Smoking and Your Health (GEN), COPD (Chronic Obstructive Pulmonary Disease) (DC), Pulmonary Rehabilitation (DC) Additional Instructions: - please follow up with your primary doctor Dr. Cordova - please continue taking your home psych medications as previously prescribed - please start taking aspirin once daily, spiriva once daily, advair every 12 hrs daily, albuterol as needed if short of breath, medrol dose pack as prescribed, and lisinopril/hctz once daily - if you experience any difficulty breathing, fevers/chills, or any weakness, please return to ER for evaluation - please avoid smoking tobacco or exposure to smoke - consider outpatient pulmonary follow up for rehab and pulmonary function tests Nursing 1. If you begin to experience similar symptoms, please report to nearest emergency department or call 911. Referrals: Reji Cordova MD [Primary Care Provider] - <Reginald Ha - Last Filed: 08/31/17 11:13> Provider - Provider Date of Admission: 08/16/17 17:32 Attending physician: Reginald Ha MD Primary care physician: Reji Cordova MD Hospital Course - Lab Results Lab Results: Micro Results 08/26/17 22:00 Stool C. difficile Antigen & Toxin A,B (M - Final 08/20/17 16:08 Blood-Venous Blood Culture - Final NO GROWTH AFTER 5 DAYS 08/20/17 16:08 Blood-Venous Gram Stain - Final TEST NOT PERFORMED 08/20/17 16:08 Blood-Venous Blood Culture - Final NO GROWTH AFTER 5 DAYS 08/20/17 16:08 Blood-Venous Gram Stain - Final TEST NOT PERFORMED 08/21/17 06:00 Trachasp Gram Stain - Final 08/21/17 06:00 Trachasp Sputum Culture - Final Yeast Species 08/20/17 15:45 Naris MRSA Culture (Admit) - Final MRSA NOT DETECTED Most Recent Lab Values WBC 15.7 10^3/ul (4.5-11.0) H 08/30/17 06:30 RBC 6.03 10^6/uL (3.5-6.1) 08/30/17 06:30 Hgb 17.7 g/dL (12.0-16.0) H 08/30/17 06:30 Hct 57.2 % (36.0-48.0) H* 08/30/17 06:30 MCV 94.9 fl (80.0-105.0) 08/30/17 06:30 MCH 29.4 pg (25.0-35.0) 08/30/17 06:30 MCHC 30.9 g/dl (31.0-37.0) L 08/30/17 06:30 RDW 16.3 % (11.5-14.5) H 08/30/17 06:30 Plt Count 103 10^3/uL (120.0-450.0) L 08/30/17 06:30 Manual Plt Count 92 K/mm3 (120-450) L 08/25/17 05:00 MPV 13.5 fl (7.0-11.0) H 08/26/17 06:30 Gran % 84.5 % (50.0-68.0) H 08/30/17 06:30 Lymph % (Auto) 8.0 % (22.0-35.0) L 08/30/17 06:30 [place] % (Auto) 6.4 % (1.0-6.0) H 08/30/17 06:30 Eos % (Auto) 0.4 % (1.5-5.0) L 08/30/17 06:30 Baso % (Auto) 0.7 % (0.0-3.0) 08/30/17 06:30 Gran # 13.24 (1.4-6.5) H 08/30/17 06:30 Lymph # 1.3 (1.2-3.4) 08/30/17 06:30 [place] # 1.0 (0.1-0.6) H 08/30/17 06:30 Eos # 0.1 (0.0-0.7) 08/30/17 06:30 Baso # 0.11 K/mm3 (0.0-2.0) 08/30/17 06:30 Neutrophils % (Manual) 98 % (50.0-70.0) H 08/27/17 06:30 Lymphocytes % (Manual) 1 % (22.0-35.0) L 08/27/17 06:30 Monocytes % (Manual) 1 % (1.0-6.0) 08/27/17 06:30 Platelet Evaluation Low (NORMAL) 08/27/17 06:30 Plt Clumps, EDTA Present 08/24/17 04:45 Large Platelets Present 08/24/17 04:45 Anisocytosis (manual) 1+ 08/27/17 06:30 PT 17.4 SECONDS (9.4-12.5) H 08/23/17 15:42 INR 1.51 (0.93-1.08) H 08/23/17 15:42 APTT 25.4 Seconds (25.1-36.5) 08/28/17 06:30 pCO2 60 mm/Hg (35-45) H 08/22/17 08:47 pO2 52.0 mm/Hg (80-100) L 08/22/17 08:47 HCO3 33.1 mmol/L (21-28) H 08/22/17 08:47 ABG pH 7.35 (7.35-7.45) 08/22/17 08:47 ABG Total CO2 34.9 mmol.L (22-28) H 08/22/17 08:47 ABG O2 Saturation 89.6 % (95-98) L 08/22/17 08:47 ABG O2 Content 21.2 ML/dl (15-23) 08/22/17 08:47 ABG Base Excess 5.0 mmol/L (-2.0-3.0) H 08/22/17 08:47 ABG Hemoglobin 17.4 g/dL (11.7-17.4) 08/22/17 08:47 ABG Carboxyhemoglobin 2.5 % (0.5-1.5) H 08/22/17 08:47 POC ABG HHb (Measured) 10.1 % (0-5) H 08/22/17 08:47 ABG Methemoglobin 0.6 % (0.0-3.0) 08/22/17 08:47 ABG O2 Capacity 23.7 mL/dl (16-24) 08/22/17 08:47 ABG Potassium 5.5 mmol/L (3.6-5.2) H 08/20/17 19:53 VBG pH 7.24 (7.32-7.43) L 08/16/17 14:30 VBG pCO2 91.0 (40-60) H* 08/16/17 14:30 VBG HCO3 39.0 mmol/l (21-28) H 08/16/17 14:30 VBG Total CO2 41.8 mmol.L (22-28) H 08/16/17 14:30 VBG O2 Sat (Calc) 52.2 % (40-65) 08/16/17 14:30 VBG Base Excess 8.0 mmol/L (0.0-2.0) H 08/16/17 14:30 VBG Potassium 4.7 mmol/L (3.6-5.2) 08/16/17 14:30 Hgb O2 Saturation 86.8 % (95.0-98.0) L 08/22/17 08:47 Sodium 139.0 mmol/L (132-148) 08/20/17 19:53 Chloride 103.0 mmol/L (98-107) 08/20/17 19:53 Glucose 142 mg/dl (65-105) H 08/20/17 19:53 Lactate 1.6 mmol/L (0.7-2.1) 08/20/17 19:53 FiO2 50.0 % 08/22/17 08:47 Sodium 142 mmol/L (132-148) 08/30/17 06:30 Potassium 3.7 mmol/L (3.6-5.0) 08/30/17 06:30 Chloride 99 mmol/L (98-107) 08/30/17 06:30 Carbon Dioxide 36 mmol/L (21-33) H 08/30/17 06:30 Anion Gap 10 (10-20) 08/30/17 06:30 BUN 39 mg/dL (7-21) H 08/30/17 06:30 Creatinine 0.9 mg/dl (0.7-1.2) 08/30/17 06:30 Est GFR ( Amer) > 60 08/30/17 06:30 Est GFR (Non-Af Amer) > 60 08/30/17 06:30 POC Glucose (mg/dL) 67 mg/dL (65-110) 08/29/17 11:39 Random Glucose 85 mg/dL (70-110) 08/30/17 06:30 Hemoglobin A1c 6.6 % (4.2-6.5) H 08/18/17 08:00 Calcium 10.0 mg/dL (8.4-10.5) 08/30/17 06:30 Phosphorus 4.1 mg/dL (2.5-4.5) 08/27/17 06:30 Magnesium 1.8 mg/dL (1.7-2.2) 08/27/17 06:30 Total Bilirubin 2.0 mg/dL (0.2-1.3) H 08/30/17 06:30 AST 25 U/L (14-36) 08/30/17 06:30 ALT 55 U/L (7-56) 08/30/17 06:30 Alkaline Phosphatase 42 U/L (38-126) 08/30/17 06:30 Lactate Dehydrogenase 924 U/L (333-699) H 08/25/17 05:00 Total Creatine Kinase 111 U/L (35-230) 08/21/17 06:30 Troponin I 1.76 ng/mL H* D 08/21/17 06:30 NT-Pro-B Natriuret Pep 33164 pg/mL (0-450) H 08/16/17 14:30 Total Protein 6.0 g/dL (5.8-8.3) 08/30/17 06:30 Albumin 3.6 g/dL (3.0-4.8) 08/30/17 06:30 Globulin 2.5 gm/dL 08/30/17 06:30 Albumin/Globulin Ratio 1.4 (1.1-1.8) 08/30/17 06:30 Triglycerides 96 mg/dL (35-160) 08/18/17 08:00 Cholesterol 105 mg/dL (130-200) L 08/18/17 08:00 LDL Cholesterol Direct 78 mg/dL (0-129) 08/18/17 08:00 HDL Cholesterol 20 mg/dL (29-60) L 08/18/17 08:00 UF Heparin Interp Negative (Negative) 08/23/17 19:01 Procalcitonin 0.10 NG/ML (0.19-0.49) L 08/26/17 06:30 TSH 3rd Generation 3.59 mIU/mL (0.46-4.68) 08/16/17 14:30 Arterial Blood Potassium 5.5 mmol/L (3.6-5.2) H 08/20/17 19:53 Venous Blood Potassium 4.7 mmol/L (3.6-5.2) 08/16/17 14:30 Urine Color Yellow (YELLOW) 08/16/17 18:49 Urine Appearance Clear (CLEAR) 08/16/17 18:49 Urine pH 6.0 (4.7-8.0) 08/16/17 18:49 Ur Specific Purlear 1.015 (1.005-1.035) 08/16/17 18:49 Urine Protein Negative mg/dL (<30 mg/dL) 08/16/17 18:49 Urine Glucose (UA) Negative mg/dL (NEGATIVE) 08/16/17 18:49 Urine Ketones Negative mg/dL (NEGATIVE) 08/16/17 18:49 Urine Blood Negative (NEGATIVE) 08/16/17 18:49 Urine Nitrate Negative (NEGATIVE) 08/16/17 18:49 Urine Bilirubin Negative (NEGATIVE) 08/16/17 18:49 Urine Urobilinogen 0.2 E.U./dL (<1 E.U./dL) 08/16/17 18:49 Ur Leukocyte Esterase Negative Justen/uL (NEGATIVE) 08/16/17 18:49 Ur Random Creatinine 119 mg/dL 08/18/17 07:20 Ur Random Sodium 56 meq/L 08/18/17 07:20 Ur Random Urea Nitrogn 1342 mg/dL 08/18/17 07:20 Urine Opiates Screen Negative (NEGATIVE) 08/18/17 07:20 Urine Methadone Screen Negative (NEGATIVE) 08/18/17 07:20 Ur Barbiturates Screen Negative (NEGATIVE) 08/18/17 07:20 Ur Phencyclidine Scrn Negative (NEGATIVE) 08/18/17 07:20 Ur Amphetamines Screen Negative (NEGATIVE) 08/18/17 07:20 U Benzodiazepines Scrn Positive (NEGATIVE) 08/18/17 07:20 U Oth Cocaine Metabols Negative (NEGATIVE) 08/18/17 07:20 U Cannabinoids Screen Negative (NEGATIVE) 08/18/17 07:20 Heparin-induced Plt Ab Negative (Negative) 08/23/17 19:01 EVAN UFH Low Dose 0.1 0 % Release 08/23/17 19:01 EVAN UFH Low Dose 0.5 0 % Release 08/23/17 19:01 EVAN UFH High Dose 100 0 % Release 08/23/17 19:01 Attending/Attestation - Attestation I have personally seen and examined this patient.: Yes I have fully participated in the care of the patient.: Yes I have reviewed all pertinent clinical information, including history, physical exam and plan: Yes Notes (Text): I have seen and examined the patient at bedside. Agree with the above note with the following additions/ exceptions: Briefly this is 57 year old female with history of chronic obstructive lung disease, secondary pulmonary hypertension, current smoker, anxiety, and depression presents due to shortness of breath secondary to COPD exacerbation and hypercapneic respiratory failure. She has been extubated and on oxygen/ BiPAP. Recommend outpatient pulmonary rehab and PFT's. She had elevated troponin secondary to hypoxemia. She had acute kidney injury which has resolved. Tobacco cessation counseling provided. Continue oxygen at rest and during ambulation. Patient needs close outpatient follow-up with PMD/pulmonary/cardiology.Upon discharge the patient will follow-up PMD .
--- NOTE | 2017-08-30 16:52 | CP.PCM.PN ---
Subjective - Date & Time of Evaluation Date of Evaluation: 08/30/17 Time of Evaluation: 14:30 - Subjective Subjective: Infectious Disease Follow Up: August 30, 2017 57 yo female originally admitted for shortness of breath and increasing somnolence. Patient's son indicated that the patient was more confused than her normal for at least the past 2 weeks. The patient's appetite was worse and the patient had increased urinary frequency. Patient had problems with SOB after 1 to 1.5 blocks of walking usually. The patient respiratory status worsened yesterday. She was placed on BiPAP and was brought to the MICU for further monitoring. Today, the patient is awake and alert. Patient is ambulating on the floor. Cultures to date have not shown growth. Patient expressed to team that she does not want further intubation. Remains on medical floor. The patient doing better overall. No complaints. Patient has some flight of thoughts. Requires O2 for ambulation. BiPAP at night. Objective - Vital Signs/Intake and Output Vital Signs (last 24 hours): Temp Pulse Resp BP Pulse Ox 97.8 F 88 18 120/77 97 08/30/17 12:00 08/30/17 12:00 08/30/17 12:00 08/30/17 12:00 08/30/17 06:00 Intake and Output: 08/30/17 08/30/17 06:59 18:59 Intake Total 410 Output Total 300 Balance 110 - Medications Medications: Current Medications Aspirin (Aspirin Chewable) 81 mg PO DAILY [facility] Last Admin: 08/30/17 10:06 Dose: 81 mg Benzocaine/Menthol (Cepacol Sore Throat) 1 sophia MT Q2H PRN PRN Reason: Sore Throat Last Admin: 08/29/17 20:50 Dose: 1 sophia Bupropion HCl (Wellbutrin Sr 150 Mg) 150 mg PO BID [facility] Last Admin: 08/30/17 10:06 Dose: 150 mg Clonazepam (Klonopin) 1 mg PO TID JONAH PRN Reason: Protocol Last Admin: 08/30/17 15:08 Dose: 1 mg Diphenhydramine HCl (Benadryl) 25 mg PO HS PRN PRN Reason: Insomnia Last Admin: 08/29/17 18:05 Dose: 25 mg Furosemide (Lasix) 40 mg IVP 0600,1800 [facility] Last Admin: 08/30/17 06:28 Dose: 40 mg Guaifenesin/Dextromethorphan (Robitussin Dm) 10 ml PO Q4H PRN PRN Reason: Cough Last Admin: 08/30/17 07:36 Dose: 10 ml Home Med (Home Med) 1 unit PO DAILY [facility] Last Admin: 08/30/17 10:01 Dose: Not Given Home Med (Home Med) 1 unit PO DAILY [facility] Last Admin: 08/30/17 10:01 Dose: Not Given Ibuprofen (Motrin Tab) 400 mg PO Q6H PRN PRN Reason: Pain, moderate (4-7) Last Admin: 08/26/17 22:02 Dose: 400 mg Levalbuterol HCl (Xopenex) 1.25 mg IH [id number] [facility] Last Admin: 08/30/17 15:38 Dose: 1.25 mg Levalbuterol HCl (Xopenex) 0.63 mg IH Q2H PRN PRN Reason: Shortness of Breath Last Admin: 08/25/17 16:09 Dose: 0.63 mg Lisinopril (Zestril) 10 mg PO DAILY [facility] Last Admin: 08/20/17 12:13 Dose: Not Given Loratadine (Claritin) 10 mg PO DAILY [facility] Last Admin: 08/30/17 10:06 Dose: 10 mg Methylprednisolone (Solu-Medrol) 30 mg IVP Q12H [facility] Last Admin: 08/30/17 06:27 Dose: 30 mg Pantoprazole Sodium (Protonix Ec Tab) 40 mg PO ACB [facility] Last Admin: 08/30/17 08:25 Dose: 40 mg - Labs Labs: 08/30/17 06:30 08/30/17 06:30 PT 17.4 SECONDS (9.4-12.5) H 08/23/17 15:42 INR 1.51 (0.93-1.08) H 08/23/17 15:42 APTT 25.4 Seconds (25.1-36.5) 08/28/17 06:30 - Constitutional Appears: Non-toxic, No Acute Distress, Chronically Ill - Head Exam Head Exam: ATRAUMATIC, NORMOCEPHALIC - Eye Exam Eye Exam: EOMI, PERRL Pupil Exam: NORMAL ACCOMODATION, PERRL - ENT Exam ENT Exam: Mucous Membranes Moist, Normal External Ear Exam, TM's Normal Bilaterally - Neck Exam Neck Exam: Full ROM, Normal Inspection - Respiratory Exam Respiratory Exam: Decreased Breath Sounds, NORMAL BREATHING PATTERN. absent: Rales, Rhonchi, Wheezes - Cardiovascular Exam Cardiovascular Exam: REGULAR RHYTHM, RRR, +S1, +S2 - GI/Abdominal Exam GI & Abdominal Exam: Soft, Normal Bowel Sounds. absent: Distended, Tenderness - Extremities Exam Extremities Exam: Full ROM, Normal Inspection - Neurological Exam Neurological Exam: Alert, Awake, CN II-XII Intact, Oriented x3 - Psychiatric Exam Psychiatric exam: Manic, Normal Affect - Skin Skin Exam: Intact, Normal Color Assessment and Plan - Assessment and Plan (Free Text) Assessment: 57 yo female with multiple medical issues presenting with shortness of breath and worsening somnolence. The patient was found to be cyanotic, hypoxic, and tachypnic 6:30 AM on 08/20/2017. She was placed on nonrebreather mask and improved. Switch to BiPAP which she was stable on until she removed the BiPAP mask. After removing the mask, the patient became cyanotic and hypoxic again. Oxygen saturation dropped to 70s. Patient seen by Information Technology Director and admitted to the MICU for further care. Respiratory issues are likely multifactorial: Cor Pulmonale? Pulmonary Hypertension? Pneumonia COPD Noted the patient had some renal insufficiency on admission (secondary to dehydation at that time?). Currently on Vancomycin IV and Meropenem which provides broad coverage antibiotic coverage including for aspiration pneumonia. Chest X-ray showed mild vascular and interstitial congestion. The patient is fully awake and alert. She was weaned off the respirator. Obtain procalcitonin values. Results pending. Procalcitonin was 1.57. Treatment for a pneumonia. Can utilize Procalcitonin trend as a marker of pneumonia improvement. Current Procalcitonin is now 0.10. Patient has baseline confusion. On medical floor now. Improving overall. Off of antibiotics at this time. Completed antibiotic regimens. Thank you for allowing me to participate in the care of the patient, we will follow with you.
[2017-08-30 17:57] VITALS: PULSE 96
== END 2017-08-30 17:00 | disposition home or self-care (01) | DRG 882 ==
LOC: ED 13:36 → ERH 17:32 → 3RNO 18:57 → ICU 08-20 15:38 → 3RSO 08-25 10:22
PROVIDERS: ADMIT Internal Medicine; ATTEND Hospitalist
PROC: 5A1945Z Respiratory Ventilation, 24-96 Consecutive Hours (ICD-10-PCS; principal; 2017-08-20)
PROC: 0BH18EZ Insertion of Endotracheal Airway into Trachea, Via Natural or Artificial Opening Endoscopic (ICD-10-PCS; 2017-08-20)
PROC: 5A09357 Assistance with Respiratory Ventilation, Less than 24 Consecutive Hours, Continuous Positive Airway Pressure (ICD-10-PCS; 2017-08-20)
PROC: 5A09457 Assistance with Respiratory Ventilation, 24-96 Consecutive Hours, Continuous Positive Airway Pressure (ICD-10-PCS; 2017-08-22)
DX: J44.1 Chronic obstructive pulmonary disease with (acute) exacerbation (principal); J96.92 Respiratory failure, unspecified with hypercapnia; I21.4 Non-ST elevation (NSTEMI) myocardial infarction; J69.0 Pneumonitis due to inhalation of food and vomit; N17.9 Acute kidney failure, unspecified; I11.0 Hypertensive heart disease with heart failure; I50.810 Right heart failure, unspecified; E87.2 Acidosis; D69.6 Thrombocytopenia, unspecified; E86.0 Dehydration; E87.6 Hypokalemia; I07.1 Rheumatic tricuspid insufficiency; D75.1 Secondary polycythemia; I27.29 Other secondary pulmonary hypertension; F41.9 Anxiety disorder, unspecified; F32.9 Major depressive disorder, single episode, unspecified; F17.210 Nicotine dependence, cigarettes, uncomplicated; E78.5 Hyperlipidemia, unspecified

== ENCOUNTER 2018-08-01 12:37 | Inpatient (IN) | payer OTHER ==
[2018-08-01 13:16] VITALS: BMI 26.6
--- NOTE | 2018-08-01 13:31 | ED PDOC ---
Arrival/HPI - General Time Seen by Provider: 08/01/18 12:54 Historian: Patient - History of Present Illness Narrative History of Present Illness (Text): 08/01/18 13:29 A 58 year old female, whose past medical history includes COPD on home O2, presents to the emergency department with son for a complaint of being altered. Patient's son reports that over the past 4 days, the patient has been altered, not eating, and just sitting on the couch. The patient can not provide additional HPI/ ROS details. Time/Duration: Other (4 days) Symptom Onset: Sudden Symptom Course: Worsening Activities at Onset: Rest, Light Context: Home Past Medical History - Provider Review Nursing Documentation Reviewed: Yes - Cardiac Hx Cardiac Disorders: No - Pulmonary Hx Respiratory Disorders: Yes Hx Bronchitis: Yes - Neurological Hx Neurological Disorder: No - HEENT Hx HEENT Disorder: No - Renal Hx Renal Disorder: No - Endocrine/Metabolic Hx Endocrine Disorders: No - Integumentary Hx Dermatological Disorder: No - Musculoskeletal/Rheumatological Hx Arthritis: Yes - Gastrointestinal Hx Gastrointestinal Disorders: No - Genitourinary/Gynecological Hx Genitourinary Disorders: No - Psychiatric Hx Psychophysiologic Disorder: No Hx Substance Use: No - Surgical History Hx Section: Yes - Anesthesia Hx Anesthesia: Yes Family/Social History - Physician Review Nursing Documentation Reviewed: Yes Family/Social History: No Known Family HX Smoking Status: Current Some Days Smoker Hx Alcohol Use: No Hx Substance Use: No Allergies/Home Meds Allergies/Adverse Reactions: Allergies No Known Allergies Allergy (Verified 08/16/17 13:42) Home Medications: Home Meds Medication Instructions Recorded Confirmed RX: Bupropion HCl [Bupropion HCl 1 tab PO DAILY 08/16/17 08/01/18 Sr] RX: Dextroamphetamine/Amphetamine 5 mg PO DAILY 08/16/17 08/16/17 [Dextroamp-Amphetamine 5 mg Tab] Fluticasone/Salmeterol 500/50 2 puff IH DAILY 08/01/18 08/01/18 [Advair Diskus] RX: Clonazepam [Klonopin] 1 tab PO TID 08/01/18 08/01/18 RX: Famotidine [Pepcid] 1 tab PO DAILY 08/01/18 08/01/18 RX: Furosemide [Lasix] 1 tab PO BID 08/01/18 08/01/18 RX: Potassium Chloride [Klor-Con 1 tab PO BID 08/01/18 08/01/18 10] RX: Primidone [Mysoline] 1 tab PO DAILY 08/01/18 08/01/18 RX: Varenicline Tartrate [Chantix] 1 tab PO DAILY 08/01/18 08/01/18 Umeclidinium [place] [Incruse 1 puff IH DAILY 08/01/18 08/01/18 Ellipta] Review of Systems - Physician Review All systems were reviewed & negative as marked: Yes - Review of Systems Systems not reviewed;Unavailable: Altered Mental Status Respiratory: absent: SOB, Cough Cardiovascular: absent: Chest Pain Gastrointestinal: absent: Abdominal Pain, Constipation, Diarrhea, Nausea, Vomiting Genitourinary Female: absent: Dysuria, Frequency Neurological: absent: Headache Physical Exam Vital Signs Reviewed: Yes Vital Signs Temp Pulse Resp BP Pulse Ox 08/01/18 13:27 98.1 F 88 16 81/59 L 93 L Temperature: Afebrile Blood Pressure: Hypotensive Pulse: Regular Respiratory Rate: Normal Appearance: Positive for: Well-Appearing, Non-Toxic, Comfortable Pain Distress: None Mental Status: No: Alert and Oriented X 3 (Alert and Oriented x 2) - Systems Exam Head: Present: Atraumatic, Normocephalic Pupils: Present: PERRL Extroacular Muscles: Present: EOMI Conjunctiva: Present: Normal Mouth: Present: Moist Mucous Membranes Neck: Present: Normal Range of Motion Respiratory/Chest: Present: Good Air Exchange, Wheezes. No: Respiratory Distress, Accessory Muscle Use Cardiovascular: Present: Regular Rate and Rhythm, Normal S1, S2. No: Murmurs Abdomen: No: Tenderness, Distention, Peritoneal Signs Back: Present: Normal Inspection Upper Extremity: Present: Normal Inspection. No: Cyanosis, Edema Lower Extremity: Present: Normal Inspection. No: Edema Neurological: Present: GCS=15, CN II-XII Intact, Speech Normal Skin: Present: Warm, Dry, Normal Color. No: Rashes Psychiatric: Present: Alert, Normal Insight, Normal Concentration. No: Oriented x 3 (Oriented x 2) Medical Decision Making ED Course and Treatment: 08/01/18 13:35 Impression: A 58 year old female presents to the emergency department with a complaint of becoming increasingly altered over the past 4 days, as per the patient's son. Patient is urinating without issue but continues to miss bed pain with attempts to get urine sample. Plan: -- Head CT -- Chest X-ray -- Urinalysis -- Labs -- Duoneb -- Reassess and disposition Prior Visits: Notes and results from previous visits were reviewed. Progress Notes: EKG shows NSR at 80bpm with nonspecific st changes Chest X-ray Signed By: Jose Enrique White MD Date Signed: 08/01/18 1405 IMPRESSION:No active disease. PROCEDURE: CT HEAD WITHOUT CONTRAST Signed By: Isaías Mares MD Date Signed: 08/01/18 1438 IMPRESSION: No evidence of acute intracranial hemorrhage intracranial collection mass effect or midline shift. 08/01/18 16:[address] Cordova, who is requesting ICU evaluation due to renal failure and is requesting consult for Dr. Jacques, [address]. 08/01/18 16:[address] Shaffer evaluated and reports that patient can go to floor. Recommends jimenez catheter for strict I/O. - Lab Interpretations I have reviewed the lab results: Yes - RAD Interpretation Radiology Orders: 08/01/18 13:21 HEAD W/O CONTRAST [CT] Stat CHEST PORTABLE [RAD] Stat - EKG Interpretation Interpreted by ED Physician: Yes Type: 12 lead EKG - Medication Orders Current Medication Orders: Albuterol/Ipratropium (Duoneb 3 Mg/0.5 Mg (3 Ml) Ud) 3 ml IH Q15M JONAH Stop: 08/01/18 14:01 - Scribe Statement Nataliia Cloud Provider Scribe Attestation: All medical record entries made by the Scribe were at my direction and personally dictated by me. I have reviewed the chart and agree that the record accurately reflects my personal performance of the history, physical exam, medical decision making, and the department course for this patient. I have also personally directed, reviewed, and agree with the discharge instructions and disposition. Disposition/Present on Arrival - Present on Arrival Any Indicators Present on Arrival: No History of DVT/PE: No History of Uncontrolled Diabetes: No Urinary Catheter: No History Surgical Site Infection Following: None - Disposition Have Diagnosis and Disposition been Completed?: Yes Diagnosis: Renal failure, Dehydration Disposition: HOSPITALIZED Disposition Time: 15:59 Patient Plan: Admission Patient Problems: Current Active Problems Problem Status Onset Dehydration Acute Renal failure Acute Condition: FAIR
[2018-08-01 13:48] LABS: ARTERIAL BLOOD GAS HCO3 33.5 mmol/L (21-28); ARTERIAL BLOOD GAS HEMOGLOBIN 11.2 g/dL (11.7-17.4); ARTERIAL BLOOD GAS O2 CONTENT 14.3 ML/dl (15-23); ARTERIAL BLOOD GAS O2 SAT 95.3 % (95-98); ARTERIAL BLOOD GAS PCO2 68 mm/Hg (35-45); ARTERIAL BLOOD GAS TCO2 35.6 mmol.L (22-28)
[2018-08-01] MEDS: Albuterol-Ipratrop 3 mg / 0.5 (3 ml) UD IH SCH ×3 (13:51→14:32)
--- NOTE | 2018-08-01 14:09 | RAD ---
Date of service: 08/01/2018 HISTORY: altered COMPARISON: 11/20/2017 FINDINGS: LUNGS: No active pulmonary disease. PLEURA: No significant pleural effusion identified, no pneumothorax apparent. CARDIOVASCULAR: No aortic atherosclerotic calcification present. Normal cardiac size. No pulmonary vascular congestion. OSSEOUS STRUCTURES: No significant abnormalities. VISUALIZED UPPER ABDOMEN: Normal. OTHER FINDINGS: None. IMPRESSION: No active disease.
[2018-08-01] MEDS ORDERED: Sodium Chloride 0.9% 1,000 ML IV STA (14:20)
--- NOTE | 2018-08-01 14:41 | CT ---
Date of service: 08/01/2018 PROCEDURE: CT HEAD WITHOUT CONTRAST. HISTORY: altered COMPARISON: Comparison is made with 08/17/2017 5 TECHNIQUE: Axial computed tomography images were obtained through the head/brain without intravenous contrast. Radiation dose: Total exam DLP = 1088.24 mGy-cm. This CT exam was performed using one or more of the following dose reduction techniques: Automated exposure control, adjustment of the mA and/or kV according to patient size, and/or use of iterative reconstruction technique. FINDINGS: HEMORRHAGE: No intracranial hemorrhage. BRAIN: No mass effect or edema. No atrophy or chronic microvascular ischemic changes. VENTRICLES: Unremarkable. No hydrocephalus. CALVARIUM: Unremarkable. PARANASAL SINUSES: Unremarkable as visualized. No significant inflammatory changes. MASTOID AIR CELLS: Unremarkable as visualized. No inflammatory changes. OTHER FINDINGS: None. IMPRESSION: No evidence of acute intracranial hemorrhage intracranial collection mass effect or midline shift.
[2018-08-01 15:35] LABS: BASO # 0.03 K/mm3 (0.0-2.0); BASO % 0.4 % (0.0-3.0); EOS # 0.2 (0.0-0.7); EOS % 2.4 % (1.5-5.0); GRAN # 5.19 (1.4-6.5); GRAN % 73.1 % (50.0-68.0); HEMOGLOBIN 11.6 g/dL (12.0-16.0); LYMPH # 1.3 (1.2-3.4); LYMPH % 18.2 % (22.0-35.0); MEAN CELL VOLUME 101.1 fl (80.0-105.0); MEAN CORPUSCULAR HEMOGLOBIN 32.6 pg (25.0-35.0); MEAN CORPUSCULAR HGB CONC 32.2 g/dl (31.0-37.0); MEAN PLATELET VOLUME 10.7 fl (7.0-11.0); MONO # 0.4 (0.1-0.6); MONO % 5.9 % (1.0-6.0); RBC 3.56 10^6/uL (3.5-6.1); RED CELL DISTRIBUTION WIDTH 14.7 % (11.5-14.5); WHITE BLOOD COUNT 7.1 10^3/uL (4.5-11.0)
[2018-08-01 15:41] LABS: INR 1.03; PARTIAL THROMBOPLASTIN TIME 24.5 Seconds (25.1-36.5); PROTHROMBIN TIME 11.8 SECONDS (9.4-12.5)
[2018-08-01 15:47] LABS: ACETAMINOPHEN < 10.0 ug/ml (10.0-20.0); SALICYLATE < 1 mg/dL (2.0-20.0)
[2018-08-01 15:49] LABS: ALB/GLOB RATIO 1.4 (1.1-1.8); ALT/SGPT 26 U/L (7-56); AST/SGOT 38 U/L (14-36); BLOOD UREA NITROGEN 69 mg/dL (7-21); CALCIUM 9.1 mg/dL (8.4-10.5); GFR NON-AFRICAN AMERICAN 7
[2018-08-01 15:59] LABS: B-TYPE NATRIURETIC PEPTIDE 3610 pg/mL (0-450); TROPONIN I < 0.01 ng/mL
[2018-08-01] MEDS ORDERED: Sodium Chloride 0.9% 1,000 ML IV SCH (16:00)
--- NOTE | 2018-08-01 16:15 | CARD ---
APPROVED REPORT Date of service: 08/01/2018 EKG Measurement Heart [id number] <Conclusion> Normal sinus rhythm Low voltage QRS NSSTW changes
[2018-08-01 16:16] LABS: CK MB% 4.1 % (2.5-3.0); CK-MB 17.7 ng/mL (0.0-3.6)
[2018-08-01] MEDS ORDERED: Sodium Chloride 0.9% 500 ML IV STA (16:19)
--- NOTE | 2018-08-01 17:04 | CP.PCM.CON ---
History of Present Illness - History of Present Illness History of Present Illness: MICU CONSULT NOTE HPI Patient is 58yo female with PMHx of end stage COPD on home o2, former smoker, CHF on Lasix LARS-I, Pulm HTN, presents from home after the son was "concerned". Pt notes she feels fine, denies fever, chills, cough, chest pain, sob, palpitations, MINOR, dizziness. Pt notes she has been drinking less water over past few days. No other constitutional symptoms. In the ER, noted to be in ARF, normal K ABG with chronic resp acidosis PMhx as above PSHx as above Meds as per EMR FHx NC Allergies NKDA Social former smoker, quit, denies eoth, drug use Review of Systems - Review of Systems Review of Systems: as per HPI Past Patient History - Infectious Disease Hx of Infectious Diseases: None - Past Social History Smoking Status: Current Some Days Smoker - CARDIAC Hx Cardiac Disorders: No - PULMONARY Hx Respiratory Disorders: Yes Hx Bronchitis: Yes - NEUROLOGICAL Hx Neurological Disorder: No - HEENT Hx HEENT Problems: No - RENAL Hx Chronic Kidney Disease: No - ENDOCRINE/METABOLIC Hx Endocrine Disorders: No - HEMATOLOGICAL/ONCOLOGICAL Hx Blood Disorders: No - INTEGUMENTARY Hx Dermatological Problems: No - MUSCULOSKELETAL/RHEUMATOLOGICAL Hx Arthritis: Yes - GASTROINTESTINAL Hx Gastrointestinal Disorders: No - GENITOURINARY/GYNECOLOGICAL Hx Genitourinary Disorders: No - PSYCHIATRIC Hx Psychophysiologic Disorder: No Hx Substance Use: No - SURGICAL HISTORY Hx Section: Yes - ANESTHESIA Hx Anesthesia: Yes Meds Allergies/Adverse Reactions: Allergies Allergy/AdvReac Type Severity Reaction Status Date / Time No Known Allergies Allergy Verified 08/16/17 13:42 - Medications Medications: Current Medications Sodium Chloride (Sodium Chloride 0.9%) 1,000 mls @ 200 mls/hr IV .Q5H JONAH Physical Exam - Constitutional Appears: Non-toxic, No Acute Distress - Head Exam Head Exam: NORMAL INSPECTION - Eye Exam Eye Exam: Normal appearance - ENT Exam ENT Exam: Mucous Membranes Dry - Neck Exam Neck exam: Positive for: Full Rom - Respiratory Exam Respiratory Exam: Wheezes, NORMAL BREATHING PATTERN - Cardiovascular Exam Cardiovascular Exam: REGULAR RHYTHM, +S1, +S2 - GI/Abdominal Exam GI & Abdominal Exam: Normal Bowel Sounds, Soft - Extremities Exam Extremities exam: Positive for: normal inspection - Neurological Exam Neurological exam: Alert, Oriented x3 - Psychiatric Exam Psychiatric exam: Normal Affect - Skin Skin Exam: Normal Color, Warm Results - Vital Signs Recent Vital Signs: Last Vital Signs Temp 98.3 F 08/01/18 15:24 Pulse 86 08/01/18 15:24 Resp 16 08/01/18 15:24 BP 91/60 L 08/01/18 15:24 Pulse Ox 93 L 08/01/18 15:24 - Labs Result Diagrams: 08/01/18 15:33 08/01/18 15:33 Labs: Laboratory Results - last 24 hr 08/01/18 08/01/18 08/01/18 13:40 13:55 15:33 WBC 7.1 RBC 3.56 Hgb 11.6 L D Hct 36.0 MCV 101.1 D MCH 32.6 MCHC 32.2 RDW 14.7 H Plt Count 215 MPV 10.7 Gran % 73.1 H Lymph % (Auto) 18.2 L [place] % (Auto) 5.9 Eos % (Auto) 2.4 Baso % (Auto) 0.4 Gran # 5.19 Lymph # (Auto) 1.3 [place] # (Auto) 0.4 Eos # (Auto) 0.2 Baso # (Auto) 0.03 PT INR APTT pCO2 68 H pO2 64.0 L HCO3 33.5 H ABG pH 7.30 L ABG Total CO2 35.6 H ABG O2 Saturation 95.3 ABG O2 Content 14.3 L ABG Base Excess 5.3 H ABG Hemoglobin 11.2 L ABG Carboxyhemoglobin 4.1 H POC ABG HHb (Measured) 4.5 ABG Methemoglobin 1.0 ABG O2 Capacity 15.0 L Hgb O2 Saturation 90.4 L FiO2 32.0 Sodium Potassium Chloride Carbon Dioxide Anion Gap BUN Creatinine Est GFR ( Amer) Est GFR (Non-Af Amer) Random Glucose Calcium Phosphorus Magnesium Total Bilirubin AST ALT Alkaline Phosphatase Lactate Dehydrogenase Total Creatine Kinase CK-MB (CK-2) CK-MB (CK-2) % Troponin I NT-Pro-B Natriuret Pep Total Protein Albumin Globulin Albumin/Globulin Ratio Salicylates Acetaminophen Alcohol, Quantitative Influenza Typ A,B (EIA) Negative for flu a/b 08/01/18 08/01/18 08/01/18 15:33 15:33 15:33 WBC RBC Hgb Hct MCV MCH MCHC RDW Plt Count MPV Gran % Lymph % (Auto) [place] % (Auto) Eos % (Auto) Baso % (Auto) Gran # Lymph # (Auto) [place] # (Auto) Eos # (Auto) Baso # (Auto) PT 11.8 INR 1.03 APTT 24.5 L pCO2 pO2 HCO3 ABG pH ABG Total CO2 ABG O2 Saturation ABG O2 Content ABG Base Excess ABG Hemoglobin ABG Carboxyhemoglobin POC ABG HHb (Measured) ABG Methemoglobin ABG O2 Capacity Hgb O2 Saturation FiO2 Sodium 138 Potassium 4.6 Chloride 94 L Carbon Dioxide 32 Anion Gap 16 BUN 69 H Creatinine 6.0 H Est GFR ( Amer) 9 Est GFR (Non-Af Amer) 7 Random Glucose 101 Calcium 9.1 Phosphorus 5.3 H Magnesium 2.4 H Total Bilirubin 0.8 AST 38 H D ALT 26 Alkaline Phosphatase 60 Lactate Dehydrogenase 493 Total Creatine Kinase 432 H CK-MB (CK-2) 17.7 H CK-MB (CK-2) % 4.1 H Troponin I < 0.01 D NT-Pro-B Natriuret Pep 3610 H Total Protein 6.9 Albumin 4.0 Globulin 2.9 Albumin/Globulin Ratio 1.4 Salicylates < 1 L Acetaminophen < 10.0 L Alcohol, Quantitative Influenza Typ A,B (EIA) 08/01/18 15:33 WBC RBC Hgb Hct MCV MCH MCHC RDW Plt Count MPV Gran % Lymph % (Auto) [place] % (Auto) Eos % (Auto) Baso % (Auto) Gran # Lymph # (Auto) [place] # (Auto) Eos # (Auto) Baso # (Auto) PT INR APTT pCO2 pO2 HCO3 ABG pH ABG Total CO2 ABG O2 Saturation ABG O2 Content ABG Base Excess ABG Hemoglobin ABG Carboxyhemoglobin POC ABG HHb (Measured) ABG Methemoglobin ABG O2 Capacity Hgb O2 Saturation FiO2 Sodium Potassium Chloride Carbon Dioxide Anion Gap BUN Creatinine Est GFR ( Amer) Est GFR (Non-Af Amer) Random Glucose Calcium Phosphorus Magnesium Total Bilirubin AST ALT Alkaline Phosphatase Lactate Dehydrogenase Total Creatine Kinase CK-MB (CK-2) CK-MB (CK-2) % Troponin I NT-Pro-B Natriuret Pep Total Protein Albumin Globulin Albumin/Globulin Ratio Salicylates Acetaminophen Alcohol, Quantitative < 10 Influenza Typ A,B (EIA) - Imaging and Cardiology Chest x-ray Status: Image reviewed by me, Report reviewed by me Assessment & Plan - Assessment and Plan (Free Text) Assessment: 58yo female with PMHx COPD, Diastolic CHF, and pulm HTN with acute renal failure - currently afebrile, BP stable, comfortable in NAD, AAOx3, providing full history, although tangential at times - CXR without focal consolidation - labs, imaging, chart reviewed, and significant for ARF, normal K, ABG with chronic resp acidosis - NO EKG changes Recommend: - supp o2 as needed, goal sat 90%, BIPAP at night - Solumedrol 40mg IV BID - IVF, NS - renal consult - obtain UA, Ulytes, Renal Sono - HOLD Lasix, LARS-I - Duonebs PRN - GI ppx - DVT ppx - monitor on telemetry Re-consult as needed
[2018-08-01 17:05] LABS: URINE BILIRUBIN NEGATIVE (NEGATIVE); URINE BLOOD NEGATIVE (NEGATIVE); URINE GLUCOSE (UA) NEGATIVE (NEGATIVE); URINE LEUKOCYTE ESTERASE NEGATIVE Leu/uL (NEGATIVE); URINE PROTEIN NEGATIVE mg/dL (<30 mg/dL); URINE UROBILINOGEN 0.2 E.U./dL (<1 E.U./dL)
[2018-08-01 17:06] LABS: URINE APPEARANCE CLEAR (CLEAR); URINE COLOR YELLOW (YELLOW)
[2018-08-01 17:24] LABS: OPIATES, UR NEGATIVE (NEGATIVE); PHENCYCLIDINE, UR NEGATIVE (NEGATIVE)
[2018-08-01 17:34] LABS: BARBITURATES, UR NEGATIVE (NEGATIVE); BENZODIAZEPINES, UR POSITIVE (NEGATIVE)
[2018-08-01] MEDS ORDERED: Albuterol-Ipratrop 3 mg / 0.5 (3 ml) UD IH PRN (19:12)
--- NOTE | 2018-08-01 21:38 | HP ---
DATE OF EXAM: 08/01/2018 HISTORY OF PRESENT ILLNESS: The patient is a 58-year-old known to me from before, was brought to emergency room after family noted that she was acting strange. The patient lives with her son. According to son, Miguel Angel, she has not been acting normal. She has not been eating well and states she has no appetite. No history of fever or chills. No history of nausea or vomiting. No history of diarrhea. PAST MEDICAL HISTORY: Significant for: 1. COPD. 2. Hypertension. 3. History of respiratory failure in the past, was intubated. 4. Anxiety disorder. 5. Chronic back pain. 6. Mitral regurgitation. 7. Tricuspid regurgitation. ALLERGIES: SHE IS NOT ALLERGIC TO ANY MEDICATIONS. MEDICATIONS AT HOME: She is on Klonopin 1 mg 3 times a day. She is on Spiriva. She is on lisinopril, Lasix, potassium, , bupropion, and Chantix. SOCIAL HISTORY: She is single, lives with her son, was a heavy smoker, and still smokes here and there. PHYSICAL EXAMINATION: GENERAL: Somewhat confused, disoriented. VITAL SIGNS: She is afebrile, pulse 84, respirations 16, and blood pressure 93/54. LUNGS: Bilateral diffusely decreased breath sounds. HEART: S1 and S2 audible. ABDOMEN: Soft and nontender. No rebound. No guarding. NEUROLOGIC: The patient is awake and alert, but confused and disoriented. LABORATORY DATA: WBC 7.1, hemoglobin 11.6, hematocrit 36, and platelets 215. PT 11.8. INR 1.03. Chemistry; sodium 138, potassium 4.6, chloride 94, CO2 of 32. BUN 69, creatinine 6, and blood sugar 101. LFTs are within normal limits. BNP 3610. CPK is 432. ASSESSMENT: 1. Acute renal failure secondary to diuretics and angiotensin-converting enzymes inhibitors. 2. History of chronic obstructive pulmonary disease. 3. Respiratory insufficiency. 4. Anxiety disorder. PLAN: We will give her IV fluids. Continue nebulizer treatment. Nephrology consult by Dr. Jacques and Cardiology consult by Dr. Monsalve has been requested. Reji Cordova MD
[2018-08-01] MEDS: MethylPREDNISolone 40 mg Vial IV SCH (21:42)
[2018-08-02] MEDS: Albuterol-Ipratrop 3 mg / 0.5 (3 ml) UD IH SCH ×3 (08:35→20:29)
[2018-08-02 09:04] LABS: BASO # 0.01 K/mm3 (0.0-2.0); BASO % 0.2 % (0.0-3.0); GRAN # 4.71 (1.4-6.5); GRAN % 89.2 % (50.0-68.0); HEMOGLOBIN 10.8 g/dL (12.0-16.0); LYMPH # 0.5 (1.2-3.4); LYMPH % 9.1 % (22.0-35.0); MEAN CELL VOLUME 100.6 fl (80.0-105.0); MEAN CORPUSCULAR HEMOGLOBIN 31.9 pg (25.0-35.0); MEAN CORPUSCULAR HGB CONC 31.7 g/dl (31.0-37.0); MEAN PLATELET VOLUME 10.7 fl (7.0-11.0); MONO # 0.1 (0.1-0.6); MONO % 1.5 % (1.0-6.0); RBC 3.39 10^6/uL (3.5-6.1); RED CELL DISTRIBUTION WIDTH 14.3 % (11.5-14.5); WHITE BLOOD COUNT 5.3 10^3/uL (4.5-11.0)
[2018-08-02 09:24] LABS: ALB/GLOB RATIO 1.4 (1.1-1.8); ALBUMIN 3.5 g/dL (3.0-4.8); CALCIUM 8.7 mg/dL (8.4-10.5)
--- NOTE | 2018-08-02 10:09 | CON ---
DATE: 08/02/2018 REFERRING PHYSICIAN: Dr. Cordova. REASON FOR CONSULTATION: Evaluation of a patient unknown to me, who presents with acute renal failure in the setting of dehydration, diuretic use at home, and use of LARS inhibitors. HISTORY OF PRESENT ILLNESS: The patient is a 58-year-old white female with a past history of substance abuse, currently on methadone, history of COPD from cigarette smoking, she quit 1 year ago, history of hypertension, history of generalized anxiety disorder, history of anemia, the patient presented to the emergency room 1 day ago complaining of possible altered mental status. She was brought in by family. She was noted to have a BUN of 69 and a creatinine of 6.0. Looking back into her past medical history, her maximum BUN was in the 30 to 40 range with a creatinine of less than 1. The patient states she has had no nausea, vomiting or diarrhea, but she states her fluid intake had significantly decreased over the last several days. She continued using diuretic therapy, and she remained on an LARS inhibitor. Of note, the patient had a kidney ultrasound done approximately 1 year ago only of the right upper quadrant, which showed a normal right kidney. The left kidney was not visualized. The patient is currently making adequate amounts of urine. She remains on IV fluid hydration. Repeat blood work is pending. PAST MEDICAL HISTORY: Significant for that of COPD, hypertension, history of substance abuse, history of generalized anxiety disorder, history of anemia. The patient appears to be on chronic methadone maintenance program. MEDICATIONS: Medications at home include that of albuterol, Spiriva, Mysoline, K-Tabs, lisinopril with hydrochlorothiazide, Pepcid, Lasix, Klonopin, Incruse Ellipta, Advair Diskus, Wellbutrin, and Chantix in the past. ALLERGIES: NO KNOWN ALLERGIES TO MEDICATIONS. CURRENT MEDICATIONS IN HOSPITAL: Include that of DuoNeb, Klonopin, Pepcid, normal saline 200 mL an hour, Solu-Medrol, Tylenol p.r.n. and Zofran p.r.n. SOCIAL HISTORY: Past history of cigarette smoking. No history of alcohol use. Past history of narcotic use. The patient is on methadone maintenance program. FAMILY HISTORY: Father of complications of heart disease. Mother of hypertension or heart disease. No history of kidney disease. REVIEW OF SYSTEMS: Ten plus systems reviewed with the patient. All negative except for what is noted above. GENERAL: The patient states appetite decreased for last several days. Weight has been stable. ENT: Denies any hearing or visual problems. PULMONARY: Chronic shortness of breath secondary to COPD. CARDIAC: No known history of coronary artery disease. GI: No nausea, vomiting, diarrhea, constipation, or abdominal pain. : No complaints. HEAD OF ADVERTISING: Postmenopausal. ENDOCRINE: No history of diabetes. MUSCULOSKELETAL: No complaints. NEURO: No issues. No history of syncope. No seizures. No strokes. No TIAs. HEM/ONC: History of mild anemia. No history of malignancy. PSYCHIATRIC: History is positive for anxiety disorder. PHYSICAL EXAMINATION: GENERAL: The patient is currently seen on telemetry. VITAL SIGNS: Blood pressure 101/69, temperature 98.6, respiratory rate of 19 with a pulse of 78. HEENT: Exam shows her to be normocephalic, atraumatic. Conjunctivae are pink. Sclerae are nonicteric. Pupils are equal, reactive to light and accommodation. Extraocular muscles are intact. Posterior pharynx is normal. NECK: Supple. No neck vein distention. No thyromegaly. No lymphadenopathy. No bruits. CHEST: Clear to auscultation and percussion. No rales, rhonchi, or wheezing. CARDIOVASCULAR: Shows irregular rate and rhythm without audible murmurs, rubs or gallops. ABDOMEN: Soft. Bowel sounds normal. No rebound, guarding or masses. No suprapubic tenderness. BACK: No CVAT. No spinal tenderness. EXTREMITIES: Show no lower extremity cyanosis, clubbing or edema. Distal lower extremity pulses are 1 to 2+ bilaterally. NEURO: Shows her be alert and oriented x3 with no gross focal motor or sensory deficits noted. No asterixis. LABORATORY DATA AND IMAGING STUDIES: Admitting chest x-ray showed no acute pulmonary disease. Admitting head CT showed no acute findings. Admitting EKG showed a normal sinus rhythm. Abdominal ultrasound done approximately 1 year ago showed a normal right kidney, but non-visualized left kidney. It was only a right upper quadrant ultrasound. Labs: CBC: White blood cell count 7.1, hemoglobin 11.6, a platelet count of 215,000. Coags are normal. Blood gas on admission pH 7.30, pCO2 of 68 with a pO2 of 64. FIO2 was 32%. Chemistries showed essentially normal electrolytes. BUN 69 with a creatinine of 6. Phosphorus was 5.3 with a calcium of 9.1 and magnesium 2.4. Mild elevation of her AST at 38. Otherwise liver enzymes were normal. Albumin was 4. Elevated CPK at 432. Elevated CPK-MB with a negative troponin. Urines were unremarkable. No protein or blood. Toxicology screen was positive for methadone and for benzodiazepines. Influenza serologies were negative. Microbiology, no cultures available for comment. ASSESSMENT: 1. Acute renal failure in a patient with no significant past renal history. She has had mild elevations of BUN in the past, perhaps secondary to steroid use for her chronic obstructive pulmonary disease. Her baseline creatinine is at or less than 1. Her urine is completely normal. The patient gives a clinical history of several days of decreased volume intake, dehydration, using combination therapy with diuretics and using an LARS inhibitor. I will obtain a urine sodium and urine creatinine. I will obtain a urine Deepak stain. This will likely be negative. I will obtain a renal ultrasound to make sure that she has two normal size kidneys without any obstruction. In all likelihood, after several days of IV fluid hydration, her BUN and creatinine should fall back to normal. 2. History of chronic obstructive pulmonary disease secondary to long history of cigarette smoking. Note: Elevated pCO2 level. The patient continues on steroids and inhalation therapy. 3. Past history of hypertension. She is currently normotensive and resolved with blood pressure medication. The patient likely should not be discharged home on diuretic therapy. Once her renal parameter is normalized, she may restart her LARS inhibitor. 4. History of generalized anxiety disorder. She will continue present medications. 5. Mild anemia. No workup necessary at this point in time. 6. Past history of narcotic use and on methadone maintenance program. PLAN: 1. Urine sodium, urine creatinine, urine Deepak stain as outlined above. 2. Obtain renal ultrasound. 3. Continue IV fluid hydration. She is currently on 200 mL an hour. She will need to have daily labs to monitor her electrolytes. 4. I expect her BUN and creatinine to fall back to baseline levels within 24-48 hours with adequate hydration. 5. I would seriously consider not using diuretic therapy at home, and once her BUN and creatinine fall to baseline level, she may be restarted back on her LARS inhibitor if she requires this for her blood pressure control. 6. P.r.n. binder therapy and a renal diet, if her BUN and creatinine did not fall to baseline. 7. Will followup with a second CPK level in light of her mild elevation of CPK. No evidence for coronary ischemia. Troponin levels are negative. Thank you for letting me partake and share in the care of your patient. Gaetano Wilkes MD
--- NOTE | 2018-08-02 11:00 | US ---
Date of service: 08/02/2018 PROCEDURE: Ultrasound of the Kidneys HISTORY: ARF R/O hydro, check kidney size COMPARISON: 09/08/2017. TECHNIQUE: Sonogram of the kidneys. FINDINGS: RIGHT KIDNEY: Measures: 4.2 x 9.6 x 4.1 cm. Normal in size, contour and echogenicity. No stone, solid mass lesion or hydronephrosis visualized. LEFT KIDNEY: Measures: 4.4 x 10.1 x 4.6 cm. Normal in size, contour and echogenicity. No stone, solid mass lesion or hydronephrosis visualized. OTHER FINDINGS: None. IMPRESSION: Unremarkable renal sonogram.No significant interval change compared to the prior examination(s).
[2018-08-02] MEDS: MethylPREDNISolone 40 mg Vial IV SCH ×2 (11:12→21:14)
--- NOTE | 2018-08-02 15:20 | CON ---
DATE: 08/02/2018 REASON FOR CONSULTATION: Altered mental status. The patient is unable to provide reasonable information except for the fact that her son insisted on her going to the emergency room. HISTORY OF PRESENT ILLNESS: The patient is a 58 years old female, who has a history of chronic obstructive lung disease, on nasal O2 at home, history of chronic back pain, history of respiratory failure in the past requiring intubation and mechanical ventilation, and history of anxiety disorder, who was brought in by son because she was acting strange and she was not eating well with very poor appetite. At the time of my interview, the patient denies any chest pain and denies any productive cough and is unaware of any fever or chills. SOCIAL HISTORY: The patient lives with her son. She is a heavy smoker. MEDICATIONS: D5 half normal saline 75 mL an hour, albuterol inhaler every 2 hours p.r.n., Klonopin 1 mg t.i.d. p.r.n., Pepcid 20 mg p.o. twice a day, Solu-Medrol 20 mg intravenously every 12 hours, Zofran 4 mg intravenously every 6 hours p.r.n. REVIEW OF SYSTEMS: No fever or chills. No nausea or vomiting. No diarrhea. No recent fall. PHYSICAL EXAMINATION: GENERAL: The patient is a middle-aged female, who does not appear to be in any distress. VITAL SIGNS: Blood pressure 101/69, heart rate 78, temperature 98.6, respirations 19. HEENT: Normocephalic. CHEST: Bilateral rhonchi. HEART: S1 and S2 regular. ABDOMEN: Soft. EXTREMITIES: No edema. LABORATORY DATA: Hemoglobin and hematocrit are 10.8 and 34.1, white count and platelet count are within normal limits. The SMA-7, sodium 141, potassium 5.3, chloride 106, CO2 of 29, glucose 98, BUN 48, creatinine 3.2. Yesterday's creatinine was 6. ProBNP is 3610. INR is 1.03. PTT 24.5. Urine drug screen is positive for methadone and benzodiazepines. Influenza type A and B serology is negative. EKG revealed sinus rhythm with low voltage, QRS complex, nonspecific ST-T wave changes, heart rate is 80. Head CT scan, no evidence of acute intracranial findings. Chest x-ray revealed slightly widened mediastinum, prominent bronchovascular markings. Echocardiographic study performed in 08/2017 revealed normal ejection fraction in the range of 70-75% with moderately reduced right ventricular systolic function and right ventricular systolic pressure estimated at 61 mmHg. ASSESSMENT: 1. Altered mental status. 2. Acute renal insufficiency, which is currently improving. 3. Moderate to severe pulmonary hypertension. 4. Rule out underlying sepsis. RECOMMENDATIONS: Continue current D5 half normal saline hydration at 75 mL an hour. Continue Solu-Medrol 20 mg intravenously every 12 hours, Pepcid 20 mg p.o. twice a day. Obtain two sets of blood cultures. Repeat an echocardiographic study. Danny Cruz MD
[2018-08-02] MEDS: Dextrose 5%/0.45% NS 1,000 ML IV SCH (16:25)
[2018-08-03] MEDS: Albuterol-Ipratrop 3 mg / 0.5 (3 ml) UD IH SCH ×4 (03:17→20:33)
[2018-08-03] MEDS: Dextrose 5%/0.45% NS 1,000 ML IV SCH ×2 (04:21→14:18)
[2018-08-03 06:53] LABS: HEMOGLOBIN 10.2 g/dL (12.0-16.0); MEAN CELL VOLUME 99.7 fl (80.0-105.0); MEAN CORPUSCULAR HEMOGLOBIN 32.2 pg (25.0-35.0); MEAN CORPUSCULAR HGB CONC 32.3 g/dl (31.0-37.0); MEAN PLATELET VOLUME 10.4 fl (7.0-11.0); RBC 3.17 10^6/uL (3.5-6.1); WHITE BLOOD COUNT 6.9 10^3/uL (4.5-11.0)
[2018-08-03 06:55] LABS: ALB/GLOB RATIO 1.4 (1.1-1.8); ALBUMIN 3.4 g/dL (3.0-4.8); CALCIUM 8.9 mg/dL (8.4-10.5)
[2018-08-03] MEDS: MethylPREDNISolone 40 mg Vial IV SCH ×2 (10:55→21:24)
[2018-08-03] MEDS: Potassium & Sodium Phosphate PO SCH (15:32)
--- NOTE | 2018-08-03 15:40 | PN ---
DATE: 08/03/2018 SUBJECTIVE: The patient has no complaints of any chest pain. No shortness of breath. No headaches or dizziness. PHYSICAL EXAMINATION: VITAL SIGNS: Temperature is 98.2, pulse of 82, blood pressure 115/75 and respirations are 18. GENERAL: The patient is lying in bed, flat, comfortable. HEENT: No oral lesion. Anicteric sclerae. Moist mucosa. NECK: No JVD, adenopathy, or thyromegaly. CARDIOVASCULAR: S1 and S2, regular. No murmurs, rubs, or gallops. LUNGS: Clear to auscultation bilaterally. No wheeze, rales, or rhonchi. ABDOMEN: Bowel sounds are positive, soft, nontender and nondistended. EXTREMITIES: No cyanosis, clubbing or edema. LABORATORY DATA: White count of 6.9 and hemoglobin 10.2. Creatinine is 1.9. ASSESSMENT: 1. Acute kidney injury. 2. Chronic obstructive pulmonary disease. 3. Anxiety disorder. 4. Anemia. PLAN: The patient's creatinine is improving significantly. The patient's creatinine is 1.9 at this point. She is on D5 half normal saline. She is receiving potassium and phosphorous. She is steroids. She is on Tylenol as needed. She is on BiPAP. We will repeat her blood work tomorrow. Tomás Christensen MD
--- NOTE | 2018-08-03 16:40 | PN ---
DATE: 08/03/2018 SUBJECTIVE: The patient is currently seen lying comfortable supine in bed, IV fluids are infusing. Her BUN and creatinine have significantly improved. She is down to 36 and 1.9 from a BUN of 69 and creatinine of 6. IV fluid hydration had been decreased. She also remains off diuretic therapy and off her LARS inhibitor. MEDICATIONS: Medication list reviewed. The patient is on D5 half-normal saline 75 ml an hour, DuoNeb, Klonopin, Pepcid, Solu-Medrol, Tylenol p.r.n. and Zofran p.r.n. OBJECTIVE: INTAKE/OUTPUT: Intake is 1200, output is 400. VITAL SIGNS: Blood pressure 130/76, temperature 98.8, respiratory rate 20 with a pulse of 89. HEENT: Exam shows her to be normocephalic, atraumatic. Conjunctivae are pale. Sclerae are nonicteric. NECK: Supple. No neck vein distention. CHEST: Clear to auscultation and percussion. No rales, rhonchi or wheezing. CARDIOVASCULAR: Shows a regular rate and rhythm with no audible murmurs, rubs or gallops. ABDOMEN: Soft. Bowel sounds normal. No rebound, guarding or masses. EXTREMITIES: Show no lower extremity cyanosis, clubbing or edema. Distal lower extremity pulses remain reduced at 1 to 2 plus. LABORATORY DATA AND IMAGING STUDIES . Renal ultrasound was unremarkable. No obstructive uropathy. Normal echogenicity. Normal kidney size. Labs; CBC, white blood cell count is 6.9, hemoglobin slightly lower AT 10.2 with hydration. Platelet count is 223,000. Chemistry showed normal electrolytes. Potassium is now normal at 4.2. BUN is down from 69 to 36. Creatinine is down from 6 to 1.9. Her baseline BUN is in the upper 20 to low 30 range with a baseline creatinine of around 1. Glucose is 137. Calcium is 8.9. Phosphorus was low at 2.2. Magnesium was 2. Liver enzymes were normal. Albumin was 3.4. Urinalysis is unremarkable. There was a report of positive urine eosinophils. Of note, the patient had no white blood cells in her urine. Fractional secretion of sodium was greater than 1%. Blood cultures are negative at 24 hours. ASSESSMENT: 1. Acute renal failure in a patient with no significant past renal history other than mild prerenal azotemia likely secondary to steroids and diuretic therapy. The patient's BUN and creatinine is rapidly approaching baseline. Perhaps one more day of IV fluid hydration and she would be completely back to her baseline levels. I am not certain of the results of the positive urine eosinophils as the patient had no white blood cells in her urine and she is responding to IV fluid hydration. Her renal ultrasound was negative for obstructive uropathy. Kidney size is normal. 2. History of chronic obstructive pulmonary disease secondary to long history of cigarette smoking. The patient will continue on steroids and inhalation therapy. This will likely leave her BUN slightly above normal levels. 3. Past history of hypertension. She is currently normotensive with her blood pressures coming up. Once her creatinine is 1, the patient may be restarted back on an LARS inhibitor or for that matter we could use calcium channel jamie. 4. History of generalized anxiety disorder. The patient will continue present medications. 5. History of mild anemia, stable. 6. Past history of narcotic use. The patient states that she is on methadone maintenance in the outpatient setting. 7. Elevated CPK; will repeat a level with tomorrow's labs. PLAN: 1. The patient is improving from renal standpoint. I would likely continue hydration perhaps one more day and then discontinue. 2. The patient may be either restarted back on her LARS inhibitor or she may receive a calcium channel jamie for blood pressure control. 3. I would hold diuretic therapy only for edema. She does not need to be taking hydrochlorothiazide together with Lasix. 4. Continue renal followup on a daily basis throughout her hospitalization. Gaetano Wilkes MD
--- NOTE | 2018-08-03 18:06 | PN ---
DATE: 08/03/2018 SUBJECTIVE: The patient denies chest pain or abdominal pain. PHYSICAL EXAMINATION: VITAL SIGNS: Blood pressure 115/75, heart rate 82, temperature 98.2 and respiration 18. HEENT: Normocephalic. CHEST: Clear. HEART: S1 and S2, regular. EXTREMITIES: No edema. LABORATORY DATA: Hemoglobin and hematocrit 10.2 and 31.6. White count and platelet count are within normal limits. Today's BUN and creatinine are 36 and 1.9 respectively. Glucose 139. Blood cultures are negative 24 hours. ASSESSMENT: 1. Altered mental status on admission. 2. Improving renal insufficiency. 3. [id number] pulmonary hypertension. RECOMMENDATIONS: Continue current albuterol inhaler, Solu-Medrol 20 mg intravenously 12 hours, neutrophils 1 packet daily, Klonopin 1 mg t.i.d. p.r.n. for anxiety. Danny Cruz MD
[2018-08-04] MEDS: Albuterol-Ipratrop 3 mg / 0.5 (3 ml) UD IH SCH ×3 (01:18→13:15)
[2018-08-04 01:21] VITALS: BP 122/75; PULSE 90; RESP 18; TEMP 97.9; O2SAT 98
[2018-08-04] MEDS: Dextrose 5%/0.45% NS 1,000 ML IV SCH (03:39)
[2018-08-04 07:38] LABS: HEMOGLOBIN 10.5 g/dL (12.0-16.0); MEAN CELL VOLUME 99.7 fl (80.0-105.0); MEAN CORPUSCULAR HEMOGLOBIN 32.1 pg (25.0-35.0); MEAN CORPUSCULAR HGB CONC 32.2 g/dl (31.0-37.0); MEAN PLATELET VOLUME 9.8 fl (7.0-11.0); RBC 3.27 10^6/uL (3.5-6.1); RED CELL DISTRIBUTION WIDTH 14.1 % (11.5-14.5); WHITE BLOOD COUNT 7.8 10^3/uL (4.5-11.0)
[2018-08-04 08:03] LABS: ALB/GLOB RATIO 1.4 (1.1-1.8); ALBUMIN 3.4 g/dL (3.0-4.8); CALCIUM 9.2 mg/dL (8.4-10.5)
--- NOTE | 2018-08-04 08:39 | CP.PCM.PN ---
Subjective - Date & Time of Evaluation Date of Evaluation: 08/04/18 Time of Evaluation: 07:00 - Subjective Subjective: Awake, alert, no distress, on BIPAP Reason for consultation and follow up: Cardiac evaluation of shortness of breath, history of COPD, on home oxygen,admitted for altered mental status Seen and examined by me and Dr. Dinero Objective - Vital Signs/Intake and Output Vital Signs (last 24 hours): Temp Pulse Resp BP Pulse Ox 97.9 F 90 18 122/75 98 08/04/18 05:26 08/04/18 05:26 08/04/18 05:26 08/04/18 05:26 08/04/18 05:26 Intake and Output: 08/04/18 08/04/18 06:59 18:59 Intake Total 720 Balance 720 - Medications Medications: Current Medications Acetaminophen (Tylenol 325mg Tab) 650 mg PO Q6H PRN PRN Reason: Fever >100.4 F Albuterol/Ipratropium (Duoneb 3 Mg/0.5 Mg (3 Ml) Ud) 3 ml IH Q2H PRN PRN Reason: Shortness of Breath Last Admin: 08/03/18 17:26 Dose: 3 ml Albuterol/Ipratropium (Duoneb 3 Mg/0.5 Mg (3 Ml) Ud) 3 ml IH [id number] [facility] Last Admin: 08/04/18 01:18 Dose: 3 ml Clonazepam (Klonopin) 1 mg PO TID PRN; Protocol PRN Reason: Anxiety Famotidine (Pepcid) 20 mg PO BID [facility] Last Admin: 08/03/18 17:49 Dose: 20 mg Dextrose/Sodium Chloride (Dextrose 5%/0.45% Ns 1000 Ml) 1,000 mls @ 75 mls/hr IV [id number] [facility] Last Admin: 08/04/18 03:39 Dose: 75 mls/hr Methylprednisolone (Solu-Medrol) 20 mg IV Q12 [facility] Last Admin: 08/03/18 21:24 Dose: 20 mg Ondansetron HCl (Zofran Inj) 4 mg IVP Q6H PRN PRN Reason: Nausea/Vomiting Potassium Phos/Sodium Phos (Neutra-Phos) 1 pkt PO DAILY [facility] Last Admin: 08/03/18 15:32 Dose: 1 pkt - Labs Labs: 08/04/18 07:10 08/04/18 07:10 PT 11.8 SECONDS (9.4-12.5) 08/01/18 15:33 INR 1.03 08/01/18 15:33 APTT 24.5 Seconds (25.1-36.5) L 08/01/18 15:33 - Constitutional Appears: Non-toxic, No Acute Distress - Head Exam Head Exam: NORMAL INSPECTION, NORMOCEPHALIC - Eye Exam Eye Exam: Normal appearance Pupil Exam: NORMAL ACCOMODATION - ENT Exam ENT Exam: Mucous Membranes Moist, Normal Exam - Respiratory Exam Respiratory Exam: Decreased Breath Sounds, Clear to Ausculation Bilateral, NORMAL BREATHING PATTERN - Cardiovascular Exam Cardiovascular Exam: +S1, +S2 - GI/Abdominal Exam GI & Abdominal Exam: Soft, Normal Bowel Sounds - Extremities Exam Extremities Exam: Full ROM, Normal Capillary Refill - Neurological Exam Neurological Exam: Alert, Awake, Oriented x3 - Psychiatric Exam Psychiatric exam: Normal Affect, Normal Mood - Skin Skin Exam: Dry, Normal Color, Warm Assessment and Plan - Assessment and Plan (Free Text) Assessment: A 58 year old female who was brought to the ER due to altered mental status. History of COPD on home O2. History of respiratory distress in the past requiring intubation and mechanical ventilation.History of bronchitis and arthritis. Current smoker. Urine drug screen positive for methadone and benzodiazepines. Echo on 08/2017 showed LVEF 70-75%, with moderately reduced right ventricle systolic function,RVSP 61 mmHg. Rule out myocardial infarction. moderate pulmonary hypertension,exacerbation of COPD. Plan: Denies shortness of breath Wanted to go home Heart rate and blood pressure controlled Continue current medications Continue current treatment Blood cultures negative after 48 hours Will follow up Lifestyle modifications Smoking cessation Plan and treatment discussed with Dr. Dinero
[2018-08-04] MEDS: Potassium & Sodium Phosphate PO SCH (09:06)
[2018-08-04] MEDS: MethylPREDNISolone 40 mg Vial IV SCH (09:06)
--- NOTE | 2018-08-04 09:11 | PN ---
DATE: 08/02/2018 SUBJECTIVE: The patient is 58-year-old, seen and examined, looks more lot better, fully awake, alert, and oriented, communicative. PHYSICAL EXAMINATION: VITAL SIGNS: She is afebrile, pulse 78, respirations 19, and blood pressure 101/69. LUNGS: Bilateral fair airflow. No rhonchi or crackles. HEART: S1 and S2 audible. ABDOMEN: Soft and nontender. No rebound. No guarding. NEUROLOGICAL: The patient is awake, alert, oriented, communicative. LABORATORY DATA: WBC is 5.3, hemoglobin 10.8, hematocrit 34.1, and platelets of 221. Chemistry: Sodium 141, potassium 4.3, chloride 106, CO2 of 29, BUN 48, creatinine 3.2, and blood sugar of 98. Urinalysis is unremarkable. Methadone test is positive. Benzodiazepine is positive. Flu test is negative. Renal sonogram is unremarkable. ASSESSMENT: 1. Acute renal failure secondary to poor oral intake. The patient states she has not been feeling for the last 2-3 days and she has history of irritable bowel syndrome. So, she thought by not eating and drinking, her belly will settle down. However, she was found to be in acute renal failure and altered mental status. The patient has responded well to intravenous fluids. 2. History of chronic obstructive pulmonary disease. 3. Active smoker. 4. History of hypertension. PLAN: We will continue her on steroids, continue nebulizer treatment, cut down her IV fluids to 75 mL for another 24 hours. We will follow her CMP again in the a.m. and cut down fluids since her oral intake seems to be poor. Reji Cordova MD
--- NOTE | 2018-08-04 17:12 | PN ---
DATE: 08/04/2018 REASON FOR CONSULTATION AND FOLLOWUP: Cardiac evaluation, having shortness of breath, COPD on home oxygen, admitted with altered mental status and renal insufficiency, acute renal failure, improved. This note is in addition to dictated by the nurse practitioner, Thais Cavazos. Now the patient feels a lot better on home oxygen. Last echo dated 08/2017, ejection fraction of 70-75% moderately reduced RV systolic function, RV systolic pressure is 71. History of pulmonary hypertension, history of COPD. RECOMMENDATIONS: Continue albuterol, continue Solu-Medrol. Continue aggressive treatment for chronic obstructive pulmonary disease, CVS status stable. The patient came in with acute renal failure ____ now the creatinine trending 1.3 today. Thank you ____, for providing us the opportunity in taking care of the patient Gisela Aranda. CVS status is stable. Gerardo Dinero MD
--- NOTE | 2018-08-06 10:05 | DS ---
HISTORY OF PRESENT ILLNESS: Patient is 58-year-old, who was admitted after she was found to be in acute renal failure. Patient states she was not feeling well for 2 to 3 days prior to coming and she was scared she was going to get IBS. So, she stopped eating and drinking to rest her stomach and family founding her to be disoriented and when her workup was started and she was found to be in acute renal failure. She responded very well to IV fluids and her admitting creatinine was 6 with BUN of 69, today it is 22/1.3. PHYSICAL EXAMINATION: GENERAL: Patient is fully awake, alert, oriented, communicative, wants to go home for [facility]. VITAL SIGNS: She is afebrile, pulse 90, respirations 18, blood pressure 122/75. LUNGS: Bilateral fair airflow. No rhonchi or crackle. HEART: S1 and S2 audible. ABDOMEN: Soft, nontender. No rebound. No guarding. NEUROLOGIC: The patient is awake, alert, oriented, communicative. LABORATORY DATA: WBC 7.8, hemoglobin 10.5, hematocrit 32.6, platelet of 213. Chemistry: Sodium 140, potassium 4.4, chloride 107, CO2 of 20, BUN 22, creatinine 1.3, blood sugar of 118. ASSESSMENT: 1. Acute renal failure secondary to poor oral intake. 2. History of irritable bowel syndrome. 3. Chronic obstructive pulmonary disease. 4. History of hypertension. 5. Anxiety disorder. PLAN: The patient can be discharged home today. She can resume her medication. She is advised to follow up in office on Saturday, so we can repeat her chem-7 and she can resume all her medication including a nebulizer at home. Reji Cordova MD
== END 2018-08-04 13:48 | disposition home or self-care (01) | DRG 568 ==
LOC: ED 12:37 → ERH 16:46 → 2RNO 19:00
PROVIDERS: ADMIT Internal Medicine; ATTEND Internal Medicine
DX: N17.9 Acute kidney failure, unspecified (principal); I50.32 Chronic diastolic (congestive) heart failure; I11.0 Hypertensive heart disease with heart failure; E86.0 Dehydration; J44.9 Chronic obstructive pulmonary disease, unspecified; I08.1 Rheumatic disorders of both mitral and tricuspid valves; E87.2 Acidosis; T50.2X5A Adverse effect of carbonic-anhydrase inhibitors, benzothiadiazides and other diuretics, initial encounter; F41.1 Generalized anxiety disorder; I27.20 Pulmonary hypertension, unspecified; D64.9 Anemia, unspecified; F17.200 Nicotine dependence, unspecified, uncomplicated; K58.9 Irritable bowel syndrome, unspecified; M54.9 Dorsalgia, unspecified; G89.29 Other chronic pain; M19.90 Unspecified osteoarthritis, unspecified site; Z99.81 Dependence on supplemental oxygen